=== PATIENT | female | born 1995 | race Hispanic/Latino ===

== ENCOUNTER 2019-04-21 11:18 | Inpatient (IN) | payer OTHER ==
[~2019-04-21] VITALS: Ht 152.4 cm; Wt 63.5 kg
[~2019-04-21 11:18] MED LIST: FERROUS SULFAT324 MG
[2019-04-21] MEDS ORDERED: ONDANSETRON HCL INJ 2MG/ML 2ML 2 MG/ML VIAL IV STA ×2 (11:22→12:47)
--- OUTSIDE RECORDS SUMMARY | 2019-04-21 11:22 | XMS REPORT ---
[facility] Address Unknown Phone Unavailable Care Team Providers Care Alarm Installer Name Role Phone Unavailable Unavailable Payers Payer Name Policy Type Policy Number Effective Date Expiration Date Problems This patient has no known problems. Allergies, Adverse Reactions, Alerts Allergy Name Allergy Type Status Severity Reaction(s) Onset Date Inactive Date Treating Clinician Comments No Known Allergies DA Active U 2019-02-15 00:00:00 No Known Allergies DA Active U 2019-02-14 00:00:00 Medications This patient has no known medications. Results Test Description Test Time Test Comments Text Results Atomic Results Result Comments CBC W/MANUAL DIFF 2019-02-18 07:00:00 WHITE BLOOD CELL (test code=WBC) 11.2 K/mm3 4.5-12.5 RED BLOOD CELL (test code=RBC) 3.52 mill/mm3 3.7-5.2 HEMOGLOBIN (test code=HGB) 11.9 gram/dL 11.5-15.5 HEMATOCRIT (test code=HCT) 35.1 % 36.0-46.0 MEAN CELL VOLUME (test code=MCV) 99.7 fL 80-98 MEAN CELL HGB (test code=MCH) 33.8 picogram 27.0-33.0 MEAN CELL HGB CONCETRATION (test code=MCHC) 33.9 gram/dL 33.0-36.0 RED CELL DISTRIBUTION WIDTH (test code=RDW) 12.0 % 11.6-16.2 RED CELL DISTRIBUTION WIDTH SD (test code=RDW-SD) 43.9 fL 37.0-51.0 PLATELET COUNT (test code=PLT) 284 K/mm3 150-450 MEAN PLATELET VOLUME (test code=MPV) 10.3 fL 6.7-11.0 IMMATURE GRANULOCYTE % (test code=IG%) 0.4 % 0.0-5.0 NUCLEATED RBC % (test code=NRBC%) 0.0 % 0-0 NEUTROPHIL # (test code=NT#) 5.42 K/mm3 1.8-7.7 IMMATURE GRANULOCYTE # (test code=IG#) 0.04 x10 3/uL 0-0.03 LYMPHOCYTE # (test code=LY#) 2.67 K/mm3 1.0-5.0 MONOCYTE # (test code=MO#) 0.68 K/mm3 0-0.8 EOSINOPHIL # (test code=EO#) 2.36 K/mm3 0.0-0.5 BASOPHIL # (test code=BA#) 0.06 K/mm3 0.0-0.2 NUCLEATED RBC # (test code=NRBC#) 0.00 K/mm3 0.0-0.1 MANUAL DIFF REQUIRED (test code=MDIFF) YES STAIN ACCEPTABILITY (test code=STN ACCEPTABLE) STAIN ACCEPTABLE TOTAL CELLS COUNTED (test code=TCC) 113 #CELLS SEGMENTED NEUTROPHILS (test code=SEG) 65.5 % 39-69 BAND NEUTROPHIL (test code=BAND) 0 % 0-10 LYMPHOCYTE (test code=LYMPH) 15.0 % 25-55 REACTIVE LYMPH (test code=RELYMPH) 0 % MONOCYTE (test code=MON) 0 % 0-10 EOSINOPHIL (test code=EOS) 19.5 % 0.0-5.0 BASOPHIL (test code=BASO) 0 % 0-1.0 METAMYELOCYTE (test code=META) 0 % 0-0 MYELOCYTE (test code=MYELO) 0 % 0.0-0.0 PROMYELOCYTE (test code=PROM) 0 % 0-0 MORPHOLOGY COMMENT (test code=MOC) NORMAL PLATELET ESTIMATE (test code=PLTEST) ADEQUATE PLATELET MORPHOLOGY (test code=PLTMORPH) NORMAL IMMATURE FORMS (test code=IMMAT) 0 % 0-0 BASIC METABOLIC [id number] 06:48:00* Test Item Value Reference Range Comments SODIUM (test code=NA) 144 mmol/L 136-145 POTASSIUM (test code=K) 4.3 mmol/L 3.5-5.1 CHLORIDE (test code=CL) 111.0 mmol/L 98-107 CARBON DIOXIDE (test code=CO2) 24.0 mmol/L 21-32 ANION GAP (test code=GAP) 13.3 10-20 GLUCOSE (test code=GLU) 95 mg/dL 74-106 BLOOD UREA NITROGEN (test code=BUN) 6 mg/dL 7-18 GLOMERULAR FILTRATION RATE (test code=GFR) > 60 mL/min >=60 Estimated GFR by using Modified MDRD formula.Chronic kidney disease is defined as either kidney damageor GFR <60 mL/min/1.73 m2 for >3 months. CREATININE (test code=CREAT) 0.60 mg/dL 0.55-1.02 Note change in reference range due to change in reagent. BUN/CREATININE RATIO (test code=BUN/CREA) 9.7 10-20 CALCIUM (test code=CA) 8.7 mg/dL 8.5-10.1 BASIC METABOLIC [id number] 06:42:00* Test Item Value Reference Range Comments SODIUM (test code=NA) 144 mmol/L 136-145 POTASSIUM (test code=K) 4.3 mmol/L 3.5-5.1 CHLORIDE (test code=CL) 111.0 mmol/L 98-107 CARBON DIOXIDE (test code=CO2) mmol/L 21-32 ANION GAP (test code=GAP) 10-20 GLUCOSE (test code=GLU) mg/dL 74-106 BLOOD UREA NITROGEN (test code=BUN) mg/dL 7-18 GLOMERULAR FILTRATION RATE (test code=GFR) mL/min >=60 CREATININE (test code=CREAT) mg/dL 0.55-1.02 BUN/CREATININE RATIO (test code=BUN/CREA) 10-20 CALCIUM (test code=CA) mg/dL 8.5-10.1 CBC W/MANUAL [id number] 06:35:00* Test Item Value Reference Range Comments WHITE BLOOD CELL (test code=WBC) 11.2 K/mm3 4.5-12.5 RED BLOOD CELL (test code=RBC) 3.52 mill/mm3 3.7-5.2 HEMOGLOBIN (test code=HGB) 11.9 gram/dL 11.5-15.5 HEMATOCRIT (test code=HCT) 35.1 % 36.0-46.0 MEAN CELL VOLUME (test code=MCV) 99.7 fL 80-98 MEAN CELL HGB (test code=MCH) 33.8 picogram 27.0-33.0 MEAN CELL HGB CONCETRATION (test code=MCHC) 33.9 gram/dL 33.0-36.0 RED CELL DISTRIBUTION WIDTH (test code=RDW) 12.0 % 11.6-16.2 RED CELL DISTRIBUTION WIDTH SD (test code=RDW-SD) 43.9 fL 37.0-51.0 PLATELET COUNT (test code=PLT) 284 K/mm3 150-450 MEAN PLATELET VOLUME (test code=MPV) 10.3 fL 6.7-11.0 IMMATURE GRANULOCYTE % (test code=IG%) 0.4 % 0.0-5.0 NUCLEATED RBC % (test code=NRBC%) 0.0 % 0-0 NEUTROPHIL # (test code=NT#) 5.42 K/mm3 1.8-7.7 IMMATURE GRANULOCYTE # (test code=IG#) 0.04 x10 3/uL 0-0.03 LYMPHOCYTE # (test code=LY#) 2.67 K/mm3 1.0-5.0 MONOCYTE # (test code=MO#) 0.68 K/mm3 0-0.8 EOSINOPHIL # (test code=EO#) 2.36 K/mm3 0.0-0.5 BASOPHIL # (test code=BA#) 0.06 K/mm3 0.0-0.2 NUCLEATED RBC # (test code=NRBC#) 0.00 K/mm3 0.0-0.1 MANUAL DIFF REQUIRED (test code=MDIFF) YES STAIN ACCEPTABILITY (test code=STN ACCEPTABLE) TOTAL CELLS COUNTED (test code=TCC) #CELLS SEGMENTED NEUTROPHILS (test code=SEG) % 39-69 LYMPHOCYTE (test code=LYMPH) % 25-55 MONOCYTE (test code=MON) % 0-10 EOSINOPHIL (test code=EOS) % 0.0-5.0 CABOT RINGS (test code=CAB) MORPHOLOGY COMMENT (test code=MOC) PLATELET ESTIMATE (test code=PLTEST) PLATELET MORPHOLOGY (test code=PLTMORPH) CBC W/MANUAL [id number] 06:35:00* Test Item Value Reference Range Comments WHITE BLOOD CELL (test code=WBC) 11.2 K/mm3 4.5-12.5 RED BLOOD CELL (test code=RBC) 3.52 mill/mm3 3.7-5.2 HEMOGLOBIN (test code=HGB) 11.9 gram/dL 11.5-15.5 HEMATOCRIT (test code=HCT) 35.1 % 36.0-46.0 MEAN CELL VOLUME (test code=MCV) 99.7 fL 80-98 MEAN CELL HGB (test code=MCH) 33.8 picogram 27.0-33.0 MEAN CELL HGB CONCETRATION (test code=MCHC) 33.9 gram/dL 33.0-36.0 RED CELL DISTRIBUTION WIDTH (test code=RDW) 12.0 % 11.6-16.2 RED CELL DISTRIBUTION WIDTH SD (test code=RDW-SD) 43.9 fL 37.0-51.0 PLATELET COUNT (test code=PLT) 284 K/mm3 150-450 MEAN PLATELET VOLUME (test code=MPV) 10.3 fL 6.7-11.0 IMMATURE GRANULOCYTE % (test code=IG%) 0.4 % 0.0-5.0 NUCLEATED RBC % (test code=NRBC%) 0.0 % 0-0 NEUTROPHIL # (test code=NT#) 5.42 K/mm3 1.8-7.7 IMMATURE GRANULOCYTE # (test code=IG#) 0.04 x10 3/uL 0-0.03 LYMPHOCYTE # (test code=LY#) 2.67 K/mm3 1.0-5.0 MONOCYTE # (test code=MO#) 0.68 K/mm3 0-0.8 EOSINOPHIL # (test code=EO#) 2.36 K/mm3 0.0-0.5 BASOPHIL # (test code=BA#) 0.06 K/mm3 0.0-0.2 NUCLEATED RBC # (test code=NRBC#) 0.00 K/mm3 0.0-0.1 MANUAL DIFF REQUIRED (test code=MDIFF) YES STAIN ACCEPTABILITY (test code=STN ACCEPTABLE) TOTAL CELLS COUNTED (test code=TCC) #CELLS SEGMENTED NEUTROPHILS (test code=SEG) % 39-69 LYMPHOCYTE (test code=LYMPH) % 25-55 MONOCYTE (test code=MON) % 0-10 EOSINOPHIL (test code=EOS) % 0.0-5.0 CABOT RINGS (test code=CAB) MORPHOLOGY COMMENT (test code=MOC) PLATELET ESTIMATE (test code=PLTEST) PLATELET MORPHOLOGY (test code=PLTMORPH) CBC W/MANUAL [id number] 06:35:00* Test Item Value Reference Range Comments WHITE BLOOD CELL (test code=WBC) 11.2 K/mm3 4.5-12.5 RED BLOOD CELL (test code=RBC) 3.52 mill/mm3 3.7-5.2 HEMOGLOBIN (test code=HGB) 11.9 gram/dL 11.5-15.5 HEMATOCRIT (test code=HCT) 35.1 % 36.0-46.0 MEAN CELL VOLUME (test code=MCV) 99.7 fL 80-98 MEAN CELL HGB (test code=MCH) 33.8 picogram 27.0-33.0 MEAN CELL HGB CONCETRATION (test code=MCHC) 33.9 gram/dL 33.0-36.0 RED CELL DISTRIBUTION WIDTH (test code=RDW) 12.0 % 11.6-16.2 RED CELL DISTRIBUTION WIDTH SD (test code=RDW-SD) 43.9 fL 37.0-51.0 PLATELET COUNT (test code=PLT) 284 K/mm3 150-450 MEAN PLATELET VOLUME (test code=MPV) 10.3 fL 6.7-11.0 IMMATURE GRANULOCYTE % (test code=IG%) 0.4 % 0.0-5.0 NUCLEATED RBC % (test code=NRBC%) 0.0 % 0-0 NEUTROPHIL # (test code=NT#) 5.42 K/mm3 1.8-7.7 IMMATURE GRANULOCYTE # (test code=IG#) 0.04 x10 3/uL 0-0.03 LYMPHOCYTE # (test code=LY#) 2.67 K/mm3 1.0-5.0 MONOCYTE # (test code=MO#) 0.68 K/mm3 0-0.8 EOSINOPHIL # (test code=EO#) 2.36 K/mm3 0.0-0.5 BASOPHIL # (test code=BA#) 0.06 K/mm3 0.0-0.2 NUCLEATED RBC # (test code=NRBC#) 0.00 K/mm3 0.0-0.1 MANUAL DIFF REQUIRED (test code=MDIFF) YES STAIN ACCEPTABILITY (test code=STN ACCEPTABLE) TOTAL CELLS COUNTED (test code=TCC) #CELLS SEGMENTED NEUTROPHILS (test code=SEG) % 39-69 LYMPHOCYTE (test code=LYMPH) % 25-55 MONOCYTE (test code=MON) % 0-10 EOSINOPHIL (test code=EOS) % 0.0-5.0 MORPHOLOGY COMMENT (test code=MOC) PLATELET ESTIMATE (test code=PLTEST) PLATELET MORPHOLOGY (test code=PLTMORPH) CBC W/MANUAL [id number] 06:35:00* Test Item Value Reference Range Comments WHITE BLOOD CELL (test code=WBC) 11.2 K/mm3 4.5-12.5 RED BLOOD CELL (test code=RBC) 3.52 mill/mm3 3.7-5.2 HEMOGLOBIN (test code=HGB) 11.9 gram/dL 11.5-15.5 HEMATOCRIT (test code=HCT) 35.1 % 36.0-46.0 MEAN CELL VOLUME (test code=MCV) 99.7 fL 80-98 MEAN CELL HGB (test code=MCH) 33.8 picogram 27.0-33.0 MEAN CELL HGB CONCETRATION (test code=MCHC) 33.9 gram/dL 33.0-36.0 RED CELL DISTRIBUTION WIDTH (test code=RDW) 12.0 % 11.6-16.2 RED CELL DISTRIBUTION WIDTH SD (test code=RDW-SD) 43.9 fL 37.0-51.0 PLATELET COUNT (test code=PLT) 284 K/mm3 150-450 MEAN PLATELET VOLUME (test code=MPV) 10.3 fL 6.7-11.0 IMMATURE GRANULOCYTE % (test code=IG%) 0.4 % 0.0-5.0 NUCLEATED RBC % (test code=NRBC%) 0.0 % 0-0 NEUTROPHIL # (test code=NT#) 5.42 K/mm3 1.8-7.7 IMMATURE GRANULOCYTE # (test code=IG#) 0.04 x10 3/uL 0-0.03 LYMPHOCYTE # (test code=LY#) 2.67 K/mm3 1.0-5.0 MONOCYTE # (test code=MO#) 0.68 K/mm3 0-0.8 EOSINOPHIL # (test code=EO#) 2.36 K/mm3 0.0-0.5 BASOPHIL # (test code=BA#) 0.06 K/mm3 0.0-0.2 NUCLEATED RBC # (test code=NRBC#) 0.00 K/mm3 0.0-0.1 MANUAL DIFF REQUIRED (test code=MDIFF) YES STAIN ACCEPTABILITY (test code=STN ACCEPTABLE) TOTAL CELLS COUNTED (test code=TCC) #CELLS SEGMENTED NEUTROPHILS (test code=SEG) % 39-69 LYMPHOCYTE (test code=LYMPH) % 25-55 MONOCYTE (test code=MON) % 0-10 MORPHOLOGY COMMENT (test code=MOC) PLATELET ESTIMATE (test code=PLTEST) PLATELET MORPHOLOGY (test code=PLTMORPH) CBC W/MANUAL [id number] 06:35:00* Test Item Value Reference Range Comments WHITE BLOOD CELL (test code=WBC) 11.2 K/mm3 4.5-12.5 RED BLOOD CELL (test code=RBC) 3.52 mill/mm3 3.7-5.2 HEMOGLOBIN (test code=HGB) 11.9 gram/dL 11.5-15.5 HEMATOCRIT (test code=HCT) 35.1 % 36.0-46.0 MEAN CELL VOLUME (test code=MCV) 99.7 fL 80-98 MEAN CELL HGB (test code=MCH) 33.8 picogram 27.0-33.0 MEAN CELL HGB CONCETRATION (test code=MCHC) 33.9 gram/dL 33.0-36.0 RED CELL DISTRIBUTION WIDTH (test code=RDW) 12.0 % 11.6-16.2 RED CELL DISTRIBUTION WIDTH SD (test code=RDW-SD) 43.9 fL 37.0-51.0 PLATELET COUNT (test code=PLT) 284 K/mm3 150-450 MEAN PLATELET VOLUME (test code=MPV) 10.3 fL 6.7-11.0 IMMATURE GRANULOCYTE % (test code=IG%) 0.4 % 0.0-5.0 NUCLEATED RBC % (test code=NRBC%) 0.0 % 0-0 NEUTROPHIL # (test code=NT#) 5.42 K/mm3 1.8-7.7 IMMATURE GRANULOCYTE # (test code=IG#) 0.04 x10 3/uL 0-0.03 LYMPHOCYTE # (test code=LY#) 2.67 K/mm3 1.0-5.0 MONOCYTE # (test code=MO#) 0.68 K/mm3 0-0.8 EOSINOPHIL # (test code=EO#) 2.36 K/mm3 0.0-0.5 BASOPHIL # (test code=BA#) 0.06 K/mm3 0.0-0.2 NUCLEATED RBC # (test code=NRBC#) 0.00 K/mm3 0.0-0.1 MANUAL DIFF REQUIRED (test code=MDIFF) YES STAIN ACCEPTABILITY (test code=STN ACCEPTABLE) TOTAL CELLS COUNTED (test code=TCC) #CELLS SEGMENTED NEUTROPHILS (test code=SEG) % 39-69 LYMPHOCYTE (test code=LYMPH) % 25-55 MONOCYTE (test code=MON) % 0-10 EOSINOPHIL (test code=EOS) % 0.0-5.0 CABOT RINGS (test code=CAB) MORPHOLOGY COMMENT (test code=MOC) PLATELET ESTIMATE (test code=PLTEST) PLATELET MORPHOLOGY (test code=PLTMORPH) CBC W/AUTO [id number] 06:16:00* Test Item Value Reference Range Comments WHITE BLOOD CELL (test code=WBC) K/mm3 4.5-12.5 RED BLOOD CELL (test code=RBC) mill/mm3 3.7-5.2 HEMOGLOBIN (test code=HGB) 11.9 gram/dL 11.5-15.5 HEMATOCRIT (test code=HCT) % 36.0-46.0 MEAN CELL VOLUME (test code=MCV) fL 80-98 MEAN CELL HGB (test code=MCH) picogram 27.0-33.0 MEAN CELL HGB CONCETRATION (test code=MCHC) gram/dL 33.0-36.0 RED CELL DISTRIBUTION WIDTH (test code=RDW) % 11.6-16.2 RED CELL DISTRIBUTION WIDTH SD (test code=RDW-SD) fL 37.0-51.0 PLATELET COUNT (test code=PLT) K/mm3 150-450 MEAN PLATELET VOLUME (test code=MPV) fL 6.7-11.0 NEUTROPHIL % (test code=NT%) % 39.0-69.0 IMMATURE GRANULOCYTE % (test code=IG%) % 0.0-5.0 LYMPHOCYTE % (test code=LY%) % 25.0-55.0 MONOCYTE % (test code=MO%) % 0.0-10.0 EOSINOPHIL % (test code=EO%) % 0.0-5.0 BASOPHIL % (test code=BA%) % 0.0-1.0 NEUTROPHIL # (test code=NT#) K/mm3 1.8-7.7 LYMPHOCYTE # (test code=LY#) K/mm3 1.0-5.0 MONOCYTE # (test code=MO#) K/mm3 0-0.8 EOSINOPHIL # (test code=EO#) K/mm3 0.0-0.5 BASOPHIL # (test code=BA#) K/mm3 0.0-0.2 CBC W/MANUAL [id number] 07:27:00* Test Item Value Reference Range Comments WHITE BLOOD CELL (test code=WBC) 12.9 K/mm3 4.5-12.5 RED BLOOD CELL (test code=RBC) 3.61 mill/mm3 3.7-5.2 HEMOGLOBIN (test code=HGB) 12.1 gram/dL 11.5-15.5 HEMATOCRIT (test code=HCT) 35.8 % 36.0-46.0 MEAN CELL VOLUME (test code=MCV) 99.2 fL 80-98 MEAN CELL HGB (test code=MCH) 33.5 picogram 27.0-33.0 MEAN CELL HGB CONCETRATION (test code=MCHC) 33.8 gram/dL 33.0-36.0 RED CELL DISTRIBUTION WIDTH (test code=RDW) 11.9 % 11.6-16.2 RED CELL DISTRIBUTION WIDTH SD (test code=RDW-SD) 43.2 fL 37.0-51.0 PLATELET COUNT (test code=PLT) 277 K/mm3 150-450 MEAN PLATELET VOLUME (test code=MPV) 10.3 fL 6.7-11.0 IMMATURE GRANULOCYTE % (test code=IG%) 0.5 % 0.0-5.0 NUCLEATED RBC % (test code=NRBC%) 0.0 % 0-0 NEUTROPHIL # (test code=NT#) 6.99 K/mm3 1.8-7.7 IMMATURE GRANULOCYTE # (test code=IG#) 0.07 x10 3/uL 0-0.03 LYMPHOCYTE # (test code=LY#) 2.77 K/mm3 1.0-5.0 MONOCYTE # (test code=MO#) 0.77 K/mm3 0-0.8 EOSINOPHIL # (test code=EO#) 2.21 K/mm3 0.0-0.5 BASOPHIL # (test code=BA#) 0.05 K/mm3 0.0-0.2 NUCLEATED RBC # (test code=NRBC#) 0.00 K/mm3 0.0-0.1 MANUAL DIFF REQUIRED (test code=MDIFF) YES STAIN ACCEPTABILITY (test code=STN ACCEPTABLE) STAIN ACCEPTABLE TOTAL CELLS COUNTED (test code=TCC) 114 #CELLS SEGMENTED NEUTROPHILS (test code=SEG) 65.8 % 39-69 BAND NEUTROPHIL (test code=BAND) 0 % 0-10 LYMPHOCYTE (test code=LYMPH) 20.2 % 25-55 REACTIVE LYMPH (test code=RELYMPH) 0 % MONOCYTE (test code=MON) 2.6 % 0-10 EOSINOPHIL (test code=EOS) 11.4 % 0.0-5.0 BASOPHIL (test code=BASO) 0 % 0-1.0 METAMYELOCYTE (test code=META) 0 % 0-0 MYELOCYTE (test code=MYELO) 0 % 0.0-0.0 PROMYELOCYTE (test code=PROM) 0 % 0-0 POLYCHROMASIA (test code=POLC) 1+ PLATELET ESTIMATE (test code=PLTEST) ADEQUATE PLATELET MORPHOLOGY (test code=PLTMORPH) NORMAL IMMATURE FORMS (test code=IMMAT) 0 % 0-0 BASIC METABOLIC [id number] 06:50:00* Test Item Value Reference Range Comments SODIUM (test code=NA) 141 mmol/L 136-145 POTASSIUM (test code=K) 4.5 mmol/L 3.5-5.1 CHLORIDE (test code=CL) 111.0 mmol/L 98-107 CARBON DIOXIDE (test code=CO2) 25.0 mmol/L 21-32 ANION GAP (test code=GAP) 9.5 10-20 GLUCOSE (test code=GLU) 73 mg/dL 74-106 BLOOD UREA NITROGEN (test code=BUN) 5 mg/dL 7-18 GLOMERULAR FILTRATION RATE (test code=GFR) > 60 mL/min >=60 Estimated GFR by using Modified MDRD formula.Chronic kidney disease is defined as either kidney damageor GFR <60 mL/min/1.73 m2 for >3 months. CREATININE (test code=CREAT) 0.60 mg/dL 0.55-1.02 Note change in reference range due to change in reagent. BUN/CREATININE RATIO (test code=BUN/CREA) 8.9 10-20 CALCIUM (test code=CA) 8.7 mg/dL 8.5-10.1 BASIC METABOLIC [id number] 06:45:00* Test Item Value Reference Range Comments SODIUM (test code=NA) 141 mmol/L 136-145 POTASSIUM (test code=K) 4.5 mmol/L 3.5-5.1 CHLORIDE (test code=CL) 111.0 mmol/L 98-107 CARBON DIOXIDE (test code=CO2) mmol/L 21-32 ANION GAP (test code=GAP) 10-20 GLUCOSE (test code=GLU) mg/dL 74-106 BLOOD UREA NITROGEN (test code=BUN) mg/dL 7-18 GLOMERULAR FILTRATION RATE (test code=GFR) mL/min >=60 CREATININE (test code=CREAT) mg/dL 0.55-1.02 BUN/CREATININE RATIO (test code=BUN/CREA) 10-20 CALCIUM (test code=CA) mg/dL 8.5-10.1 CBC W/MANUAL [id number] 06:41:00* Test Item Value Reference Range Comments WHITE BLOOD CELL (test code=WBC) 12.9 K/mm3 4.5-12.5 RED BLOOD CELL (test code=RBC) 3.61 mill/mm3 3.7-5.2 HEMOGLOBIN (test code=HGB) 12.1 gram/dL 11.5-15.5 HEMATOCRIT (test code=HCT) 35.8 % 36.0-46.0 MEAN CELL VOLUME (test code=MCV) 99.2 fL 80-98 MEAN CELL HGB (test code=MCH) 33.5 picogram 27.0-33.0 MEAN CELL HGB CONCETRATION (test code=MCHC) 33.8 gram/dL 33.0-36.0 RED CELL DISTRIBUTION WIDTH (test code=RDW) 11.9 % 11.6-16.2 RED CELL DISTRIBUTION WIDTH SD (test code=RDW-SD) 43.2 fL 37.0-51.0 PLATELET COUNT (test code=PLT) 277 K/mm3 150-450 MEAN PLATELET VOLUME (test code=MPV) 10.3 fL 6.7-11.0 IMMATURE GRANULOCYTE % (test code=IG%) 0.5 % 0.0-5.0 NUCLEATED RBC % (test code=NRBC%) 0.0 % 0-0 NEUTROPHIL # (test code=NT#) 6.99 K/mm3 1.8-7.7 IMMATURE GRANULOCYTE # (test code=IG#) 0.07 x10 3/uL 0-0.03 LYMPHOCYTE # (test code=LY#) 2.77 K/mm3 1.0-5.0 MONOCYTE # (test code=MO#) 0.77 K/mm3 0-0.8 EOSINOPHIL # (test code=EO#) 2.21 K/mm3 0.0-0.5 BASOPHIL # (test code=BA#) 0.05 K/mm3 0.0-0.2 NUCLEATED RBC # (test code=NRBC#) 0.00 K/mm3 0.0-0.1 MANUAL DIFF REQUIRED (test code=MDIFF) YES STAIN ACCEPTABILITY (test code=STN ACCEPTABLE) TOTAL CELLS COUNTED (test code=TCC) #CELLS SEGMENTED NEUTROPHILS (test code=SEG) % 39-69 LYMPHOCYTE (test code=LYMPH) % 25-55 MONOCYTE (test code=MON) % 0-10 EOSINOPHIL (test code=EOS) % 0.0-5.0 CABOT RINGS (test code=CAB) MORPHOLOGY COMMENT (test code=MOC) PLATELET ESTIMATE (test code=PLTEST) PLATELET MORPHOLOGY (test code=PLTMORPH) CBC W/MANUAL [id number] 06:41:00* Test Item Value Reference Range Comments WHITE BLOOD CELL (test code=WBC) 12.9 K/mm3 4.5-12.5 RED BLOOD CELL (test code=RBC) 3.61 mill/mm3 3.7-5.2 HEMOGLOBIN (test code=HGB) 12.1 gram/dL 11.5-15.5 HEMATOCRIT (test code=HCT) 35.8 % 36.0-46.0 MEAN CELL VOLUME (test code=MCV) 99.2 fL 80-98 MEAN CELL HGB (test code=MCH) 33.5 picogram 27.0-33.0 MEAN CELL HGB CONCETRATION (test code=MCHC) 33.8 gram/dL 33.0-36.0 RED CELL DISTRIBUTION WIDTH (test code=RDW) 11.9 % 11.6-16.2 RED CELL DISTRIBUTION WIDTH SD (test code=RDW-SD) 43.2 fL 37.0-51.0 PLATELET COUNT (test code=PLT) 277 K/mm3 150-450 MEAN PLATELET VOLUME (test code=MPV) 10.3 fL 6.7-11.0 IMMATURE GRANULOCYTE % (test code=IG%) 0.5 % 0.0-5.0 NUCLEATED RBC % (test code=NRBC%) 0.0 % 0-0 NEUTROPHIL # (test code=NT#) 6.99 K/mm3 1.8-7.7 IMMATURE GRANULOCYTE # (test code=IG#) 0.07 x10 3/uL 0-0.03 LYMPHOCYTE # (test code=LY#) 2.77 K/mm3 1.0-5.0 MONOCYTE # (test code=MO#) 0.77 K/mm3 0-0.8 EOSINOPHIL # (test code=EO#) 2.21 K/mm3 0.0-0.5 BASOPHIL # (test code=BA#) 0.05 K/mm3 0.0-0.2 NUCLEATED RBC # (test code=NRBC#) 0.00 K/mm3 0.0-0.1 MANUAL DIFF REQUIRED (test code=MDIFF) YES STAIN ACCEPTABILITY (test code=STN ACCEPTABLE) TOTAL CELLS COUNTED (test code=TCC) #CELLS SEGMENTED NEUTROPHILS (test code=SEG) % 39-69 LYMPHOCYTE (test code=LYMPH) % 25-55 MONOCYTE (test code=MON) % 0-10 EOSINOPHIL (test code=EOS) % 0.0-5.0 CABOT RINGS (test code=CAB) MORPHOLOGY COMMENT (test code=MOC) PLATELET ESTIMATE (test code=PLTEST) PLATELET MORPHOLOGY (test code=PLTMORPH) CBC W/MANUAL [id number] 06:41:00* Test Item Value Reference Range Comments WHITE BLOOD CELL (test code=WBC) 12.9 K/mm3 4.5-12.5 RED BLOOD CELL (test code=RBC) 3.61 mill/mm3 3.7-5.2 HEMOGLOBIN (test code=HGB) 12.1 gram/dL 11.5-15.5 HEMATOCRIT (test code=HCT) 35.8 % 36.0-46.0 MEAN CELL VOLUME (test code=MCV) 99.2 fL 80-98 MEAN CELL HGB (test code=MCH) 33.5 picogram 27.0-33.0 MEAN CELL HGB CONCETRATION (test code=MCHC) 33.8 gram/dL 33.0-36.0 RED CELL DISTRIBUTION WIDTH (test code=RDW) 11.9 % 11.6-16.2 RED CELL DISTRIBUTION WIDTH SD (test code=RDW-SD) 43.2 fL 37.0-51.0 PLATELET COUNT (test code=PLT) 277 K/mm3 150-450 MEAN PLATELET VOLUME (test code=MPV) 10.3 fL 6.7-11.0 IMMATURE GRANULOCYTE % (test code=IG%) 0.5 % 0.0-5.0 NUCLEATED RBC % (test code=NRBC%) 0.0 % 0-0 NEUTROPHIL # (test code=NT#) 6.99 K/mm3 1.8-7.7 IMMATURE GRANULOCYTE # (test code=IG#) 0.07 x10 3/uL 0-0.03 LYMPHOCYTE # (test code=LY#) 2.77 K/mm3 1.0-5.0 MONOCYTE # (test code=MO#) 0.77 K/mm3 0-0.8 EOSINOPHIL # (test code=EO#) 2.21 K/mm3 0.0-0.5 BASOPHIL # (test code=BA#) 0.05 K/mm3 0.0-0.2 NUCLEATED RBC # (test code=NRBC#) 0.00 K/mm3 0.0-0.1 MANUAL DIFF REQUIRED (test code=MDIFF) YES STAIN ACCEPTABILITY (test code=STN ACCEPTABLE) TOTAL CELLS COUNTED (test code=TCC) #CELLS SEGMENTED NEUTROPHILS (test code=SEG) % 39-69 LYMPHOCYTE (test code=LYMPH) % 25-55 MONOCYTE (test code=MON) % 0-10 EOSINOPHIL (test code=EOS) % 0.0-5.0 MORPHOLOGY COMMENT (test code=MOC) PLATELET ESTIMATE (test code=PLTEST) PLATELET MORPHOLOGY (test code=PLTMORPH) CBC W/MANUAL [id number] 06:41:00* Test Item Value Reference Range Comments WHITE BLOOD CELL (test code=WBC) 12.9 K/mm3 4.5-12.5 RED BLOOD CELL (test code=RBC) 3.61 mill/mm3 3.7-5.2 HEMOGLOBIN (test code=HGB) 12.1 gram/dL 11.5-15.5 HEMATOCRIT (test code=HCT) 35.8 % 36.0-46.0 MEAN CELL VOLUME (test code=MCV) 99.2 fL 80-98 MEAN CELL HGB (test code=MCH) 33.5 picogram 27.0-33.0 MEAN CELL HGB CONCETRATION (test code=MCHC) 33.8 gram/dL 33.0-36.0 RED CELL DISTRIBUTION WIDTH (test code=RDW) 11.9 % 11.6-16.2 RED CELL DISTRIBUTION WIDTH SD (test code=RDW-SD) 43.2 fL 37.0-51.0 PLATELET COUNT (test code=PLT) 277 K/mm3 150-450 MEAN PLATELET VOLUME (test code=MPV) 10.3 fL 6.7-11.0 IMMATURE GRANULOCYTE % (test code=IG%) 0.5 % 0.0-5.0 NUCLEATED RBC % (test code=NRBC%) 0.0 % 0-0 NEUTROPHIL # (test code=NT#) 6.99 K/mm3 1.8-7.7 IMMATURE GRANULOCYTE # (test code=IG#) 0.07 x10 3/uL 0-0.03 LYMPHOCYTE # (test code=LY#) 2.77 K/mm3 1.0-5.0 MONOCYTE # (test code=MO#) 0.77 K/mm3 0-0.8 EOSINOPHIL # (test code=EO#) 2.21 K/mm3 0.0-0.5 BASOPHIL # (test code=BA#) 0.05 K/mm3 0.0-0.2 NUCLEATED RBC # (test code=NRBC#) 0.00 K/mm3 0.0-0.1 MANUAL DIFF REQUIRED (test code=MDIFF) YES STAIN ACCEPTABILITY (test code=STN ACCEPTABLE) TOTAL CELLS COUNTED (test code=TCC) #CELLS SEGMENTED NEUTROPHILS (test code=SEG) % 39-69 LYMPHOCYTE (test code=LYMPH) % 25-55 MONOCYTE (test code=MON) % 0-10 MORPHOLOGY COMMENT (test code=MOC) PLATELET ESTIMATE (test code=PLTEST) PLATELET MORPHOLOGY (test code=PLTMORPH) CBC W/MANUAL [id number] 06:41:00* Test Item Value Reference Range Comments WHITE BLOOD CELL (test code=WBC) 12.9 K/mm3 4.5-12.5 RED BLOOD CELL (test code=RBC) 3.61 mill/mm3 3.7-5.2 HEMOGLOBIN (test code=HGB) 12.1 gram/dL 11.5-15.5 HEMATOCRIT (test code=HCT) 35.8 % 36.0-46.0 MEAN CELL VOLUME (test code=MCV) 99.2 fL 80-98 MEAN CELL HGB (test code=MCH) 33.5 picogram 27.0-33.0 MEAN CELL HGB CONCETRATION (test code=MCHC) 33.8 gram/dL 33.0-36.0 RED CELL DISTRIBUTION WIDTH (test code=RDW) 11.9 % 11.6-16.2 RED CELL DISTRIBUTION WIDTH SD (test code=RDW-SD) 43.2 fL 37.0-51.0 PLATELET COUNT (test code=PLT) 277 K/mm3 150-450 MEAN PLATELET VOLUME (test code=MPV) 10.3 fL 6.7-11.0 IMMATURE GRANULOCYTE % (test code=IG%) 0.5 % 0.0-5.0 NUCLEATED RBC % (test code=NRBC%) 0.0 % 0-0 NEUTROPHIL # (test code=NT#) 6.99 K/mm3 1.8-7.7 IMMATURE GRANULOCYTE # (test code=IG#) 0.07 x10 3/uL 0-0.03 LYMPHOCYTE # (test code=LY#) 2.77 K/mm3 1.0-5.0 MONOCYTE # (test code=MO#) 0.77 K/mm3 0-0.8 EOSINOPHIL # (test code=EO#) 2.21 K/mm3 0.0-0.5 BASOPHIL # (test code=BA#) 0.05 K/mm3 0.0-0.2 NUCLEATED RBC # (test code=NRBC#) 0.00 K/mm3 0.0-0.1 MANUAL DIFF REQUIRED (test code=MDIFF) YES STAIN ACCEPTABILITY (test code=STN ACCEPTABLE) TOTAL CELLS COUNTED (test code=TCC) #CELLS SEGMENTED NEUTROPHILS (test code=SEG) % 39-69 LYMPHOCYTE (test code=LYMPH) % 25-55 MONOCYTE (test code=MON) % 0-10 EOSINOPHIL (test code=EOS) % 0.0-5.0 CABOT RINGS (test code=CAB) MORPHOLOGY COMMENT (test code=MOC) PLATELET ESTIMATE (test code=PLTEST) PLATELET MORPHOLOGY (test code=PLTMORPH) CBC W/AUTO [id number] 06:40:00* Test Item Value Reference Range Comments WHITE BLOOD CELL (test code=WBC) K/mm3 4.5-12.5 RED BLOOD CELL (test code=RBC) mill/mm3 3.7-5.2 HEMOGLOBIN (test code=HGB) 12.1 gram/dL 11.5-15.5 HEMATOCRIT (test code=HCT) % 36.0-46.0 MEAN CELL VOLUME (test code=MCV) fL 80-98 MEAN CELL HGB (test code=MCH) picogram 27.0-33.0 MEAN CELL HGB CONCETRATION (test code=MCHC) gram/dL 33.0-36.0 RED CELL DISTRIBUTION WIDTH (test code=RDW) % 11.6-16.2 RED CELL DISTRIBUTION WIDTH SD (test code=RDW-SD) fL 37.0-51.0 PLATELET COUNT (test code=PLT) K/mm3 150-450 MEAN PLATELET VOLUME (test code=MPV) fL 6.7-11.0 NEUTROPHIL % (test code=NT%) % 39.0-69.0 IMMATURE GRANULOCYTE % (test code=IG%) % 0.0-5.0 LYMPHOCYTE % (test code=LY%) % 25.0-55.0 MONOCYTE % (test code=MO%) % 0.0-10.0 EOSINOPHIL % (test code=EO%) % 0.0-5.0 BASOPHIL % (test code=BA%) % 0.0-1.0 NEUTROPHIL # (test code=NT#) K/mm3 1.8-7.7 LYMPHOCYTE # (test code=LY#) K/mm3 1.0-5.0 MONOCYTE # (test code=MO#) K/mm3 0-0.8 EOSINOPHIL # (test code=EO#) K/mm3 0.0-0.5 BASOPHIL # (test code=BA#) K/mm3 0.0-0.2 LIPID PROFILE (CORONARY RISK)2019-02-16 13:52:00* Test Item Value Reference Range Comments TRIGLYCERIDES (test code=TRIG) 91 mg/dL 20-150 CHOLESTEROL (test code=CHOL) 155 mg/dL 0-200 CHOLESTEROL/HDL RATIO (test code=CHOLHDL) 2.0 RATIO 0-4.9 RISK ASSOCIATED WITH CHOL/HDL RATIOS: Risk Male Female1/2 AVERAGE 3.43 3.27AVERAGE 4.97 4.442X AVERAGE 9.55 7.053X AVERAGE 23.39 11.04 REFERENCE VALUE IS RELATED TO RISK LEVELS ASRECOMMENDED BY THE [facility]. HEART, LUNG, AND BLOOD INST. HDL CHOLESTEROL (test code=HDL) 63 mg/dL 40-60 LIPOPROTEIN LDL (test code=LDL) 87 mg/dL 100-129 Reference Interval: mg/dL mmol/L Optimal <100 <2.6Near/above optimal 100-129 2.6- 3.3Borderline High 130-159 3.4-4.1High 160-189 4.1-4.9Very High >=190 >=4.9=========This LDL result is a direct measurement.========= [id number] 13:40:00* Test Item Value Reference Range Comments ALCOHOL (test code=ALC) < 3 mg/dL 0.0-3.0 INTERPRETIVE DATA NOTE: POSITIVE SCREENING RESULTS SHOULD BE CONSIDERED PRESUMPTIVE.WHEN COLLECTED FOR MEDICAL PURPOSES ONLY. SPECIMEN WILL NOTBE COLLECTED BY CHAIN OF CUSTODY.IF A CONFIRMATION OF POSITIVE RESULTS IS DESIRED, ACONFIRMATION TEST MUST BE REQUESTED BY THE PHYSICIAN AT ANADDITIONAL CHARGE TO THE PATIENT. SPECIMEN COMMENTS: use blood in labDRUGS OF ABUSE SCREEN [id number] 08:31:00* Test Item Value Reference Range Comments UA PH DIPSTICK (test code=KINGA) 6.0 5.0-8.0 URN COCAINE (test code=COCAURN) NEGATIVE <300 ng/mL URN CANNABINOIDS (test code=CANNABURN) NEGATIVE <50 ng/mL URN AMPHETAMINE (test code=AMPHETURN) NEGATIVE <1000 ng/mL URN BARBITURATE (test code=BARBITURN) NEGATIVE <200 ng/mL URN BENZODIAZEPINE (test code=BENZOURN) NEGATIVE <200 ng/mL URN OPIATES (test code=OPIATURN) POSITIVE <300 ng/mL This test provides only a preliminary test result. A morespecific alternate chemical method must be used in order toobtain a confirmed analytical result. Gas chromatography/mass spectrometry (GC/MS) is thepreferred confirmatory method. Other chemical confirmationmethods are available. Clinical consideration and professional judgment should be applied to any drug of abusetest result, particularly when preliminary positive resultsare used.Unconfirmed screening results must not be used fornon-medical purposes (e.g., employment testing, legaltesting). URN PHENCYCLIDINE (PCP) (test code=PHENCURN) NEGATIVE <25 ng/mL URN METHADONE (test code=METHAURN) NEGATIVE <300 ng/mL DRUGS OF ABUSE SCREEN [id number] 08:21:00* Test Item Value Reference Range Comments UA PH DIPSTICK (test code=KINGA) 5.0-8.0 URN COCAINE (test code=COCAURN) NEGATIVE <300 ng/mL URN CANNABINOIDS (test code=CANNABURN) NEGATIVE <50 ng/mL URN AMPHETAMINE (test code=AMPHETURN) NEGATIVE <1000 ng/mL URN BARBITURATE (test code=BARBITURN) NEGATIVE <200 ng/mL URN BENZODIAZEPINE (test code=BENZOURN) NEGATIVE <200 ng/mL URN OPIATES (test code=OPIATURN) POSITIVE <300 ng/mL This test provides only a preliminary test result. A morespecific alternate chemical method must be used in order toobtain a confirmed analytical result. Gas chromatography/mass spectrometry (GC/MS) is thepreferred confirmatory method. Other chemical confirmationmethods are available. Clinical consideration and professional judgment should be applied to any drug of abusetest result, particularly when preliminary positive resultsare used.Unconfirmed screening results must not be used fornon-medical purposes (e.g., employment testing, legaltesting). URN PHENCYCLIDINE (PCP) (test code=PHENCURN) NEGATIVE <25 ng/mL URN METHADONE (test code=METHAURN) NEGATIVE <300 ng/mL DRUGS OF ABUSE SCREEN [id number] 07:59:00* Test Item Value Reference Range Comments UA PH DIPSTICK (test code=KINGA) 5.0-8.0 URN COCAINE (test code=COCAURN) NEGATIVE <300 ng/mL URN CANNABINOIDS (test code=CANNABURN) NEGATIVE <50 ng/mL URN AMPHETAMINE (test code=AMPHETURN) NEGATIVE <1000 ng/mL URN BARBITURATE (test code=BARBITURN) NEGATIVE <200 ng/mL URN BENZODIAZEPINE (test code=BENZOURN) NEGATIVE <200 ng/mL URN OPIATES (test code=OPIATURN) <300 ng/mL URN PHENCYCLIDINE (PCP) (test code=PHENCURN) NEGATIVE <25 ng/mL URN METHADONE (test code=METHAURN) NEGATIVE <300 ng/mL CBC W/AUTO [id number] 07:11:00* Test Item Value Reference Range Comments WHITE BLOOD CELL (test code=WBC) 16.0 K/mm3 4.5-12.5 RED BLOOD CELL (test code=RBC) 3.64 mill/mm3 3.7-5.2 HEMOGLOBIN (test code=HGB) 12.1 gram/dL 11.5-15.5 RESULT VERIFIED BY REPEAT ANALYSIS HEMATOCRIT (test code=HCT) 36.4 % 36.0-46.0 MEAN CELL VOLUME (test code=MCV) 100.0 fL 80-98 MEAN CELL HGB (test code=MCH) 33.2 picogram 27.0-33.0 MEAN CELL HGB CONCETRATION (test code=MCHC) 33.2 gram/dL 33.0-36.0 RED CELL DISTRIBUTION WIDTH (test code=RDW) 12.0 % 11.6-16.2 RED CELL DISTRIBUTION WIDTH SD (test code=RDW-SD) 44.4 fL 37.0-51.0 PLATELET COUNT (test code=PLT) 276 K/mm3 150-450 RESULT VERIFIED BY REPEAT ANALYSIS MEAN PLATELET VOLUME (test code=MPV) 10.2 fL 6.7-11.0 NEUTROPHIL % (test code=NT%) 69.2 % 39.0-69.0 IMMATURE GRANULOCYTE % (test code=IG%) 0.6 % 0.0-5.0 LYMPHOCYTE % (test code=LY%) 13.4 % 25.0-55.0 MONOCYTE % (test code=MO%) 5.2 % 0.0-10.0 EOSINOPHIL % (test code=EO%) 11.4 % 0.0-5.0 BASOPHIL % (test code=BA%) 0.2 % 0.0-1.0 NUCLEATED RBC % (test code=NRBC%) 0.0 % 0-0 NEUTROPHIL # (test code=NT#) 11.08 K/mm3 1.8-7.7 IMMATURE GRANULOCYTE # (test code=IG#) 0.09 x10 3/uL 0-0.03 LYMPHOCYTE # (test code=LY#) 2.14 K/mm3 1.0-5.0 MONOCYTE # (test code=MO#) 0.84 K/mm3 0-0.8 EOSINOPHIL # (test code=EO#) 1.83 K/mm3 0.0-0.5 BASOPHIL # (test code=BA#) 0.04 K/mm3 0.0-0.2 NUCLEATED RBC # (test code=NRBC#) 0.00 K/mm3 0.0-0.1 MANUAL DIFF REQUIRED (test code=MDIFF) NO [id number] 07:08:00* Test Item Value Reference Range Comments LIPASE (test code=LIP) 2852 U/L 73.0-393.0 PROTHROMBIN [id number] 07:04:00* Test Item Value Reference Range Comments PROTHROMBIN TIME PATIENT (test code=PTP) 11.0 seconds 9.0-14.0 INTERNATIONAL NORMAL RATIO (test code=INR) 0.9 0.8-1.2 The therapeutic range for oral anticoagulant therapy formost indications is an international normalized ratio (INR)of between 2.0 and 3.0. The recommended therapeutic INRrange for various clinical situations is listed below: Clinical Situation INR range Pulmonary e mbolism treatment (2.0-3.0)Venous thrombosis treatmentVenous thrombosis prophylaxis (high risk surgery)Prevention of systemic embolism from: Acute myocardial infarction Valvular heart disease Atrial fibrillation Mechanical prosthetic heart valves (2.5-3.5) IS PATIENT ON ANTICOAGULANTS? [id number] 07:01:00* Test Item Value Reference Range Comments GLYCOSYLATED HEMOGLOBIN (HA1C) (test code=GLYHGB) 4.8 % HbA1 4.8-6.0 ESTIMATED AVERAGE GLUCOSE (test code=EAG) 91 MG/DL COMPREHENSIVE METABOLIC [id number] 07:00:00* Test Item Value Reference Range Comments SODIUM (test code=NA) 140 mmol/L 136-145 POTASSIUM (test code=K) 3.9 mmol/L 3.5-5.1 CHLORIDE (test code=CL) 107.0 mmol/L 98-107 CARBON DIOXIDE (test code=CO2) 26.0 mmol/L 21-32 ANION GAP (test code=GAP) 10.9 10-20 GLUCOSE (test code=GLU) 95 mg/dL 74-106 BLOOD UREA NITROGEN (test code=BUN) 10 mg/dL 7-18 GLOMERULAR FILTRATION RATE (test code=GFR) > 60 mL/min >=60 Estimated GFR by using Modified MDRD formula.Chronic kidney disease is defined as either kidney damageor GFR <60 mL/min/1.73 m2 for >3 months. CREATININE (test code=CREAT) 0.80 mg/dL 0.55-1.02 Note change in reference range due to change in reagent. BUN/CREATININE RATIO (test code=BUN/CREA) 12.5 10-20 TOTAL PROTEIN (test code=PROT) 7.1 gram/dL 6.4-8.2 ALBUMIN (test code=ALB) 3.5 g/dL 3.4-5.0 GLOBULIN (test code=GLOB) 3.6 gram/dL 2.7-4.2 ALBUMIN/GLOBULIN RATIO (test code=A/G) 1.0 0.75-1.50 CALCIUM (test code=CA) 8.9 mg/dL 8.5-10.1 BILIRUBIN TOTAL (test code=BILT) 0.50 mg/dL 0.0-1.0 SGOT/AST (test code=AST) 13 IUnit/L 15-37 SGPT/ALT (test code=ALT) 18 IUnit/L 12-78 ALKALINE PHOSPHATASE TOTAL (test code=ALKP) 78 IUnit/L 45-117 Note change in reference range due to change in reagent. Are CHOL,TRIG & HDL ordered? [id number] 07:00:00* Test Item Value Reference Range Comments TRIGLYCERIDES (test code=TRIG) 105 mg/dL 20-150 Are CHOL,TRIG & HDL ordered? [id number] 07:00:00* Test Item Value Reference Range Comments LIPASE (test code=LIP) 6149 U/L 73.0-393.0 Are CHOL,TRIG & HDL ordered? [id number] 07:00:00* Test Item Value Reference Range Comments MAGNESIUM (test code=MAG) 2.0 mg/dL 1.8-2.4 Are CHOL,TRIG & HDL ordered? NOTHYROID STIMULATING [id number] 07:00:00* Test Item Value Reference Range Comments THYROID STIMULATING HORMONE (test code=TSH) 1.650 uIU/mL 0.36-3.74 TSH REFERENCE RANGES: EUTHYROID: 0.35 - 4.3 mIU/mL HYPO : > 5.5 mIU/mL HYPER : < 0.35 mIU/mL Are CHOL,TRIG & HDL ordered? NOCBC W/AUTO [id number] 06:48:00* Test Item Value Reference Range Comments WHITE BLOOD CELL (test code=WBC) 17.5 K/mm3 4.5-12.5 RED BLOOD CELL (test code=RBC) 4.40 mill/mm3 3.7-5.2 HEMOGLOBIN (test code=HGB) 14.4 gram/dL 11.5-15.5 HEMATOCRIT (test code=HCT) 42.8 % 36.0-46.0 MEAN CELL VOLUME (test code=MCV) 97.3 fL 80-98 MEAN CELL HGB (test code=MCH) 32.7 picogram 27.0-33.0 MEAN CELL HGB CONCETRATION (test code=MCHC) 33.6 gram/dL 33.0-36.0 RED CELL DISTRIBUTION WIDTH (test code=RDW) 12.0 % 11.6-16.2 RED CELL DISTRIBUTION WIDTH SD (test code=RDW-SD) 43.6 fL 37.0-51.0 PLATELET COUNT (test code=PLT) 330 K/mm3 150-450 MEAN PLATELET VOLUME (test code=MPV) 10.4 fL 6.7-11.0 NEUTROPHIL % (test code=NT%) 69.9 % 39.0-69.0 IMMATURE GRANULOCYTE % (test code=IG%) 0.5 % 0.0-5.0 LYMPHOCYTE % (test code=LY%) 15.3 % 25.0-55.0 MONOCYTE % (test code=MO%) 5.6 % 0.0-10.0 EOSINOPHIL % (test code=EO%) 8.4 % 0.0-5.0 BASOPHIL % (test code=BA%) 0.3 % 0.0-1.0 NUCLEATED RBC % (test code=NRBC%) 0.0 % 0-0 NEUTROPHIL # (test code=NT#) 12.20 K/mm3 1.8-7.7 IMMATURE GRANULOCYTE # (test code=IG#) 0.08 x10 3/uL 0-0.03 LYMPHOCYTE # (test code=LY#) 2.68 K/mm3 1.0-5.0 MONOCYTE # (test code=MO#) 0.98 K/mm3 0-0.8 EOSINOPHIL # (test code=EO#) 1.47 K/mm3 0.0-0.5 BASOPHIL # (test code=BA#) 0.05 K/mm3 0.0-0.2 NUCLEATED RBC # (test code=NRBC#) 0.00 K/mm3 0.0-0.1 COMPREHENSIVE METABOLIC [id number] 06:42:00* Test Item Value Reference Range Comments SODIUM (test code=NA) 140 mmol/L 136-145 POTASSIUM (test code=K) 3.9 mmol/L 3.5-5.1 CHLORIDE (test code=CL) 107.0 mmol/L 98-107 CARBON DIOXIDE (test code=CO2) mmol/L 21-32 ANION GAP (test code=GAP) 10-20 GLUCOSE (test code=GLU) mg/dL 74-106 BLOOD UREA NITROGEN (test code=BUN) mg/dL 7-18 GLOMERULAR FILTRATION RATE (test code=GFR) mL/min >=60 CREATININE (test code=CREAT) mg/dL 0.55-1.02 BUN/CREATININE RATIO (test code=BUN/CREA) 10-20 TOTAL PROTEIN (test code=PROT) gram/dL 6.4-8.2 ALBUMIN (test code=ALB) g/dL 3.4-5.0 GLOBULIN (test code=GLOB) gram/dL 2.7-4.2 ALBUMIN/GLOBULIN RATIO (test code=A/G) 0.75-1.50 CALCIUM (test code=CA) mg/dL 8.5-10.1 BILIRUBIN TOTAL (test code=BILT) mg/dL 0.0-1.0 SGOT/AST (test code=AST) IUnit/L 15-37 SGPT/ALT (test code=ALT) IUnit/L 12-78 ALKALINE PHOSPHATASE TOTAL (test code=ALKP) IUnit/L 45-117 Are CHOL,TRIG & HDL ordered? [id number] 06:42:00* Test Item Value Reference Range Comments TRIGLYCERIDES (test code=TRIG) mg/dL 20-150 Are CHOL,TRIG & HDL ordered? [id number] 06:42:00* Test Item Value Reference Range Comments LIPASE (test code=LIP) U/L 73.0-393.0 Are CHOL,TRIG & HDL ordered? [id number] 06:42:00* Test Item Value Reference Range Comments MAGNESIUM (test code=MAG) mg/dL 1.8-2.4 Are CHOL,TRIG & HDL ordered? NOTHYROID STIMULATING [id number] 06:42:00* Test Item Value Reference Range Comments THYROID STIMULATING HORMONE (test code=TSH) uIU/mL 0.36-3.74 Are CHOL,TRIG & HDL ordered? NO- CT ABD PELVIS [id number] 23:12:00 Name: RADHA HAMLIN [facility] : 1995 Age/S: 23 / F [address] [facility] Unit #: [id number] Loc: [place] [address] Phys: Tohrnton MD Acct: [id number] Di s Date: Status: REG ER PHONE #: Exam Date: 02/14/20192303 FAX #: Reason: Abdominal pain EXAMS: CPT CODE: [id number] CT ABD PELVIS W/CONT 45594 EXAM: - CT ABD PELVIS W/ CONT HISTORY: Abdominal pain. TECHNIQUE: Axial tomog jeffrey through the abdomen and pelvis were obtained after intravenous contra st. Coronal and sagittal reformatted images are provided. This exa m was performed according to our departmental dose-optimization program, w hich includes automated exposure control, adjustment of the mA and/or kV a ccording to patient size and/or use of iterative reconstruction technique. COMPARISON: None available time of interpretation. FINDINGS: The visualized lung bases are clear. No pleural effusion . There is acute inflammation and fluid around the head portion of the pancreas. No necrotic or cystic changes are noted in the pancreas. The gallbladder is normally distended. The liver, spleen, adre nal glands and kidneys demonstrate no significant abnormalities. The appendix has a normal appearance. The bowel is unremarkable. There is no adenopathy or free fluid. There is no acute osseous abnormality. IMPRESSION: Acute panc reatitis. a t 2312 Reported and signed by: Rafal Gerard MD PAGE 1 Signed Report (CONTINUED) Name: RADHA HAMLIN [facility] : 1995 Age/S: 23 / F [address] [facility] Unit #: [id number] Loc: [place] [address] Phys: Massimo Ram MD Acct: [id number] Dis Date: Status: REG ER PHONE #: Exam Date: 02/14/2019 230 FAX #: Reason: Abdominal pain EXAMS: CPT CODE: [id number] CT ABD PELVIS W /CONT [id number] <Continued> CC: Andi Ram MD; Benjamin Saenz MD Technologist:LIZABETH CARRILLO RT(R),CT CTDI: DLP: Trnscb Date/Time: 02/14/2019 (2312) [id number] Orig Print D/T: S: 02/14/2019 (9777) PAGE 2 Signed Report - XR ABDOMEN [id number] 22:15:00 Name: RADHA HAMLIN [facility] : 1995 Age/S:23 /F [address] [facility] Unit#:[id number] Loc: [place] [address] Phys: Andi Ram MD Dis Date: PHONE #: [phone] Status: REG ER FAX #: [phone] Exam Date: 02/14/2019 Reason: Abdominal pain EXAMS: CPT CODE: [id number] XR ABDOMEN 2V 74311 EXAM: Abdomen, 3 views including upright study; INFORMATION: Abdominal pain; IMPRESSION: 1. Unremarkable bowel gas pattern; no evidence of obstruction; no evidence of pneumoperitoneum or other acute abnormalities. 2. No abnormal calcifications. at 2215 Reported and signed by: Ari Walsh M.D. CC: Andi Ram MD; Benjamin Saenz MD Technologist: LIZABETH CARRILLO RT(R),CT Trnscrpt Data: 02/14/2019 (2215) KeeGRW Orig Print D/T: S: 02/14/2019 (0581) PAGE 1 Signed Report BASIC METABOLIC [id number] 21:10:00* Test Item Value Reference Range Comments SODIUM (test code=NA) 139 mmol/L 136-145 POTASSIUM (test code=K) 3.6 mmol/L 3.5-5.1 CHLORIDE (test code=CL) 103 mmol/L 101-109 CARBON DIOXIDE (test code=CO2) 24.7 mmol/L 21-32 ANION GAP (test code=GAP) 15 mmol/L 10-20 GLUCOSE (test code=GLU) 117 mg/dL 74-106 BLOOD UREA NITROGEN (test code=BUN) 12 mg/dL 3-21 GLOMERULAR FILTRATION RATE (test code=GFR) > 60 mL/min >=60 Estimated GFR by using Modified MDRD formula.Chronic kidney disease is defined as either kidney damageor GFR <60 mL/min/1.73 m2 for >3 months. CREATININE (test code=CREAT) 0.88 mg/dL 0.55-1.3 BUN/CREATININE RATIO (test code=BUN/CREA) 13.6 10-20 CALCIUM (test code=CA) 8.7 mg/dL 8.4-10.2 HEPATIC FUNCTION [id number] 21:10:00* Test Item Value Reference Range Comments TOTAL PROTEIN (test code=PROT) 7.6 g/dL 6.5-8.4 ALBUMIN (test code=ALB) 3.9 g/dL 3.4-4.8 GLOBULIN (test code=GLOB) 3.7 G/DL 1-10 ALBUMIN/GLOBULIN RATIO (test code=A/G) 1.05 RATIO 0.75-1.50 BILIRUBIN TOTAL (test code=BILT) 0.70 mg/dL 0.0-1.0 BILIRUBIN DIRECT (test code=BILD) 0.20 mg/dL 0.0-0.30 SGOT/AST (test code=AST) 17 U/L 6-32 SGPT/ALT (test code=ALT) 21 U/L 12-78 Note: Change in REFERENCE RANGE due to new reagent method. ALKALINE PHOSPHATASE TOTAL (test code=ALKP) 83 U/L 38-126 [id number] 21:10:00* Test Item Value Reference Range Comments LIPASE (test code=LIP) 6276 U/L 128-270 HCG SERUM [id number] 21:10:00* Test Item Value Reference Range Comments HCG SERUM QUAL (test code=HCGQL) NEGATIVE NEGATIVE This HCGQL test is NOT applicable for MALE patients.Check with nurse about probable order error.If Tumor Marker Test needed, nurse should order test "HCGTU"(Test #550.59467) BASIC METABOLIC [id number] 21:05:00* Test Item Value Reference Range Comments SODIUM (test code=NA) 139 mmol/L 136-145 POTASSIUM (test code=K) 3.6 mmol/L 3.5-5.1 CHLORIDE (test code=CL) 103 mmol/L 101-109 CARBON DIOXIDE (test code=CO2) 24.7 mmol/L 21-32 ANION GAP (test code=GAP) 15 mmol/L 10-20 GLUCOSE (test code=GLU) 117 mg/dL 74-106 BLOOD UREA NITROGEN (test code=BUN) 12 mg/dL 3-21 GLOMERULAR FILTRATION RATE (test code=GFR) > 60 mL/min >=60 Estimated GFR by using Modified MDRD formula.Chronic kidney disease is defined as either kidney damageor GFR <60 mL/min/1.73 m2 for >3 months. CREATININE (test code=CREAT) 0.88 mg/dL 0.55-1.3 BUN/CREATININE RATIO (test code=BUN/CREA) 13.6 10-20 CALCIUM (test code=CA) 8.7 mg/dL 8.4-10.2 HEPATIC FUNCTION [id number] 21:05:00* Test Item Value Reference Range Comments TOTAL PROTEIN (test code=PROT) gram/dL 6.4-8.2 ALBUMIN (test code=ALB) g/dL 3.4-5.0 GLOBULIN (test code=GLOB) g/dL 2.7-4.2 ALBUMIN/GLOBULIN RATIO (test code=A/G) 0.75-1.50 BILIRUBIN TOTAL (test code=BILT) mg/dL 0.2-1.2 BILIRUBIN DIRECT (test code=BILD) mg/dL 0.0-0.20 SGOT/AST (test code=AST) IUnit/L 15-37 SGPT/ALT (test code=ALT) U/L 10-69 ALKALINE PHOSPHATASE TOTAL (test code=ALKP) IUnit/L 45-117 [id number] 21:05:00* Test Item Value Reference Range Comments LIPASE (test code=LIP) Unit/L 144-286 HCG SERUM [id number] 21:05:00* Test Item Value Reference Range Comments HCG SERUM QUAL (test code=HCGQL) NEGATIVE NEGATIVE This HCGQL test is NOT applicable for MALE patients.Check with nurse about probable order error.If Tumor Marker Test needed, nurse should order test "HCGTU"(Test #550.82026) BASIC METABOLIC [id number] 21:03:00* Test Item Value Reference Range Comments SODIUM (test code=NA) mmol/L 135-148 POTASSIUM (test code=K) mmol/L 3.5-5.1 CHLORIDE (test code=CL) mmol/L 101-109 CARBON DIOXIDE (test code=CO2) mmol/L 21-32 ANION GAP (test code=GAP) mmol/L 10-20 GLUCOSE (test code=GLU) mg/dL 74-106 BLOOD UREA NITROGEN (test code=BUN) mg/dL 3-21 GLOMERULAR FILTRATION RATE (test code=GFR) mL/min >=60 CREATININE (test code=CREAT) mg/dL 0.55-1.3 BUN/CREATININE RATIO (test code=BUN/CREA) 10-20 CALCIUM (test code=CA) mg/dL 8.4-10.2 HEPATIC FUNCTION [id number] 21:03:00* Test Item Value Reference Range Comments TOTAL PROTEIN (test code=PROT) gram/dL 6.4-8.2 ALBUMIN (test code=ALB) g/dL 3.4-5.0 GLOBULIN (test code=GLOB) g/dL 2.7-4.2 ALBUMIN/GLOBULIN RATIO (test code=A/G) 0.75-1.50 BILIRUBIN TOTAL (test code=BILT) mg/dL 0.2-1.2 BILIRUBIN DIRECT (test code=BILD) mg/dL 0.0-0.20 SGOT/AST (test code=AST) IUnit/L 15-37 SGPT/ALT (test code=ALT) U/L 10-69 ALKALINE PHOSPHATASE TOTAL (test code=ALKP) IUnit/L 45-117 [id number] 21:03:00* Test Item Value Reference Range Comments LIPASE (test code=LIP) Unit/L 144-286 HCG SERUM [id number] 21:03:00* Test Item Value Reference Range Comments HCG SERUM QUAL (test code=HCGQL) NEGATIVE NEGATIVE This HCGQL test is NOT applicable for MALE patients.Check with nurse about probable order error.If Tumor Marker Test needed, nurse should order test "HCGTU"(Test #550.82410) CBC W/O [id number] 20:54:00* Test Item Value Reference Range Comments WHITE BLOOD CELL (test code=WBC) 17.9 K/mm3 4.5-12.5 RED BLOOD CELL (test code=RBC) 4.52 mill/mm3 3.7-5.2 HEMOGLOBIN (test code=HGB) 15.0 gram/dL 11.5-15.5 HEMATOCRIT (test code=HCT) 44.2 % 36.0-46.0 MEAN CELL VOLUME (test code=MCV) 97.8 fL 80-98 MEAN CELL HGB (test code=MCH) 33.2 picogram 27.0-33.0 MEAN CELL HGB CONCETRATION (test code=MCHC) 33.9 gram/dL 33.0-36.0 RED CELL DISTRIBUTION WIDTH (test code=RDW) 11.7 % 11.6-16.2 RED CELL DISTRIBUTION WIDTH SD (test code=RDW-SD) 43.1 fL 37.0-51.0 PLATELET COUNT (test code=PLT) 368 K/mm3 150-450 MEAN PLATELET VOLUME (test code=MPV) 9.7 fL 6.7-11.0 URINALYSIS [id number] 20:37:00* Test Item Value Reference Range Comments UA COLOR (test code=COLU) DARK YELLOW YELLOW UA APPEARANCE (test code=APPU) HAZY CLEAR UA GLUCOSE DIPSTICK (test code=DGLUU) norm mg/dL NEGATIVE UA BILIRUBIN DIPSTICK (test code=BILU) NEGATIVE mg/dL NEGATIVE UA KETONE DIPSTICK (test code=KETU) neg mg/dL NEGATIVE UA SPECIFIC GRAVITY (test code=SGU) 1.025 1.001-1.035 UA BLOOD DIPSTICK (test code=JAMILA) neg Carlos/uL NEGATIVE UA PH DIPSTICK (test code=KINGA) 5.0 5.0-8.0 UA PROTEIN DIPSTICK (test code=PROU) 15 (TRACE) mg/dL Neg-15 UA UROBILINIOGEN DIPSTICK (test code=URO) norm mg/dL 0.0-0.2 UA NITRITE DIPSTICK (test code=DAVIN) NEGATIVE NEGATIVE UA LEUKOCYTE ESTERASE DIPSTICK (test code=LEUU) neg uL NEGATIVE UA WBC (test code=WBCU) 0-5 per HPF 0-5 UA RBC (test code=RBCU) NONE SEEN per HPF 0-5 UA EPITHELIAL CELLS (test code=EPIU) Moderate (5-10/hpf) per HPF Few UA BACTERIA (test code=BACU) MODERATE per HPF NONE UA MUCUS (test code=MUCU) FEW per LPF NONE-FEW Urine Source? Clean CatchURINALYSIS [id number] 20:29:00* Test Item Value Reference Range Comments UA COLOR (test code=COLU) DARK YELLOW YELLOW UA APPEARANCE (test code=APPU) HAZY CLEAR UA GLUCOSE DIPSTICK (test code=DGLUU) norm mg/dL NEGATIVE UA BILIRUBIN DIPSTICK (test code=BILU) NEGATIVE mg/dL NEGATIVE UA KETONE DIPSTICK (test code=KETU) neg mg/dL NEGATIVE UA SPECIFIC GRAVITY (test code=SGU) 1.025 1.001-1.035 UA BLOOD DIPSTICK (test code=JAMILA) neg Carlos/uL NEGATIVE UA PH DIPSTICK (test code=KINGA) 5.0 5.0-8.0 UA PROTEIN DIPSTICK (test code=PROU) 15 (TRACE) mg/dL Neg-15 UA UROBILINIOGEN DIPSTICK (test code=URO) norm mg/dL 0.0-0.2 UA NITRITE DIPSTICK (test code=DAVIN) NEGATIVE NEGATIVE UA LEUKOCYTE ESTERASE DIPSTICK (test code=LEUU) neg uL NEGATIVE UA WBC (test code=WBCU) per HPF 0-5 UA RBC (test code=RBCU) per HPF 0-5 UA EPITHELIAL CELLS (test code=EPIU) per HPF Few UA BACTERIA (test code=BACU) per HPF NONE Urine Source? Clean Catch
[2019-04-21] MEDS ORDERED: MORPHINE SULFATE 5 MG/ML VIAL IV ONE (11:30)
[2019-04-21] MEDS ORDERED: MORPHINE SULFATE 2 MG/ML SYR 1ML IV ONE (11:45)
[2019-04-21 12:27] LABS: BASOPHILS # (AUTO) 0.1 (0.0-0.1); BASOPHILS % 0.3 % (0.0-1.0); EOSINOPHILS # (AUTO) 1.6 (0.0-0.4); EOSINOPHILS % 8.7 % (0.0-6.0); HEMATOCRIT 42.6 % (34.2-44.1); HEMOGLOBIN 14.7 g/dL (12.0-16.0); LYMPHOCYTES # (AUTO) 2.2 (1.0-3.2); LYMPHOCYTES % 11.8 % (18.0-39.1); MEAN CORPUSCULAR HEMOGLOBIN 33.8 pg (28-32); MEAN CORPUSCULAR HGB CONC 34.5 g/dL (31-35); MEAN CORPUSCULAR VOLUME 97.9 fL (81-99); MONOCYTES # (AUTO) 0.8 (0.2-0.8); MONOCYTES % 4.3 % (4.4-11.3); NEUTROPHILS # (AUTO) 13.6 (2.1-6.9); NEUTROPHILS % 74.4 % (38.7-80.0); PLATELET COUNT 302 x10e3/uL (140-360); RED BLOOD COUNT 4.35 x10e6/uL (3.6-5.1); RED CELL DISTRIBUTION WIDTH 12.6 % (11.7-14.4)
[2019-04-21 12:32] LABS: PREGNANCY TEST, URINE NEGATIVE (NEGATIVE)
[2019-04-21 12:33] LABS: BILIRUBIN,URINE NEGATIVE (NEGATIVE); CLARITY,URINE SL CLOUDY (CLEAR); COLOR,URINE YELLOW (YELLOW); KETONES,URINE NEGATIVE (NEGATIVE); LEUKOCYTE ESTERASE ,URINE NEGATIVE (NEGATIVE); NITRITE,URINE NEGATIVE (NEGATIVE); PROTEIN,URINE DIPSTICK NEGATIVE (NEGATIVE); URINE UROBILINOGEN 0.2 mg/dL (0.2 - 1)
[2019-04-21 12:47] LABS: ALANINE AMINOTRANSFERASE 17 IU/L (0-55); ALBUMIN 3.6 g/dL (3.5-5.0); ALBUMIN/GLOBULIN RATIO 1.3 (0.8-2.0); ALKALINE PHOSPHATASE 64 IU/L (40-150); ANION GAP 10.6 mmol/L (8-16); BLOOD UREA NITROGEN 12 mg/dL (7-26); BUN/CREATININE RATIO 16 (6-25); CALCIUM 9.1 mg/dL (8.4-10.2); CARBON DIOXIDE 26 mmol/L (22-29); CHLORIDE 103 mmol/L (98-107); CREATININE, SERUM 0.74 mg/dL (0.57-1.11); EST GLOMERULAR FILTRATION RATE > 60 ML/MIN (60-); GLUCOSE 126 mg/dL (74-118); POTASSIUM 3.6 mmol/L (3.5-5.1); RBC,URINE 0-5 /HPF (0-5); SODIUM 136 mmol/L (136-145)
[2019-04-21 12:48] LABS: AMORPHOUS SEDIMENT,URINE RARE (FEW); BACTERIA,URINE MODERATE /HPF; EPITHELIAL CELLS,URINE FEW /LPF; MUCUS,URINE FEW (RARE)
[2019-04-21] MEDS ORDERED: MORPHINE SULFATE INJ 4 MG/ML INJ 1ML IV PRN (13:00)
[2019-04-21 13:21] LABS: LIPASE 2214 U/L (8-78)
[2019-04-21] MEDS ORDERED: MULTIVITAMINS- 12 INJECTION 10 ML, FOLIC ACID MDV 5 MG, THIAMINE HCL INJ 100 MG in SODI... IV ONE ×2 (13:45→17:30)
[2019-04-21] MEDS ORDERED: PIPER-TAZ 3.375 GM 50 ML IV ONE (13:45)
[2019-04-21] MEDS ORDERED: MORPHINE SULFATE 2 MG/ML SYR 1ML IV PRN (13:45)
[2019-04-21] MEDS: HYDROMORPHONE 1MG/1ML INJ IV PRN ×3 (14:31→22:02)
[2019-04-21] MEDS: SODIUM CHLORIDE 0.9% 1000ML 1,000 ML IV SCH ×2 (14:31→16:05)
[2019-04-21] MEDS ORDERED: SODIUM CHLORIDE 0.9% 50ML 50 ML ONE (15:09)
[2019-04-21] MEDS ORDERED: IOPAMIDOL 370 MG/ML 200 ML INFUS..BTL INJ ONE (15:09)
[2019-04-21 15:24] LABS: EOSINOPHILS % (MANUAL) 8 % (0-7); LYMPHOCYTES % (MANUAL) 6 % (19-48); NEUTROPHILS % (MANUAL) 78 % (40-74); PLATELET ESTIMATE ADEQUATE; PLATELET MORPHOLOGY COMMENT NORMAL; RBC MORPHOLOGY COMMENT NORMAL
--- NOTE | 2019-04-21 15:50 | NUR ---
RCD PT FROM ER BY BED PT IS ALERT AND ORIENTED VITALS CHECKED PT RESTING ON BED ADMISSION ASSESSMENT DONE SHE STARTED ABDOMINAL PAIN ON TODAY AT 11 AM PAIN LOCATED IN THE MIDDLE OF ABDOMEN MOVING TO BACK , NO C/O NAUSEA AND NO VOMITING IV PATENT BY SALINE FLUSH FAMILY AT BED SIDE INSTRUCTED PT AND FAMILY REGARDING HOSPITAL POLICY AND ROUTINE BED LOW AND LOCKED CALL LIGHT IN REACH
[2019-04-21 16:00] VITALS: BP 130/80
--- NOTE | 2019-04-21 16:37 | Diagnostic Imaging Report ---
TECHNIQUE: CT of the abdomen and pelvis WITHOUT intravenous contrast and WITHOUT oral contrast. Dose modulation, iterative reconstruction, and/or weight-based adjustment of the mA/kV was utilized to reduce the radiation dose to as low as reasonably achievable. INDICATION: 23-year-old woman with abdominal pain and history of pancreatitis. COMPARISON: None. FINDINGS: ABSENCE OF INTRAVENOUS CONTRAST DECREASES SENSITIVITY FOR DETECTION OF FOCAL LESIONS AND VASCULAR PATHOLOGY. LOWER THORAX: Unremarkable. HEPATOBILIARY: No focal hepatic lesions. Gallbladder is unremarkable. No biliary ductal dilatation. SPLEEN: No splenomegaly. PANCREAS: Edematous pancreas with peripancreatic edema and nonencapsulated fluid which extends into the left upper quadrant and along the left anterior renal fascia. No definite focal masses or ductal dilatation. ADRENALS: No adrenal nodules. KIDNEYS/URETERS: No hydronephrosis. Questionable nonobstructive 0.3 cm calculus in the left upper pole. PELVIC ORGANS/BLADDER: Unremarkable. PERITONEUM/RETROPERITONEUM: Trace ascites in the abdomen and pelvis. No free air. LYMPH NODES: No lymphadenopathy. VESSELS: Unremarkable. GI TRACT: No distention or wall thickening. Normal appendix. BONES AND SOFT TISSUES: Unremarkable. IMPRESSION: Acute pancreatitis. No encapsulated acute peripancreatic fluid collection. Questionable nonobstructive left renal calculus. Signed by: Megan Betancourt MD on 04/21/2019 4:34 PM
[2019-04-21] MEDS: MORPHINE SULFATE INJ 4 MG/ML INJ 1ML IV PRN (17:04)
[2019-04-21 17:35] VITALS: BP 130/80
[2019-04-21 17:55] VITALS: BP 130/80
[2019-04-21] MEDS ORDERED: SODIUM CHLORIDE 0.9% 1000ML 1,000 ML IV ONE (18:00)
--- NOTE | 2019-04-21 19:00 | NUR ---
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 PT DENIED FURTHER NEEDS.
[2019-04-21 19:29] VITALS: BP 111/69
[2019-04-21 21:00] VITALS: BP 111/69
[2019-04-22] VITALS (7 sets, daily range): BP systolic 108–129; BP diastolic 54–97
[2019-04-22] MEDS: ONDANSETRON HCL INJ 2MG/ML 2ML 2 MG/ML VIAL IV PRN (00:15)
[2019-04-22] MEDS: MORPHINE SULFATE INJ 4 MG/ML INJ 1ML IV PRN ×2 (00:15→07:14)
[2019-04-22] MEDS: SODIUM CHLORIDE 0.9% 1000ML 1,000 ML IV SCH ×4 (03:04→21:15)
[2019-04-22] MEDS: HYDROMORPHONE 1MG/1ML INJ IV PRN ×4 (03:08→21:15)
[2019-04-22 05:37] LABS: BASOPHILS % 0.2 % (0.0-1.0); EOSINOPHILS # (AUTO) 0.7 (0.0-0.4); EOSINOPHILS % 4.7 % (0.0-6.0); HEMATOCRIT 38.9 % (34.2-44.1); HEMOGLOBIN 13.4 g/dL (12.0-16.0); LYMPHOCYTES # (AUTO) 1.2 (1.0-3.2); LYMPHOCYTES % 7.6 % (18.0-39.1); MEAN CORPUSCULAR HGB CONC 34.4 g/dL (31-35); MEAN CORPUSCULAR VOLUME 98.7 fL (81-99); MONOCYTES # (AUTO) 0.9 (0.2-0.8); NEUTROPHILS # (AUTO) 12.4 (2.1-6.9); PLATELET COUNT 270 x10e3/uL (140-360); RED BLOOD COUNT 3.94 x10e6/uL (3.6-5.1); RED CELL DISTRIBUTION WIDTH 12.7 % (11.7-14.4)
[2019-04-22 05:57] LABS: AMYLASE 762 U/L (25-125); ANION GAP 9.2 mmol/L (8-16); BLOOD UREA NITROGEN 8 mg/dL (7-26); BUN/CREATININE RATIO 12 (6-25); CALCIUM 8.6 mg/dL (8.4-10.2); CARBON DIOXIDE 25 mmol/L (22-29); CHLORIDE 104 mmol/L (98-107); CREATININE, SERUM 0.68 mg/dL (0.57-1.11); EST GLOMERULAR FILTRATION RATE > 60 ML/MIN (60-); GLUCOSE 103 mg/dL (74-118); POTASSIUM 4.2 mmol/L (3.5-5.1); SODIUM 134 mmol/L (136-145)
[2019-04-22 06:20] LABS: LIPASE 2071 U/L (8-78)
--- NOTE | 2019-04-22 07:03 | NUR ---
H&P cc: abdominal pain HPI: 23yoF, PCP , developed abdominal pain and N/V. Pt admits to having 3 glasses of wine last week. PMH: iron-deficiency anemia, acute pancreatitis, alcohol use PSHx: finger; consils ALlergies; see emr Fh/SH; single; no cigs; quit EtoH in Jan 2019, now intermittent etoh use Meds; see MAR ROS: no f/c/s/OJEDA/vision changes/cp/sob/skin rash/back pain/dizziness v/s; revd PE tired appearing anicteric ns1s2 mod bs soft nd; TENDER EPIGASTRIUM/MID ABDOMEN no e/t skin dry n. affect labs/meds; revd A/P: 23yoF Acute pancreatitis UTI Overweight BMI 27.3 PLAN IVF; RUQ U/S; Lipid panel IV Pepcid; scd Senthil Delgado MD PhD
[2019-04-22 07:49] LABS: CHOL/HDL RATIO 2.5 (3.0-3.6)
[2019-04-22] MEDS: FAMOTIDINE 20 MG/2 ML VIAL IV SCH ×2 (09:35→16:03)
[2019-04-22] MEDS: CEFTRIAXONE SOD 1 GM/NS 50 ML 50 ML IV SCH (09:35)
[2019-04-22] MEDS: ACETAMINOPHEN 1000 MG/100 ML IV PRN ×2 (16:03→23:29)
[2019-04-23] VITALS (8 sets, daily range): BP systolic 113–137; BP diastolic 57–78
[2019-04-23] MEDS: SODIUM CHLORIDE 0.9% 1000ML 1,000 ML IV SCH ×4 (02:21→17:44)
[2019-04-23] MEDS: HYDROMORPHONE 1MG/1ML INJ IV PRN ×2 (02:22→10:44)
[2019-04-23] MEDS: ACETAMINOPHEN 1000 MG/100 ML IV PRN ×2 (06:52→17:44)
[2019-04-23] MEDS: FAMOTIDINE 20 MG/2 ML VIAL IV SCH ×2 (08:46→17:44)
[2019-04-23] MEDS: CEFTRIAXONE SOD 1 GM/NS 50 ML 50 ML IV SCH (08:46)
--- NOTE | 2019-04-23 09:14 | NUR ---
IM- progress Note O/N no events ROS: no f/c/s/OJEDA/vision changes/cp/sob/skin rash/back pain/dizziness v/s; revd PE tired appearing anicteric ns1s2 mod bs soft nd; TENDER EPIGASTRIUM/MID ABDOMEN no e/t skin dry n. affect labs/meds; revd A/P: 23yoF Acute pancreatitis UTI Overweight BMI 27.3 PLAN IVF; RUQ U/S; Lipid panel IV Pepcid; scd 11-3 Sepsis- POA; cont abx; cont IVF; improving; check CBC Senthil Delgado MD PhD
[2019-04-23 09:45] LABS: BASOPHILS # (AUTO) 0.1 (0.0-0.1); BASOPHILS % 0.3 % (0.0-1.0); EOSINOPHILS # (AUTO) 0.2 (0.0-0.4); EOSINOPHILS % 0.9 % (0.0-6.0); HEMATOCRIT 36.6 % (34.2-44.1); HEMOGLOBIN 12.2 g/dL (12.0-16.0); LYMPHOCYTES # (AUTO) 1.7 (1.0-3.2); LYMPHOCYTES % 8.8 % (18.0-39.1); MEAN CORPUSCULAR HGB CONC 33.3 g/dL (31-35); MEAN CORPUSCULAR VOLUME 101.9 fL (81-99); MONOCYTES # (AUTO) 1.3 (0.2-0.8); MONOCYTES % 6.9 % (4.4-11.3); NEUTROPHILS # (AUTO) 16.1 (2.1-6.9); NEUTROPHILS % 82.6 % (38.7-80.0); PLATELET COUNT 230 x10e3/uL (140-360); RED BLOOD COUNT 3.59 x10e6/uL (3.6-5.1); RED CELL DISTRIBUTION WIDTH 12.9 % (11.7-14.4)
--- NOTE | 2019-04-23 16:14 | NUR ---
INFORMED DR GUPTA THAT PATIENT WITH ELEVATED TEMPERATURE 0F 103.7 HR 112, ORDERS RECEIVED FOR 1L NS BOLUS AND VANCOMYCIN 1G IV STAT, CLARIFIED U/S ORDER BUT STATES THAT U/S IS OK TO KEEP U/S SCHEDULED FOR AM, WILL CONTINUE TO MONITOR
[2019-04-23] MEDS ORDERED: SODIUM CHLORIDE 0.9% 1000ML 1,000 ML IV ONE (16:15)
[2019-04-23] MEDS ORDERED: VANCOMYCIN 1GM/NS 250 ML 250 ML IV ONE (16:15)
--- NOTE | 2019-04-23 17:30 | NUR ---
INFORMED DR GUPTA PATIENTS TEMP 103.7, TYLENOL 1G IVP GIVEN AND ORDERS RECEIVED FOR STAT CT ABD/PELVIS AND COOLING BLANKET, WILL CONTINUE TO MONITOR
[2019-04-23 20:00] LABS: ALANINE AMINOTRANSFERASE 19 IU/L (0-55); ALBUMIN 2.8 g/dL (3.5-5.0); ALBUMIN/GLOBULIN RATIO 0.8 (0.8-2.0); ALKALINE PHOSPHATASE 69 IU/L (40-150); ANION GAP 12.5 mmol/L (8-16); BLOOD UREA NITROGEN < 5 mg/dL (7-26); CALCIUM 8.7 mg/dL (8.4-10.2); CARBON DIOXIDE 20 mmol/L (22-29); CHLORIDE 104 mmol/L (98-107); CREATININE, SERUM 0.65 mg/dL (0.57-1.11); EST GLOMERULAR FILTRATION RATE > 60 ML/MIN (60-); GLUCOSE 97 mg/dL (74-118); POTASSIUM 3.5 mmol/L (3.5-5.1); SODIUM 133 mmol/L (136-145)
[2019-04-23 20:01] LABS: BUN/CREATININE RATIO 8 (6-25)
--- NOTE | 2019-04-23 20:27 | Diagnostic Imaging Report ---
EXAM: CT Abdomen and Pelvis WITH contrast INDICATION: Abdominal pain, fever COMPARISON: abdominal CT 04/21/2019 TECHNIQUE: Abdomen and pelvis were scanned utilizing a multidetector helical scanner from the lung base to the pubic symphysis after administration of IV contrast. Coronal and sagittal reformations were obtained. Routine protocol was performed. Scan was performed when during portal venous phase. IV CONTRAST: 100 mL of Isovue 370 ORAL CONTRAST: None COMPLICATIONS: None RADIATION DOSE: Total DLP: 614 mGy*cm Estimated effective dose: (DLP x 0.015 x size factor) mSv CTDIvol has been reviewed. It is below the limits set by the Radiation Protocol Committee (RPC). Dose modulation, iterative reconstruction, and/or weight based adjustment of the mA/kV was utilized to reduce the radiation dose to as low as reasonably achievable. FINDINGS: LINES and TUBES: None. LOWER THORAX: New small bilateral pleural effusions. HEPATOBILIARY: No focal hepatic lesions. No biliary ductal dilation. GALLBLADDER: No radio-opaque stones or sludge. No wall thickening. SPLEEN: No splenomegaly. PANCREAS: Moderate amount of peripancreatic edema with focal hypoenhancement of the pancreatic tail (series 301 image 53). The pancreatic duct is not dilated. Focal 2.2 cm anterior contour bulging at the pancreatic tail (series 2 image 24), similar compared to abdominal CT of 04/21/2019. ADRENALS: No adrenal nodules KIDNEYS/URETERS: Kidneys enhance symmetrically. No hydronephrosis. Tiny hypodensity in the left renal inferior pole is too small to characterize, likely benign. No stones. GI TRACT: No abnormal distention, wall thickening, or evidence of bowel obstruction. Appendix is normal. PELVIC ORGANS/BLADDER: Unremarkable. LYMPH NODES: No lymphadenopathy. VESSELS: Unremarkable. PERITONEUM / RETROPERITONEUM: Increased small volume ascites, with ascites and edema tracking along the paracolic gutters and around the spleen and stomach. No free air. BONES: Unremarkable. SOFT TISSUES: Unremarkable. 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 Compared to 04/21/2019, increased moderate peripancreatic edema without loculated collection at this time, and increased small volume ascites, with new small bilateral pleural effusions. A 2.2 cm anterior pancreatic tail contour protrusion is likely focus of pancreatic edema and necrosis, although an underlying mass is possible. Recommend contrast-enhanced pancreatic MRI/MRCP for further evaluation. Signed by: Pancho Hays DO on 04/23/2019 8:24 PM
[2019-04-23 20:43] LABS: BILIRUBIN,URINE NEGATIVE (NEGATIVE); CLARITY,URINE CLEAR (CLEAR); COLOR,URINE YELLOW (YELLOW); KETONES,URINE NEGATIVE (NEGATIVE); LEUKOCYTE ESTERASE ,URINE NEGATIVE (NEGATIVE); NITRITE,URINE NEGATIVE (NEGATIVE); PROTEIN,URINE DIPSTICK NEGATIVE (NEGATIVE); URINE UROBILINOGEN 0.2 mg/dL (0.2 - 1)
--- NOTE | 2019-04-23 21:00 | NUR ---
Dr. Delgado aware of positive Sepsis screen. 1 L bolus given, labs drawn, New IV antibiotics started, Urine sent, CT ABD ordered, GI consult. Orders to repeat labs in AM. Cooling blanket in place. Current rectal temp 100.3.
[2019-04-23 21:21] LABS: BACTERIA,URINE FEW /HPF; EPITHELIAL CELLS,URINE FEW /LPF; RBC,URINE 0-5 /HPF (0-5); WBC,URINE (MAN) 0-5 /HPF (0-5)
[2019-04-23] MEDS ORDERED: PIPER-TAZ 3.375 GM 50 ML IV SCH (22:00)
[2019-04-23] MEDS ORDERED: IOPAMIDOL 370 MG/ML 200 ML INFUS..BTL INJ ONE (23:07)
[2019-04-23] MEDS ORDERED: SODIUM CHLORIDE 0.9% 50ML 50 ML ONE (23:07)
[2019-04-23] MEDS ORDERED: MEROPENEM 500MG 500 MG in SODIUM CHLORIDE 0.9% 50ML 50 ML IV STA (23:33)
[2019-04-24] MEDS: LACTATED RINGER'S 1,000 ML IV SCH ×5 (00:14→19:42)
[2019-04-24 00:15] VITALS: BP 102/56
[2019-04-24] MEDS ORDERED: LACTATED RINGER'S 1,000 ML IV ONE (00:45)
--- NOTE | 2019-04-24 00:52 | NUR ---
Rc'd new orders from Dr. Candis Orozco regarding patients continuing elevated temp, antibiotics changed, Lactated Ringers added, another 1 L bolus given.
[2019-04-24] MEDS: ACETAMINOPHEN 1000 MG/100 ML IV PRN ×3 (02:19→16:07)
[2019-04-24 05:21] LABS: BASOPHILS % 0.2 % (0.0-1.0); EOSINOPHILS # (AUTO) 0.2 (0.0-0.4); EOSINOPHILS % 1.2 % (0.0-6.0); HEMATOCRIT 31.1 % (34.2-44.1); HEMOGLOBIN 10.6 g/dL (12.0-16.0); LYMPHOCYTES # (AUTO) 1.5 (1.0-3.2); LYMPHOCYTES % 8.1 % (18.0-39.1); MEAN CORPUSCULAR HEMOGLOBIN 33.2 pg (28-32); MEAN CORPUSCULAR HGB CONC 34.1 g/dL (31-35); MEAN CORPUSCULAR VOLUME 97.5 fL (81-99); MONOCYTES # (AUTO) 1.4 (0.2-0.8); MONOCYTES % 7.6 % (4.4-11.3); NEUTROPHILS # (AUTO) 15.1 (2.1-6.9); NEUTROPHILS % 81.4 % (38.7-80.0); PLATELET COUNT 214 x10e3/uL (140-360); RED BLOOD COUNT 3.19 x10e6/uL (3.6-5.1); RED CELL DISTRIBUTION WIDTH 12.3 % (11.7-14.4)
[2019-04-24 05:55] LABS: AMYLASE 125 U/L (25-125); ANION GAP 12.3 mmol/L (8-16); BLOOD UREA NITROGEN < 5 mg/dL (7-26); CALCIUM 8.5 mg/dL (8.4-10.2); CARBON DIOXIDE 21 mmol/L (22-29); CHLORIDE 108 mmol/L (98-107); CREATININE, SERUM 0.56 mg/dL (0.57-1.11); EST GLOMERULAR FILTRATION RATE > 60 ML/MIN (60-); GLUCOSE 78 mg/dL (74-118); LIPASE 254 U/L (8-78); POTASSIUM 3.3 mmol/L (3.5-5.1); SODIUM 138 mmol/L (136-145)
[2019-04-24 05:56] LABS: BUN/CREATININE RATIO 9 (6-25)
[2019-04-24 06:00] VITALS: BP 117/68
[2019-04-24] MEDS: MEROPENEM 500MG/ NS 50ML 500 MG in MEROPENEM 500MG/ NS 50ML 50 ML IV SCH ×3 (06:11→22:00)
--- NOTE | 2019-04-24 07:15 | NUR ---
IM- progress Note O/N no events ROS: no f/c/s/OJEDA/vision changes/cp/sob/skin rash/back pain/dizziness v/s; revd PE tired appearing anicteric ns1s2 mod bs soft nd; TENDER EPIGASTRIUM/MID ABDOMEN no e/t skin dry n. affect labs/meds; revd A/P: 23yoF Acute pancreatitis UTI Overweight BMI 27.3 PLAN IVF; RUQ U/S; Lipid panel IV Pepcid; scd 11-3 Sepsis- POA; cont abx; cont IVF; improving; check CBC 11-4 CT repeat shows Necrotizing Pancreatitis at tail Merrem started; fevers resolving; appreciate GI recs. Senthil Delgado MD PhD
[2019-04-24 07:35] VITALS: BP 126/74
[2019-04-24] MEDS ORDERED: POTASSIUM CHLORIDE 20MEQ/100ML 100 ML IV ONE (07:45)
[2019-04-24] MEDS: FAMOTIDINE 20 MG/2 ML VIAL IV SCH ×2 (09:29→17:08)
[2019-04-24] MEDS: HYDROMORPHONE 1MG/1ML INJ IV PRN ×3 (10:30→19:42)
[2019-04-24 12:00] VITALS: BP 131/85
--- NOTE | 2019-04-24 12:47 | Diagnostic Imaging Report ---
EXAM: Right upper quadrant abdominal ultrasound INDICATION: Right upper quadrant pain COMPARISON: CT abdomen and pelvis of 04/23/2019 TECHNIQUE: Transverse and longitudinal images of the right upper quadrant abdomen were obtained FINDINGS: Liver: Size: 15.0 cm in the right midclavicular line, normal Appearance: Normal echogenicity, smooth contour Mass: No focal masses Gallbladder: Small amount of sludge in the gallbladder. No gallbladder distension, pericholecystic fluid, wall thickening, stone, or reported sonographic Castañeda's sign. Gallbladder wall measures 3 mm . Bile Ducts: Intrahepatic Ducts: No dilatation Extrahepatic Ducts: Common bile duct measures 3 mm, no dilatation Pancreas: Visualized portions of the pancreatic head, neck and proximal body are normal. Kidney: The right kidney measures 10.1 cm without evidence of hydronephrosis or stone. Vessels: Aorta: Visualized portions are normal Inferior Vena Cava: Visualized portions are normal Main Portal Vein: 1.1 cm, normal size with hepatopetal flow. Free Fluid: Trace right pleural effusion. IMPRESSION: Small amount of sludge in the gallbladder. No sonographic evidence of cholecystitis. Trace right pleural effusion. Signed by: Ti Chavez MD on 04/24/2019 12:44 PM
--- NOTE | 2019-04-24 14:31 | NUR ---
Nutrition Intervention Note RD Recommendation(s) for Physician: - When feasible, ADAT to goal of GI Soft, low fat, low cholesterol - If unable to advance diet soon, consider PN and consult Nutrition for recommendations Plan of Care: RD following, monitoring for tolerance and adequacy Nutrition reason for involvement: Nutrition Risk Trigger- pancreatitis, newly confirmed as necrotizing RD Assessment 04/24: 23 YOF admitted for pancreatitis, seen today per new dx of necrotizing pancreatitis. Pt discussed in am rounds, RN reports necrotizing per CT scan. 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 Pt remains NPO and denies any N/V/D, reports ongoing abdominal pain. Pt with no questions or concerns at time of visit. Noted lipase trending down from 2214 on admit. Will continue to monitor. Principal Problems/Diagnoses: pancreatitis PMH: anemia, acute pancreatitis, ETOH use GI: LBM 04/24, + abdominal pain Skin: intact Labs: 04/24: Na 138, K 3.3, BUN<5, Cr 0.56, gluc 78, Lipase 254 04/22: TG 95 Meds: abx, dilaudid, pepcid, zofran Ht: 60 in Wt: 140 lb BMI: 27.3 IBW: 100 lb Malnutrition Evaluation (04/24/19) The patient does not meet criteria for a specified degree of malnutrition at this time. Will re-evaluate at follow-up as appropriate. Energy intake: acute- <50% intake for 3 days 07/23 NPO Weight loss: Pt denies wt loss, report UBW of 170lb last week. Questionable admit wt Fat loss: none Muscle loss: none Supporting Evidence: Fluid accumulation: none Functional Status: no changes Nutrition Prescription (Diet Order): NPO Estimated Nutritional Needs: 0405-6090 calories/day (22-25 kcal/kg IBW) 68-114 g protein/day (1.5-2.5 g pro/kg IBW) Diet Adequacy: Not meeting calorie needs, Not meeting protein needs Diet Tolerance: N/A Diet Education Needs Assessment: Diet education not indicated, patient on temporary/transition diet. Nutrition Care Level: mod Nutrition Diagnosis: Inadequate energy and protein intake related to pancreatitis as evidenced by pt remains NPO with elevated lipase and abdominal pain. Goal: Patient will meet 75-100% of estimated needs by follow up Progress: N/A Interventions: -fiber, fat modified diet, Collaboration with other providers Monitoring/Evaluation: -Total energy intake, Total protein intake, Modified diet Signed: Nereyda Herrera RD, LD, [facility]
[2019-04-24 16:00] VITALS: BP 139/89
--- NOTE | 2019-04-24 19:17 | NUR ---
RECEIVED PT IN BED AOX3 .RESPIRATIONS ARE EVEN AND UNLABORED .SKIN WARM AND DRY TO TOUCH .PT C/O PAIN .CALL LIGHT WITH IN REACH ,CONTINUE TO MONITOR
[2019-04-24] MEDS: ONDANSETRON HCL INJ 2MG/ML 2ML 2 MG/ML VIAL IV PRN (19:42)
[2019-04-24 20:00] VITALS: BP 129/77
[2019-04-24] MEDS ORDERED: ACETAMINOPHEN 1000 MG/100 ML IV PRN (20:15)
[2019-04-25] VITALS (8 sets, daily range): BP systolic 108–144; BP diastolic 55–89
[2019-04-25] MEDS: LACTATED RINGER'S 1,000 ML IV SCH ×5 (01:00→18:44)
[2019-04-25 05:02] LABS: BASOPHILS # (AUTO) 0.1 (0.0-0.1); BASOPHILS % 0.3 % (0.0-1.0); EOSINOPHILS # (AUTO) 0.3 (0.0-0.4); EOSINOPHILS % 1.6 % (0.0-6.0); HEMATOCRIT 30.5 % (34.2-44.1); HEMOGLOBIN 10.4 g/dL (12.0-16.0); LYMPHOCYTES % 11.1 % (18.0-39.1); MEAN CORPUSCULAR HEMOGLOBIN 33.2 pg (28-32); MEAN CORPUSCULAR HGB CONC 34.1 g/dL (31-35); MEAN CORPUSCULAR VOLUME 97.4 fL (81-99); MONOCYTES # (AUTO) 1.9 (0.2-0.8); MONOCYTES % 10.5 % (4.4-11.3); NEUTROPHILS # (AUTO) 13.3 (2.1-6.9); NEUTROPHILS % 74.9 % (38.7-80.0); PLATELET COUNT 245 x10e3/uL (140-360); RED BLOOD COUNT 3.13 x10e6/uL (3.6-5.1); RED CELL DISTRIBUTION WIDTH 12.5 % (11.7-14.4)
[2019-04-25 05:24] LABS: ALANINE AMINOTRANSFERASE 14 IU/L (0-55); ALBUMIN 2.5 g/dL (3.5-5.0); ALBUMIN/GLOBULIN RATIO 0.7 (0.8-2.0); ALKALINE PHOSPHATASE 65 IU/L (40-150); BLOOD UREA NITROGEN 5 mg/dL (7-26); BUN/CREATININE RATIO 8 (6-25); CALCIUM 8.8 mg/dL (8.4-10.2); CARBON DIOXIDE 20 mmol/L (22-29); CHLORIDE 105 mmol/L (98-107); CREATININE, SERUM 0.61 mg/dL (0.57-1.11); EST GLOMERULAR FILTRATION RATE > 60 ML/MIN (60-); GLUCOSE 71 mg/dL (74-118); SODIUM 135 mmol/L (136-145)
--- NOTE | 2019-04-25 05:42 | Diagnostic Imaging Report ---
EXAMINATION: CHEST 2 VIEWS INDICATION: Fever. COMPARISON: CT Abdomen/Pelvis 04/23/2019. FINDINGS: TUBES and LINES: None. LUNGS: Lungs are moderately inflated. There is increasing moderate left pleural effusion. There is patchy opacity at the left lung base. No evidence of pulmonary edema. PLEURA: No pleural effusion or pneumothorax. HEART AND MEDIASTINUM: The cardiomediastinal silhouette is unremarkable. BONES AND SOFT TISSUES: No acute osseous abnormality. UPPER ABDOMEN: No free air under the diaphragm. IMPRESSION: Increasing moderate left pleural effusion with patchy left basilar opacity, likely atelectasis. Early pneumonia is possible in the appropriate clinical setting. Signed by: Dr. Giovani Doshi MD on 04/25/2019 5:38 AM
[2019-04-25 05:43] LABS: AMYLASE 75 U/L (25-125); LIPASE 176 U/L (8-78)
--- NOTE | 2019-04-25 05:50 | NUR ---
PT RESTED DURING THE NIGHT .C/O PAIN AND GIVEN ORDERED PAIN MEDICATION .PT HAD TEM 100.3 AND GIVEN TYLENOL IV AND TEM REDUCED TO 99.PT HAD KUB DONE THIS AM .CALL LIGHT WITH IN REACH .CONTINUE TO MONITOR
--- NOTE | 2019-04-25 06:30 | NUR ---
IM- progress Note O/N no events ROS: no f/c/s/OJEDA/vision changes/cp/sob/skin rash/back pain/dizziness v/s; revd PE tired appearing anicteric ns1s2 mod bs soft nd; TENDER EPIGASTRIUM/MID ABDOMEN no e/t skin dry n. affect labs/meds; revd A/P: 23yoF Acute pancreatitis UTI Overweight BMI 27.3 PLAN IVF; RUQ U/S; Lipid panel IV Pepcid; scd 11-3 Sepsis- POA; cont abx; cont IVF; improving; check CBC - CT repeat shows Necrotizing Pancreatitis at tail Merrem started; fevers resolving; appreciate GI recs. 04-25 continue current care. Possible early HAP. GB Sludge only; remains NPO- defer to GI. ID evaluation; Senthil Delgado MD PhD
[2019-04-25] MEDS: HYDROMORPHONE 1MG/1ML INJ IV PRN ×4 (06:31→22:05)
[2019-04-25] MEDS: MEROPENEM 500MG/ NS 50ML 500 MG in MEROPENEM 500MG/ NS 50ML 50 ML IV SCH ×3 (06:31→23:28)
--- NOTE | 2019-04-25 07:03 | NUR ---
BEDSIDE REPORT GIVEN TO THE ON COMING NURSE
[2019-04-25] MEDS: FAMOTIDINE 20 MG/2 ML VIAL IV SCH ×2 (09:00→16:51)
[2019-04-25] MEDS: ACETAMINOPHEN 1000 MG/100 ML 100 ML IV PRN ×3 (12:09→20:30)
--- NOTE | 2019-04-25 19:20 | NUR ---
patient received. Patient is AAOx3, resting in bed. resp even and unlabored. no acute distress noted at this time. family at bed side. call light within reach. bed low/locked. continue to monitor closely
--- NOTE | 2019-04-25 19:26 | NUR ---
RECEIVED PT IN BED AOX3 .DENIES PAIN .FAMILY AT THE BEDSIDE TEMPERATURE REDUCED .CALL LIGHT WITH IN REACH .CONTINUE TO MONITOR
--- NOTE | 2019-04-25 19:44 | Consultation ---
DATE OF CONSULTATION: ID Consult Thank you, Dr. Delgado, for asking me to see this patient. HISTORY OF PRESENT ILLNESS: The patient is a 23-year-old woman, referred for sepsis. She was admitted through the emergency department with acute pancreatitis. She presented to the emergency department with upper abdominal pain after drinking 5 glasses a wine. The patient has had nausea and vomiting. She did not have cough or shortness of breath at home, but it was painful to take deep breath. The patient used to drink alcohol excessively, but she quit several months ago after suffering acute pancreatitis. Unfortunately, she relapsed on the day of arrival. The patient is still spiking fever intermittently and did note mild cough. She denies shortness of breath, dysuria, and diarrhea. PAST MEDICAL HISTORY: Alcohol-induced acute pancreatitis. PAST SURGICAL HISTORY: Tonsillectomy and adenoidectomy, and open reduction and internal fixation of right index finger fracture. ALLERGIES: NO KNOWN DRUG ALLERGIES. MEDICATIONS: The current antibiotic is meropenem 500 mg IV piggyback q.8 hours. She had received ceftriaxone, Zosyn, and vancomycin earlier. FAMILY HISTORY: The father has diabetes mellitus type 2. SOCIAL HISTORY: The patient relapsed with alcohol consumption recently. She denies tobacco and recreational drug use. REVIEW OF SYSTEMS: As per history of present illness. PHYSICAL EXAMINATION: GENERAL: No acute distress. VITAL SIGNS: T-max 103.3, pulse rate 116, respiratory rate 20, blood pressure 144/84, and weight 140 pounds. HEENT: Normocephalic. There is no icterus or injection of conjunctivae. There is no ear or nasal discharge. Moist oral mucosa. No pharyngeal erythema or exudate. NECK: Supple. No meningismus. LUNGS: Decreased breath sounds in the left base. HEART: With normal S1 and S2. Tachycardic. ABDOMEN: Soft with mild epigastric and left upper quadrant tenderness. No rebound tenderness. EXTREMITIES: Without edema, clubbing, or cyanosis. SKIN: Without acute erythema. 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 Nonfocal. LABORATORY AND DIAGNOSTICS: WBC 17,700, hemoglobin 10.4, platelet 245,000, neutrophils 74.9, lymphocytes 11.1, monocytes 10.5, eosinophils 1.6, and basophils 0.3. BUN 5 and creatinine 0.61. AST 14, ALT 14, alkaline phosphatase 65, and total bilirubin 0.6. Lipase 176, down from [address] scan of the abdomen showed acute pancreatitis with focal pancreatic tail necrotizing pancreatitis and increased moderate peripancreatic edema without loculated collection at this time. IMPRESSION: Necrotizing pancreatitis, alcohol abuse, left pleural effusion, and left atelectasis. PLAN: 1. Avoid cooling blanket. 2. Check influenza antigen test. 3. Change meropenem to 500 mg IV piggyback q.6 hours. Administer influenza vaccine prior to discharge. 4. I have advised the patient to quit drinking alcohol. MD SHERWIN Vyas/MODL /[id number]
[2019-04-26] VITALS (8 sets, daily range): BP systolic 117–157; BP diastolic 63–93
[2019-04-26] MEDS: LACTATED RINGER'S 1,000 ML IV SCH ×5 (01:30→19:55)
[2019-04-26] MEDS ORDERED: ACETAMINOPHEN 1000 MG/100 ML IV PRN (04:45)
[2019-04-26] MEDS: MEROPENEM 500MG/ NS 50ML 500 MG in MEROPENEM 500MG/ NS 50ML 50 ML IV SCH ×4 (05:12→23:22)
[2019-04-26 05:14] LABS: BASOPHILS % 0.3 % (0.0-1.0); EOSINOPHILS # (AUTO) 0.4 (0.0-0.4); EOSINOPHILS % 2.3 % (0.0-6.0); HEMATOCRIT 28.8 % (34.2-44.1); HEMOGLOBIN 9.9 g/dL (12.0-16.0); LYMPHOCYTES # (AUTO) 1.5 (1.0-3.2); LYMPHOCYTES % 9.9 % (18.0-39.1); MEAN CORPUSCULAR HGB CONC 34.4 g/dL (31-35); MONOCYTES # (AUTO) 1.9 (0.2-0.8); MONOCYTES % 11.9 % (4.4-11.3); NEUTROPHILS # (AUTO) 11.7 (2.1-6.9); NEUTROPHILS % 74.8 % (38.7-80.0); PLATELET COUNT 271 x10e3/uL (140-360); RED CELL DISTRIBUTION WIDTH 12.3 % (11.7-14.4)
[2019-04-26 05:41] LABS: ALANINE AMINOTRANSFERASE 12 IU/L (0-55); ALBUMIN 2.4 g/dL (3.5-5.0); ALBUMIN/GLOBULIN RATIO 0.6 (0.8-2.0); ALKALINE PHOSPHATASE 89 IU/L (40-150); AMYLASE 82 U/L (25-125); ANION GAP 16.5 mmol/L (8-16); BLOOD UREA NITROGEN 6 mg/dL (7-26); BUN/CREATININE RATIO 10 (6-25); CALCIUM 8.6 mg/dL (8.4-10.2); CARBON DIOXIDE 19 mmol/L (22-29); CHLORIDE 103 mmol/L (98-107); CREATININE, SERUM 0.58 mg/dL (0.57-1.11); EST GLOMERULAR FILTRATION RATE > 60 ML/MIN (60-); GLUCOSE 78 mg/dL (74-118); LIPASE 172 U/L (8-78); POTASSIUM 3.5 mmol/L (3.5-5.1); SODIUM 135 mmol/L (136-145)
[2019-04-26] MEDS: HYDROMORPHONE 1MG/1ML INJ IV PRN ×3 (06:14→17:56)
--- NOTE | 2019-04-26 07:00 | NUR ---
RECEIVED PATIENT ASLEEP IN BED, NO SIGNS OF DISTRESS. BED LOW, WHEELS LOCKED, SIDE RAILS X2. CALL LIGHT IN REACH WILL CONTINUE TO MONITOR PATIENT.
[2019-04-26 07:05] LABS: BAND NEUTROPHILS % (MANUAL) 1 %; LYMPHOCYTES % (MANUAL) 12 % (19-48); MONOCYTES % (MANUAL) 8 % (3.4-9.0); NEUTROPHILS % (MANUAL) 78 % (40-74)
[2019-04-26 07:09] LABS: PLATELET ESTIMATE ADEQUATE
[2019-04-26 07:10] LABS: PLATELET MORPHOLOGY COMMENT NORMAL; RBC MORPHOLOGY COMMENT NORMAL
[2019-04-26] MEDS: FAMOTIDINE 20 MG/2 ML VIAL IV SCH ×2 (08:15→17:24)
--- NOTE | 2019-04-26 08:54 | NUR ---
SPOKE TO DR. Taryn GREY NEW ORDER FOR CLEAR LIQUID DIET. NEW ORDERS IMPLEMENTED
--- NOTE | 2019-04-26 09:18 | NUR ---
SPOKE TO DR. GUPTA REGARDING PATIENT WANTING MUSCLE RELAXER. NEW ORDER FOR FLEXERIL 5 MG PO Q8 HRS PRN.
[2019-04-26] MEDS ORDERED: CYCLOBENZAPRINE HCL 10 MG TAB PO PRN (09:30)
--- NOTE | 2019-04-26 09:40 | NUR ---
IM- progress Note O/N no events ROS: no f/c/s/OJEDA/vision changes/cp/sob/skin rash/back pain/dizziness v/s; revd PE tired appearing anicteric ns1s2 mod bs soft nd; TENDER EPIGASTRIUM/MID ABDOMEN no e/t skin dry n. affect labs/meds; revd A/P: 23yoF Acute pancreatitis UTI Overweight BMI 27.3 PLAN IVF; RUQ U/S; Lipid panel IV Pepcid; scd 11- Sepsis- POA; cont abx; cont IVF; improving; check CBC - CT repeat shows Necrotizing Pancreatitis at tail Merrem started; fevers resolving; appreciate GI recs. -5 continue current care. Possible early HAP. GB Sludge only; remains NPO- defer to GI. ID evaluation; 04-26 CLD today per GI; fevers and leukocytosis resolving; Advised EtOh cessation on admission and thereafter; improving; cont care; d/w mother at bedside; Senthil Delgado MD PhD
--- NOTE | 2019-04-26 11:05 | NUR ---
PATIENT A/O X3, EVEN RESPIRATIONS ON RA. LUNG SOUNDS CLEAR TO AUSCULTATION. BOWEL SOUNDS PRESENT. RIGHT AC 18 GAUGE IV WITH LR @ 200 CC/HR. NO PAIN AT THIS TIME. PATIENT TOLERATING CLEAR LIQUID DIET. CALL LIGHT IN REACH WILL CONTINUE TO MONITOR PATIENT.
[2019-04-26] MEDS: ACETAMINOPHEN 325 MG TAB PO PRN ×2 (12:48→19:55)
--- NOTE | 2019-04-26 14:40 | Diagnostic Imaging Report ---
Bilateral chest ultrasound History: Pleural effusion Technique/findings: Limited bilateral chest ultrasound was performed to evaluate for pleural effusion. This demonstrated a small left pleural effusion. IMPRESSION: Small left pleural effusion, insufficient to safely perform thoracentesis. Signed by: Ti Chavez MD on 04/26/2019 2:36 PM
--- NOTE | 2019-04-26 19:06 | NUR ---
PT IS RESTING IN THE RECLINER WITH FAMILY AT BEDSIDE. RESPIRATION IS EVEN AND UNLABORED, NO DISTRESS NOTED. BED IN THE LOWEST POSITION, LOCKED, AND CALL LIGHT WITHIN REACH. WILL CONTINUE TO MONITOR.
[2019-04-27] VITALS (8 sets, daily range): BP systolic 107–138; BP diastolic 57–80
--- NOTE | 2019-04-27 00:37 | NUR ---
PER DR GREY CHANGE PT DIET TO FULL LIQUID. WILL CONTINUE TO MONITOR.
[2019-04-27] MEDS: LACTATED RINGER'S 1,000 ML IV SCH ×4 (03:42→18:00)
[2019-04-27] MEDS: ACETAMINOPHEN 325 MG TAB PO PRN ×2 (03:42→08:25)
[2019-04-27 05:18] LABS: BASOPHILS # (AUTO) 0.1 (0.0-0.1); BASOPHILS % 0.4 % (0.0-1.0); EOSINOPHILS # (AUTO) 0.3 (0.0-0.4); EOSINOPHILS % 2.1 % (0.0-6.0); HEMATOCRIT 29.6 % (34.2-44.1); HEMOGLOBIN 10.3 g/dL (12.0-16.0); LYMPHOCYTES # (AUTO) 1.7 (1.0-3.2); LYMPHOCYTES % 10.4 % (18.0-39.1); MEAN CORPUSCULAR HGB CONC 34.8 g/dL (31-35); MEAN CORPUSCULAR VOLUME 94.9 fL (81-99); MONOCYTES # (AUTO) 1.9 (0.2-0.8); MONOCYTES % 11.7 % (4.4-11.3); NEUTROPHILS # (AUTO) 12.1 (2.1-6.9); NEUTROPHILS % 73.7 % (38.7-80.0); PLATELET COUNT 322 x10e3/uL (140-360); RED BLOOD COUNT 3.12 x10e6/uL (3.6-5.1); RED CELL DISTRIBUTION WIDTH 12.3 % (11.7-14.4)
[2019-04-27 05:40] LABS: ALANINE AMINOTRANSFERASE 37 IU/L (0-55); ALBUMIN 2.4 g/dL (3.5-5.0); ALBUMIN/GLOBULIN RATIO 0.6 (0.8-2.0); ALKALINE PHOSPHATASE 230 IU/L (40-150); AMYLASE 99 U/L (25-125); ANION GAP 14.4 mmol/L (8-16); BLOOD UREA NITROGEN 5 mg/dL (7-26); BUN/CREATININE RATIO 8 (6-25); CALCIUM 8.8 mg/dL (8.4-10.2); CARBON DIOXIDE 23 mmol/L (22-29); CHLORIDE 103 mmol/L (98-107); CREATININE, SERUM 0.62 mg/dL (0.57-1.11); EST GLOMERULAR FILTRATION RATE > 60 ML/MIN (60-); GLUCOSE 89 mg/dL (74-118); LIPASE 220 U/L (8-78); POTASSIUM 3.4 mmol/L (3.5-5.1); SODIUM 137 mmol/L (136-145)
[2019-04-27] MEDS: MEROPENEM 500MG/ NS 50ML 500 MG in MEROPENEM 500MG/ NS 50ML 50 ML IV SCH ×3 (05:42→18:00)
--- NOTE | 2019-04-27 07:07 | NUR ---
pt alert resp even and unlabored at this time no distress noted at this time, pt able to make needs known, call light in reach.
--- NOTE | 2019-04-27 07:14 | NUR ---
IM- progress Note O/N no events ROS: no f/c/s/OJEDA/vision changes/cp/sob/skin rash/back pain/dizziness. v/s; revd PE tired appearing anicteric ns1s2 mod bs soft nd; TENDER EPIGASTRIUM/MID ABDOMEN no e/t skin dry n. affect labs/meds; revd A/P: 23yoF Acute pancreatitis UTI Overweight BMI 27.3 PLAN IVF; RUQ U/S; Lipid panel IV Pepcid; scd 04-23 Sepsis- POA; cont abx; cont IVF; improving; check CBC 04-24 CT repeat shows Necrotizing Pancreatitis at tail Merrem started; fevers resolving; appreciate GI recs. 04-25 continue current care. Possible early HAP. GB Sludge only; remains NPO- defer to GI. ID evaluation; 04-26 CLD today per GI; fevers and leukocytosis resolving; Advised EtOh cessation on admission and thereafter; improving; cont care; d/w mother at bedside; 04/27 cont care. Senthil Delgado MD PhD
[2019-04-27] MEDS: FAMOTIDINE 20 MG/2 ML VIAL IV SCH ×2 (08:21→17:00)
--- NOTE | 2019-04-27 19:18 | NUR ---
PT IS RESTING IN BED WITH FAMILY AT BEDSIDE. RESPIRATION IS EVEN AND UNLABORED, NO DISTRESS NOTED. BED IN THE LOWEST POSITION, LOCKED, AND CALL LIGHT WITHIN REACH. WILL CONTINUE TO MONITOR.
--- NOTE | 2019-04-27 19:28 | NUR ---
report given to oncoming nurse, pt stable.
[2019-04-28] VITALS (7 sets, daily range): BP systolic 102–135; BP diastolic 53–87
[2019-04-28] MEDS: MEROPENEM 500MG/ NS 50ML 500 MG in MEROPENEM 500MG/ NS 50ML 50 ML IV SCH ×4 (00:03→18:03)
[2019-04-28] MEDS: ACETAMINOPHEN 325 MG TAB PO PRN ×3 (00:03→18:03)
[2019-04-28] MEDS ORDERED: POTASSIUM CHLORIDE 20 MEQ TAB CR PO STA (01:10)
[2019-04-28 05:02] LABS: BASOPHILS # (AUTO) 0.1 (0.0-0.1); BASOPHILS % 0.4 % (0.0-1.0); EOSINOPHILS # (AUTO) 0.9 (0.0-0.4); EOSINOPHILS % 4.3 % (0.0-6.0); HEMATOCRIT 33.4 % (34.2-44.1); HEMOGLOBIN 11.2 g/dL (12.0-16.0); LYMPHOCYTES # (AUTO) 2.6 (1.0-3.2); LYMPHOCYTES % 12.3 % (18.0-39.1); MEAN CORPUSCULAR HEMOGLOBIN 32.9 pg (28-32); MEAN CORPUSCULAR HGB CONC 33.5 g/dL (31-35); MONOCYTES % 9.3 % (4.4-11.3); NEUTROPHILS # (AUTO) 15.2 (2.1-6.9); NEUTROPHILS % 71.5 % (38.7-80.0); PLATELET COUNT 386 x10e3/uL (140-360); RED CELL DISTRIBUTION WIDTH 12.8 % (11.7-14.4)
[2019-04-28 05:06] LABS: MEAN CORPUSCULAR VOLUME 98.2 fL (81-99)
[2019-04-28 05:24] LABS: ALANINE AMINOTRANSFERASE 62 IU/L (0-55); ALBUMIN 2.7 g/dL (3.5-5.0); ALBUMIN/GLOBULIN RATIO 0.6 (0.8-2.0); ALKALINE PHOSPHATASE 268 IU/L (40-150); AMYLASE 96 U/L (25-125); BLOOD UREA NITROGEN 5 mg/dL (7-26); BUN/CREATININE RATIO 7 (6-25); CALCIUM 9.5 mg/dL (8.4-10.2); CARBON DIOXIDE 26 mmol/L (22-29); CHLORIDE 102 mmol/L (98-107); CREATININE, SERUM 0.67 mg/dL (0.57-1.11); EST GLOMERULAR FILTRATION RATE > 60 ML/MIN (60-); GLUCOSE 84 mg/dL (74-118); LIPASE 222 U/L (8-78); SODIUM 139 mmol/L (136-145)
[2019-04-28 07:36] LABS: BAND NEUTROPHILS % (MANUAL) 2 %; EOSINOPHILS % (MANUAL) 5 % (0-7); LYMPHOCYTES % (MANUAL) 15 % (19-48); MONOCYTES % (MANUAL) 10 % (3.4-9.0); NEUTROPHILS % (MANUAL) 68 % (40-74)
[2019-04-28] MEDS: FAMOTIDINE 20 MG/2 ML VIAL IV SCH ×2 (07:38→18:03)
[2019-04-28] MEDS: LACTATED RINGER'S 1,000 ML IV SCH ×5 (07:38→21:50)
[2019-04-28 07:39] LABS: HYPOCHROMASIA SLIGHT; PLATELET ESTIMATE SLIGHTLY INCREASED; RBC MORPHOLOGY COMMENT ABNORMAL
[2019-04-28 07:41] LABS: PLATELET MORPHOLOGY COMMENT FEW LARGE
--- NOTE | 2019-04-28 07:41 | NUR ---
T103.4 . PRN tylenol given. Paged to notify of labs and of patient's status.
--- NOTE | 2019-04-28 07:45 | NUR ---
aware of fever. Per "continue with LR 200 cc/hr"
--- NOTE | 2019-04-28 09:30 | NUR ---
aware of T103.4 and of loose stools
--- NOTE | 2019-04-28 10:39 | NUR ---
IM- progress Note O/N no events ROS: no f/c/s/OJEDA/vision changes/cp/sob/skin rash/back pain/dizziness. v/s; revd PE tired appearing anicteric ns1s2 mod bs soft nd; TENDER EPIGASTRIUM/MID ABDOMEN no e/t skin dry n. affect labs/meds; revd A/P: 23yoF Acute pancreatitis UTI Overweight BMI 27.3 PLAN IVF; RUQ U/S; Lipid panel IV Pepcid; scd 11- Sepsis- POA; cont abx; cont IVF; improving; check CBC 04-24 CT repeat shows Necrotizing Pancreatitis at tail Merrem started; fevers resolving; appreciate GI recs. -5 continue current care. Possible early HAP. GB Sludge only; remains NPO- defer to GI. ID evaluation; -6 CLD today per GI; fevers and leukocytosis resolving; Advised EtOh cessation on admission and thereafter; improving; cont care; d/w mother at bedside; 04/27 cont care. -8 worsened WBC and fever; NPO for HIDA to reassess GB function; Must be done today; d/w nursing; Senthil Delgado MD PhD
[2019-04-28] MEDS: METRONIDAZOLE 500MG/NS 100ML 100 ML IV SCH ×2 (14:36→21:50)
--- NOTE | 2019-04-28 16:11 | NUR ---
Follow up note RD Recommendation(s) for Physician: - When medically appropriate, advance to low fat, GI soft diet - If unable to advance diet soon, consider PN and consult Nutrition for recommendations Plan of Care: RD following, monitoring for tolerance and adequacy Nutrition reason for involvement: follow up RD Assessment 04/28: Pt was previously on a full liquid diet but was NPO at time of visit. Per MD note, pt is going to have a HIDA scan to reassess gallbladder function. Pt reported she was tolerating liquids. Pt reported she was consuming 25 to 50% of her liquids. However, per documentation in chart, pt was consuming 50-100% of liquids since 04/23. No N/V, but pt reports diarrhea. Will continue to monitor. 04/24: 23 YOF admitted for pancreatitis, seen today per new dx of necrotizing pancreatitis. Pt discussed in am rounds, RN reports necrotizing per CT scan. 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 Pt remains NPO and denies any N/V/D, reports ongoing abdominal pain. Pt with no questions or concerns at time of visit. Noted lipase trending down from 2214 on admit. Will continue to monitor. Principal Problems/Diagnoses: pancreatitis PMH: anemia, acute pancreatitis, ETOH use GI: LBM 04/27 Skin: intact Labs: 04/28: Lipase 222 04/24: Na 138, K 3.3, BUN<5, Cr 0.56, gluc 78, Lipase 254 04/22: TG 95 Meds: meropenem, lactate ringers, pepcid, dilaudid, zofran Ht: 60 in Wt: 140 lb (A new wt has not been taken since last assessment) BMI: 27.3 IBW: 100 lb Malnutrition Evaluation (04/24/19) The patient does not meet criteria for a specified degree of malnutrition at this time. Will re-evaluate at follow-up as appropriate. Energy intake: <50% of estimated energy requirements for >5 days due to NPO/liquid diet status Weight loss: Pt denies wt loss, report UBW of 170lb last week. Questionable admit wt Fat loss: none Muscle loss: none Supporting Evidence: Fluid accumulation: none Functional Status: no changes Nutrition Prescription (Diet Order): NPO (pt was previously on a full liquid diet) Estimated Nutritional Needs: 4901-6500 calories/day (22-25 kcal/kg IBW) 68-114 g protein/day (1.5-2.5 g pro/kg IBW) Diet Adequacy: Not meeting calorie needs, Not meeting protein needs Diet Tolerance: N/A Diet Education Needs Assessment: Diet education not indicated, patient on temporary/transition diet. Nutrition Care Level: moderate Nutrition Diagnosis: Inadequate energy and protein intake related to pancreatitis as evidenced by pt remains NPO with elevated lipase. Goal: Patient will meet 75-100% of estimated needs by follow up Progress: not progressing Interventions: -fiber, fat modified diet, Collaboration with other providers Monitoring/Evaluation: -Total energy intake, Total protein intake, Modified diet Signed: Dacia Newman RD, LD
--- NOTE | 2019-04-28 17:56 | Diagnostic Imaging Report ---
Hepatobiliary Scan with Gallbladder Ejection Fraction Clinical information: 23 F with worsening pancreatitis Technique: Following intravenous administration of 6.5 millicuries of Tc-99m mebrofenin, dynamic images of the abdomen in the anterior projection were obtained through 33 minutes. Sincalide (CCK analog) 1.3 micrograms was administered intravenously over 30 minutes with additional imaging for determination of gallbladder ejection fraction. Discussion: Perfusion of the liver is normal. Extraction of tracer by the liver parenchyma is normal. Tracer appears promptly within the biliary tract. The gallbladder begins to fill at 12 minutes post injection of tracer. The volume of the gallbladder is very small and dose not increase during the subsequent 20 minutes. Tracer is seen in the small bowel by 16 minutes. There is no contractile response by the gallbladder to the pharmacologic dose of sincalide. No emptying of the gallbladder occurs during the 30 minute infusion. Impression: 1. Filling of the gallbladder excludes acute cystic duct obstruction/acute cholecystitis. 2. The gallbladder ejection fraction is undefined as there is no emptying of the gallbladder during the infusion of sincalide. This absence of a contractile response to sincalide supports the clinical diagnosis of chronic cholecystitis/gallbladder dyskinesia. Signed by: Dr. Theresa Langford M.D. on 04/28/2019 5:53 PM
--- NOTE | 2019-04-28 18:22 | NUR ---
aware of HIDA scan results. States " I will see the patient tomorrow"
--- NOTE | 2019-04-28 19:20 | NUR ---
Report given to oncoming nurse of patient's status. Resting in bed. No s/s of acute distress noted. Family at bedside. Side rails upx2, call light within reach.
--- NOTE | 2019-04-28 19:27 | NUR ---
Received change of shift report from AM nurse. Walking rounds completed.
[2019-04-29] VITALS (7 sets, daily range): BP systolic 97–130; BP diastolic 51–78
--- NOTE | 2019-04-29 01:00 | NUR ---
Dr Orozco on the floor to see patient. Will f/up with now orders.
--- NOTE | 2019-04-29 01:05 | Consultation ---
DATE OF CONSULTATION: 04/28/2019 HISTORY OF PRESENT ILLNESS: The patient is a 23-year-old female admitted to the hospital with complaints of epigastric left upper quadrant abdominal pain. She had a previous pancreatitis a few months ago, which required hospitalization for 5 days. Evaluation during this admission also revealed changes on the CT scan suggestive of pancreatitis with possible necrosis of the pancreatic tail. The patient now complains of pain in left upper quadrant. She denies any epigastric pain. She denies any right upper quadrant pain. She does have some back pain. Ultrasound revealed a tiny amount of sludge in the gallbladder. HIDA scan showed visualization of the gallbladder, but no emptying. The patient is on a liquid diet now and she does not have any nausea or vomiting, only feels bloated. She is having diarrhea. PAST MEDICAL HISTORY: Significant for excessive alcohol use as she drinks at least 4 days a week. She has also had fever during this hospitalization on a regular basis with temperature up to 103.4 yesterday and fever almost every day since she has been admitted. The patient has not had a previous abdominal surgery. HOME MEDICATIONS: The only home medication she takes is iron. ALLERGIES: SHE HAS NO KNOWN ALLERGIES. FAMILY HISTORY: Noncontributory. SOCIAL HISTORY: The patient drinks alcohol excessively. Does not smoke cigarettes. REVIEW OF SYSTEMS: As stated above. She has been having fever up to 102 or 103 every day since admission. PHYSICAL EXAMINATION: GENERAL: The patient is awake and alert. VITAL SIGNS: At this time reveal a heart rate of 114, temperature is 101.6, blood pressure is normal. HEENT: There was no scleral icterus. NECK: No masses. LUNGS: Equal breath sounds are clear bilaterally. CARDIAC: Regular rate and rhythm with no murmur. ABDOMEN: Soft. There is mild distention. There is mild left upper quadrant tenderness. There is no midepigastric or right upper quadrant tenderness. There is no mass. EXTREMITIES: Have no edema. Pulses are palpable. NEUROLOGIC: Intact. LABORATORY TEST: White blood cell count 21.3, hemoglobin 11, hematocrit 33. Chemistries revealed elevated lipase to 22. Liver function test, elevated alkaline phosphatase, ALT, AST, and bilirubin are normal. IMAGING STUDIES: Revealed changes consistent with pancreatitis seen on CT scan and possible necrosis of the pancreatic tail. HIDA scan did not visualize the gallbladder. Ultrasound revealed only a small amount of sludge with no gallstones. ASSESSMENT: A 23-year-old female with pancreatitis likely secondary to alcohol use. She does have abnormal gallbladder on imaging, but symptoms do not seem to be referable to the gallbladder. At this point, I recommend continued therapy for pancreatitis as is being done. If she keeps having persistent fevers, it is possible this could be due to the necrosis of the tail of the pancreas, but at this point I would just recommend continuing the patient on antibiotics as have been ordered. There is no sign of acute surgical abdomen. No findings that would warrant immediate surgical intervention. Thank you for asking me to see Ms. Ching. MD MARIO Taylor/EMA /[id number]
[2019-04-29] MEDS: ACETAMINOPHEN 325 MG TAB PO PRN (04:03)
[2019-04-29] MEDS: LACTATED RINGER'S 1,000 ML IV SCH ×5 (05:00→20:00)
[2019-04-29 06:00] LABS: BASOPHILS # (AUTO) 0.1 (0.0-0.1); BASOPHILS % 0.4 % (0.0-1.0); EOSINOPHILS # (AUTO) 0.8 (0.0-0.4); EOSINOPHILS % 3.5 % (0.0-6.0); HEMATOCRIT 32.1 % (34.2-44.1); HEMOGLOBIN 10.8 g/dL (12.0-16.0); LYMPHOCYTES # (AUTO) 2.3 (1.0-3.2); LYMPHOCYTES % 9.5 % (18.0-39.1); MEAN CORPUSCULAR HEMOGLOBIN 32.9 pg (28-32); MEAN CORPUSCULAR HGB CONC 33.6 g/dL (31-35); MEAN CORPUSCULAR VOLUME 97.9 fL (81-99); MONOCYTES # (AUTO) 2.2 (0.2-0.8); MONOCYTES % 9.2 % (4.4-11.3); NEUTROPHILS # (AUTO) 18.3 (2.1-6.9); PLATELET COUNT 440 x10e3/uL (140-360); RED BLOOD COUNT 3.28 x10e6/uL (3.6-5.1); RED CELL DISTRIBUTION WIDTH 12.8 % (11.7-14.4)
[2019-04-29] MEDS: METRONIDAZOLE 500MG/NS 100ML 100 ML IV SCH ×3 (06:00→21:13)
--- NOTE | 2019-04-29 06:00 | NUR ---
Patient resting quitly at this time.
[2019-04-29 06:11] LABS: ALANINE AMINOTRANSFERASE 42 IU/L (0-55); ALBUMIN 2.6 g/dL (3.5-5.0); ALBUMIN/GLOBULIN RATIO 0.6 (0.8-2.0); ALKALINE PHOSPHATASE 230 IU/L (40-150); AMYLASE 114 U/L (25-125); ANION GAP 17.1 mmol/L (8-16); BLOOD UREA NITROGEN 5 mg/dL (7-26); BUN/CREATININE RATIO 8 (6-25); CALCIUM 9.2 mg/dL (8.4-10.2); CARBON DIOXIDE 24 mmol/L (22-29); CHLORIDE 102 mmol/L (98-107); CREATININE, SERUM 0.65 mg/dL (0.57-1.11); EST GLOMERULAR FILTRATION RATE > 60 ML/MIN (60-); GLUCOSE 87 mg/dL (74-118); LIPASE 292 U/L (8-78); POTASSIUM 4.1 mmol/L (3.5-5.1); SODIUM 139 mmol/L (136-145)
[2019-04-29] MEDS: MEROPENEM 500MG/ NS 50ML 500 MG in MEROPENEM 500MG/ NS 50ML 50 ML IV SCH ×2 (07:00)
[2019-04-29 07:39] LABS: PLATELET MORPHOLOGY COMMENT FEW LARGE; RBC MORPHOLOGY COMMENT NORMAL
[2019-04-29] MEDS: FAMOTIDINE 20 MG/2 ML VIAL IV SCH ×2 (09:35→16:48)
[2019-04-29] MEDS: ACETAMINOPHEN 1000 MG/100 ML IV PRN (11:58)
--- NOTE | 2019-04-29 19:26 | NUR ---
Received change of shift report from AM nurse. Walking rounds completed.
[2019-04-30] VITALS (7 sets, daily range): BP systolic 101–125; BP diastolic 56–85
--- NOTE | 2019-04-30 | NUR ---
Patient AAO x3. Patient has temp over 100 degrees. Given tylenol.
--- NOTE | 2019-04-30 00:20 | NUR ---
Patient resting quitly at this tiime.
[2019-04-30] MEDS: LACTATED RINGER'S 1,000 ML IV SCH ×5 (01:00→22:50)
[2019-04-30 05:25] LABS: BASOPHILS # (AUTO) 0.1 (0.0-0.1); BASOPHILS % 0.4 % (0.0-1.0); EOSINOPHILS % 6.5 % (0.0-6.0); HEMATOCRIT 32.9 % (34.2-44.1); HEMOGLOBIN 10.9 g/dL (12.0-16.0); LYMPHOCYTES # (AUTO) 2.9 (1.0-3.2); LYMPHOCYTES % 9.8 % (18.0-39.1); MEAN CORPUSCULAR HEMOGLOBIN 32.8 pg (28-32); MEAN CORPUSCULAR HGB CONC 33.1 g/dL (31-35); MEAN CORPUSCULAR VOLUME 99.1 fL (81-99); MONOCYTES # (AUTO) 2.3 (0.2-0.8); MONOCYTES % 7.7 % (4.4-11.3); NEUTROPHILS # (AUTO) 21.9 (2.1-6.9); NEUTROPHILS % 73.1 % (38.7-80.0); PLATELET COUNT 465 x10e3/uL (140-360); RED BLOOD COUNT 3.32 x10e6/uL (3.6-5.1)
[2019-04-30] MEDS: METRONIDAZOLE 500MG/NS 100ML 100 ML IV SCH ×3 (05:33→21:08)
[2019-04-30 05:56] LABS: ALANINE AMINOTRANSFERASE 27 IU/L (0-55); ALBUMIN 2.7 g/dL (3.5-5.0); ALBUMIN/GLOBULIN RATIO 0.6 (0.8-2.0); ALKALINE PHOSPHATASE 204 IU/L (40-150); ANION GAP 17.4 mmol/L (8-16); BLOOD UREA NITROGEN 7 mg/dL (7-26); BUN/CREATININE RATIO 10 (6-25); CALCIUM 9.4 mg/dL (8.4-10.2); CARBON DIOXIDE 24 mmol/L (22-29); CHLORIDE 101 mmol/L (98-107); CREATININE, SERUM 0.71 mg/dL (0.57-1.11); EST GLOMERULAR FILTRATION RATE > 60 ML/MIN (60-); GLUCOSE 78 mg/dL (74-118); POTASSIUM 4.4 mmol/L (3.5-5.1); SODIUM 138 mmol/L (136-145)
[2019-04-30 06:15] LABS: LIPASE 192 U/L (8-78)
--- NOTE | 2019-04-30 08:02 | NUR ---
IM- progress Note O/N no events ROS: no f/c/s/OJEDA/vision changes/cp/sob/skin rash/back pain/dizziness. v/s; revd PE tired appearing anicteric ns1s2 mod bs soft nd; TENDER EPIGASTRIUM/MID ABDOMEN no e/t skin dry n. affect labs/meds; revd A/P: 23yoF Acute pancreatitis UTI Overweight BMI 27.3 PLAN IVF; RUQ U/S; Lipid panel IV Pepcid; scd 04-23 Sepsis- POA; cont abx; cont IVF; improving; check CBC 04-24 CT repeat shows Necrotizing Pancreatitis at tail Merrem started; fevers resolving; appreciate GI recs. 04-25 continue current care. Possible early HAP. GB Sludge only; remains NPO- defer to GI. ID evaluation; 04-26 CLD today per GI; fevers and leukocytosis resolving; Advised EtOh cessation on admission and thereafter; improving; cont care; d/w mother at bedside; 04/27 cont care. 04-28 worsened WBC and fever; NPO for HIDA to reassess GB function; Must be done today; d/w nursing; 04/29 HIDA- gallblader Dyskinesia; continue supportive care; 04/30 supportive care; Senthil Delgado MD PhD
[2019-04-30 08:05] LABS: PLATELET MORPHOLOGY COMMENT MODERATE LARGE
[2019-04-30] MEDS: FAMOTIDINE 20 MG/2 ML VIAL IV SCH ×2 (08:55→17:04)
[2019-04-30] MEDS: ACETAMINOPHEN 1000 MG/100 ML IV PRN ×3 (10:19→21:08)
--- NOTE | 2019-04-30 10:27 | Diagnostic Imaging Report ---
CT chest, abdomen and pelvis with intravenous contrast Indication: Pancreatitis, leukocytosis Technique: Thin collimation axial images obtained from the thoracic inlet to the level of the pubic symphysis following the uneventful administration of 100 cc of low osmolar, nonionic intravenous contrast. RADIATION DOSE: Total DLP: 810.84 mGy*cm Estimated effective dose: (DLP x 0.015 x size factor) mSv CTDIvol has been reviewed. It is below the limits set by the Radiation Protocol Committee (RPC). Dose reduction techniques used: Automated exposure control, adjustment of the mAs and/or kVp according to patient size, standardized low-dose protocol, and/or iterative reconstruction technique. Comparison: Right upper quadrant ultrasound 04/24/2019, CT abdomen/pelvis 04/23/2019. CHEST FINDINGS: Lymph nodes: No enlarged axillary, supra clavicular, mediastinal, or hilar lymph nodes. Thyroid: Visualized portions are normal. Mediastinum: No pericardial effusion. Heart and great vessels enhance normally without filling defects. The esophagus is normal. Lungs: Right Lung: No mass or infiltrate. Left Lung: Minimal atelectasis of the posterior costophrenic angle. Pleura:Trace left pleural effusion. No enhancement of the visceral or parietal pleura ABDOMEN FINDINGS: Liver: Normal attenuation. No evidence for mass. Gallbladder: Present and appears normal. No biliary ductal dilatation. Pancreas: Mildly heterogeneous enhancement of the pancreas tail is similar. Remainder of the pancreas parenchyma enhances normally. Peripancreatic inflammation is redemonstrated and is similar. There is no loculated fluid collection. No pancreas mass or ductal dilatation. Spleen: Uniform enhancement. Small amount of perisplenic fluid. Adrenal Glands: No evidence for mass. Kidneys: Right: Normal enhancement. No cortical mass. No hydronephrosis. Left: Normal enhancement. Lower pole cyst is stable. No hydronephrosis. Lymph Nodes: No lymphadenopathy. Aorta: Normal in diameter. Celiac artery: Patent and normal in morphology. SMA: Patent. Portal vein: Patent. Splenic vein: Patent PELVIS FINDINGS: Bowel: Stomach: Mildly thickened at the fundus with associated left upper quadrant inflammation. Small Bowel: Normal in caliber with normal wall thickness. Large Bowel: Normal in caliber. There is inflammation adjacent to descending colon but the colon appears otherwise normal. Appendix: Normal appendix. Bladder: Underdistended but otherwise normal. Uterus: Present and normal in morphology. No adnexal mass. Peritoneum/retroperitoneum: Inflammation and fluid in the left upper quadrant, anterior left perirenal space and left lateral paracolic gutter is redemonstrated and more nodular in appearance. There is new nodular inflammation in the lateral and posterior left retroperitoneum at the level of L4. Fluid in the lesser sac is diminishing. There is a trace amount of pelvic ascites. No free air. No loculated fluid collection. Soft tissues: Unremarkable. Bones: Unremarkable for age. IMPRESSION: 1. Necrotizing pancreatitis of the pancreas tail is similar in extent. No loculated fluid collections or vascular complications have developed. 2. Left retroperitoneal ascites/inflammation is resolving with new nodular foci of inflammation in the affected areas. Free flowing ascites is significantly smaller. 3. Mild gastric wall thickening in the left upper quadrant secondary to ascites. Signed by: Dr. Chetan Laurent MD on 04/30/2019 10:24 AM
[2019-04-30] MEDS ORDERED: CEFTRIAXONE SOD 1 GM/NS 50 ML 50 ML IV SCH (14:45)
[2019-04-30] MEDS ORDERED: CEFTRIAXONE SOD 1 GM/NS 50 ML 50 ML IV ONE (14:45)
--- NOTE | 2019-04-30 15:30 | NUR ---
Visit made by the Spiritual Care Department Pastoral Visitor, Thomas Verduzco. PV provided pastoral presence, hospitality, and supportive listening. Pastoral Visitor informed pt/family of the scope of License Clerk Services and availability. CHAI ROWELL Ladle Mechanic Spiritual Care Department O: [phone] Pager: [phone] ([phone] number calling from)
--- NOTE | 2019-04-30 19:14 | NUR ---
Received change of shift report from AM nurse. Walking rounds completed.
[2019-04-30] MEDS ORDERED: IOPAMIDOL 370 MG/ML 200 ML INFUS..BTL INJ ONE (20:30)
[2019-04-30] MEDS ORDERED: SODIUM CHLORIDE 0.9% 50ML 50 ML ONE (20:30)
--- NOTE | 2019-04-30 21:29 | NUR ---
Patient with temp 102.2 tylenol given as ordered by .
[2019-05-01] VITALS (7 sets, daily range): BP systolic 98–133; BP diastolic 53–77
--- NOTE | 2019-05-01 02:03 | NUR ---
Patient temp has increase given tylenol as given by . Will f/u for resi
[2019-05-01] MEDS: LACTATED RINGER'S 1,000 ML IV SCH ×4 (05:00→22:00)
[2019-05-01 05:25] LABS: BASOPHILS # (AUTO) 0.1 (0.0-0.1); BASOPHILS % 0.4 % (0.0-1.0); EOSINOPHILS % 7.1 % (0.0-6.0); HEMATOCRIT 31.3 % (34.2-44.1); HEMOGLOBIN 10.5 g/dL (12.0-16.0); LYMPHOCYTES # (AUTO) 2.3 (1.0-3.2); LYMPHOCYTES % 8.2 % (18.0-39.1); MEAN CORPUSCULAR HEMOGLOBIN 33.5 pg (28-32); MEAN CORPUSCULAR HGB CONC 33.5 g/dL (31-35); MONOCYTES % 7.1 % (4.4-11.3); NEUTROPHILS # (AUTO) 20.9 (2.1-6.9); NEUTROPHILS % 74.7 % (38.7-80.0); PLATELET COUNT 491 x10e3/uL (140-360); RED BLOOD COUNT 3.13 x10e6/uL (3.6-5.1)
[2019-05-01 05:49] LABS: ALANINE AMINOTRANSFERASE 20 IU/L (0-55); ALBUMIN 2.6 g/dL (3.5-5.0); ALBUMIN/GLOBULIN RATIO 0.7 (0.8-2.0); ALKALINE PHOSPHATASE 179 IU/L (40-150); ANION GAP 15.2 mmol/L (8-16); BLOOD UREA NITROGEN 9 mg/dL (7-26); BUN/CREATININE RATIO 14 (6-25); CALCIUM 9.1 mg/dL (8.4-10.2); CARBON DIOXIDE 25 mmol/L (22-29); CHLORIDE 100 mmol/L (98-107); CREATININE, SERUM 0.66 mg/dL (0.57-1.11); EST GLOMERULAR FILTRATION RATE > 60 ML/MIN (60-); GLUCOSE 74 mg/dL (74-118); LIPASE 161 U/L (8-78); POTASSIUM 4.2 mmol/L (3.5-5.1); SODIUM 136 mmol/L (136-145)
[2019-05-01] MEDS: METRONIDAZOLE 500MG/NS 100ML 100 ML IV SCH ×2 (06:00→13:29)
[2019-05-01 06:39] LABS: PLATELET MORPHOLOGY COMMENT MODERATE LARGE
[2019-05-01 06:40] LABS: RBC MORPHOLOGY COMMENT NORMAL
[2019-05-01] MEDS: ACETAMINOPHEN 1000 MG/100 ML IV PRN (08:00)
[2019-05-01] MEDS: FAMOTIDINE 20 MG/2 ML VIAL IV SCH ×2 (08:00→16:31)
--- NOTE | 2019-05-01 13:20 | NUR ---
IM- progress Note O/N no events ROS: no f/c/s/OJEDA/vision changes/cp/sob/skin rash/back pain/dizziness. v/s; revd PE tired appearing anicteric ns1s2 mod bs soft nd; TENDER EPIGASTRIUM/MID ABDOMEN no e/t skin dry n. affect labs/meds; revd A/P: 23yoF Acute pancreatitis UTI Overweight BMI 27.3 PLAN IVF; RUQ U/S; Lipid panel IV Pepcid; scd 04-23 Sepsis- POA; cont abx; cont IVF; improving; check CBC 04-24 CT repeat shows Necrotizing Pancreatitis at tail Merrem started; fevers resolving; appreciate GI recs. 04-25 continue current care. Possible early HAP. GB Sludge only; remains NPO- defer to GI. ID evaluation; 04-26 CLD today per GI; fevers and leukocytosis resolving; Advised EtOh cessation on admission and thereafter; improving; cont care; d/w mother at bedside; 04/27 cont care. 04-28 worsened WBC and fever; NPO for HIDA to reassess GB function; Must be done today; d/w nursing; 04/29 HIDA- gallblader Dyskinesia; continue supportive care; 04/30 supportive care; 05-01 fever/leukocytosis persist; Left retroperitoneum nodular finding- d/w ; unclear; We will further discuss with ID and radiology. Senthil Delgado MD PhD
[2019-05-01] MEDS ORDERED: ONDANSETRON HCL 4 MG ORAL DISINTEGRATING TAB PO PRN (13:45)
--- NOTE | 2019-05-01 13:45 | NUR ---
Spoke with Dr. Delgado regarding plan of care. States pt may need LTAC. CM informed him we will check to see if she has LTAC benefits. HELENE spoke with pt and her dad at bedside and with pt's mother on phone. Discussed short term acute care vs LTAC and services provided at LTAC facility. They verbalized understanding. Pt's dad stated that if pt was to transfer anywhere, they would want to transfer to a hospital in the [facility]. HELENE informed him that hospitals in the [facility] are also short term acute care facilities and typically we transfer if pt is requiring a service that is unable to be completed here. He verbalized understanding. He states that if pt was to transfer to LTAC they would prefer to go somewhere close to this area and preferably to a facility that the MDs here go. Pt signed choice letter for [facility]. Signed copy placed in chart. Copy to pt. Informed pt that we will check to see if she has LTAC benefits and will start referral if benefits available. Janet with [facility] was notified and will let CM know if pt has benefits.
[2019-05-01] MEDS ORDERED: CEFTRIAXONE SOD 1 GM/NS 50 ML 50 ML IV SCH (14:45)
--- NOTE | 2019-05-01 19:25 | NUR ---
Patient received lying in bed. AAO x 4. Family at bedside. Patient had no complaints of pain. Respirations even and non-labored. Fall precautions implemented. Patient instructed to call for assistance when needed. Call light within reach.
[2019-05-02] VITALS (9 sets, daily range): BP systolic 102–122; BP diastolic 60–82
[2019-05-02] MEDS: LACTATED RINGER'S 1,000 ML IV SCH ×5 (04:00→20:39)
--- NOTE | 2019-05-02 04:10 | NUR ---
Patient complained of nausea and vomiting. Zofran 4 mg PO administered per eMAR. Will continue to monitor.
[2019-05-02 07:18] LABS: BASOPHILS # (AUTO) 0.1 (0.0-0.1); BASOPHILS % 0.3 % (0.0-1.0); EOSINOPHILS # (AUTO) 2.4 (0.0-0.4); EOSINOPHILS % 11.2 % (0.0-6.0); HEMATOCRIT 29.9 % (34.2-44.1); LYMPHOCYTES # (AUTO) 2.4 (1.0-3.2); LYMPHOCYTES % 11.3 % (18.0-39.1); MEAN CORPUSCULAR HEMOGLOBIN 33.1 pg (28-32); MEAN CORPUSCULAR HGB CONC 33.4 g/dL (31-35); MONOCYTES # (AUTO) 1.4 (0.2-0.8); MONOCYTES % 6.6 % (4.4-11.3); NEUTROPHILS # (AUTO) 14.5 (2.1-6.9); PLATELET COUNT 494 x10e3/uL (140-360); RED BLOOD COUNT 3.02 x10e6/uL (3.6-5.1); RED CELL DISTRIBUTION WIDTH 12.8 % (11.7-14.4)
[2019-05-02 07:32] LABS: ANION GAP 13.1 mmol/L (8-16); BLOOD UREA NITROGEN 9 mg/dL (7-26); BUN/CREATININE RATIO 14 (6-25); CALCIUM 8.6 mg/dL (8.4-10.2); CARBON DIOXIDE 25 mmol/L (22-29); CHLORIDE 99 mmol/L (98-107); CREATININE, SERUM 0.64 mg/dL (0.57-1.11); EST GLOMERULAR FILTRATION RATE > 60 ML/MIN (60-); GLUCOSE 76 mg/dL (74-118); POTASSIUM 4.1 mmol/L (3.5-5.1); SODIUM 133 mmol/L (136-145)
[2019-05-02] MEDS: FAMOTIDINE 20 MG/2 ML VIAL IV SCH ×2 (08:05→16:50)
[2019-05-02 09:16] LABS: PLATELET MORPHOLOGY COMMENT FEW LARGE; RBC MORPHOLOGY COMMENT NORMAL
--- NOTE | 2019-05-02 15:08 | NUR ---
Follow up note RD Recommendation(s) for Physician: - If cleared by GI, initiate CL diet and advance to low fat, GI soft diet. - If unable to advance diet consider PPN of 1800 ml TV at 75 ml/hr, standard formula (D10W 500 ml/L and AA 8.5% 500 ml/L), standard lytes, add thiamine and folic acid. To provide 612 kcal and 77 gm protein. - Recommend discontinuing or decreasing IVF with initiation of TPN. - Monitor BMP with Mg and Phos daily, check TG weekly. Plan of Care: RD following, monitoring for tolerance and adequacy Nutrition reason for involvement: follow up RD Assessment 05/02: Follow up. Pt now NPO x day 3. Pt reports tolerating diet prior to NPO on 04/29, denies any GI distress or abdominal pain. Pt discussed during am rounds, need for diet advancement and/or nutrition support discussed. Possible PN initiation today, pt with peripheral access only. PPN rec's discussed with RN, TPN order sheet with rec's placed in chart. Will continue to monitor. 04/28: Pt was previously on a full liquid diet but was NPO at time of visit. Per MD note, pt is going to have a HIDA scan to reassess gallbladder function. Pt reported she was tolerating liquids. Pt reported she was consuming 25 to 50% of her liquids. However, per documentation in chart, pt was consuming 50-100% of liquids since 04/23. No N/V, but pt reports diarrhea. Will continue to monitor. 04/24: 23 YOF admitted for pancreatitis, seen today per new dx of necrotizing pancreatitis. Pt discussed in am rounds, RN reports necrotizing per CT scan. 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 Pt remains NPO and denies any N/V/D, reports ongoing abdominal pain. Pt with no questions or concerns at time of visit. Noted lipase trending down from 2214 on admit. Will continue to monitor. Principal Problems/Diagnoses: pancreatitis PMH: anemia, acute pancreatitis, ETOH use GI: LBM 05/02 Skin: intact Labs: 05/02: Na 133, K 4.1, BUN 9, Cr 0.64, Gluc 76, Ca 8.6, Lipase 158 04/28: Lipase 222 04/24: Na 138, K 3.3, BUN<5, Cr 0.56, gluc 78, Lipase 254 04/22: TG 95 Meds: pepcid, zofran IVF: LR at 200 ml/hr Ht: 60 in Wt: 140 lb (A new wt has not been taken since last assessment) BMI: 27.3 IBW: 100 lb Malnutrition Evaluation (04/24/19) The patient does not meet criteria for a specified degree of malnutrition at this time. Will re-evaluate at follow-up as appropriate. Energy intake: <50% of estimated energy requirements for >5 days due to NPO/liquid diet status Weight loss: Pt denies wt loss, report UBW of 170lb last week. Questionable admit wt Fat loss: none Muscle loss: none Supporting Evidence: Fluid accumulation: none Functional Status: no changes Nutrition Prescription (Diet Order): NPO (pt was previously on a full liquid diet) Estimated Nutritional Needs: 3671-2031 calories/day (22-25 kcal/kg IBW) 68-114 g protein/day (1.5-2.5 g pro/kg IBW) Diet Adequacy: Not meeting calorie needs, Not meeting protein needs Diet Tolerance: previously tolerating prior to NPO Diet Education Needs Assessment: Diet education not indicated, patient on temporary/transition diet. Nutrition Care Level: high- NPO x day 3, possible PPN initiation Nutrition Diagnosis: Inadequate energy and protein intake related to pancreatitis as evidenced by pt remains NPO with elevated lipase. Goal: Patient will meet 75-100% of estimated needs by follow up Progress: not progressing Interventions: -fiber, fat modified diet, Collaboration with other providers, PN- composition, rate Monitoring/Evaluation: -Total energy intake, Total protein intake, Modified diet, PN Signed: Nereyda Herrera RD, LD, [facility]
--- NOTE | 2019-05-02 23:23 | Progress Note ---
DATE: SUBJECTIVE: Ms. Ching doing well very well today. She is sitting comfortable in bed. No nausea. No vomiting. No pain. No fever. She had a bowel movement earlier. She is still n.p.o. OBJECTIVE: Abdomen soft, nontender. No acute signs. ALLERGIES: SHE IS ALLERGIC TO NOTHING. CURRENT MEDICATION: Pepcid, Zofran. Her CT scan on April 30 show peripancreatic inflammation. No loculated fluid. Normal gallbladder. Her lab test hemoglobin 10, hematocrit 30, white cell count 21, normal neutrophils. Sodium 133, potassium 4, BUN 9, creatinine 0.64, alkaline phosphatase 179. Liver function normal. Lipase 158. Temperature 98, blood pressure 112/70. We will continue current care. We will start tonight on clear liquid diet and advance it to soft diet. Shelly Collazo MD RD/MODL /[id number]
--- NOTE | 2019-05-02 23:32 | NUR ---
IM- progress Note O/N no events ROS: no f/c/s/OJEDA/vision changes/cp/sob/skin rash/back pain/dizziness. v/s; revd PE tired appearing anicteric ns1s2 mod bs soft nd; TENDER EPIGASTRIUM/MID ABDOMEN no e/t skin dry n. affect labs/meds; revd A/P: 23yoF Acute pancreatitis UTI Overweight BMI 27.3 PLAN IVF; RUQ U/S; Lipid panel IV Pepcid; scd - Sepsis- POA; cont abx; cont IVF; improving; check CBC 04-24 CT repeat shows Necrotizing Pancreatitis at tail Merrem started; fevers resolving; appreciate GI recs. 04-25 continue current care. Possible early HAP. GB Sludge only; remains NPO- defer to GI. ID evaluation; 04-26 CLD today per GI; fevers and leukocytosis resolving; Advised EtOh cessation on admission and thereafter; improving; cont care; d/w mother at bedside; 04/27 cont care. 04-28 worsened WBC and fever; NPO for HIDA to reassess GB function; Must be done today; d/w nursing; 04/29 HIDA- gallblader Dyskinesia; continue supportive care; 04/30 supportive care; 05-01 fever/leukocytosis persist; Left retroperitoneum nodular finding- d/w ; unclear; We will further discuss with ID and radiology. - wbc improving; cont supportive care.[id number] Senthil Delgado MD PhD
[2019-05-03] VITALS (8 sets, daily range): BP systolic 95–114; BP diastolic 55–68
[2019-05-03 05:39] LABS: BASOPHILS # (AUTO) 0.1 (0.0-0.1); BASOPHILS % 0.6 % (0.0-1.0); EOSINOPHILS # (AUTO) 2.3 (0.0-0.4); EOSINOPHILS % 15.6 % (0.0-6.0); HEMATOCRIT 32.7 % (34.2-44.1); HEMOGLOBIN 10.8 g/dL (12.0-16.0); LYMPHOCYTES # (AUTO) 2.4 (1.0-3.2); MEAN CORPUSCULAR HEMOGLOBIN 32.6 pg (28-32); MEAN CORPUSCULAR VOLUME 98.8 fL (81-99); MONOCYTES # (AUTO) 1.1 (0.2-0.8); MONOCYTES % 7.1 % (4.4-11.3); NEUTROPHILS # (AUTO) 8.5 (2.1-6.9); NEUTROPHILS % 57.5 % (38.7-80.0); PLATELET COUNT 608 x10e3/uL (140-360); RED BLOOD COUNT 3.31 x10e6/uL (3.6-5.1); RED CELL DISTRIBUTION WIDTH 12.8 % (11.7-14.4)
[2019-05-03 07:17] LABS: BAND NEUTROPHILS % (MANUAL) 1 %; EOSINOPHILS % (MANUAL) 18 % (0-7); LYMPHOCYTES % (MANUAL) 17 % (19-48); MONOCYTES % (MANUAL) 4 % (3.4-9.0); NEUTROPHILS % (MANUAL) 60 % (40-74)
[2019-05-03 07:21] LABS: ANISOCYTOSIS SLIGHT; HELMET CELLS RARE; MICROCYTOSIS SLIGHT; OVALOCYTES FEW; PLATELET ESTIMATE MODERATELY INCREASED; POIKILOCYTOSIS SLIGHT; RBC MORPHOLOGY COMMENT ABNORMAL
[2019-05-03 07:22] LABS: PLATELET MORPHOLOGY COMMENT NORMAL
[2019-05-03] MEDS: FAMOTIDINE 20 MG/2 ML VIAL IV SCH (09:23)
--- NOTE | 2019-05-03 10:45 | NUR ---
CM updated Jante with [facility] regarding pt's status. Pt's abx were dc'd and started on gi soft diet today. WBC trending down. No criteria for LTAC at this time.
[2019-05-03] MEDS: FAMOTIDINE 20 MG TAB PO SCH (12:45)
--- NOTE | 2019-05-03 19:12 | Progress Note ---
DATE: 05/03/2019 SUBJECTIVE: She is doing great. She is awake, alert, oriented, asymptomatic, tolerated her diet well. No nausea, no vomiting, no abdominal pain. She had a bowel movement today. On exam, her abdomen is soft, not distended, not tender. Her lab test; her white cell count dropped to 14,000 from 21,000, hemoglobin 10, hematocrit 32, platelets 600. BUN, creatinine, sodium, potassium are normal. Her lipase has dropped to 141. Nothing to add from GI standpoint. We will continue her current care. Also to mention that her temperature is 96.6 with normal blood pressure. Shelly Collazo MD RD/MODL /[id number]
--- NOTE | 2019-05-03 19:35 | NUR ---
RECEIVED PT IN BED AOX3 ..NO ACUTE DISTRESS NOTED .DENIES PAIN .CALL LIGHT WITH IN REACH .CONTINUE TO MONITOR
[2019-05-04] MEDS: FAMOTIDINE 20 MG TAB PO SCH ×2 (00:45→12:04)
[2019-05-04 05:28] VITALS: BP 95/51
--- NOTE | 2019-05-04 06:34 | NUR ---
PT RESTED DURING THE NIGHT .DENIES PAIN .CALL LIGHT WITH IN REACH .CONTINUE TO MONITOR
--- NOTE | 2019-05-04 06:58 | NUR ---
BEDSIDE REPORT GIVEN TO THE ONCOMING NURSE
[2019-05-04 07:45] LABS: BASOPHILS # (AUTO) 0.1 (0.0-0.1); BASOPHILS % 0.8 % (0.0-1.0); EOSINOPHILS # (AUTO) 1.4 (0.0-0.4); EOSINOPHILS % 12.5 % (0.0-6.0); HEMATOCRIT 37.4 % (34.2-44.1); HEMOGLOBIN 12.4 g/dL (12.0-16.0); LYMPHOCYTES # (AUTO) 2.4 (1.0-3.2); LYMPHOCYTES % 21.9 % (18.0-39.1); MEAN CORPUSCULAR HGB CONC 33.2 g/dL (31-35); MEAN CORPUSCULAR VOLUME 99.5 fL (81-99); MONOCYTES # (AUTO) 0.8 (0.2-0.8); MONOCYTES % 7.2 % (4.4-11.3); NEUTROPHILS # (AUTO) 5.9 (2.1-6.9); NEUTROPHILS % 53.3 % (38.7-80.0); PLATELET COUNT 712 x10e3/uL (140-360); RED BLOOD COUNT 3.76 x10e6/uL (3.6-5.1); RED CELL DISTRIBUTION WIDTH 12.8 % (11.7-14.4)
[2019-05-04 08:10] VITALS: BP 99/55
[2019-05-04 08:46] VITALS: BP 99/55
[2019-05-04 11:43] VITALS: BP 101/60
[2019-05-04] MEDS ORDERED: FAMOTIDINE20 MG PO (12:25)
--- NOTE | 2019-05-04 12:30 | NUR ---
Called Dr. Danny Ndiaye, to clarify Pepcid, 20 mg PO time and frequency, received orders to instruct patient to buy Pepcid OTC and take every 12 hours, and to follow up with GI in 1-2 weeks.
== END 2019-05-04 12:35 | disposition home or self-care (01) | DRG 871 ==
LOC: ER 11:18 → ERHOLD 13:34 → MED/SURG2 15:19
PROVIDERS: ADMIT Internal Medicine; ATTEND Internal Medicine
DX: A41.9 Sepsis, unspecified organism (principal); K85.21 Alcohol induced acute pancreatitis with uninfected necrosis; N39.0 Urinary tract infection, site not specified; J98.11 Atelectasis; J90 Pleural effusion, not elsewhere classified; K82.8 Other specified diseases of gallbladder; R50.2 Drug induced fever; L27.0 Generalized skin eruption due to drugs and medicaments taken internally; E66.3 Overweight; Z68.27 Body mass index [BMI] 27.0-27.9, adult; Y90.0 Blood alcohol level of less than 20 mg/100 ml; F10.10 Alcohol abuse, uncomplicated
CPT/HCPCS: 36415; 71046; 71260; 74176; 74177; 76604; 76705; 78227; 80048; 80053; 80061; 80320; 81001; 81025; 82150; 82948; 83605; 83690; 84145; 85025; 87040; 87086; 87400; 87493; 96361; 99284; A9537; J0696; J1170; J2185; J2270; J2405; J2543; J3370; J3411; J3480; J7030; J7121; Q0162; Q9967

== ENCOUNTER 2019-11-24 10:27 | Inpatient (IN) | payer OTHER ==
[~2019-11-24] VITALS: Ht 157.5 cm; Wt 69.9 kg
[~2019-11-24 10:27] MED LIST changes: +FAMOTIDINE20 MG PO
--- OUTSIDE RECORDS SUMMARY | 2019-11-24 10:31 | XMS REPORT | Continuity of Care Document ---
Author Author [facility] t Organization [facility] Address [address] [place] [place] [address] Phone Unavailable Care Team Providers Care Kettleman Name Role Phone BENJAMIN SAENZ MD PCP DEONTE GUPTA Attphysona Unavailable DEONTE GUPTA Admjensen Unavailable Payers Payer Name Policy Type Policy Number Effective Date Expiration Date [facility] [id number] 2016 00:0 0:00 [facility] Problems This patient has no known problems. Allergies, Adverse Reactions, Alerts Allergy Name Allergy Type Status Severity Reaction(s) Onset Date Inacti ve Date Treating Clinician Comments Source No Known Allergies DA Active U 2019-02-15 00:00:00 [facility] No Known Allergies DA Active U 2019-02-14 00:00:00 [facility] Medications Ordered Medication Name Filled Medication Name Start Date Stop Da te Current Medication? Ordering Clinician Indication Dosage Frequency Signature (SIG) Comments Components Source Famotidine 20 Mg Tab Famotidine 20 Mg Tab Yes 20 Every 12 Hours [facility] Ferrous Sulfate 324 Mg Tablet. Ferrous Sulfate 324 Mg Tablet.dr Clark [facility] Procedures Procedure Date / Time Performed Performing Clinician Sour e Computed tomography of abdomen and pelvis with contrast 2018 00:00:00 DEONTE GUPTA [facility] Computed tomography of chest with contrast 2019-04-30 00:00:00 DEONTE MORRISON [facility] Ultrasound of chest including mediastinum 2019-04-26 00:00:00 OMAR LEONARDO [facility] X-ray of chest, two views 2019-04-25 00:00:00 OMAR GREY [facility] US Gallbladder 2019-04-24 00:00:[address] [facility] Computed tomography of abdomen and pelvis with contrast 2018 00:00:00 DEONTE GUPTA [facility] CT of abdomen and pelvis without contrast 2019-04-21 00:00:00 ROBERTO KING [facility] Encounters Start Date/Time End Date/Time Encounter Type [facility] ID Source 2019-04-21 13:34:00 2019-05-04 12:35:00 Discharged Inpatient 1 ALONSO DEONTE [facility] [id number] [facility] Results Test Description Test Time Test Comments Results Result Comments Source Lipase 2019-05-04 08:29:00 Test Item Lipase (test code = 3040-3) 224 8-78 [facility] Cmrru5547-66-52 08:28:00* Test Item Value Reference Range Interpretation Comments White Blood Count (test code = 6690-2) 11.01 4.8-10.8 [facility] Blood Svxlb9335-06-15 08:28:00* Test Item Value Reference Range Interpretation Comments Red Blood Count (test code = 789-8) 3.76 3.6-5.1 [facility]Hemoglobin2019-11-14 08:28:00* Test Item Value Reference Range Interpretation Comments Hemoglobin (test code = 41914-3) 12.4 12.0-16.0 [facility] HospitalHematocrit2019-11-14 08:28:00* Test Item Value Reference Range Interpretation Comments Hematocrit (test code = 4544-3) 37.4 34.2-44.1 [facility]Mean Corpuscular Bvhjtp2581-08-09 08:28:00* Test Item Value Reference Range Interpretation Comments Mean Corpuscular Volume (test code = 787-2) 99.5 81-99 [facility]Mean Corpuscular Athyyxtcxu0281-36-12 08:28:00* Test Item Value Reference Range Interpretation Comments Mean Corpuscular Hemoglobin (test code = 785-6) 33.0 28-32 H [facility] HospitalMean Corpuscular Hemoglobin Concent 2019-05-04 08:28:00* Test Item Value Reference Range Interpretation Comments Mean Corpuscular Hemoglobin Concent (test code = 786-4) 33.2 31-35 [facility]Red Cell Distribution Ocamz4939-59-85 08:28:00* Test Item Value Reference Range Interpretation Comments Red Cell Distribution Width (test code = 56955-9) 12.8 11.7 -14.4 [facility] HospitalPlatelet Ykuuk6454-53-92 08:28:00* Test Item Value Reference Range Interpretation Comments Platelet Count (test code = 777-3) 712 140-360 H [facility] HospitalNeutrophils (%) (Auto)2019-05-04 08:28:00 * Test Item Value Reference Range Interpretation Comments Neutrophils (%) (Auto) (test code = 35179-4) 53.3 38.7-80.0 [facility] HospitalLymphocytes (%) (Auto)2019-05-04 08:28:00 * Test Item Value Reference Range Interpretation Comments Lymphocytes (%) (Auto) (test code = 736-9) 21.9 18.0-39.1 [facility] HospitalMonocytes (%) (Auto)2019-05-04 08:28:00* Test Item Value Reference Range Interpretation Comments Monocytes (%) (Auto) (test code = 5905-5) 7.2 4.4-11.3 [facility] HospitalEosinophils (%) (Auto)2019-05-04 08:28:00 * Test Item Value Reference Range Interpretation Comments Eosinophils (%) (Auto) (test code = 713-8) 12.5 0.0-6.0 H [facility] HospitalBasophils (%) (Auto)2019-05-04 08:28:00* Test Item Value Reference Range Interpretation Comments Basophils (%) (Auto) (test code = 706-2) 0.8 0.0-1.0 [facility] HospitalIM GRANULOCYTES %2019-05-04 08:28:00* Test Item Value Reference Range Interpretation Comments IM GRANULOCYTES % (test code = IM GRANULOCYTES %) 4.3 0.0- 1.0 H [facility] HospitalNeutrophils # (Auto)2019-05-04 08:28:00* Test Item Value Reference Range Interpretation Comments Neutrophils # (Auto) (test code = 751-8) 5.9 2.1-6.9 [facility] HospitalLymphocytes # (Auto)2019-05-04 08:28:00* Test Item Value Reference Range Interpretation Comments Lymphocytes # (Auto) (test code = 21375-6) 2.4 1.0-3.2 [facility] HospitalMonocytes # (Auto)2019-05-04 08:28:00* Test Item Value Reference Range Interpretation Comments Monocytes # (Auto) (test code = 742-7) 0.8 0.2-0.8 [facility] HospitalEosinophils # (Auto)2019-05-04 08:28:00* Test Item Value Reference Range Interpretation Comments Eosinophils # (Auto) (test code = 711-2) 1.4 0.0-0.4 H [facility] HospitalBasophils # (Auto)2019-05-04 08:28:00* Test Item Value Reference Range Interpretation Comments Basophils # (Auto) (test code = 704-7) 0.1 0.0-0.1 [facility] HospitalAbsolute Immature Granulocyte (auto 2019-05-04 08:28:00* Test Item Value Reference Range Interpretation Comments Absolute Immature Granulocyte (auto (kemi t code = Absolute Immature Granulocyte (auto) 0.47 0-0.1 H [facility] HospitalBlood Sbyxjxd8354-12-39 20:31:00* Test Item Value Reference Range Interpretation Comments Blood Culture (test code = 35161182) NO GROWTH AFTER 48 HOURS [facility] HospitalProcalcitonin2019-11-13 19:32:00* Test Item Value Reference Range Interpretation Comments Procalcitonin (test code = 510784023) 0.16 0.00-0.08 H A procalcitonin (PCT) level above 2.0 ng/mL on the firstday of ICU admission is associated with a high risk forprogression to severe sepsis and/or septic shock. A PCT level below 0.5 ng/mL on the first day of ICUadmission is associated with a low risk for progressionto severe sepsis and/or septic shock.Note: Concentrati ons <0.5 ng/mL do not exclude aninfection, on account of localized infections (withoutsystemic signs) which can be associated with such lowconcentrations, or a systemic infection in its initialstages (<6 hours).Furthermore, increased procalcitonin can occur withoutinfection. PCT concentrations between 0.5 and 2.0 ng/mLshould be interpreted taking into account the patient'shistory. It is recommended to retest PCT within 6-24 hoursif any concentrations <2 ng/mL are obtained.Performed at: [facility] [id number] Director: Eleno Hanks MD, Phone: [phone] McKinney HospitalDifferential Total Cells Tqczlax6222-08-85 07:24:00* Test Item Value Reference Range Interpretation Comments Differential Total Cells Counted (test code = Differmelissa tial Total Cells Counted) 100 [facility] HospitalNeutrophils % (Manual)2019-05-03 07:24:00 * Test Item Value Reference Range Interpretation Comments Neutrophils % (Manual) (test code = 69154-9) 60 40-74 [facility] HospitalBand Neutrophils %2019-05-03 07:24:00* Test Item Value Reference Range Interpretation Comments Band Neutrophils % (test code = 764-1) 1 [facility] HospitalLymphocytes % (Manual)2019-05-03 07:24:00 * Test Item Value Reference Range Interpretation Comments Lymphocytes % (Manual) (test code = 737-7) 17 19-48 L [facility] HospitalMonocytes % (Manual)2019-05-03 07:24:00* Test Item Value Reference Range Interpretation Comments Monocytes % (Manual) (test code = 744-3) 4 3.4-9.0 [facility] HospitalEosinophils % (Manual)2019-05-03 07:24:00 * Test Item Value Reference Range Interpretation Comments Eosinophils % (Manual) (test code = 714-6) 18 0-7 H [facility] HospitalPlatelet Pcyouqdc2220-63-63 07:24:00* Test Item Value Reference Range Interpretation Comments Platelet Estimate (test code = 48309-7) MODERATELY INCREASED [facility] HospitalPlatelet Morphology Cgyepkb1205-25-42 07:24:00* Test Item Value Reference Range Interpretation Comments Platelet Morphology Comment (test code = 82717-0) NORMAL No EDTA clumping seen.[facility] HospitalPoikilocytosis 2019-05-03 07:24:00* Test Item Value Reference Range Interpretation Comments Poikilocytosis (test code = 779-9) SLIGHT [facility] HospitalAnisocytosis2019-11-13 07:24:00* Test Item Value Reference Range Interpretation Comments Anisocytosis (test code = 702-1) SLIGHT [facility] HospitalMicrocytosis2019-11-13 07:24:00* Test Item Value Reference Range Interpretation Comments Microcytosis (test code = 741-9) SLIGHT [facility] HospitalMacrocytosis2019-11-13 07:24:00* Test Item Value Reference Range Interpretation Comments Macrocytosis (test code = 738-5) SLIGHT [facility] HospitalOvalocytes2019-11-13 07:24:00* Test Item Value Reference Range Interpretation Comments Ovalocytes (test code = 774-0) FEW [facility] HospitalHelmet Weiac4369-66-76 07:24:00* Test Item Value Reference Range Interpretation Comments Helmet Cells (test code = 58355-6) RARE [facility] HospitalRed Cell Morphology Xtkhtub7591-88-05 07:24:00* Test Item Value Reference Range Interpretation Comments Red Cell Morphology Comment (test code = 6742-1) ABNORMAL [facility] Bwklb0707-97-98 07:35:00* Test Item Value Reference Range Interpretation Comments Sodium Level (test code = 2951-2) 133 136-145 L [facility] HospitalPotassium Zeqxw4862-15-72 07:35:00* Test Item Value Reference Range Interpretation Comments Potassium Level (test code = 2823-3) 4.1 3.5-5.1 [facility] HospitalChloride Czyrr5923-71-30 07:35:00* Test Item Value Reference Range Interpretation Comments Chloride Level (test code = 2075-0) 99 98-107 [facility] HospitalCarbon Dioxide Bljwj2010-82-29 07:35:00* Test Item Value Reference Range Interpretation Comments Carbon Dioxide Level (test code = 2028-9) 25 22-29 [facility] HospitalAnion Jmq5971-84-11 07:35:00* Test Item Value Reference Range Interpretation Comments Anion Gap (test code = 71506-9) 13.1 8-16 [facility] HospitalBlood Urea Ypaxdckg7064-70-72 07:35:00* Test Item Value Reference Range Interpretation Comments Blood Urea Nitrogen (test code = 3094-0) 9 7-26 [facility] HospitalCreatinine2019-11-12 07:35:00* Test Item Value Reference Range Interpretation Comments Creatinine (test code = 2160-0) 0.64 0.57-1.11 [facility] HospitalBUN/Creatinine Gvjkq7175-16-93 07:35:00* Test Item Value Reference Range Interpretation Comments BUN/Creatinine Ratio (test code = 3097-3) 14 6-25 [facility] HospitalEstimat Glomerular Filtration Rate 2019-05-02 07:35:00* Test Item Value Reference Range Interpretation Comments Estimat Glomerular Filtration Rate (test code = 255304984) > 60 >60 Ranges were taken from the National Kidney Disease Education Program and the [facility] literature.Reference ranges:60 or greater: Rljsme52-84 ( for 3 consecutive months): Chronic kidney disease 15 or less: Kidney failureMethodist McKinney HospitalGlucose Rarvc7249-93-61 07:35:00* Test Item Value Reference Range Interpretation Comments Glucose Level (test code = VLF7300) 76 74-118 [facility] HospitalCalcium Xuvrv4954-20-76 07:35:00* Test Item Value Reference Range Interpretation Comments Calcium Level (test code = 36351-4) 8.6 8.4-10.2 [facility] HospitalClostridium Difficile Toxin A & B 2019-05-01 08:25:00* Test Item Value Reference Range Interpretation Comments Clostridium Difficile Toxin A & B (test code = 839243514) NEGATIVE NEGATIVE Testing on stool aspirate specimens is outside machine feeder raw stock claims since specime n type not validated on this assay.[facility] HospitalTotal Lriwmkqqq9227-94-12 05:51:00* Test Item Value Reference Range Interpretation Comments Total Bilirubin (test code = 1975-2) 0.5 0.2-1.2 [facility] HospitalAspartate Amino Transf (AST/SGOT) 2019-05-01 05:51:00* Test Item Value Reference Range Interpretation Comments Aspartate Amino Transf (AST/SGOT) (test code = Aspartate Amino Transf (AST/SGOT)) 19 5-34 [facility] HospitalAlanine Aminotransferase (ALT/SGPT) 2019-05-01 05:51:00* Test Item Value Reference Range Interpretation Comments Alanine Aminotransferase (ALT/SGPT) (test code = 1742-6) 20 0-55 [facility] HospitalTotal Wmicjjy7048-21-35 05:51:00* Test Item Value Reference Range Interpretation Comments Total Protein (test code = 2885-2) 6.6 6.5-8.1 [facility] HospitalAlbumin2019-11-11 05:51:00* Test Item Value Reference Range Interpretation Comments Albumin (test code = 1751-7) 2.6 3.5-5.0 L [facility] HospitalGlobulin2019-11-11 05:51:00* Test Item Value Reference Range Interpretation Comments Globulin (test code = 24501-3) 4.0 2.3-3.5 H [facility] HospitalAlbumin/Globulin Nfsxq8736-83-54 05:51:00 * Test Item Value Reference Range Interpretation Comments Albumin/Globulin Ratio (test code = 1759-0) 0.7 0.8-2.0 L [facility] HospitalAlkaline Toqkycjcdrq0508-54-75 05:51:00* Test Item Value Reference Range Interpretation Comments Alkaline Phosphatase (test code = 6768-6) 179 40-150 H [facility] HospitalCT ABDOMEN/PELVIS E3779-81-61 10:13:00 [facility] [address] [address] Patient Name: RADHA HAMLIN MR #: [id number] : 1995 Age/Sex: 23/F Req #: [id number] Adm Physician: DEONTE GUPTA MD Ordered by: DEONTE GUPTA MD Report #: [id number] Location: [facility]SURG Room/Bed: [facility] Procedure: [id number] CT/ CT ABDOMEN/PELVIS W Exam Date: 04/30/19 Exam Time: 0 950 REPORT STATUS: Signed CT ch est, abdomen and pelvis with intravenous contrast Indication: Pancreatitis, leukocytosis Technique: Thin collimation axial images obtained from the th oracic inlet to the level of the pubic symphysis following the uneventful admi nistration of 100 cc of low osmolar, nonionic intravenous contrast. RAD IATION DOSE: Total DLP: 810.84 mGy*cm Estimated effective dos e: (DLP x 0.015 x size factor) mSv CTDIvol has been reviewed. It is below the limits set by the Radiation Protocol Committee (RPC). Dose reduction techniques used: Automated exposure control, adjustment of the mAs and/or kVp according to patient size, standardized low-dose protocol, and/or iterative r econstruction technique. Comparison: Right upper quadrant ultrasound , CT abdomen/pelvis 04/23/2019. CHEST FINDINGS: Lymph nodes: No en larged axillary, supra clavicular, mediastinal, or hilar lymph nodes. Thy roid: Visualized portions are normal. Mediastinum: No pericardial effusion. Heart and great vessels enhance normally without filling defects. The esoph lauren is normal. Lungs: Right Lung: No mass or infiltrate. Left L crystal: Minimal atelectasis of the posterior costophrenic angle. Pleura:Trace left pleural effusion. No enhancement of the visceral or parietal pleura ABDOMEN FINDINGS: Liver: Normal attenuation. No evidence for mass. Ga llbladder: Present and appears normal. No biliary ductal dilatation. Pancre as: Mildly heterogeneous enhancement of the pancreas tail is similar. Remainde r of the pancreas parenchyma enhances normally. Peripancreatic inflammation is redemonstrated and is similar. There is no loculated fluid collection. No carpio creas mass or ductal dilatation. Spleen: Uniform enhancement. Small amount of perisplenic fluid. Adrenal Glands: No evidence for mass. Kidneys: Right: Normal enhancement. No cortical mass. No hydronephrosis. Left: Normal enhancement. Lower pole cyst is stable. No hydronephrosis. Lymph Nodes: No lymphadenopathy. Aorta: Normal in diameter. Celiac artery: Pat ent and normal in morphology. SMA: Patent. Portal vein: Patent. Splenic ve in: Patent PELVIS FINDINGS: Bowel: Stomach: Mildly thickened at th e fundus with associated left upper quadrant inflammation. Small Bowel: No rmal in caliber with normal wall thickness. Large Bowel: Normal in caliber. There is inflammation adjacent to descending colon but the colon appears other flores normal. Appendix: Normal appendix. Bladder: Underdistended but otherwi se normal. Uterus: Present and normal in morphology. No adnexal mass. Per itoneum/retroperitoneum: Inflammation and fluid in the left upper quadrant, an terior left perirenal space and left lateral paracolic gutter is redemonstrate d and more nodular in appearance. There is new nodular inflammation in the lat eral and posterior left retroperitoneum at the level of L4. Fluid in the lesse r sac is diminishing. There is a trace amount of pelvic ascites. No free air. No loculated fluid collection. Soft tissues: Unremarkable. Bones: Unre markable for age. IMPRESSION: 1. Necrotizing pancreatitis of the panc reas tail is similar in extent. No loculated fluid collections or vascular com plications have developed. 2. Left retroperitoneal ascites/inflammation is resolving with new nodular foci of inflammation in the affected areas. Free fl owing ascites is significantly smaller. 3. Mild gastric wall thickening i n the left upper quadrant secondary to ascites. Signed by: Dr. Demetra Welch MD on 04/30/2019 10:24 AM Dictated By: DEMETRA WELCH MD María ctronically Signed By: DEMETRA WELCH MD on 04/30/19 1024 Transcribed By: SULEMA AYALA on 04/30/19 1024 COPY TO: DEONTE GUPTA MD CT CHEST W 2019-04-30 10:13:[address] [place] [address] Patient Name: RADHA HAMLIN MR #: [id number] : 1995 Age/Sex: 23/F Req #: [id number] Adm Physician: DEONTE GUPTA MD Ordered by: DEONTE GUPTA MD Report #: [id number] Location: MED/SURG2 Room/Bed: [facility] Procedure: [id number] CT/ CT CHEST W Exam Date: 04/30/19 Exam Time: 0950 REPORT STATUS: Signed CT chest, abdo men and pelvis with intravenous contrast Indication: Pancreatitis, leukocyt osis Technique: Thin collimation axial images obtained from the thoracic in let to the level of the pubic symphysis following the uneventful administratio n of 100 cc of low osmolar, nonionic intravenous contrast. RADIATION DO SE: Total DLP: 810.84 mGy*cm Estimated effective dose: (DLP x 0.015 x size factor) mSv CTDIvol has been reviewed. It is below the limi ts set by the Radiation Protocol Committee (RPC). Dose reduction techniqu es used: Automated exposure control, adjustment of the mAs and/or kVp accordin g to patient size, standardized low-dose protocol, and/or iterative reconstruc tion technique. Comparison: Right upper quadrant ultrasound 04/24/2019, CT a bdomen/pelvis 04/23/2019. CHEST FINDINGS: Lymph nodes: No enlarged ax illary, supra clavicular, mediastinal, or hilar lymph nodes. Thyroid: Vis ualized portions are normal. Mediastinum: No pericardial effusion. Heart a nd great vessels enhance normally without filling defects. The esophagus is n ormal. Lungs: Right Lung: No mass or infiltrate. Left Lung: Mini mal atelectasis of the posterior costophrenic angle. Pleura:Trace left pleu ral effusion. No enhancement of the visceral or parietal pleura ABDOMEN F INDINGS: Liver: Normal attenuation. No evidence for mass. Gallbladder : Present and appears normal. No biliary ductal dilatation. Pancreas: Mildl y heterogeneous enhancement of the pancreas tail is similar. Remainder of the pancreas parenchyma enhances normally. Peripancreatic inflammation is redemons trated and is similar. There is no loculated fluid collection. No pancreas mas s or ductal dilatation. Spleen: Uniform enhancement. Small amount of perisp lenic fluid. Adrenal Glands: No evidence for mass. Kidneys: Righ t: Normal enhancement. No cortical mass. No hydronephrosis. Left: Normal enhancement. Lower pole cyst is stable. No hydronephrosis. Lymph Nodes: N o lymphadenopathy. Aorta: Normal in diameter. Celiac artery: Patent and n ormal in morphology. SMA: Patent. Portal vein: Patent. Splenic vein: Paten t PELVIS FINDINGS: Bowel: Stomach: Mildly thickened at the fundus with associated left upper quadrant inflammation. Small Bowel: Normal in c aliber with normal wall thickness. Large Bowel: Normal in caliber. There is inflammation adjacent to descending colon but the colon appears otherwise norm al. Appendix: Normal appendix. Bladder: Underdistended but otherwise normal . Uterus: Present and normal in morphology. No adnexal mass. Peritoneum/r etroperitoneum: Inflammation and fluid in the left upper quadrant, anterior le ft perirenal space and left lateral paracolic gutter is redemonstrated and mor e nodular in appearance. There is new nodular inflammation in the lateral and posterior left retroperitoneum at the level of L4. Fluid in the lesser sac is diminishing. There is a trace amount of pelvic ascites. No free air. No locula teofilo fluid collection. Soft tissues: Unremarkable. Bones: Unremarkable for age. IMPRESSION: 1. Necrotizing pancreatitis of the pancreas tail is similar in extent. No loculated fluid collections or vascular complications have developed. 2. Left retroperitoneal ascites/inflammation is resolving with new nodular foci of inflammation in the affected areas. Free flowing asc ites is significantly smaller. 3. Mild gastric wall thickening in the lef t upper quadrant secondary to ascites. Signed by: Dr. Demetra Welch MD on 04/30/2019 10:24 AM Dictated By: DEMETRA WELCH MD Electronical ly Signed By: DEMETRA WELCH MD on 04/30/19 1024 Transcribed By: DAYANARA on 04/30/19 1024 COPY TO: DEONTE GUPTA MD Bedside Noeyrob5729-15-74 23:55:00* Test Item Value Reference Range Interpretation Comments Bedside Glucose (test code = 09135-5) 132 70-120 H Meter ID: [id number] [facility] DistrictAm[facility] Level 2019-04-29 06:13:00* Test Item Value Reference Range Interpretation Comments Amylase Level (test code = 1798-8) 114 25-125 [facility] DistrictHEPT[facility]ILIARY W KKQRO4331-11-44 17:48:00 [facility] [address] [place] [address] Patient Name: RADHA HAMLIN MR #: [id number] : 1995 Age/Sex: 23/F Req #: [id number] Adm Physician: DEONTE GUPTA MD Ordered by: DEONTE GUPTA MD Report #: [id number] Location: MED/SURG2 Room/Bed: [facility] Procedure: [id number] NM/ HEPTOBILIARY W PHARM Exam Date: 04/28/19 Exam Time: 1625 REPORT STATUS: Signed Hepat obiliary Scan with Gallbladder Ejection Fraction Clinical information: 23 F with worsening pancreatitis Technique: Following intravenous administrati on of 6.5 millicuries of Tc-99m mebrofenin, dynamic images of the abdomen in t he anterior projection were obtained through 33 minutes. Sincalide (CCK analo g) 1.3 micrograms was administered intravenously over 30 minutes with addition al imaging for determination of gallbladder ejection fraction. Discussion : Perfusion of the liver is normal. Extraction of tracer by the liver parench yma is normal. Tracer appears promptly within the biliary tract. The gallbla dder begins to fill at 12 minutes post injection of tracer. The volume of th e gallbladder is very small and dose not increase during the subsequent 20 min utes. Tracer is seen in the small bowel by 16 minutes. There is no contracti le response by the gallbladder to the pharmacologic dose of sincalide. No emp tying of the gallbladder occurs during the 30 minute infusion. Impressi on: 1. Filling of the gallbladder excludes acute cystic duct obstruction/ acute cholecystitis. 2. The gallbladder ejection fraction is undefined as t here is no emptying of the gallbladder during the infusion of sincalide. This absence of a contractile response to sincalide supports the clinical diagnosis of chronic cholecystitis/gallbladder dyskinesia. Signed by: Dr. Nelson ann M.D. on 04/28/2019 5:53 PM Dictated By: NELSON QUIJANO MD Electronical ly Signed By: NELSON QUIJANO MD on 04/28/191752 Transcribed By: DAYANARA on 1752 COPY TO: DEONTE GUPTA MD Urine [id number] 12:57:00* Test Item Value Reference Range Interpretation Comments Urine Test (test code = 2106-3) NEGATIVE [facility]GATIVE [facility] 07:42:00* Test Item Value Reference Range Interpretation Comments Hypochromasia (test code = 728-6) SLIGHT [facility] Virus Types A,B Antigen 2019-04-26 15:27:00* Test Item Value Reference Range Interpretation Comments Influenza Virus Types A,B Antigen (test code = 27875-7) NEGATIVE [facility]GATIVE [facility] (INCL MEDIASTINUM)2019-04-26 14:35:00 [facility] [address] [address] Patient Name: RADHA HAMLIN MR #: [id number] : 1995 Age/Sex: 23/F Req #: [id number] Adm Physician: DEONTE GUPTA MD Ordered by: OMAR POWERS MD Report #: [id number] Location: MED/SURG2 Room/Bed: [facility] Procedure: [id number] US/US CHEST (INCL MEDIASTINUM) Exam Date: Exam Rikki e: REPORT STATUS: Signed Bilate ral chest ultrasound History: Pleural effusion Technique/findings: Limited bilateral chest ultrasound was performed to evaluate for pleural effus ion. This demonstrated a small left pleural effusion. IMPRESSION: Small l eft pleural effusion, insufficient to safely perform thoracentesis. Signed by: Paige Bishop MD on 04/26/2019 2:36 PM Dictated By: PAIGE BISHOP MD Elect ronically Signed By: PAIGE BISHOP MD on 04/26/19 1436 Transcribed By: DAYANARA on 04/26/19 1436 COPY TO: OMAR POWERS MD Basophils % (Manual) 2019-04-26 07:12:00* Test Item Value Reference Range Interpretation Comments Basophils % (Manual) (test code = 62933-4) 1 0-1.5 [facility] [id number] 05:36:00 [facility] [address] [address] Patient Name: RADHA HAMLIN MR #: [id number] : 1995 Age/Sex: 23/F Req #: [id number] Adm Physician: DEONTE GUPTA MD Ordered by: OMAR GREY MD Report #: [id number] Location: MED/SURG2 Room/Bed: [facility] Procedure: [id number] DX/CHEST 2 VIEWS Exam Date: 04/25/19 Exam Time: 0510 REPORT STATUS: Signed EXAMINATI ON: CHEST 2 VIEWS INDICATION: Fever. COMPARISON: CT Abdomen/Pelv is 04/23/2019. FINDINGS: TUBES and LINES: None. LUNGS: Lungs are moderately inflated. There is increasing moderate left pleural effusion. T here is patchy opacity at the left lung base. No evidence of pulmonary edema. PLEURA: No pleural effusion or pneumothorax. HEART AND MEDIASTINUM: The cardiomediastinal silhouette is unremarkable. BONES AND SOFT TISSU ES: No acute osseous abnormality. UPPER ABDOMEN: No free air under the jeremi phragm. IMPRESSION: Increasing moderate left pleural effusion with p atchy left basilar opacity, likely atelectasis. Early pneumonia is possible in the appropriate clinical setting. Signed by: Dr. Veronica Hernandez MD on 2018 5:38 AM Dictated By: VERONICA HERNANDEZ MD 7 Transcribed By: DAYANARA on 04/25/19537 COPY TO: OMAR GREY MD [id number] 12:42:[address] [address] Patient Name: RADHA HAMLIN MR #: [id number] : 1995 Age/Sex: 23/F Req #: [id number] Adm Physician: DEONTE GUPTA MD Ordered by: DEONTE GUPTA MD Report #: [id number] Location: MED/SURG2 Room/Bed: [facility] Procedure: [id number] US/ US GALLBLADDER Exam Date: 04/24/19 Exam Time: 1030 REPORT STATUS: Signed EXAM: Right upper quadrant abdominal ultrasound INDICATION: Right upper quadrant pain COMPARISON: CT abdomen and pelvis of 04/23/2019 TECHNIQUE: Transverse and longitudinal images of the right upper quadrant abdomen were obtained FI NDINGS: Liver: Size: 15.0 cm in the right midclavicular line, normal Appearance: Normal echogenicity, smooth contour Mass: No focal masses Gal lbladder: Small amount of sludge in the gallbladder. No gallbladder distension , pericholecystic fluid, wall thickening, stone, or reported sonographic Sarah y's sign. Gallbladder wall measures 3 mm . Bile Ducts: Intrahepatic Duct s: No dilatation Extrahepatic Ducts: Common bile duct measures 3 mm, no dilata tion Pancreas: Visualized portions of the pancreatic head, neck and proxi mal body are normal. Kidney: The right kidney measures 10.1 cm without evid ence of hydronephrosis or stone. Vessels: Aorta: Visualized portions a re normal Inferior Vena Cava: Visualized portions are normal Main Portal Vei n: 1.1 cm, normal size with hepatopetal flow. Free Fluid: Trace right ple ural effusion. IMPRESSION: Small amount of sludge in the gallbladder. No sonographic evidence of cholecystitis. Trace right pleural effusion. Signed by: Paige Bishop MD on 04/24/2019 12:44 PM Dictated By: PAIGE BISHOP MD 1244 Transcribed By: SULEMA AYALA on 04/24/19 1244 COPY TO: DEONTE GUPTA MD Lactic Acid Level 2019-04-24 05:47:00* Test Item Value Reference Range Interpretation Comments Lactic Acid Level (test code = Lactic Acid Level) 0.7 0.5- 2.0 [facility] [id number] 21:21:00* Test Item Value Reference Range Interpretation Comments Urine WBC (test code = 5821-4) 0-5 0-5 [facility] [id number] 21:21:00* Test Item Value Reference Range Interpretation Comments Urine RBC (test code = 17419-0) 0-5 0-5 [facility] Vvlrrklo7875-89-68 21:21:00* Test Item Value Reference Range Interpretation Comments Urine Bacteria (test code = 42998-6) FEW NONE [facility] Epithelial Gpqrc5620-15-22 21:21:00 * Test Item Value Reference Range Interpretation Comments Urine Epithelial Cells (test code = 53835-9) FEW NONE [facility] Rcfev0781-71-49 20:57:00* Test Item Value Reference Range Interpretation Comments Urine Color (test code = 5778-6) YELLOW YELLOW [facility] Wubljyo7950-71-74 20:57:00* Test Item Value Reference Range Interpretation Comments Urine Clarity (test code = 60592-8) CLEAR CLEAR [facility] Specific Fmhajhg3507-47-19 20:57:00 * Test Item Value Reference Range Interpretation Comments Urine Specific [place] (test code = 5811-5) <=1.005 1.010-1.02 5 [facility] [id number] 20:57:00* Test Item Value Reference Range Interpretation Comments Urine pH (test code = 07309-0) 6.5 5-7 [facility] Leukocyte Obnrggdl5600-13-13 20:57:00* Test Item Value Reference Range Interpretation Comments Urine Leukocyte Esterase (test code = 69080-4) NEGATIVE NEGATIV E [facility] Llyozvd1610-60-29 20:57:00* Test Item Value Reference Range Interpretation Comments Urine Nitrite (test code = 57428-0) NEGATIVE NEGATIVE [facility] [id number] 20:57:00* Test Item Value Reference Range Interpretation Comments Urine Protein (test code = 15751-8) NEGATIVE NEGATIVE [facility] Glucose (UA)2019-04-23 20:57:00* Test Item Value Reference Range Interpretation Comments Urine Glucose (UA) (test code = 15263-2) NEGATIVE NEGATIVE [facility] Gmxzelf9208-37-45 20:57:00* Test Item Value Reference Range Interpretation Comments Urine Ketones (test code = 90285-1) NEGATIVE NEGATIVE [facility] Oycuaaektqpw7314-12-04 20:57:00* Test Item Value Reference Range Interpretation Comments Urine Urobilinogen (test code = 77728-5) 0.2 0.2-1 [facility] Dgbnfpccp7959-93-15 20:57:00* Test Item Value Reference Range Interpretation Comments Urine Bilirubin (test code = 1977-8) NEGATIVE NEGATIVE [facility] Chevi7475-57-69 20:57:00* Test Item Value Reference Range Interpretation Comments Urine Blood (test code = 81879-4) NEGATIVE NEGATIVE [facility]/PELVIS [id number] 20:00:00 [address] [address] Patient Name: RADHA HAMLIN MR #: [id number] : 1995 Age/Sex: 23/F Req #: [id number] Adm Physician: DEONTE GUPTA MD Ordered by: DEONTE GUPTA MD Report #: [id number] Location: MED/SURG2 Room/Bed: 204 Procedure: [id number] CT/ CT ABDOMEN/PELVIS W Exam Date: 04/23/19 Exam Time: 1 925 REPORT STATUS: Signed EXAM: CT Abdomen and Pelvis WITH contrast INDICATION: Abdominal pain, fever CO MPARISON: abdominal CT 04/21/2019 TECHNIQUE: Abdomen and pelvis were scanned u tilizing a multidetector helical scanner from the lung base to the pubic symph ysis after administration of IV contrast. Coronal and sagittal reformations we re obtained. Routine protocol was performed. Scan was performed when during po rtal venous phase. IV CONTRAST: 100 mL of Isovue 370 ORAL CONT RAST: None COMPLICATIONS: None RADIATION DOSE: Tota l DLP: 614 mGy*cm Estimated effective dose: (DLP x 0.015 x size factor) m Sv CTDIvol has been reviewed. It is below the limits set by the Radiation Protocol Committee (RPC). Dose modulation, iterative reconstruction, a nd/or weight based adjustment of the mA/kV was utilized to reduce the radiatio n dose to as low as reasonably achievable. FINDINGS: LINES and TUBE S: None. LOWER THORAX: New small bilateral pleural effusions. HEPATOB ILIARY: No focal hepatic lesions. No biliary ductal dilation. GALLBLA DDER: No radio-opaque stones or sludge. No wall thickening. SPLEEN: No spl enomegaly. PANCREAS: Moderate amount of peripancreatic edema with focal hy poenhancement of the pancreatic tail (series 301 image 53). The pancreatic deon t is not dilated. Focal 2.2 cm anterior contour bulging at the pancreatic tail (series 2 image 24), similar compared to abdominal CT of 04/21/2019. ADRE NALS: No adrenal nodules KIDNEYS/URETERS: Kidneys enhance symmetrically . No hydronephrosis. Tiny hypodensity in the left renal inferior pole is too small to characterize, likely benign. No stones. GI TRACT: No abnorm al distention, wall thickening, or evidence of bowel obstruction. Append ix is normal. PELVIC ORGANS/BLADDER: Unremarkable. LYMPH NODES: No lym phadenopathy. VESSELS: Unremarkable. PERITONEUM / RETROPERITONEUM: Inc reased small volume ascites, with ascites and edema tracking along the paracol ic gutters and around the spleen and stomach. No free air. BONES: Unremar kable. SOFT TISSUES: Unremarkable. 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 Compared to 04/21/2019, increased moderate peripancreatic edema without loculated collecti on at this time, and increased small volume ascites, with new small bilateral pleural effusions. A 2.2 cm anterior pancreatic tail contour protrusion is lik adrian focus of pancreatic edema and necrosis, although an underlying mass is pos sible. Recommend contrast-enhanced pancreatic MRI/MRCP for further evaluation. Signed by: Pancho Fountain DO on 04/23/2019 8:24 PM Dictated By: EUGENE FOUNTAIN DO Transcribed By: DAYANARA on 04/23/192023 COPY TO: DEONTE GUPTA MD Triglycerides [id number] 07:50:00* Test Item Value Reference Range Interpretation Comments Triglycerides Level (test code = 2571-8) 95 0-149 [facility] [id number] 07:50:00* Test Item Value Reference Range Interpretation Comments Cholesterol Level (test code = 2093-3) 173 0-199 Less than 200 mg/dL Low Ykbx406 - 239 mg/dL Borderline Qppb656 m g/dl and greater High Risk [facility] HospitalLDL Iyocjiywont9319-17-78 07:50:00* Test Item Value Reference Range Interpretation Comments LDL Cholesterol (test code = 2089-1) 85 60-130 [facility]HDL Ecbnjhevkep9226-62-10 07:50:00* Test Item Value Reference Range Interpretation Comments HDL Cholesterol (test code = 2085-9) 69 40-60 H [facility]Cholesterol/HDL Fnemp7950-87-26 07:50:00 * Test Item Value Reference Range Interpretation Comments Cholesterol/HDL Ratio (test code = 9830-1) 2.5 3.0-3.6 L [facility]PELVIS [id number] 16:27:00 [facility] [address] [address] Patient Name: RADHA HAMLIN MR #: [id number] : 1995 Age/Sex: 23/F Req #: [id number] Adm Physician: DEONTE GUPTA MD Ordered by: ROBERTO MONTGOMERY DO Report #: [id number] Location: MED/SURG2 Room/Bed: 204 Procedure: [id number] CT /CT ABDOMEN/PELVIS WO Exam Date: 04/21/19 Exam Time: 1440 REPORT STATUS: Signed TECH NIQUE: CT of the abdomen and pelvis WITHOUT intravenous contrast and WITHOUT o ral contrast. Dose modulation, iterative reconstruction, and/or weight-based a djustment of the mA/kV was utilized to reduce the radiation dose to as low as reasonably achievable. INDICATION: 23-year-old woman with abdominal pain an d history of pancreatitis. COMPARISON: None. FINDINGS: ABSENCE OF INTRAVENOUS CONTRAST DECREASES SENSITIVITY FOR DETECTION OF FOCAL LESIONS AND VASCULAR PATHOLOGY. LOWER THORAX: Unremarkable. HEPATOBILIARY: No focal hepatic lesions. Gallbladder is unremarkable. No biliary ductal dilatati on. SPLEEN: No splenomegaly. PANCREAS: Edematous pancreas with peripancreati c edema and nonencapsulated fluid which extends into the left upper quadrant a nd along the left anterior renal fascia. No definite focal masses or ductal di latation. ADRENALS: No adrenal nodules. KIDNEYS/URETERS: No hydronephrosi s. Questionable nonobstructive 0.3 cm calculus in the left upper pole. PELVI C ORGANS/BLADDER: Unremarkable. PERITONEUM/RETROPERITONEUM: Trace ascites i n the abdomen and pelvis. No free air. LYMPH NODES: No lymphadenopathy. VE SSELS: Unremarkable. GI TRACT: No distention or wall thickening. Normal naomy endix. BONES AND SOFT TISSUES: Unremarkable. IMPRESSION: Acute pa ncreatitis. No encapsulated acute peripancreatic fluid collection. Question able nonobstructive left renal calculus. Signed by: Dimitri Betancourt MD on 06/21/2018 4:34 PM Dictated By: DIMITRI BETANCOURT MD 1634 Transcribed By: DAYANARA on 04/21/19 1634 COPY TO: ROBERTO MONTGOMERY DO Reactive Efivrolnvyk0416-81-61 15:24:00* Test Item Value Reference Range Interpretation Comments Reactive Lymphocytes (test code = 08661-3) 8 [facility] Amorphous Zfdzrpna0832-27-25 12:56:00* Test Item Value Reference Range Interpretation Comments Urine Amorphous Sediment (test code = 8246-1) RARE FEW [facility] Gjtgs7789-65-26 12:56:00* Test Item Value Reference Range Interpretation Comments Urine Mucus (test code = 8247-9) FEW RARE H [facility] HospitalEthyl Alcohol Lbdol8011-49-18 12:52:00* Test Item Value Reference Range Interpretation Comments Ethyl Alcohol Level (test code = 5643-2) < 10.0 0.0-10.0 [facility] HospitalCBC W/MANUAL [id number] 07:00:00* Test Item Value Reference Range Interpretation Comments WHITE BLOOD CELL (test code = WBC) 11.2 K/mm3 4.5-12.5 N RED BLOOD CELL (test code = RBC) 3.52 mill/mm3 3.7-5.2 L HEMOGLOBIN (test code = HGB) 11.9 gram/dL 11.5-15.5 N HEMATOCRIT (test code = HCT) 35.1 % 36.0-46.0 L MEAN CELL VOLUME (test code = MCV) 99.7 fL 80-98 H MEAN CELL HGB (test code = MCH) 33.8 picogram 27.0-33.0 H MEAN CELL HGB CONCETRATION (test code = MCHC) 33.9 gram/dL 33.0-36. 0 N RED CELL DISTRIBUTION WIDTH (test code = RDW) 12.0 % 11.6-16. 2 N RED CELL DISTRIBUTION WIDTH SD (test code = RDW-SD) 43.9 fL 37 .0-51.0 N PLATELET COUNT (test code = PLT) 284 K/mm3 150-450 N MEAN PLATELET VOLUME (test code = MPV) 10.3 fL 6.7-11.0 N IMMATURE GRANULOCYTE % (test code = IG%) 0.4 % 0.0-5.0 N NUCLEATED RBC % (test code = NRBC%) 0.0 % 0-0 N NEUTROPHIL # (test code = NT#) 5.42 K/mm3 1.8-7.7 N IMMATURE GRANULOCYTE # (test code = IG#) 0.04 x10 3/uL 0-0.03 H LYMPHOCYTE # (test code = LY#) 2.67 K/mm3 1.0-5.0 N MONOCYTE # (test code = MO#) 0.68 K/mm3 0-0.8 N EOSINOPHIL # (test code = EO#) 2.36 K/mm3 0.0-0.5 H BASOPHIL # (test code = BA#) 0.06 K/mm3 0.0-0.2 N NUCLEATED RBC # (test code = NRBC#) 0.00 K/mm3 0.0-0.1 N MANUAL DIFF REQUIRED (test code = MDIFF) YES STAIN ACCEPTABILITY (test code = STN ACCEPTABLE) STAIN ACCEPTABLE TOTAL CELLS COUNTED (test code = TCC) 113 #CELLS SEGMENTED NEUTROPHILS (test code = SEG) 65.5 % 39-69 N BAND NEUTROPHIL (test code = BAND) 0 % 0-10 N LYMPHOCYTE (test code = LYMPH) 15.0 % 25-55 L REACTIVE LYMPH (test code = RELYMPH) 0 % MONOCYTE (test code = MON) 0 % 0-10 N EOSINOPHIL (test code = EOS) 19.5 % 0.0-5.0 H BASOPHIL (test code = BASO) 0 % 0-1.0 N METAMYELOCYTE (test code = META) 0 % 0-0 N MYELOCYTE (test code = MYELO) 0 % 0.0-0.0 N PROMYELOCYTE (test code = PROM) 0 % 0-0 N MORPHOLOGY COMMENT (test code = MOC) NORMAL PLATELET ESTIMATE (test code = PLTEST) ADEQUATE PLATELET MORPHOLOGY (test code = PLTMORPH) NORMAL IMMATURE FORMS (test code = IMMAT) 0 % 0-0 N BASIC METABOLIC [id number] 06:48:00* Test Item Value Reference Range Interpretation Comments SODIUM (test code = NA) 144 mmol/L 136-145 N POTASSIUM (test code = K) 4.3 mmol/L 3.5-5.1 N CHLORIDE (test code = CL) 111.0 mmol/L 98-107 H CARBON DIOXIDE (test code = CO2) 24.0 mmol/L 21-32 N ANION GAP (test code = GAP) 13.3 10-20 N GLUCOSE (test code = GLU) 95 mg/dL 74-106 N BLOOD UREA NITROGEN (test code = BUN) 6 mg/dL 7-18 L GLOMERULAR FILTRATION RATE (test code = GFR) > 60 mL/min >=60 Estimated GFR by using Modified MDRD formula.Chronic kidney disease is defined as either kidney damageor GFR <60 mL/min/1.73 m2 for >3 months. CREATININE (test code = CREAT) 0.60 mg/dL 0.55-1.02 N Note change in reference range due to change in reagent. BUN/CREATININE RATIO (test code = BUN/CREA) 9.7 10-20 L CALCIUM (test code = CA) 8.7 mg/dL 8.5-10.1 N BASIC METABOLIC [id number] 06:42:00* Test Item Value Reference Range Interpretation Comments SODIUM (test code = NA) 144 mmol/L 136-145 N POTASSIUM (test code = K) 4.3 mmol/L 3.5-5.1 N CHLORIDE (test code = CL) 111.0 mmol/L 98-107 H CARBON DIOXIDE (test code = CO2) mmol/L 21-32 ANION GAP (test code = GAP) 10-20 GLUCOSE (test code = GLU) mg/dL 74-106 BLOOD UREA NITROGEN (test code = BUN) mg/dL 7-18 GLOMERULAR FILTRATION RATE (test code = GFR) mL/min >=60 CREATININE (test code = CREAT) mg/dL 0.55-1.02 BUN/CREATININE RATIO (test code = BUN/CREA) 10-20 CALCIUM (test code = CA) mg/dL 8.5-10.1 CBC W/MANUAL [id number] 06:35:00* Test Item Value Reference Range Interpretation Comments WHITE BLOOD CELL (test code = WBC) 11.2 K/mm3 4.5-12.5 N RED BLOOD CELL (test code = RBC) 3.52 mill/mm3 3.7-5.2 L HEMOGLOBIN (test code = HGB) 11.9 gram/dL 11.5-15.5 N HEMATOCRIT (test code = HCT) 35.1 % 36.0-46.0 L MEAN CELL VOLUME (test code = MCV) 99.7 fL 80-98 H MEAN CELL HGB (test code = MCH) 33.8 picogram 27.0-33.0 H MEAN CELL HGB CONCETRATION (test code = MCHC) 33.9 gram/dL 33.0-36. 0 N RED CELL DISTRIBUTION WIDTH (test code = RDW) 12.0 % 11.6-16. 2 N RED CELL DISTRIBUTION WIDTH SD (test code = RDW-SD) 43.9 fL 37 .0-51.0 N PLATELET COUNT (test code = PLT) 284 K/mm3 150-450 N MEAN PLATELET VOLUME (test code = MPV) 10.3 fL 6.7-11.0 N IMMATURE GRANULOCYTE % (test code = IG%) 0.4 % 0.0-5.0 N NUCLEATED RBC % (test code = NRBC%) 0.0 % 0-0 N NEUTROPHIL # (test code = NT#) 5.42 K/mm3 1.8-7.7 N IMMATURE GRANULOCYTE # (test code = IG#) 0.04 x10 3/uL 0-0.03 H LYMPHOCYTE # (test code = LY#) 2.67 K/mm3 1.0-5.0 N MONOCYTE # (test code = MO#) 0.68 K/mm3 0-0.8 N EOSINOPHIL # (test code = EO#) 2.36 K/mm3 0.0-0.5 H BASOPHIL # (test code = BA#) 0.06 K/mm3 0.0-0.2 N NUCLEATED RBC # (test code = NRBC#) 0.00 K/mm3 0.0-0.1 N MANUAL DIFF REQUIRED (test code = MDIFF) YES STAIN ACCEPTABILITY (test code = STN ACCEPTABLE) TOTAL CELLS COUNTED (test code = TCC) #CELLS SEGMENTED NEUTROPHILS (test code = SEG) % 39-69 LYMPHOCYTE (test code = LYMPH) % 25-55 MONOCYTE (test code = MON) % 0-10 EOSINOPHIL (test code = EOS) % 0.0-5.0 CABOT RINGS (test code = CAB) MORPHOLOGY COMMENT (test code = MOC) PLATELET ESTIMATE (test code = PLTEST) PLATELET MORPHOLOGY (test code = PLTMORPH) CBC W/MANUAL [id number] 06:35:00* Test Item Value Reference Range Interpretation Comments WHITE BLOOD CELL (test code = WBC) 11.2 K/mm3 4.5-12.5 N RED BLOOD CELL (test code = RBC) 3.52 mill/mm3 3.7-5.2 L HEMOGLOBIN (test code = HGB) 11.9 gram/dL 11.5-15.5 N HEMATOCRIT (test code = HCT) 35.1 % 36.0-46.0 L MEAN CELL VOLUME (test code = MCV) 99.7 fL 80-98 H MEAN CELL HGB (test code = MCH) 33.8 picogram 27.0-33.0 H MEAN CELL HGB CONCETRATION (test code = MCHC) 33.9 gram/dL 33.0-36. 0 N RED CELL DISTRIBUTION WIDTH (test code = RDW) 12.0 % 11.6-16. 2 N RED CELL DISTRIBUTION WIDTH SD (test code = RDW-SD) 43.9 fL 37 .0-51.0 N PLATELET COUNT (test code = PLT) 284 K/mm3 150-450 N MEAN PLATELET VOLUME (test code = MPV) 10.3 fL 6.7-11.0 N IMMATURE GRANULOCYTE % (test code = IG%) 0.4 % 0.0-5.0 N NUCLEATED RBC % (test code = NRBC%) 0.0 % 0-0 N NEUTROPHIL # (test code = NT#) 5.42 K/mm3 1.8-7.7 N IMMATURE GRANULOCYTE # (test code = IG#) 0.04 x10 3/uL 0-0.03 H LYMPHOCYTE # (test code = LY#) 2.67 K/mm3 1.0-5.0 N MONOCYTE # (test code = MO#) 0.68 K/mm3 0-0.8 N EOSINOPHIL # (test code = EO#) 2.36 K/mm3 0.0-0.5 H BASOPHIL # (test code = BA#) 0.06 K/mm3 0.0-0.2 N NUCLEATED RBC # (test code = NRBC#) 0.00 K/mm3 0.0-0.1 N MANUAL DIFF REQUIRED (test code = MDIFF) YES STAIN ACCEPTABILITY (test code = STN ACCEPTABLE) TOTAL CELLS COUNTED (test code = TCC) #CELLS SEGMENTED NEUTROPHILS (test code = SEG) % 39-69 LYMPHOCYTE (test code = LYMPH) % 25-55 MONOCYTE (test code = MON) % 0-10 EOSINOPHIL (test code = EOS) % 0.0-5.0 CABOT RINGS (test code = CAB) MORPHOLOGY COMMENT (test code = MOC) PLATELET ESTIMATE (test code = PLTEST) PLATELET MORPHOLOGY (test code = PLTMORPH) CBC W/MANUAL [id number] 06:35:00* Test Item Value Reference Range Interpretation Comments WHITE BLOOD CELL (test code = WBC) 11.2 K/mm3 4.5-12.5 N RED BLOOD CELL (test code = RBC) 3.52 mill/mm3 3.7-5.2 L HEMOGLOBIN (test code = HGB) 11.9 gram/dL 11.5-15.5 N HEMATOCRIT (test code = HCT) 35.1 % 36.0-46.0 L MEAN CELL VOLUME (test code = MCV) 99.7 fL 80-98 H MEAN CELL HGB (test code = MCH) 33.8 picogram 27.0-33.0 H MEAN CELL HGB CONCETRATION (test code = MCHC) 33.9 gram/dL 33.0-36. 0 N RED CELL DISTRIBUTION WIDTH (test code = RDW) 12.0 % 11.6-16. 2 N RED CELL DISTRIBUTION WIDTH SD (test code = RDW-SD) 43.9 fL 37 .0-51.0 N PLATELET COUNT (test code = PLT) 284 K/mm3 150-450 N MEAN PLATELET VOLUME (test code = MPV) 10.3 fL 6.7-11.0 N IMMATURE GRANULOCYTE % (test code = IG%) 0.4 % 0.0-5.0 N NUCLEATED RBC % (test code = NRBC%) 0.0 % 0-0 N NEUTROPHIL # (test code = NT#) 5.42 K/mm3 1.8-7.7 N IMMATURE GRANULOCYTE # (test code = IG#) 0.04 x10 3/uL 0-0.03 H LYMPHOCYTE # (test code = LY#) 2.67 K/mm3 1.0-5.0 N MONOCYTE # (test code = MO#) 0.68 K/mm3 0-0.8 N EOSINOPHIL # (test code = EO#) 2.36 K/mm3 0.0-0.5 H BASOPHIL # (test code = BA#) 0.06 K/mm3 0.0-0.2 N NUCLEATED RBC # (test code = NRBC#) 0.00 K/mm3 0.0-0.1 N MANUAL DIFF REQUIRED (test code = MDIFF) YES STAIN ACCEPTABILITY (test code = STN ACCEPTABLE) TOTAL CELLS COUNTED (test code = TCC) #CELLS SEGMENTED NEUTROPHILS (test code = SEG) % 39-69 LYMPHOCYTE (test code = LYMPH) % 25-55 MONOCYTE (test code = MON) % 0-10 EOSINOPHIL (test code = EOS) % 0.0-5.0 MORPHOLOGY COMMENT (test code = MOC) PLATELET ESTIMATE (test code = PLTEST) PLATELET MORPHOLOGY (test code = PLTMORPH) CBC W/MANUAL [id number] 06:35:00* Test Item Value Reference Range Interpretation Comments WHITE BLOOD CELL (test code = WBC) 11.2 K/mm3 4.5-12.5 N RED BLOOD CELL (test code = RBC) 3.52 mill/mm3 3.7-5.2 L HEMOGLOBIN (test code = HGB) 11.9 gram/dL 11.5-15.5 N HEMATOCRIT (test code = HCT) 35.1 % 36.0-46.0 L MEAN CELL VOLUME (test code = MCV) 99.7 fL 80-98 H MEAN CELL HGB (test code = MCH) 33.8 picogram 27.0-33.0 H MEAN CELL HGB CONCETRATION (test code = MCHC) 33.9 gram/dL 33.0-36. 0 N RED CELL DISTRIBUTION WIDTH (test code = RDW) 12.0 % 11.6-16. 2 N RED CELL DISTRIBUTION WIDTH SD (test code = RDW-SD) 43.9 fL 37 .0-51.0 N PLATELET COUNT (test code = PLT) 284 K/mm3 150-450 N MEAN PLATELET VOLUME (test code = MPV) 10.3 fL 6.7-11.0 N IMMATURE GRANULOCYTE % (test code = IG%) 0.4 % 0.0-5.0 N NUCLEATED RBC % (test code = NRBC%) 0.0 % 0-0 N NEUTROPHIL # (test code = NT#) 5.42 K/mm3 1.8-7.7 N IMMATURE GRANULOCYTE # (test code = IG#) 0.04 x10 3/uL 0-0.03 H LYMPHOCYTE # (test code = LY#) 2.67 K/mm3 1.0-5.0 N MONOCYTE # (test code = MO#) 0.68 K/mm3 0-0.8 N EOSINOPHIL # (test code = EO#) 2.36 K/mm3 0.0-0.5 H BASOPHIL # (test code = BA#) 0.06 K/mm3 0.0-0.2 N NUCLEATED RBC # (test code = NRBC#) 0.00 K/mm3 0.0-0.1 N MANUAL DIFF REQUIRED (test code = MDIFF) YES STAIN ACCEPTABILITY (test code = STN ACCEPTABLE) TOTAL CELLS COUNTED (test code = TCC) #CELLS SEGMENTED NEUTROPHILS (test code = SEG) % 39-69 LYMPHOCYTE (test code = LYMPH) % 25-55 MONOCYTE (test code = MON) % 0-10 MORPHOLOGY COMMENT (test code = MOC) PLATELET ESTIMATE (test code = PLTEST) PLATELET MORPHOLOGY (test code = PLTMORPH) CBC W/MANUAL [id number] 06:35:00* Test Item Value Reference Range Interpretation Comments WHITE BLOOD CELL (test code = WBC) 11.2 K/mm3 4.5-12.5 N RED BLOOD CELL (test code = RBC) 3.52 mill/mm3 3.7-5.2 L HEMOGLOBIN (test code = HGB) 11.9 gram/dL 11.5-15.5 N HEMATOCRIT (test code = HCT) 35.1 % 36.0-46.0 L MEAN CELL VOLUME (test code = MCV) 99.7 fL 80-98 H MEAN CELL HGB (test code = MCH) 33.8 picogram 27.0-33.0 H MEAN CELL HGB CONCETRATION (test code = MCHC) 33.9 gram/dL 33.0-36. 0 N RED CELL DISTRIBUTION WIDTH (test code = RDW) 12.0 % 11.6-16. 2 N RED CELL DISTRIBUTION WIDTH SD (test code = RDW-SD) 43.9 fL 37 .0-51.0 N PLATELET COUNT (test code = PLT) 284 K/mm3 150-450 N MEAN PLATELET VOLUME (test code = MPV) 10.3 fL 6.7-11.0 N IMMATURE GRANULOCYTE % (test code = IG%) 0.4 % 0.0-5.0 N NUCLEATED RBC % (test code = NRBC%) 0.0 % 0-0 N NEUTROPHIL # (test code = NT#) 5.42 K/mm3 1.8-7.7 N IMMATURE GRANULOCYTE # (test code = IG#) 0.04 x10 3/uL 0-0.03 H LYMPHOCYTE # (test code = LY#) 2.67 K/mm3 1.0-5.0 N MONOCYTE # (test code = MO#) 0.68 K/mm3 0-0.8 N EOSINOPHIL # (test code = EO#) 2.36 K/mm3 0.0-0.5 H BASOPHIL # (test code = BA#) 0.06 K/mm3 0.0-0.2 N NUCLEATED RBC # (test code = NRBC#) 0.00 K/mm3 0.0-0.1 N MANUAL DIFF REQUIRED (test code = MDIFF) YES STAIN ACCEPTABILITY (test code = STN ACCEPTABLE) TOTAL CELLS COUNTED (test code = TCC) #CELLS SEGMENTED NEUTROPHILS (test code = SEG) % 39-69 LYMPHOCYTE (test code = LYMPH) % 25-55 MONOCYTE (test code = MON) % 0-10 EOSINOPHIL (test code = EOS) % 0.0-5.0 CABOT RINGS (test code = CAB) MORPHOLOGY COMMENT (test code = MOC) PLATELET ESTIMATE (test code = PLTEST) PLATELET MORPHOLOGY (test code = PLTMORPH) CBC W/AUTO [id number] 06:16:00* Test Item Value Reference Range Interpretation Comments WHITE BLOOD CELL (test code = WBC) K/mm3 4.5-12.5 RED BLOOD CELL (test code = RBC) mill/mm3 3.7-5.2 HEMOGLOBIN (test code = HGB) 11.9 gram/dL 11.5-15.5 N HEMATOCRIT (test code = HCT) % 36.0-46.0 MEAN CELL VOLUME (test code = MCV) fL 80-98 MEAN CELL HGB (test code = MCH) picogram 27.0-33.0 MEAN CELL HGB CONCETRATION (test code = MCHC) gram/dL 33.0-36. 0 RED CELL DISTRIBUTION WIDTH (test code = RDW) % 11.6-16. 2 RED CELL DISTRIBUTION WIDTH SD (test code = RDW-SD) fL 37 .0-51.0 PLATELET COUNT (test code = PLT) K/mm3 150-450 MEAN PLATELET VOLUME (test code = MPV) fL 6.7-11.0 NEUTROPHIL % (test code = NT%) % 39.0-69.0 IMMATURE GRANULOCYTE % (test code = IG%) % 0.0-5.0 LYMPHOCYTE % (test code = LY%) % 25.0-55.0 MONOCYTE % (test code = MO%) % 0.0-10.0 EOSINOPHIL % (test code = EO%) % 0.0-5.0 BASOPHIL % (test code = BA%) % 0.0-1.0 NEUTROPHIL # (test code = NT#) K/mm3 1.8-7.7 LYMPHOCYTE # (test code = LY#) K/mm3 1.0-5.0 MONOCYTE # (test code = MO#) K/mm3 0-0.8 EOSINOPHIL # (test code = EO#) K/mm3 0.0-0.5 BASOPHIL # (test code = BA#) K/mm3 0.0-0.2 CBC W/MANUAL [id number] 07:27:00* Test Item Value Reference Range Interpretation Comments WHITE BLOOD CELL (test code = WBC) 12.9 K/mm3 4.5-12.5 H RED BLOOD CELL (test code = RBC) 3.61 mill/mm3 3.7-5.2 L HEMOGLOBIN (test code = HGB) 12.1 gram/dL 11.5-15.5 N HEMATOCRIT (test code = HCT) 35.8 % 36.0-46.0 L MEAN CELL VOLUME (test code = MCV) 99.2 fL 80-98 H MEAN CELL HGB (test code = MCH) 33.5 picogram 27.0-33.0 H MEAN CELL HGB CONCETRATION (test code = MCHC) 33.8 gram/dL 33.0-36. 0 N RED CELL DISTRIBUTION WIDTH (test code = RDW) 11.9 % 11.6-16. 2 N RED CELL DISTRIBUTION WIDTH SD (test code = RDW-SD) 43.2 fL 37 .0-51.0 N PLATELET COUNT (test code = PLT) 277 K/mm3 150-450 N MEAN PLATELET VOLUME (test code = MPV) 10.3 fL 6.7-11.0 N IMMATURE GRANULOCYTE % (test code = IG%) 0.5 % 0.0-5.0 N NUCLEATED RBC % (test code = NRBC%) 0.0 % 0-0 N NEUTROPHIL # (test code = NT#) 6.99 K/mm3 1.8-7.7 N IMMATURE GRANULOCYTE # (test code = IG#) 0.07 x10 3/uL 0-0.03 H LYMPHOCYTE # (test code = LY#) 2.77 K/mm3 1.0-5.0 N MONOCYTE # (test code = MO#) 0.77 K/mm3 0-0.8 N EOSINOPHIL # (test code = EO#) 2.21 K/mm3 0.0-0.5 H BASOPHIL # (test code = BA#) 0.05 K/mm3 0.0-0.2 N NUCLEATED RBC # (test code = NRBC#) 0.00 K/mm3 0.0-0.1 N MANUAL DIFF REQUIRED (test code = MDIFF) YES STAIN ACCEPTABILITY (test code = STN ACCEPTABLE) STAIN ACCEPTABLE TOTAL CELLS COUNTED (test code = TCC) 114 #CELLS SEGMENTED NEUTROPHILS (test code = SEG) 65.8 % 39-69 N BAND NEUTROPHIL (test code = BAND) 0 % 0-10 N LYMPHOCYTE (test code = LYMPH) 20.2 % 25-55 L REACTIVE LYMPH (test code = RELYMPH) 0 % MONOCYTE (test code = MON) 2.6 % 0-10 N EOSINOPHIL (test code = EOS) 11.4 % 0.0-5.0 H BASOPHIL (test code = BASO) 0 % 0-1.0 N METAMYELOCYTE (test code = META) 0 % 0-0 N MYELOCYTE (test code = MYELO) 0 % 0.0-0.0 N PROMYELOCYTE (test code = PROM) 0 % 0-0 N POLYCHROMASIA (test code = POLC) 1+ PLATELET ESTIMATE (test code = PLTEST) ADEQUATE PLATELET MORPHOLOGY (test code = PLTMORPH) NORMAL IMMATURE FORMS (test code = IMMAT) 0 % 0-0 N BASIC METABOLIC [id number] 06:50:00* Test Item Value Reference Range Interpretation Comments SODIUM (test code = NA) 141 mmol/L 136-145 N POTASSIUM (test code = K) 4.5 mmol/L 3.5-5.1 N CHLORIDE (test code = CL) 111.0 mmol/L 98-107 H CARBON DIOXIDE (test code = CO2) 25.0 mmol/L 21-32 N ANION GAP (test code = GAP) 9.5 10-20 L GLUCOSE (test code = GLU) 73 mg/dL 74-106 L BLOOD UREA NITROGEN (test code = BUN) 5 mg/dL 7-18 L GLOMERULAR FILTRATION RATE (test code = GFR) > 60 mL/min >=60 Estimated GFR by using Modified MDRD formula.Chronic kidney disease is defined as either kidney damageor GFR <60 mL/min/1.73 m2 for >3 months. CREATININE (test code = CREAT) 0.60 mg/dL 0.55-1.02 N Note change in reference range due to change in reagent. BUN/CREATININE RATIO (test code = BUN/CREA) 8.9 10-20 L CALCIUM (test code = CA) 8.7 mg/dL 8.5-10.1 N BASIC METABOLIC [id number] 06:45:00* Test Item Value Reference Range Interpretation Comments SODIUM (test code = NA) 141 mmol/L 136-145 N POTASSIUM (test code = K) 4.5 mmol/L 3.5-5.1 N CHLORIDE (test code = CL) 111.0 mmol/L 98-107 H CARBON DIOXIDE (test code = CO2) mmol/L 21-32 ANION GAP (test code = GAP) 10-20 GLUCOSE (test code = GLU) mg/dL 74-106 BLOOD UREA NITROGEN (test code = BUN) mg/dL 7-18 GLOMERULAR FILTRATION RATE (test code = GFR) mL/min >=60 CREATININE (test code = CREAT) mg/dL 0.55-1.02 BUN/CREATININE RATIO (test code = BUN/CREA) 10-20 CALCIUM (test code = CA) mg/dL 8.5-10.1 CBC W/MANUAL [id number] 06:41:00* Test Item Value Reference Range Interpretation Comments WHITE BLOOD CELL (test code = WBC) 12.9 K/mm3 4.5-12.5 H RED BLOOD CELL (test code = RBC) 3.61 mill/mm3 3.7-5.2 L HEMOGLOBIN (test code = HGB) 12.1 gram/dL 11.5-15.5 N HEMATOCRIT (test code = HCT) 35.8 % 36.0-46.0 L MEAN CELL VOLUME (test code = MCV) 99.2 fL 80-98 H MEAN CELL HGB (test code = MCH) 33.5 picogram 27.0-33.0 H MEAN CELL HGB CONCETRATION (test code = MCHC) 33.8 gram/dL 33.0-36. 0 N RED CELL DISTRIBUTION WIDTH (test code = RDW) 11.9 % 11.6-16. 2 N RED CELL DISTRIBUTION WIDTH SD (test code = RDW-SD) 43.2 fL 37 .0-51.0 N PLATELET COUNT (test code = PLT) 277 K/mm3 150-450 N MEAN PLATELET VOLUME (test code = MPV) 10.3 fL 6.7-11.0 N IMMATURE GRANULOCYTE % (test code = IG%) 0.5 % 0.0-5.0 N NUCLEATED RBC % (test code = NRBC%) 0.0 % 0-0 N NEUTROPHIL # (test code = NT#) 6.99 K/mm3 1.8-7.7 N IMMATURE GRANULOCYTE # (test code = IG#) 0.07 x10 3/uL 0-0.03 H LYMPHOCYTE # (test code = LY#) 2.77 K/mm3 1.0-5.0 N MONOCYTE # (test code = MO#) 0.77 K/mm3 0-0.8 N EOSINOPHIL # (test code = EO#) 2.21 K/mm3 0.0-0.5 H BASOPHIL # (test code = BA#) 0.05 K/mm3 0.0-0.2 N NUCLEATED RBC # (test code = NRBC#) 0.00 K/mm3 0.0-0.1 N MANUAL DIFF REQUIRED (test code = MDIFF) YES STAIN ACCEPTABILITY (test code = STN ACCEPTABLE) TOTAL CELLS COUNTED (test code = TCC) #CELLS SEGMENTED NEUTROPHILS (test code = SEG) % 39-69 LYMPHOCYTE (test code = LYMPH) % 25-55 MONOCYTE (test code = MON) % 0-10 EOSINOPHIL (test code = EOS) % 0.0-5.0 CABOT RINGS (test code = CAB) MORPHOLOGY COMMENT (test code = MOC) PLATELET ESTIMATE (test code = PLTEST) PLATELET MORPHOLOGY (test code = PLTMORPH) CBC W/MANUAL [id number] 06:41:00* Test Item Value Reference Range Interpretation Comments WHITE BLOOD CELL (test code = WBC) 12.9 K/mm3 4.5-12.5 H RED BLOOD CELL (test code = RBC) 3.61 mill/mm3 3.7-5.2 L HEMOGLOBIN (test code = HGB) 12.1 gram/dL 11.5-15.5 N HEMATOCRIT (test code = HCT) 35.8 % 36.0-46.0 L MEAN CELL VOLUME (test code = MCV) 99.2 fL 80-98 H MEAN CELL HGB (test code = MCH) 33.5 picogram 27.0-33.0 H MEAN CELL HGB CONCETRATION (test code = MCHC) 33.8 gram/dL 33.0-36. 0 N RED CELL DISTRIBUTION WIDTH (test code = RDW) 11.9 % 11.6-16. 2 N RED CELL DISTRIBUTION WIDTH SD (test code = RDW-SD) 43.2 fL 37 .0-51.0 N PLATELET COUNT (test code = PLT) 277 K/mm3 150-450 N MEAN PLATELET VOLUME (test code = MPV) 10.3 fL 6.7-11.0 N IMMATURE GRANULOCYTE % (test code = IG%) 0.5 % 0.0-5.0 N NUCLEATED RBC % (test code = NRBC%) 0.0 % 0-0 N NEUTROPHIL # (test code = NT#) 6.99 K/mm3 1.8-7.7 N IMMATURE GRANULOCYTE # (test code = IG#) 0.07 x10 3/uL 0-0.03 H LYMPHOCYTE # (test code = LY#) 2.77 K/mm3 1.0-5.0 N MONOCYTE # (test code = MO#) 0.77 K/mm3 0-0.8 N EOSINOPHIL # (test code = EO#) 2.21 K/mm3 0.0-0.5 H BASOPHIL # (test code = BA#) 0.05 K/mm3 0.0-0.2 N NUCLEATED RBC # (test code = NRBC#) 0.00 K/mm3 0.0-0.1 N MANUAL DIFF REQUIRED (test code = MDIFF) YES STAIN ACCEPTABILITY (test code = STN ACCEPTABLE) TOTAL CELLS COUNTED (test code = TCC) #CELLS SEGMENTED NEUTROPHILS (test code = SEG) % 39-69 LYMPHOCYTE (test code = LYMPH) % 25-55 MONOCYTE (test code = MON) % 0-10 EOSINOPHIL (test code = EOS) % 0.0-5.0 CABOT RINGS (test code = CAB) MORPHOLOGY COMMENT (test code = MOC) PLATELET ESTIMATE (test code = PLTEST) PLATELET MORPHOLOGY (test code = PLTMORPH) CBC W/MANUAL [id number] 06:41:00* Test Item Value Reference Range Interpretation Comments WHITE BLOOD CELL (test code = WBC) 12.9 K/mm3 4.5-12.5 H RED BLOOD CELL (test code = RBC) 3.61 mill/mm3 3.7-5.2 L HEMOGLOBIN (test code = HGB) 12.1 gram/dL 11.5-15.5 N HEMATOCRIT (test code = HCT) 35.8 % 36.0-46.0 L MEAN CELL VOLUME (test code = MCV) 99.2 fL 80-98 H MEAN CELL HGB (test code = MCH) 33.5 picogram 27.0-33.0 H MEAN CELL HGB CONCETRATION (test code = MCHC) 33.8 gram/dL 33.0-36. 0 N RED CELL DISTRIBUTION WIDTH (test code = RDW) 11.9 % 11.6-16. 2 N RED CELL DISTRIBUTION WIDTH SD (test code = RDW-SD) 43.2 fL 37 .0-51.0 N PLATELET COUNT (test code = PLT) 277 K/mm3 150-450 N MEAN PLATELET VOLUME (test code = MPV) 10.3 fL 6.7-11.0 N IMMATURE GRANULOCYTE % (test code = IG%) 0.5 % 0.0-5.0 N NUCLEATED RBC % (test code = NRBC%) 0.0 % 0-0 N NEUTROPHIL # (test code = NT#) 6.99 K/mm3 1.8-7.7 N IMMATURE GRANULOCYTE # (test code = IG#) 0.07 x10 3/uL 0-0.03 H LYMPHOCYTE # (test code = LY#) 2.77 K/mm3 1.0-5.0 N MONOCYTE # (test code = MO#) 0.77 K/mm3 0-0.8 N EOSINOPHIL # (test code = EO#) 2.21 K/mm3 0.0-0.5 H BASOPHIL # (test code = BA#) 0.05 K/mm3 0.0-0.2 N NUCLEATED RBC # (test code = NRBC#) 0.00 K/mm3 0.0-0.1 N MANUAL DIFF REQUIRED (test code = MDIFF) YES STAIN ACCEPTABILITY (test code = STN ACCEPTABLE) TOTAL CELLS COUNTED (test code = TCC) #CELLS SEGMENTED NEUTROPHILS (test code = SEG) % 39-69 LYMPHOCYTE (test code = LYMPH) % 25-55 MONOCYTE (test code = MON) % 0-10 EOSINOPHIL (test code = EOS) % 0.0-5.0 MORPHOLOGY COMMENT (test code = MOC) PLATELET ESTIMATE (test code = PLTEST) PLATELET MORPHOLOGY (test code = PLTMORPH) CBC W/MANUAL [id number] 06:41:00* Test Item Value Reference Range Interpretation Comments WHITE BLOOD CELL (test code = WBC) 12.9 K/mm3 4.5-12.5 H RED BLOOD CELL (test code = RBC) 3.61 mill/mm3 3.7-5.2 L HEMOGLOBIN (test code = HGB) 12.1 gram/dL 11.5-15.5 N HEMATOCRIT (test code = HCT) 35.8 % 36.0-46.0 L MEAN CELL VOLUME (test code = MCV) 99.2 fL 80-98 H MEAN CELL HGB (test code = MCH) 33.5 picogram 27.0-33.0 H MEAN CELL HGB CONCETRATION (test code = MCHC) 33.8 gram/dL 33.0-36. 0 N RED CELL DISTRIBUTION WIDTH (test code = RDW) 11.9 % 11.6-16. 2 N RED CELL DISTRIBUTION WIDTH SD (test code = RDW-SD) 43.2 fL 37 .0-51.0 N PLATELET COUNT (test code = PLT) 277 K/mm3 150-450 N MEAN PLATELET VOLUME (test code = MPV) 10.3 fL 6.7-11.0 N IMMATURE GRANULOCYTE % (test code = IG%) 0.5 % 0.0-5.0 N NUCLEATED RBC % (test code = NRBC%) 0.0 % 0-0 N NEUTROPHIL # (test code = NT#) 6.99 K/mm3 1.8-7.7 N IMMATURE GRANULOCYTE # (test code = IG#) 0.07 x10 3/uL 0-0.03 H LYMPHOCYTE # (test code = LY#) 2.77 K/mm3 1.0-5.0 N MONOCYTE # (test code = MO#) 0.77 K/mm3 0-0.8 N EOSINOPHIL # (test code = EO#) 2.21 K/mm3 0.0-0.5 H BASOPHIL # (test code = BA#) 0.05 K/mm3 0.0-0.2 N NUCLEATED RBC # (test code = NRBC#) 0.00 K/mm3 0.0-0.1 N MANUAL DIFF REQUIRED (test code = MDIFF) YES STAIN ACCEPTABILITY (test code = STN ACCEPTABLE) TOTAL CELLS COUNTED (test code = TCC) #CELLS SEGMENTED NEUTROPHILS (test code = SEG) % 39-69 LYMPHOCYTE (test code = LYMPH) % 25-55 MONOCYTE (test code = MON) % 0-10 MORPHOLOGY COMMENT (test code = MOC) PLATELET ESTIMATE (test code = PLTEST) PLATELET MORPHOLOGY (test code = PLTMORPH) CBC W/MANUAL [id number] 06:41:00* Test Item Value Reference Range Interpretation Comments WHITE BLOOD CELL (test code = WBC) 12.9 K/mm3 4.5-12.5 H RED BLOOD CELL (test code = RBC) 3.61 mill/mm3 3.7-5.2 L HEMOGLOBIN (test code = HGB) 12.1 gram/dL 11.5-15.5 N HEMATOCRIT (test code = HCT) 35.8 % 36.0-46.0 L MEAN CELL VOLUME (test code = MCV) 99.2 fL 80-98 H MEAN CELL HGB (test code = MCH) 33.5 picogram 27.0-33.0 H MEAN CELL HGB CONCETRATION (test code = MCHC) 33.8 gram/dL 33.0-36. 0 N RED CELL DISTRIBUTION WIDTH (test code = RDW) 11.9 % 11.6-16. 2 N RED CELL DISTRIBUTION WIDTH SD (test code = RDW-SD) 43.2 fL 37 .0-51.0 N PLATELET COUNT (test code = PLT) 277 K/mm3 150-450 N MEAN PLATELET VOLUME (test code = MPV) 10.3 fL 6.7-11.0 N IMMATURE GRANULOCYTE % (test code = IG%) 0.5 % 0.0-5.0 N NUCLEATED RBC % (test code = NRBC%) 0.0 % 0-0 N NEUTROPHIL # (test code = NT#) 6.99 K/mm3 1.8-7.7 N IMMATURE GRANULOCYTE # (test code = IG#) 0.07 x10 3/uL 0-0.03 H LYMPHOCYTE # (test code = LY#) 2.77 K/mm3 1.0-5.0 N MONOCYTE # (test code = MO#) 0.77 K/mm3 0-0.8 N EOSINOPHIL # (test code = EO#) 2.21 K/mm3 0.0-0.5 H BASOPHIL # (test code = BA#) 0.05 K/mm3 0.0-0.2 N NUCLEATED RBC # (test code = NRBC#) 0.00 K/mm3 0.0-0.1 N MANUAL DIFF REQUIRED (test code = MDIFF) YES STAIN ACCEPTABILITY (test code = STN ACCEPTABLE) TOTAL CELLS COUNTED (test code = TCC) #CELLS SEGMENTED NEUTROPHILS (test code = SEG) % 39-69 LYMPHOCYTE (test code = LYMPH) % 25-55 MONOCYTE (test code = MON) % 0-10 EOSINOPHIL (test code = EOS) % 0.0-5.0 CABOT RINGS (test code = CAB) MORPHOLOGY COMMENT (test code = MOC) PLATELET ESTIMATE (test code = PLTEST) PLATELET MORPHOLOGY (test code = PLTMORPH) CBC W/AUTO [id number] 06:40:00* Test Item Value Reference Range Interpretation Comments WHITE BLOOD CELL (test code = WBC) K/mm3 4.5-12.5 RED BLOOD CELL (test code = RBC) mill/mm3 3.7-5.2 HEMOGLOBIN (test code = HGB) 12.1 gram/dL 11.5-15.5 N HEMATOCRIT (test code = HCT) % 36.0-46.0 MEAN CELL VOLUME (test code = MCV) fL 80-98 MEAN CELL HGB (test code = MCH) picogram 27.0-33.0 MEAN CELL HGB CONCETRATION (test code = MCHC) gram/dL 33.0-36. 0 RED CELL DISTRIBUTION WIDTH (test code = RDW) % 11.6-16. 2 RED CELL DISTRIBUTION WIDTH SD (test code = RDW-SD) fL 37 .0-51.0 PLATELET COUNT (test code = PLT) K/mm3 150-450 MEAN PLATELET VOLUME (test code = MPV) fL 6.7-11.0 NEUTROPHIL % (test code = NT%) % 39.0-69.0 IMMATURE GRANULOCYTE % (test code = IG%) % 0.0-5.0 LYMPHOCYTE % (test code = LY%) % 25.0-55.0 MONOCYTE % (test code = MO%) % 0.0-10.0 EOSINOPHIL % (test code = EO%) % 0.0-5.0 BASOPHIL % (test code = BA%) % 0.0-1.0 NEUTROPHIL # (test code = NT#) K/mm3 1.8-7.7 LYMPHOCYTE # (test code = LY#) K/mm3 1.0-5.0 MONOCYTE # (test code = MO#) K/mm3 0-0.8 EOSINOPHIL # (test code = EO#) K/mm3 0.0-0.5 BASOPHIL # (test code = BA#) K/mm3 0.0-0.2 LIPID PROFILE (CORONARY RISK)[id number] 13:52:00* Test Item Value Reference Range Interpretation Comments TRIGLYCERIDES (test code = TRIG) 91 mg/dL 20-150 N CHOLESTEROL (test code = CHOL) 155 mg/dL 0-200 N CHOLESTEROL/HDL RATIO (test code = CHOLHDL) 2.0 RATIO 0-4.9 N RISK ASSOCIATED WITH CHOL/HDL RATIOS: Risk Male Female1/2 AVERAGE 3.43 3.27AVERAGE 4.97 4.442X AVERAGE 9.55 7.053X AVERAGE 23.39 11.04 REFERENCE VALUE IS RELATED TO RISK LEVELS ASRECOMMENDED BY THE [facility]. HEART, LUNG, AND BLOOD INST. HDL CHOLESTEROL (test code = HDL) 63 mg/dL 40-60 H LIPOPROTEIN LDL (test code = LDL) 87 mg/dL 100-129 L Reference Interval: mg/dL mmol/L Optimal <100 <2.6Near/above optimal 100-129 2.6- 3.3Borderline High 130-159 3.4-4.1High 160-189 4.1-4.9Very High >=190 >=4.9========= This LDL result is a direct measurement.========= [id number] 13:40:00* Test Item Value Reference Range Interpretation Comments ALCOHOL (test code = ALC) < 3 mg/dL 0.0-3.0 N -- INTERPRETIVE DATA NOTE: POSITIVE SCREENING RESULTS SHOULD BE CONSIDERED PRESUMPTIVE.WHEN COLLECTED FOR MEDICAL PURPOSES ONLY. SPECIMEN WILL NOTBE COLLECTED BY CHAIN OF CUSTODY.IF A CONFIRMATION OF POSITIVE RESULTS IS DESIRED, ACONFIRMATION TEST MUST BE REQUESTED BY THE PHYSICIAN AT ANADDITIONAL CHARGE TO THE PATIENT. SPECIMEN COMMENTS: use blood in labDRUGS OF ABUSE SCREEN [id number] 08:31:00* Test Item Value Reference Range Interpretation Comments UA PH DIPSTICK (test code = KINGA) 6.0 5.0-8.0 URN COCAINE (test code = COCAURN) NEGATIVE <300 ng/mL URN CANNABINOIDS (test code = CANNABURN) NEGATIVE <50 ng/mL URN AMPHETAMINE (test code = AMPHETURN) NEGATIVE <1000 ng/mL URN BARBITURATE (test code = BARBITURN) NEGATIVE <200 ng/mL URN BENZODIAZEPINE (test code = BENZOURN) NEGATIVE <200 ng/mL URN OPIATES (test code = OPIATURN) POSITIVE <300 ng/mL A This test provides only a preliminary test [...] employment testing, legaltesting). URN PHENCYCLIDINE (PCP) (test code = PHENCURN) NEGATIVE <25 ng/ mL URN METHADONE (test code = METHAURN) NEGATIVE <300 ng/mL DRUGS OF ABUSE SCREEN [id number] 08:21:00* Test Item Value Reference Range Interpretation Comments UA PH DIPSTICK (test code = KINGA) 5.0-8.0 URN COCAINE (test code = COCAURN) NEGATIVE <300 ng/mL URN CANNABINOIDS (test code = CANNABURN) NEGATIVE <50 ng/mL URN AMPHETAMINE (test code = AMPHETURN) NEGATIVE <1000 ng/mL URN BARBITURATE (test code = BARBITURN) NEGATIVE <200 ng/mL URN BENZODIAZEPINE (test code = BENZOURN) NEGATIVE <200 ng/mL URN OPIATES (test code = OPIATURN) POSITIVE <300 ng/mL A This test provides only a preliminary test [...] employment testing, legaltesting). URN PHENCYCLIDINE (PCP) (test code = PHENCURN) NEGATIVE <25 ng/ mL URN METHADONE (test code = METHAURN) NEGATIVE <300 ng/mL DRUGS OF ABUSE SCREEN [id number] 07:59:00* Test Item Value Reference Range Interpretation Comments UA PH DIPSTICK (test code = KINGA) 5.0-8.0 URN COCAINE (test code = COCAURN) NEGATIVE <300 ng/mL URN CANNABINOIDS (test code = CANNABURN) NEGATIVE <50 ng/mL URN AMPHETAMINE (test code = AMPHETURN) NEGATIVE <1000 ng/mL URN BARBITURATE (test code = BARBITURN) NEGATIVE <200 ng/mL URN BENZODIAZEPINE (test code = BENZOURN) NEGATIVE <200 ng/mL URN OPIATES (test code = OPIATURN) <300 ng/mL URN PHENCYCLIDINE (PCP) (test code = PHENCURN) NEGATIVE <25 ng/ mL URN METHADONE (test code = METHAURN) NEGATIVE <300 ng/mL CBC W/AUTO [id number] 07:11:00* Test Item Value Reference Range Interpretation Comments WHITE BLOOD CELL (test code = WBC) 16.0 K/mm3 4.5-12.5 H RED BLOOD CELL (test code = RBC) 3.64 mill/mm3 3.7-5.2 L HEMOGLOBIN (test code = HGB) 12.1 gram/dL 11.5-15.5 RESULT VERIFIED BY REPEAT ANALYSIS HEMATOCRIT (test code = HCT) 36.4 % 36.0-46.0 N MEAN CELL VOLUME (test code = MCV) 100.0 fL 80-98 H MEAN CELL HGB (test code = MCH) 33.2 picogram 27.0-33.0 H MEAN CELL HGB CONCETRATION (test code = MCHC) 33.2 gram/dL 33.0-36. 0 N RED CELL DISTRIBUTION WIDTH (test code = RDW) 12.0 % 11.6-16. 2 N RED CELL DISTRIBUTION WIDTH SD (test code = RDW-SD) 44.4 fL 37 .0-51.0 N PLATELET COUNT (test code = PLT) 276 K/mm3 150-450 RESULT VERIFIED BY REPEAT ANALYSIS MEAN PLATELET VOLUME (test code = MPV) 10.2 fL 6.7-11.0 N NEUTROPHIL % (test code = NT%) 69.2 % 39.0-69.0 H IMMATURE GRANULOCYTE % (test code = IG%) 0.6 % 0.0-5.0 N LYMPHOCYTE % (test code = LY%) 13.4 % 25.0-55.0 L MONOCYTE % (test code = MO%) 5.2 % 0.0-10.0 N EOSINOPHIL % (test code = EO%) 11.4 % 0.0-5.0 H BASOPHIL % (test code = BA%) 0.2 % 0.0-1.0 N NUCLEATED RBC % (test code = NRBC%) 0.0 % 0-0 N NEUTROPHIL # (test code = NT#) 11.08 K/mm3 1.8-7.7 H IMMATURE GRANULOCYTE # (test code = IG#) 0.09 x10 3/uL 0-0.03 H LYMPHOCYTE # (test code = LY#) 2.14 K/mm3 1.0-5.0 N MONOCYTE # (test code = MO#) 0.84 K/mm3 0-0.8 H EOSINOPHIL # (test code = EO#) 1.83 K/mm3 0.0-0.5 H BASOPHIL # (test code = BA#) 0.04 K/mm3 0.0-0.2 N NUCLEATED RBC # (test code = NRBC#) 0.00 K/mm3 0.0-0.1 N MANUAL DIFF REQUIRED (test code = MDIFF) NO [id number] 07:08:00* Test Item Value Reference Range Interpretation Comments LIPASE (test code = LIP) 2852 U/L 73.0-393.0 H PROTHROMBIN [id number] 07:04:00* Test Item Value Reference Range Interpretation Comments PROTHROMBIN TIME PATIENT (test code = PTP) 11.0 seconds 9.0-14.0 N INTERNATIONAL NORMAL RATIO (test code = INR) 0.9 0.8-1.2 N The therapeutic range for oral anticoagulant therapy [...] heart valves (2.5-3.5) IS PATIENT ON ANTICOAGULANTS? [id number] 07:01:00* Test Item Value Reference Range Interpretation Comments GLYCOSYLATED HEMOGLOBIN (HA1C) (test code = GLYHGB) 4.8 % HbA1 4. 8-6.0 N ESTIMATED AVERAGE GLUCOSE (test code = EAG) 91 MG/DL COMPREHENSIVE METABOLIC [id number] 07:00:00* Test Item Value Reference Range Interpretation Comments SODIUM (test code = NA) 140 mmol/L 136-145 N POTASSIUM (test code = K) 3.9 mmol/L 3.5-5.1 N CHLORIDE (test code = CL) 107.0 mmol/L 98-107 N CARBON DIOXIDE (test code = CO2) 26.0 mmol/L 21-32 N ANION GAP (test code = GAP) 10.9 10-20 N GLUCOSE (test code = GLU) 95 mg/dL 74-106 N BLOOD UREA NITROGEN (test code = BUN) 10 mg/dL 7-18 N GLOMERULAR FILTRATION RATE (test code = GFR) > 60 mL/min >=60 Estimated GFR by using Modified MDRD formula.Chronic kidney disease is defined as either kidney damageor GFR <60 mL/min/1.73 m2 for >3 months. CREATININE (test code = CREAT) 0.80 mg/dL 0.55-1.02 N Note change in reference range due to change in reagent. BUN/CREATININE RATIO (test code = BUN/CREA) 12.5 10-20 N TOTAL PROTEIN (test code = PROT) 7.1 gram/dL 6.4-8.2 N ALBUMIN (test code = ALB) 3.5 g/dL 3.4-5.0 N GLOBULIN (test code = GLOB) 3.6 gram/dL 2.7-4.2 N ALBUMIN/GLOBULIN RATIO (test code = A/G) 1.0 0.75-1.50 N CALCIUM (test code = CA) 8.9 mg/dL 8.5-10.1 N BILIRUBIN TOTAL (test code = BILT) 0.50 mg/dL 0.0-1.0 N SGOT/AST (test code = AST) 13 IUnit/L 15-37 L SGPT/ALT (test code = ALT) 18 IUnit/L 12-78 N ALKALINE PHOSPHATASE TOTAL (test code = ALKP) 78 IUnit/L 45-117 N Note change in reference range due to change in reagent. Are CHOL,TRIG & HDL ordered? [id number] 07:00:00* Test Item Value Reference Range Interpretation Comments TRIGLYCERIDES (test code = TRIG) 105 mg/dL 20-150 N Are CHOL,TRIG & HDL ordered? [id number] 07:00:00* Test Item Value Reference Range Interpretation Comments LIPASE (test code = LIP) 6149 U/L 73.0-393.0 H Are CHOL,TRIG & HDL ordered? [id number] 07:00:00* Test Item Value Reference Range Interpretation Comments MAGNESIUM (test code = MAG) 2.0 mg/dL 1.8-2.4 N Are CHOL,TRIG & HDL ordered? NOTHYROID STIMULATING [id number] 07:00:00* Test Item Value Reference Range Interpretation Comments THYROID STIMULATING HORMONE (test code = TSH) 1.650 uIU/mL 0.36-3.7 4 N TSH REFERENCE RANGES: EUTHYROID: 0.35 - 4.3 mIU/mL HYPO : > 5.5 mIU/mL HYPER : < 0.35 mIU/mL Are CHOL,TRIG & HDL ordered? NOCBC W/AUTO [id number] 06:48:00* Test Item Value Reference Range Interpretation Comments WHITE BLOOD CELL (test code = WBC) 17.5 K/mm3 4.5-12.5 H RED BLOOD CELL (test code = RBC) 4.40 mill/mm3 3.7-5.2 N HEMOGLOBIN (test code = HGB) 14.4 gram/dL 11.5-15.5 N HEMATOCRIT (test code = HCT) 42.8 % 36.0-46.0 N MEAN CELL VOLUME (test code = MCV) 97.3 fL 80-98 N MEAN CELL HGB (test code = MCH) 32.7 picogram 27.0-33.0 N MEAN CELL HGB CONCETRATION (test code = MCHC) 33.6 gram/dL 33.0-36. 0 N RED CELL DISTRIBUTION WIDTH (test code = RDW) 12.0 % 11.6-16. 2 N RED CELL DISTRIBUTION WIDTH SD (test code = RDW-SD) 43.6 fL 37 .0-51.0 N PLATELET COUNT (test code = PLT) 330 K/mm3 150-450 N MEAN PLATELET VOLUME (test code = MPV) 10.4 fL 6.7-11.0 N NEUTROPHIL % (test code = NT%) 69.9 % 39.0-69.0 H IMMATURE GRANULOCYTE % (test code = IG%) 0.5 % 0.0-5.0 N LYMPHOCYTE % (test code = LY%) 15.3 % 25.0-55.0 L MONOCYTE % (test code = MO%) 5.6 % 0.0-10.0 N EOSINOPHIL % (test code = EO%) 8.4 % 0.0-5.0 H BASOPHIL % (test code = BA%) 0.3 % 0.0-1.0 N NUCLEATED RBC % (test code = NRBC%) 0.0 % 0-0 N NEUTROPHIL # (test code = NT#) 12.20 K/mm3 1.8-7.7 H IMMATURE GRANULOCYTE # (test code = IG#) 0.08 x10 3/uL 0-0.03 H LYMPHOCYTE # (test code = LY#) 2.68 K/mm3 1.0-5.0 N MONOCYTE # (test code = MO#) 0.98 K/mm3 0-0.8 H EOSINOPHIL # (test code = EO#) 1.47 K/mm3 0.0-0.5 H BASOPHIL # (test code = BA#) 0.05 K/mm3 0.0-0.2 N NUCLEATED RBC # (test code = NRBC#) 0.00 K/mm3 0.0-0.1 N COMPREHENSIVE METABOLIC [id number] 06:42:00* Test Item Value Reference Range Interpretation Comments SODIUM (test code = NA) 140 mmol/L 136-145 N POTASSIUM (test code = K) 3.9 mmol/L 3.5-5.1 N CHLORIDE (test code = CL) 107.0 mmol/L 98-107 N CARBON DIOXIDE (test code = CO2) mmol/L 21-32 ANION GAP (test code = GAP) 10-20 GLUCOSE (test code = GLU) mg/dL 74-106 BLOOD UREA NITROGEN (test code = BUN) mg/dL 7-18 GLOMERULAR FILTRATION RATE (test code = GFR) mL/min >=60 CREATININE (test code = CREAT) mg/dL 0.55-1.02 BUN/CREATININE RATIO (test code = BUN/CREA) 10-20 TOTAL PROTEIN (test code = PROT) gram/dL 6.4-8.2 ALBUMIN (test code = ALB) g/dL 3.4-5.0 GLOBULIN (test code = GLOB) gram/dL 2.7-4.2 ALBUMIN/GLOBULIN RATIO (test code = A/G) 0.75-1.50 CALCIUM (test code = CA) mg/dL 8.5-10.1 BILIRUBIN TOTAL (test code = BILT) mg/dL 0.0-1.0 SGOT/AST (test code = AST) IUnit/L 15-37 SGPT/ALT (test code = ALT) IUnit/L 12-78 ALKALINE PHOSPHATASE TOTAL (test code = ALKP) IUnit/L 45-117 Are CHOL,TRIG & HDL ordered? [id number] 06:42:00* Test Item Value Reference Range Interpretation Comments TRIGLYCERIDES (test code = TRIG) mg/dL 20-150 Are CHOL,TRIG & HDL ordered? [id number] 06:42:00* Test Item Value Reference Range Interpretation Comments LIPASE (test code = LIP) U/L 73.0-393.0 Are CHOL,TRIG & HDL ordered? [id number] 06:42:00* Test Item Value Reference Range Interpretation Comments MAGNESIUM (test code = MAG) mg/dL 1.8-2.4 Are CHOL,TRIG & HDL ordered? NOTHYROID STIMULATING [id number] 06:42:00* Test Item Value Reference Range Interpretation Comments THYROID STIMULATING HORMONE (test code = TSH) uIU/mL 0.36-3.7 4 Are CHOL,TRIG & HDL ordered? NO- CT ABD PELVIS [id number] 23:12:00 [facility] 1995 Age[facility] 23 / F [address] [facility] Unit #: [id number] Loc: [place] [address] Phys: Thornton MD Acct: [id number] Di s Date: Status: REG ER PHONE #: [phone] Exam Date: 02/14/2019 2304 FAX #: [phone] Reason: Abdominal pain EXAMS: CPT CODE: [id number] CT ABD PELVIS W/CONT 53407 EXAM: - CT ABD PELVIS W/ CONT [...] 1 Signed Report (CONTINUED) Name: RADHA HAMLIN [facility] : 1995 Age/S: 23 / F [address] [facility] Unit #: [id number] Loc: [place] [address] Phys: Massimo aRm MD Acct: [id number] Dis Date: Status: REG ER PHONE #: Exam Date: 02/14/2019 2304 FAX #: Reason: Abdominal pain EXAMS: CPT CODE: [id number] CT ABD PELVIS W /CONT 35098 <Continued> CC: Andi Ram MD; Benjamin Saenz MD Technologist:LIZABETH CARRILLO RT(R),CT CTDI: DLP: Trnscb Date/Time: 02/14/2019 (2312) [id number] Orig Print D/T: S: 02/14/2019 (0338) PAGE 2 Signed Report - XR ABDOMEN [id number] 22:15:00 Name: RADHA HAMLIN [facility] : 1995 Age/S:23 /F [address] [facility] Unit#:[id number] Loc: [place] [address] Phys: Andi Ram MD Dis Date: PHONE #: [phone] Status: REG ER FAX #: [phone] Exam Date: 02/14/2019 Reason: Abdominal pain EXAMS: CPT CODE: [id number] XR ABDOMEN 2V 83718 EXAM: Abdomen, 3 views including upright study; INFORMATION: Abdominal pain; IMPRESSION: 1. Unremarkable bowel gas pattern; no evidence of obstruction; no evidence of pneumoperitoneum or other acute abnormalities. 2. No abnormal calcifications. at 2215 Reported and signed by: Ari Walsh M.D. CC: Andi Ram MD; Benjamin Saenz MD Technologist: LIZABETH CARRILLO RT(R),CT [facility] [place] Data: 02/14/2019 (2215) KeeGRW Orig Print D/T: S: 02/14/2019 (3013) PAGE 1 Signed Report BASIC METABOLIC [id number] 21:10:00* Test Item Value Reference Range Interpretation Comments SODIUM (test code = NA) 139 mmol/L 136-145 N POTASSIUM (test code = K) 3.6 mmol/L 3.5-5.1 N CHLORIDE (test code = CL) 103 mmol/L 101-109 N CARBON DIOXIDE (test code = CO2) 24.7 mmol/L 21-32 N ANION GAP (test code = GAP) 15 mmol/L 10-20 N GLUCOSE (test code = GLU) 117 mg/dL 74-106 H BLOOD UREA NITROGEN (test code = BUN) 12 mg/dL 3-21 N GLOMERULAR FILTRATION RATE (test code = GFR) > 60 mL/min >=60 Estimated GFR by using Modified MDRD formula.Chronic kidney disease is defined as either kidney damageor GFR <60 mL/min/1.73 m2 for >3 months. CREATININE (test code = CREAT) 0.88 mg/dL 0.55-1.3 N BUN/CREATININE RATIO (test code = BUN/CREA) 13.6 10-20 N CALCIUM (test code = CA) 8.7 mg/dL 8.4-10.2 N HEPATIC FUNCTION [id number] 21:10:00* Test Item Value Reference Range Interpretation Comments TOTAL PROTEIN (test code = PROT) 7.6 g/dL 6.5-8.4 N ALBUMIN (test code = ALB) 3.9 g/dL 3.4-4.8 N GLOBULIN (test code = GLOB) 3.7 G/DL 1-10 N ALBUMIN/GLOBULIN RATIO (test code = A/G) 1.05 RATIO 0.75-1.50 N BILIRUBIN TOTAL (test code = BILT) 0.70 mg/dL 0.0-1.0 N BILIRUBIN DIRECT (test code = BILD) 0.20 mg/dL 0.0-0.30 N SGOT/AST (test code = AST) 17 U/L 6-32 N SGPT/ALT (test code = ALT) 21 U/L 12-78 N N ote: Change in REFERENCE RANGE due to new reagent method. ALKALINE PHOSPHATASE TOTAL (test code = ALKP) 83 U/L 38-126 N [id number] 21:10:00* Test Item Value Reference Range Interpretation Comments LIPASE (test code = LIP) 6276 U/L 128-270 H HCG SERUM [id number] 21:10:00* Test Item Value Reference Range Interpretation Comments HCG SERUM QUAL (test code = HCGQL) NEGATIVE NEGATIVE This HCGQL test is NOT applicable for MALE patients.Check with nurse about probable order error.If Tumor Marker Test needed, nurse should order test "HCGTU"(Test #550.48852) BASIC METABOLIC [id number] 21:05:00* Test Item Value Reference Range Interpretation Comments SODIUM (test code = NA) 139 mmol/L 136-145 N POTASSIUM (test code = K) 3.6 mmol/L 3.5-5.1 N CHLORIDE (test code = CL) 103 mmol/L 101-109 N CARBON DIOXIDE (test code = CO2) 24.7 mmol/L 21-32 N ANION GAP (test code = GAP) 15 mmol/L 10-20 N GLUCOSE (test code = GLU) 117 mg/dL 74-106 H BLOOD UREA NITROGEN (test code = BUN) 12 mg/dL 3-21 N GLOMERULAR FILTRATION RATE (test code = GFR) > 60 mL/min >=60 Estimated GFR by using Modified MDRD formula.Chronic kidney disease is defined as either kidney damageor GFR <60 mL/min/1.73 m2 for >3 months. CREATININE (test code = CREAT) 0.88 mg/dL 0.55-1.3 N BUN/CREATININE RATIO (test code = BUN/CREA) 13.6 10-20 N CALCIUM (test code = CA) 8.7 mg/dL 8.4-10.2 N HEPATIC FUNCTION [id number] 21:05:00* Test Item Value Reference Range Interpretation Comments TOTAL PROTEIN (test code = PROT) gram/dL 6.4-8.2 ALBUMIN (test code = ALB) g/dL 3.4-5.0 GLOBULIN (test code = GLOB) g/dL 2.7-4.2 ALBUMIN/GLOBULIN RATIO (test code = A/G) 0.75-1.50 BILIRUBIN TOTAL (test code = BILT) mg/dL 0.2-1.2 BILIRUBIN DIRECT (test code = BILD) mg/dL 0.0-0.20 SGOT/AST (test code = AST) IUnit/L 15-37 SGPT/ALT (test code = ALT) U/L 10-69 ALKALINE PHOSPHATASE TOTAL (test code = ALKP) IUnit/L 45-117 [id number] 21:05:00* Test Item Value Reference Range Interpretation Comments LIPASE (test code = LIP) Unit/L 144-286 HCG SERUM [id number] 21:05:00* Test Item Value Reference Range Interpretation Comments HCG SERUM QUAL (test code = HCGQL) NEGATIVE NEGATIVE This HCGQL test is NOT applicable for MALE patients.Check with nurse about probable order error.If Tumor Marker Test needed, nurse should order test "HCGTU"(Test #550.50422) BASIC METABOLIC [id number] 21:03:00* Test Item Value Reference Range Interpretation Comments SODIUM (test code = NA) mmol/L 135-148 POTASSIUM (test code = K) mmol/L 3.5-5.1 CHLORIDE (test code = CL) mmol/L 101-109 CARBON DIOXIDE (test code = CO2) mmol/L 21-32 ANION GAP (test code = GAP) mmol/L 10-20 GLUCOSE (test code = GLU) mg/dL 74-106 BLOOD UREA NITROGEN (test code = BUN) mg/dL 3-21 GLOMERULAR FILTRATION RATE (test code = GFR) mL/min >=60 CREATININE (test code = CREAT) mg/dL 0.55-1.3 BUN/CREATININE RATIO (test code = BUN/CREA) 10-20 CALCIUM (test code = CA) mg/dL 8.4-10.2 HEPATIC FUNCTION [id number] 21:03:00* Test Item Value Reference Range Interpretation Comments TOTAL PROTEIN (test code = PROT) gram/dL 6.4-8.2 ALBUMIN (test code = ALB) g/dL 3.4-5.0 GLOBULIN (test code = GLOB) g/dL 2.7-4.2 ALBUMIN/GLOBULIN RATIO (test code = A/G) 0.75-1.50 BILIRUBIN TOTAL (test code = BILT) mg/dL 0.2-1.2 BILIRUBIN DIRECT (test code = BILD) mg/dL 0.0-0.20 SGOT/AST (test code = AST) IUnit/L 15-37 SGPT/ALT (test code = ALT) U/L 10-69 ALKALINE PHOSPHATASE TOTAL (test code = ALKP) IUnit/L 45-117 [id number] 21:03:00* Test Item Value Reference Range Interpretation Comments LIPASE (test code = LIP) Unit/L 144-286 HCG SERUM [id number] 21:03:00* Test Item Value Reference Range Interpretation Comments HCG SERUM QUAL (test code = HCGQL) NEGATIVE NEGATIVE This HCGQL test is NOT applicable for MALE patients.Check with nurse about probable order error.If Tumor Marker Test needed, nurse should order test "HCGTU"(Test #550.90661) CBC W/O [id number] 20:54:00* Test Item Value Reference Range Interpretation Comments WHITE BLOOD CELL (test code = WBC) 17.9 K/mm3 4.5-12.5 H RED BLOOD CELL (test code = RBC) 4.52 mill/mm3 3.7-5.2 N HEMOGLOBIN (test code = HGB) 15.0 gram/dL 11.5-15.5 N HEMATOCRIT (test code = HCT) 44.2 % 36.0-46.0 N MEAN CELL VOLUME (test code = MCV) 97.8 fL 80-98 N MEAN CELL HGB (test code = MCH) 33.2 picogram 27.0-33.0 H MEAN CELL HGB CONCETRATION (test code = MCHC) 33.9 gram/dL 33.0-36. 0 N RED CELL DISTRIBUTION WIDTH (test code = RDW) 11.7 % 11.6-16. 2 N RED CELL DISTRIBUTION WIDTH SD (test code = RDW-SD) 43.1 fL 37 .0-51.0 N PLATELET COUNT (test code = PLT) 368 K/mm3 150-450 N MEAN PLATELET VOLUME (test code = MPV) 9.7 fL 6.7-11.0 N URINALYSIS [id number] 20:37:00* Test Item Value Reference Range Interpretation Comments UA COLOR (test code = COLU) DARK YELLOW YELLOW A UA APPEARANCE (test code = APPU) HAZY CLEAR A UA GLUCOSE DIPSTICK (test code = DGLUU) norm mg/dL NEGATIVE UA BILIRUBIN DIPSTICK (test code = BILU) NEGATIVE mg/dL NEGATIVE UA KETONE DIPSTICK (test code = KETU) neg mg/dL NEGATIVE UA SPECIFIC GRAVITY (test code = SGU) 1.025 1.001-1.035 UA BLOOD DIPSTICK (test code = JAMILA) neg Carlos/uL NEGATIVE UA PH DIPSTICK (test code = KINGA) 5.0 5.0-8.0 UA PROTEIN DIPSTICK (test code = PROU) 15 (TRACE) mg/dL Neg-15 A UA UROBILINIOGEN DIPSTICK (test code = URO) norm mg/dL 0.0-0.2 UA NITRITE DIPSTICK (test code = DAVIN) NEGATIVE NEGATIVE UA LEUKOCYTE ESTERASE DIPSTICK (test code = LEUU) neg uL NEGA TIVE UA WBC (test code = WBCU) 0-5 per HPF 0-5 UA RBC (test code = RBCU) NONE SEEN per HPF 0-5 UA EPITHELIAL CELLS (test code = EPIU) Moderate (5-10/hpf) per HPF Few UA BACTERIA (test code = BACU) MODERATE per HPF NONE A UA MUCUS (test code = MUCU) FEW per LPF NONE-FEW Urine Source? Clean CatchURINALYSIS [id number] 20:29:00* Test Item Value Reference Range Interpretation Comments UA COLOR (test code = COLU) DARK YELLOW YELLOW A UA APPEARANCE (test code = APPU) HAZY CLEAR A UA GLUCOSE DIPSTICK (test code = DGLUU) norm mg/dL NEGATIVE UA BILIRUBIN DIPSTICK (test code = BILU) NEGATIVE mg/dL NEGATIVE UA KETONE DIPSTICK (test code = KETU) neg mg/dL NEGATIVE UA SPECIFIC GRAVITY (test code = SGU) 1.025 1.001-1.035 UA BLOOD DIPSTICK (test code = JAMILA) neg Carlos/uL NEGATIVE UA PH DIPSTICK (test code = KINGA) 5.0 5.0-8.0 UA PROTEIN DIPSTICK (test code = PROU) 15 (TRACE) mg/dL Neg-15 A UA UROBILINIOGEN DIPSTICK (test code = URO) norm mg/dL 0.0-0.2 UA NITRITE DIPSTICK (test code = DAVIN) NEGATIVE NEGATIVE UA LEUKOCYTE ESTERASE DIPSTICK (test code = LEUU) neg uL NEGA TIVE UA WBC (test code = WBCU) per HPF 0-5 UA RBC (test code = RBCU) per HPF 0-5 UA EPITHELIAL CELLS (test code = EPIU) per HPF Few UA BACTERIA (test code = BACU) per HPF NONE Urine Source? Clean Catch
[2019-11-24] MEDS ORDERED: IBUPROFEN 400 MG TAB PO ONE (10:45)
--- NOTE | 2019-11-24 10:52 | Emergency Department Note ---
History of Present Illnes History of Present Illness Chief Complaint: Flu Like Symptoms. Started yesterday temperature 101.7 highest recorded History of Present Illness This is a 24 year old female . 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 Any updates have been documented here. Past Medical History Recent Fever: Yes Clinical Suspicion of Infectio: Yes New/Unexplained Change in Ment: No Past Medical History: None Other Medical History: ETOH ABUSE, hypertryglycedemia PANCREATITIS Other Surgery: tonsillectomy Social History Smoking Cessation: Never Smoker Alcohol Use: Occasional Any Illegal Drug Use: No TB Exposure/Symptoms: No Physically hurt or threatened: No Other Last Tetanus: <2yrs Any Pre-Existing Lines (PICC,: No Is patient up to date on immun: No Review of Systems Review of Systems Constitutional: no symptoms EENTM: no symptoms Cardiovascular: no symptoms Respiratory: no symptoms Gastrointestinal: as per HPI Genitourinary: no symptoms Musculoskeletal: no symptoms Neurological: no symptoms Psychological: no symptoms Endocrine: no symptoms Hematological/Lymphatic: no symptoms Review of other systems All other systems reviewed and negative. Physical Exam Related Data Allergies: Coded Allergies: No Known Allergies (Unverified , 11/26/16) Vital signs reviewed: Yes Physical Exam CONSTITUTIONAL Constitutional: well-developed HENT HENT: normocephalic, atraumatic, oropharynx clear/moist, oropharynx normal, nose normal HENT L/R: left TM normal, right TM normal, left canal normal, right canal normal, left ext ear normal, right ext ear normal EYES Eyes: PERRL, conjunctivae normal NECK Neck: ROM normal, supple PULMONARY Pulmonary: effort normal, breath sounds normal CARDIOVASCULAR Cardiovascular: regular rhythm, heart sounds normal, intact distal pulses, capillary refill normal, tachycardia GASTROINTESTINAL Abdominal: soft, nontender, bowel sounds normal GENITOURINARY Genitourinary: exam deferred SKIN Skin: warm, dry MUSCULOSKELETAL Musculoskeletal: ROM normal NEUROLOGICAL Neurological: alert, oriented x 3, DTRs normal PSYCHOLOGICAL Psychological: mood/affect normal, behavior normal, thought content normal, judgement normal Results Laboratory Laboratory Urinalysis is significant for moderate bilirubin and ketones 40 mg/dL small blood protein 100 mg/dL of urobilinogen greater than 8E units per deciliter also has small leukocytes test is negative. Flu and strep are both negative CBC is significant for a white count of 14.1 with 92% granulocytes MCV is 102.4 chemistries are significant for nail T of 78 and GGT of 366 which are both elevated nonfasting glucose is 138 Lab results reviewed: Yes Laboratory comments lactic acid 2.28 high Imaging Imaging results reviewed: Yes Impressions CT of the abdomen and pelvis is significant for a right perinephric stranding right kidney also the uvula is in the right middle contour and soft tissue densi ty in the region in the region of the pancreatic tablets consistent with old pancreatitis Critical Care Time Subsequent provider I assumed direction of critical care for this patient from another provider of my specialty. Assessment & Plan Reassessment Reassessment Case with discussed with Dr. Bailey will admit patient for IV antibiotics and fluid hydration Assessment & Plan Final Impression: (1) URINARY TRACT INFECTION, SITE NOT SPECIFIED Assessment & Plan admit for observation to Dr Bailey Case discussed in detail Depart Disposition: ADMITTED Home Meds Reported Medications Famotidine (FAMOTIDINE) 20 Mg Tab, 20 MG PO Q12H, #30 TAB 05/04/19 Ferrous Sulfate (FERROUS SULFATE) 324 Mg Tablet. 11/26/16 WYATT WOOD MD Nov 24, 2019 10:52
[2019-11-24] MEDS ORDERED: IBUPROFEN 200 MG TAB ONE (10:56)
--- NOTE | 2019-11-24 11:38 | Diagnostic Imaging Report ---
X-ray chest PA and lateral views Comparison: None History: Fever Findings: Central airways unremarkable. Heart size normal. Mediastinal silhouettes normal. No pleural effusion. No pneumothorax. No lung infiltrates or nodules. Visualized skeletal structures within normal limits. Upper abdomen unremarkable. Impression: No acute cardiopulmonary disease. There is no pneumonia. Signed by: Manolo Santana MD on 11/24/2019 11:34 AM
[2019-11-24] MEDS ORDERED: LEVOFLOXACIN 500MG/D5W 100ML 100 ML IV ONE ×2 (12:00→12:13)
[2019-11-24] MEDS ORDERED: SODIUM CHLORIDE 0.9% 1000ML 1,000 ML IV SCH (12:00)
[2019-11-24] MEDS ORDERED: METRONIDAZOLE 500MG/NS 100ML 100 ML IV ONE ×2 (12:13→12:45)
[2019-11-24] MEDS ORDERED: SODIUM CHLORIDE 0.9% 1000ML 1,000 ML ONE (12:14)
--- NOTE | 2019-11-24 12:14 | Diagnostic Imaging Report ---
CT of the abdomen and pelvis. Comparison: CT chest abdomen pelvis 04/30/2019 Clinical History: Nausea, vomiting, abdominal pain Technique: Helical CT scan of the abdomen and pelvis was performed. Intravenous contrast administration was not utilized. Oral contrast administration was not utilized. Coronal and sagittal reconstructions were generated from the raw data. Multiple images were submitted for interpretation. This exam was performed according to our departmental dose-optimization program which includes automated exposure control, adjustment of the mA and/or kV according to patient size Discussion: Inferior chest: Unremarkable. 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 Otherwise pancreas is unremarkable. Biliary tree and gallbladder: Unremarkable Adrenal glands: Unremarkable Kidneys and ureters: Perinephric stranding of the right kidney. Left kidney unremarkable. Ureters unremarkable. No calculi. Vasculature: Unremarkable Lymph nodes: No lymphadenopathy Bowel: Unremarkable Pelvis: Urinary bladder is unremarkable. No significant abnormality of the pelvic genitalia. Pelvic wall unremarkable. Peritoneum: Unremarkable Perineal compartments: unremarkable. Fluid: No free fluid Bones: Unremarkable Body wall: Unremarkable Impression: Likely is sequela of the previous neck are present pancreatitis of the pancreatic tail with irregular contour and soft tissue density in the region of the pancreatic tail. There is mild perinephric stranding of the right kidney. Clinical correlation for possible urinary infection such as pyelonephritis is requested. Signed by: Manolo Santana MD on 11/24/2019 12:10 PM
[2019-11-24] MEDS ORDERED: ONDANSETRON HCL INJ 2MG/ML 2ML 2 MG/ML VIAL IV PRN (12:45)
[2019-11-24] MEDS ORDERED: D5.45%NS/KCL 20MEQ 1,000 ML IV SCH (12:45)
[2019-11-24] MEDS ORDERED: LEVOFLOXACIN 500MG/D5W 100ML 100 ML IV SCH (12:45)
--- OUTSIDE RECORDS SUMMARY | 2019-11-24 12:57 | XMS REPORT | Continuity of Care Document ---
Author Author [facility] t Organization [facility] Address [address] [place] [place] [address] Phone Unavailable Care Team Providers Care Engineering Programmer Name Role Phone BENJAMIN SAENZ MD PCP WYATT WOOD Attphys Unavailable DEONTE GUPTA Attphys Unavailable DEONTE GUPTA Admjensen Unavailable Payers Payer Name Policy Type Policy Number Effective Date Expiration Date [facility] Excha [id number] 2016 00:0 0:00 [facility] Problems This patient has no known problems. Allergies, Adverse Reactions, Alerts Allergy Name Allergy Type Status Severity Reaction(s) Onset Date Inacti ve Date Treating Clinician Comments Source No Known Allergies DA Active U 2019-02-15 00:00:00 [facility] No Known Allergies DA Active U 2019-02-14 00:00:00 [facility] Medications Ordered Medication Name Filled Medication Name Start Date Stop Da te Current Medication? Ordering Clinician Indication Dosage Frequency Signature (SIG) Comments Components Source Famotidine 20 Mg Tab Famotidine 20 Mg Tab Yes 20 Every 12 Hours [facility] Ferrous Sulfate 324 Mg Tablet. Ferrous Sulfate 324 Mg Tablet.dr Clark [facility] Procedures Procedure Date / Time Performed Performing Clinician Sourc e Computed tomography of abdomen and pelvis with contrast 2018 00:00:00 ALONSO DEONTE [facility] Computed tomography of chest with contrast 2019-04-30 00:00:00 Aryan COURTNEY DEONTE [facility] Ultrasound of chest including mediastinum 2019-04-26 00:00:00 OMAR LEONARDO [facility] X-ray of chest, two views 2019-04-25 00:00:00 OMAR GREY CH I [facility] US Gallbladder 2019[facility]24 [facility] Computed tomography of abdomen and pelvis with contrast 2018 00:00:00 [facility] DEONTE [facility] CT of abdomen and pelvis without contrast 2019-04-21 00:00:00 ROBERTO KING [facility] Encounters Start Date/Time End Date/Time Encounter Type [facility] En[facility] ID Source 2019-04-21 13:34:00 2019-05-04 12:35:00 Discharged Inpatient 1 ALONSO DEONTE [facility] [id number] [facility] Results Test Description Test Time Test Comments Results Result Comments Source CT ABD/PEL WO CONTRAST-HOPD 2019-11-24 11:58:00 [facility] [address] [address] Patient Name: RADHA HAMLIN MR #: [id number] : 1995 Age/Sex: 24/F Req #: [id number] Adm Physician: Ordered by: WYATT WOOD MD Report #: [id number] [facility] Room/Bed: Procedure: [id number] HOPD/CT ABD/PEL WO CONTRAST-HOPD Exam Date: 11/24/19 Exam Time: 1137 REPORT STATUS: Signed CT of the abdomen and pelvis. Comparison: CT chest abdomen pelvis 04/30/2019 Clinical History: Nausea, vomiting, abdominal pain Technique: Helical CT scan of the abdomen and pelvis was performed. Intravenous contrast administration was not utilized. Oral contrast administration was not utilized. Coronal and sagittal reconstructions were generated from the raw data. Multiple images were submitted for interpretation. This exam was performed according to our departmental dose-optimization program which includes automated exposure control, adjustment of the mA and/or kV according to patient size Discussion: Inferior chest: Unremarkable. 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 Otherwise pancreas is unremarkable. Biliary tree and gallbladder: Unremarkable Adrenal glands: Unremarkable Kidneys and ureters: Perinephric stranding of the right kidney. Left kidney unremarkable. Ureters unremarkable. No calculi. Vasculature: Unremarkable Lymph nodes: No lymphadenopathy Bowel: Unremarkable Pelvis: Urinary bladder is unremarkable. No significant abnormality of the pelvic genitalia. Pelvic wall unremarkable. Peritoneum: Unremarkable Perineal compartments: unremarkable. Fluid: No free fluid Bones: Unremarkable Body wall: Unremarkable Impression: Likely is sequela of the previous neck are present pancreatitis of the pancreatic tail with irregular contour and soft tissue density in the region of the pancreatic tail. There is mild perinephric stranding of the right kidney. Clinical correlation for possible urinary infection such as pyelonephritis is requested. Signed by: Manolo Kelley MD on 11/24/2019 12:10 PM Dictated By: MANOLO KELLEY MD 1210 Transcribed By: DAYANARA on 11/24/19 1210 COPY TO: WYATT WOOD MD CXR 2 VIEW - HOPD 2019-11-24 11:33:00 [address] [address] Patient Name: RADHA HAMLIN MR #: [id number] : 1995 Age/Sex: 24/F Req #: [id number] Adm Physician: Ordered by: WYATT WOOD MD Report #: [id number] [facility] Room/Bed: Procedure: [id number] HOPD/CXR 2 VIEW - HOPD Exam Date: Exam Time: REPORT STATUS: Signed X-ray chest PA and lateral views Comparison: None History: Fever Findings: Central airways unremarkable. Heart size normal. Mediastinal silhouettes normal. No pleural effusion. No pneumothorax. No lung infiltrates or nodules. Visualized skeletal structures within normal limits. Upper abdomen unremarkable. Impression: No acute cardiopulmonary disease. There is no pneumonia. Signed by: Manolo Kelley MD on 11/24/2019 11:34 AM Dictated By: MANOLO KELLEY MD 1134 Transcribed By: DAYANARA on 11/24/19 1134 COPY TO: WYATT WOOD MD Lipase 2019-05-04 08:29:00 Test Item Lipase (test code = 3040-3) 224 8-78 H [facility] Blood Stvxq2930-87-63 08:28:00* Test Item Value Reference Range Interpretation Comments White Blood Count (test code = 6690-2) 11.01 4.8-10.8 H [facility]entonRed Blood Pyiae6912-64-24 08:28:00* Test Item Value Reference Range Interpretation Comments Red Blood Count (test code = 789-8) 3.76 3.6-5.1 [facility]Hemoglobin2019-11-14 08:28:00* Test Item Value Reference Range Interpretation Comments Hemoglobin (test code = 65531-3) 12.4 12.0-16.0 [facility]entonHematocrit2019-11-14 08:28:00* Test Item Value Reference Range Interpretation Comments Hematocrit (test code = 4544-3) 37.4 34.2-44.1 [facility]entonMean Corpuscular Jdhaos4150-31-91 08:28:00* Test Item Value Reference Range Interpretation Comments Mean Corpuscular Volume (test code = 787-2) 99.5 81-99 H [facility]entonMean Corpuscular Dipganujgl4225-19-83 08:28:00* Test Item Value Reference Range Interpretation Comments Mean Corpuscular Hemoglobin (test code = 785-6) 33.0 28-32 H [facility]entonMean Corpuscular Hemoglobin Concent 2019-05-04 08:28:00* Test Item Value Reference Range Interpretation Comments Mean Corpuscular Hemoglobin Concent (test code = 786-4) 33.2 31-35 [facility] DentonRed Cell Distribution Cvkqp7827-43-78 08:28:00* Test Item Value Reference Range Interpretation Comments Red Cell Distribution Width (test code = 30379-5) 12.8 11.7 -14.4 [facility] DentonPlatelet Txobo3174-08-04 08:28:00* Test Item Value Reference Range Interpretation Comments Platelet Count (test code = 777-3) 712 140-360 H [facility]entonNeutrophils (%) (Auto)2019-05-04 08:28:00 * Test Item Value Reference Range Interpretation Comments Neutrophils (%) (Auto) (test code = 85574-6) 53.3 38.7-80.0 [facility] DentonLymphocytes (%) (Auto)2019-05-04 08:28:00 * Test Item Value Reference Range Interpretation Comments Lymphocytes (%) (Auto) (test code = 736-9) 21.9 18.0-39.1 [facility]entonMonocytes (%) (Auto)2019-05-04 08:28:00* Test Item Value Reference Range Interpretation Comments Monocytes (%) (Auto) (test code = 5905-5) 7.2 4.4-11.3 [facility]entonEosinophils (%) (Auto)2019-05-04 08:28:00 * Test Item Value Reference Range Interpretation Comments Eosinophils (%) (Auto) (test code = 713-8) 12.5 0.0-6.0 H [facility]entonBasophils (%) (Auto)2019-05-04 08:28:00* Test Item Value Reference Range Interpretation Comments Basophils (%) (Auto) (test code = 706-2) 0.8 0.0-1.0 [facility] DentonIM GRANULOCYTES %2019-05-04 08:28:00* Test Item Value Reference Range Interpretation Comments IM GRANULOCYTES % (test code = IM GRANULOCYTES %) 4.3 0.0- 1.0 H [facility]entonNeutrophils # (Auto)2019-05-04 08:28:00* Test Item Value Reference Range Interpretation Comments Neutrophils # (Auto) (test code = 751-8) 5.9 2.1-6.9 [facility] DentonLymphocytes # (Auto)2019-05-04 08:28:00* Test Item Value Reference Range Interpretation Comments Lymphocytes # (Auto) (test code = 96422-6) 2.4 1.0-3.2 [facility]entonMonocytes # (Auto)2019-05-04 08:28:00* Test Item Value Reference Range Interpretation Comments Monocytes # (Auto) (test code = 742-7) 0.8 0.2-0.8 [facility]entonEosinophils # (Auto)2019-05-04 08:28:00* Test Item Value Reference Range Interpretation Comments Eosinophils # (Auto) (test code = 711-2) 1.4 0.0-0.4 H [facility]entonBasophils # (Auto)2019-05-04 08:28:00* Test Item Value Reference Range Interpretation Comments Basophils # (Auto) (test code = 704-7) 0.1 0.0-0.1 [facility] DentonAbsolute Immature Granulocyte (auto 2019-05-04 08:28:00* Test Item Value Reference Range Interpretation Comments Absolute Immature Granulocyte (auto (kemi t code = Absolute Immature Granulocyte (auto) 0.47 0-0.1 H [facility] DentonBlood Jvzrdyr8479-95-79 20:31:00* Test Item Value Reference Range Interpretation Comments Blood Culture (test code = 58294180) NO GROWTH AFTER 48 HOURS [facility] DentonProcalcitonin2019-11-13 19:32:00* Test Item Value Reference Range Interpretation Comments Procalcitonin (test code = 164387460) 0.16 0.00-0.08 H A procalcitonin (PCT) level [...] any concentrations <2 ng/mL are obtained.Performed at: [facility] Lab[address] [id number] Director: Eleno Hanks MD, Phone: [phone] Scott and White the [facility] Hospital – DentonDifferential Total Cells Lbidqnr8349-57-18 07:24:00* Test Item Value Reference Range Interpretation Comments Differential Total Cells Counted (test code = Differmelissa tial Total Cells Counted) 100 [facility] DentonNeutrophils % (Manual)2019-05-03 07:24:00 * Test Item Value Reference Range Interpretation Comments Neutrophils % (Manual) (test code = 05331-3) 60 40-74 [facility] DentonBand Neutrophils %2019-05-03 07:24:00* Test Item Value Reference Range Interpretation Comments Band Neutrophils % (test code = 764-1) 1 [facility] DentonLymphocytes % (Manual)2019-05-03 07:24:00 * Test Item Value Reference Range Interpretation Comments Lymphocytes % (Manual) (test code = 737-7) 17 19-48 L [facility] DentonMonocytes % (Manual)2019-05-03 07:24:00* Test Item Value Reference Range Interpretation Comments Monocytes % (Manual) (test code = 744-3) 4 3.4-9.0 [facility]entonEosinophils % (Manual)2019-05-03 07:24:00 * Test Item Value Reference Range Interpretation Comments Eosinophils % (Manual) (test code = 714-6) 18 0-7 H [facility] DentonPlatelet Agwwuwfn8184-59-73 07:24:00* Test Item Value Reference Range Interpretation Comments Platelet Estimate (test code = 76842-7) MODERATELY INCREASED [facility] DentonPlatelet Morphology Mitmlek1518-75-23 07:24:00* Test Item Value Reference Range Interpretation Comments Platelet Morphology Comment (test code = 20592-9) NORMAL No EDTA clumping seen.[facility] DentonPoikilocytosis 2019-05-03 07:24:00* Test Item Value Reference Range Interpretation Comments Poikilocytosis (test code = 779-9) SLIGHT [facility] DentonAnisocytosis2019-11-13 07:24:00* Test Item Value Reference Range Interpretation Comments Anisocytosis (test code = 702-1) SLIGHT [facility] DentonMicrocytosis2019-11-13 07:24:00* Test Item Value Reference Range Interpretation Comments Microcytosis (test code = 741-9) SLIGHT [facility] DentonMacrocytosis2019-11-13 07:24:00* Test Item Value Reference Range Interpretation Comments Macrocytosis (test code = 738-5) SLIGHT [facility] DentonOvalocytes2019-11-13 07:24:00* Test Item Value Reference Range Interpretation Comments Ovalocytes (test code = 774-0) FEW [facility] DentonHelmet Abqvd2077-59-15 07:24:00* Test Item Value Reference Range Interpretation Comments Helmet Cells (test code = 02903-8) RARE [facility] DentonRed Cell Morphology Oucjlwh1461-05-68 07:24:00* Test Item Value Reference Range Interpretation Comments Red Cell Morphology Comment (test code = 6742-1) ABNORMAL [facility]Allenodium Wzzha8697-04-52 07:35:00* Test Item Value Reference Range Interpretation Comments Sodium Level (test code = 2951-2) 133 136-145 L [facility] DentonPotassium Tpqzv3503-99-09 07:35:00* Test Item Value Reference Range Interpretation Comments Potassium Level (test code = 2823-3) 4.1 3.5-5.1 [facility] DentonChloride Ehohu9724-61-85 07:35:00* Test Item Value Reference Range Interpretation Comments Chloride Level (test code = 2075-0) 99 98-107 [facility] DentonCarbon Dioxide Aegij7091-67-20 07:35:00* Test Item Value Reference Range Interpretation Comments Carbon Dioxide Level (test code = 2028-9) 25 22-29 [facility] DentonAnion Tgx1729-19-16 07:35:00* Test Item Value Reference Range Interpretation Comments Anion Gap (test code = 08615-7) 13.1 8-16 [facility] DentonBlood Urea Itwzzqvv5659-11-68 07:35:00* Test Item Value Reference Range Interpretation Comments Blood Urea Nitrogen (test code = 3094-0) 9 7-26 [facility] DentonCreatinine2019-11-12 07:35:00* Test Item Value Reference Range Interpretation Comments Creatinine (test code = 2160-0) 0.64 0.57-1.11 [facility] DentonBUN/Creatinine Jlqoh1676-59-39 07:35:00* Test Item Value Reference Range Interpretation Comments BUN/Creatinine Ratio (test code = 3097-3) 14 6-25 [facility] DentonEstimat Glomerular Filtration Rate 2019-05-02 07:35:00* Test Item Value Reference Range Interpretation Comments Estimat Glomerular Filtration Rate (test code = 372166394) > 60 >60 Ranges were taken from the National Kidney Disease Education Program and the [facility] literature.Reference ranges:60 or greater: Zkmfxr31-26 ( for 3 consecutive months): Chronic kidney disease 15 or less: Kidney failureBaylor Scott and White the Heart Hospital – DentonGlucose Rbgba6067-63-56 07:35:00* Test Item Value Reference Range Interpretation Comments Glucose Level (test code = IKB9718) 76 74-118 [facility] DentonCalcium Mggog7111-47-23 07:35:00* Test Item Value Reference Range Interpretation Comments Calcium Level (test code = 76055-0) 8.6 8.4-10.2 [facility] DentonClostridium Difficile Toxin A & B 2019-05-01 08:25:00* Test Item Value Reference Range Interpretation Comments Clostridium Difficile Toxin A & B (test code = 540085703) NEGATIVE NEGATIVE Testing on stool aspirate specimens is outside manager hotel claims since specime n type not validated on this assay.[facility] DentonTotal Nnhxnpjrk4534-58-40 05:51:00* Test Item Value Reference Range Interpretation Comments Total Bilirubin (test code = 1975-2) 0.5 0.2-1.2 [facility] DentonAspartate Amino Transf (AST/SGOT) 2019-05-01 05:51:00* Test Item Value Reference Range Interpretation Comments Aspartate Amino Transf (AST/SGOT) (test code = Aspartate Amino Transf (AST/SGOT)) 19 5-34 [facility] DentonAlanine Aminotransferase (ALT/SGPT) 2019-05-01 05:51:00* Test Item Value Reference Range Interpretation Comments Alanine Aminotransferase (ALT/SGPT) (test code = 1742-6) 20 0-55 [facility] DentonTotal Qqrquar8725-58-25 05:51:00* Test Item Value Reference Range Interpretation Comments Total Protein (test code = 2885-2) 6.6 6.5-8.1 [facility] DentonAlbumin2019-11-11 05:51:00* Test Item Value Reference Range Interpretation Comments Albumin (test code = 1751-7) 2.6 3.5-5.0 L [facility] DentonGlobulin2019-11-11 05:51:00* Test Item Value Reference Range Interpretation Comments Globulin (test code = 94888-3) 4.0 2.3-3.5 H [facility] DentonAlbumin/Globulin Fetpz7917-43-69 05:51:00 * Test Item Value Reference Range Interpretation Comments Albumin/Globulin Ratio (test code = 1759-0) 0.7 0.8-2.0 L [facility] DentonAlkaline Epossmcqvzm5541-98-39 05:51:00* Test Item Value Reference Range Interpretation Comments Alkaline Phosphatase (test code = 6768-6) 179 40-150 H [facility] DentonCT ABDOMEN/PELVIS Y0219-28-11 10:13:00 [address] [place] [address] Patient Name: RADHA HAMLIN MR #: [id number] : 1995 Age/Sex: 23/F Req #: [id number] Adm Physician: DEONTE GUPTA MD Ordered by: DEONTE GUPTA MD Report #: [id number] Location: MED/SURG Room/Bed: [facility] Procedure: [id number] CT/ CT ABDOMEN/PELVIS W Exam Date: 04/30/19 [...] GUPTA MD CT CHEST W 2019-04-30 10:13:00 [address] [place] [address] Patient Name: RADHA HAMLIN MR #: [id number] : 1995 Age/Sex: 23/F Req #: [id number] Adm Physician: DEONTE GUPTA MD Ordered by: DEONTE GUPTA MD Report #: [id number] Location: MED/SURG2 Room/Bed: [facility] Procedure: [id number] CT/ CT CHEST W Exam Date: 04/30/19 [...] 1024 COPY TO: DEONTE GUPTA MD Bedside Fnhflqa9539-02-25 23:55:00* Test Item Value Reference Range Interpretation Comments Bedside Glucose (test code = 15445-4) 132 70-120 H Meter ID: [id number] [facility] TexasAmylase Level 2019-04-29 06:13:00* Test Item Value Reference Range Interpretation Comments Amylase Level (test code = 1798-8) 114 25-125 [facility] TexasHEPTOBILIARY W VKCQO8696-31-39 17:48:00 [address] [place] [address] Patient Name: RADHA HAMLIN MR #: [id number] : 1995 Age/Sex: 23/F Req #: [id number] Adm Physician: DEONTE GUPTA MD Ordered by: DEONTE GUPTA MD Report #: [id number] Location: MED/SURG2 Room/Bed: [facility] Procedure: [id number] NM/ HEPTOBILIARY W PHARM Exam Date: 04/28/19 [...] 1752 COPY TO: DEONTE GUPTA MD Urine Dhof3263-16-47 12:57:00* Test Item Value Reference Range Interpretation Comments Urine Test (test code = 2106-3) NEGATIVE NEGATIVE [facility] DentonHypochromasia2019-11-08 07:42:00* Test Item Value Reference Range Interpretation Comments Hypochromasia (test code = 728-6) SLIGHT [facility] DentonInfluenza Virus Types A,B Antigen 2019-04-26 15:27:00* Test Item Value Reference Range Interpretation Comments Influenza Virus Types A,B Antigen (test code = 75655-5) NEGATIVE NEGATIVE [facility] DentonUS CHEST (INCL MEDIASTINUM)2019-04-26 14:35:00 [address] [place] [address] Patient Name: RADHA HAMLNI MR #: [id number] : 1995 Age/Sex: 23/F Req #: [id number] Adm Physician: DEONTE GUPTA MD Ordered by: OMAR POWERS MD Report #: [id number] Location: MED/SURG2 Room/Bed: [facility] Procedure: [id number] US/US CHEST (INCL MEDIASTINUM) Exam Date: Exam [...] Comments Basophils % (Manual) (test code = 36704-9) 1 0-1.5 [facility] TexasCHES 2 XXWSH6948-65-96 05:36:00 [facility] [address] [place], [place] [address] Patient Name: RADHA HAMLIN MR #: [id number] : 1995 Age/Sex: 23/F Req #: [id number] Adm Physician: DEONTE GUPTA MD Ordered by: OMAR GREY MD Report #: [id number] Location: MED/SURG2 Room/Bed: [facility] Procedure: [id number] DX/CHEST 2 VIEWS Exam Date: 04/25/19 Exam [...] 5:38 AM Dictated By: VERONICA HERNANDEZ MD 0538 Transcribed By: DAYANARA on 04/25/19537 COPY TO: OMAR GREY MD MIXVFRUMSOK1513-98-38 12:42:00 [place] [address] Patient Name: RADHA HAMLIN MR #: [id number] : 1995 Age/Sex: 23/F Req #: [id number] Adm Physician: DEONTE GUPTA MD Ordered by: DEONTE GUPTA MD Report #: [id number] Location: MED/SURG2 Room/Bed: [facility] Procedure: [id number] US/ US GALLBLADDER Exam Date: 04/24/19 Exam [...] = Lactic Acid Level) 0.7 0.5- 2.0 [facility] DentonUrine SUH7657-54-58 21:21:00* Test Item Value Reference Range Interpretation Comments Urine WBC (test code = 5821-4) 0-5 0-5 [facility] DentonUrine HVA7560-65-26 21:21:00* Test Item Value Reference Range Interpretation Comments Urine RBC (test code = 29894-4) 0-5 0-5 [facility] DentonUrine Ggntegtt3943-50-24 21:21:00* Test Item Value Reference Range Interpretation Comments Urine Bacteria (test code = 25320-0) FEW NONE [facility] DentonUrine Epithelial Zbbun0542-98-65 21:21:00 * Test Item Value Reference Range Interpretation Comments Urine Epithelial Cells (test code = 05804-6) FEW NONE [facility] DentonUrine Travc6048-35-89 20:57:00* Test Item Value Reference Range Interpretation Comments Urine Color (test code = 5778-6) YELLOW YELLOW [facility] DentonUrine Tiwxjxe3802-08-72 20:57:00* Test Item Value Reference Range Interpretation Comments Urine Clarity (test code = 51910-1) CLEAR CLEAR [facility] DentonUrine Specific Bfvmqsb2458-44-80 20:57:00 * Test Item Value Reference Range Interpretation Comments Urine Specific [place] (test code = 5811-5) <=1.005 1.010-1.02 5 [facility] DentonUrine tF1281-31-42 20:57:00* Test Item Value Reference Range Interpretation Comments Urine pH (test code = 54976-0) 6.5 5-7 [facility] DentonUrine Leukocyte Lvpednbr6833-16-76 20:57:00* Test Item Value Reference Range Interpretation Comments Urine Leukocyte Esterase (test code = 16908-4) NEGATIVE NEGATIV E [facility] DentonUrine Cvcnsry5511-41-38 20:57:00* Test Item Value Reference Range Interpretation Comments Urine Nitrite (test code = 57544-6) NEGATIVE NEGATIVE [facility] DentonUrine Aajvifg2612-09-51 20:57:00* Test Item Value Reference Range Interpretation Comments Urine Protein (test code = 66296-0) NEGATIVE NEGATIVE [facility] DentonUrine Glucose (UA)2019-04-23 20:57:00* Test Item Value Reference Range Interpretation Comments Urine Glucose (UA) (test code = 82168-6) NEGATIVE NEGATIVE [facility] [id number] 20:57:00* Test Item Value Reference Range Interpretation Comments Urine Ketones (test code = 57917-5) NEGATIVE NEGATIVE [facility] [id number] 20:57:00* Test Item Value Reference Range Interpretation Comments Urine Urobilinogen (test code = 38967-3) 0.2 0.2-1 [facility] [id number] 20:57:00* Test Item Value Reference Range Interpretation Comments Urine Bilirubin (test code = 1977-8) NEGATIVE NEGATIVE [facility] [id number] 20:57:00* Test Item Value Reference Range Interpretation Comments Urine Blood (test code = 60360-1) NEGATIVE NEGATIVE [facility] ABDOMEN/PELVIS [id number] 20:00:00 [place] [address] Patient Name: RADHA HAMLIN MR #: [id number] : 1995 Age/Sex: 23/F Req #: [id number] Adm Physician: DEONTE GUPTA MD Ordered by: DEONTE GUPTA MD Report #: [id number] Location: MED/SURG2 Room/Bed: [facility] Procedure: [id number] CT/ CT ABDOMEN/PELVIS W Exam Date: 04/23/19 [...] 04/23/192023 COPY TO: DEONTE GUPTA MD Triglycerides [id number] 07:50:00* Test Item Value Reference Range Interpretation Comments Triglycerides Level (test code = 2571-8) 95 0-149 [facility] [id number] 07:50:00* Test Item Value Reference Range Interpretation Comments Cholesterol Level (test code = 2093-3) 173 0-199 Less than 200 mg/dL Low Jznx654 - 239 mg/dL Borderline Lyya424 m g/dl and greater High Risk [facility] Zgacybzejkw3472-64-10 07:50:00* Test Item Value Reference Range Interpretation Comments LDL Cholesterol (test code = 2089-1) 85 60-130 [facility] Mpajmmaywog1480-76-50 07:50:00* Test Item Value Reference Range Interpretation Comments HDL Cholesterol (test code = 2085-9) 69 40-60 H [facility]/HDL [id number] 07:50:00 * Test Item Value Reference Range Interpretation Comments Cholesterol/HDL Ratio (test code = 9830-1) 2.5 3.0-3.6 L [facility] [id number] 16:27:00 [facility] [address] [address] Patient Name: RADHA HAMLIN MR #: [id number] : 1995 Age/Sex: 23/F Req #: [id number] Adm Physician: DEONTE GUPTA MD Ordered by: ROBERTO MONTGOMERY DO Report #: [id number] Location: MED/SURG2 Room/Bed: [facility] Procedure: [id number] CT /CT ABDOMEN/PELVIS WO Exam Date: 04/21/19 [...] 1634 COPY TO: ROBERTO MONTGOMERY DO Reactive [id number] 15:24:00* Test Item Value Reference Range Interpretation Comments Reactive Lymphocytes (test code = 30548-3) 8 [facility] Amorphous Clsjmrrz1305-45-56 12:56:00* Test Item Value Reference Range Interpretation Comments Urine Amorphous Sediment (test code = 8246-1) RARE FEW [facility] [id number] 12:56:00* Test Item Value Reference Range Interpretation Comments Urine Mucus (test code = 8247-9) FEW RARE H [facility]entonEth[facility] Alcohol [id number] 12:52:00* Test Item Value Reference Range Interpretation Comments Ethyl Alcohol Level (test code = 5643-2) < 10.0 0.0-10.0 [facility]entonCBC W/MANUAL [id number] 07:00:00* Test Item Value Reference Range Interpretation [...] IMMAT) 0 % 0-0 N BASIC METABOLIC [id number] 06:48:00* Test Item Value Reference Range Interpretation [...] CA) 8.7 mg/dL 8.5-10.1 N BASIC METABOLIC [id number] 06:42:00* Test Item Value Reference Range Interpretation [...] code = CA) mg/dL 8.5-10.1 CBC W/MANUAL [id number] 06:35:00* Test Item Value Reference Range Interpretation [...] MORPHOLOGY (test code = PLTMORPH) CBC W/MANUAL [id number] 06:35:00* Test Item Value Reference Range Interpretation [...] MORPHOLOGY (test code = PLTMORPH) CBC W/MANUAL [id number] 06:35:00* Test Item Value Reference Range Interpretation [...] MORPHOLOGY (test code = PLTMORPH) CBC W/MANUAL [id number] 06:35:00* Test Item Value Reference Range Interpretation [...] MORPHOLOGY (test code = PLTMORPH) CBC W/MANUAL [id number] 06:35:00* Test Item Value Reference Range Interpretation [...] MORPHOLOGY (test code = PLTMORPH) CBC W/AUTO [id number] 06:16:00* Test Item Value Reference Range Interpretation [...] code = BA#) K/mm3 0.0-0.2 CBC W/MANUAL [id number] 07:27:00* Test Item Value Reference Range Interpretation [...] IMMAT) 0 % 0-0 N BASIC METABOLIC [id number] 06:50:00* Test Item Value Reference Range Interpretation [...] CA) 8.7 mg/dL 8.5-10.1 N BASIC METABOLIC [id number] 06:45:00* Test Item Value Reference Range Interpretation [...] code = CA) mg/dL 8.5-10.1 CBC W/MANUAL [id number] 06:41:00* Test Item Value Reference Range Interpretation [...] MORPHOLOGY (test code = PLTMORPH) CBC W/MANUAL [id number] 06:41:00* Test Item Value Reference Range Interpretation [...] MORPHOLOGY (test code = PLTMORPH) CBC W/MANUAL [id number] 06:41:00* Test Item Value Reference Range Interpretation [...] MORPHOLOGY (test code = PLTMORPH) CBC W/MANUAL [id number] 06:41:00* Test Item Value Reference Range Interpretation [...] MORPHOLOGY (test code = PLTMORPH) CBC W/MANUAL [id number] 06:41:00* Test Item Value Reference Range Interpretation [...] MORPHOLOGY (test code = PLTMORPH) CBC W/AUTO [id number] 06:40:00* Test Item Value Reference Range Interpretation [...] This LDL result is a direct measurement.========= [id number] 13:40:00* Test Item Value Reference Range Interpretation [...] use blood in labDRUGS OF ABUSE SCREEN [id number] 08:31:00* Test Item Value Reference Range Interpretation [...] NEGATIVE <300 ng/mL DRUGS OF ABUSE SCREEN [id number] 08:21:00* Test Item Value Reference Range Interpretation [...] NEGATIVE <300 ng/mL DRUGS OF ABUSE SCREEN [id number] 07:59:00* Test Item Value Reference Range Interpretation [...] = [place]) NEGATIVE <300 ng/mL CBC W/AUTO [id number] 07:11:00* Test Item Value Reference Range Interpretation [...] DIFF REQUIRED (test code = MDIFF) NO [id number] 07:08:00* Test Item Value Reference Range Interpretation Comments LIPASE (test code = LIP) 2852 U/L 73.0-393.0 H PROTHROMBIN [id number] 07:04:00* Test Item Value Reference Range Interpretation [...] heart valves (2.5-3.5) IS PATIENT ON ANTICOAGULANTS? [id number] 07:01:00* Test Item Value Reference Range Interpretation Comments GLYCOSYLATED HEMOGLOBIN (HA1C) (test code = GLYHGB) 4.8 % HbA1 4. 8-6.0 N ESTIMATED AVERAGE GLUCOSE (test code = EAG) 91 MG/DL COMPREHENSIVE METABOLIC [id number] 07:00:00* Test Item Value Reference Range Interpretation [...] in reagent. Are CHOL,TRIG & HDL ordered? [id number] 07:00:00* Test Item Value Reference Range Interpretation Comments TRIGLYCERIDES (test code = TRIG) 105 mg/dL 20-150 N Are CHOL,TRIG & HDL ordered? [id number] 07:00:00* Test Item Value Reference Range Interpretation Comments LIPASE (test code = LIP) 6149 U/L 73.0-393.0 H Are CHOL,TRIG & HDL ordered? [id number] 07:00:00* Test Item Value Reference Range Interpretation Comments MAGNESIUM (test code = MAG) 2.0 mg/dL 1.8-2.4 N Are CHOL,TRIG & HDL ordered? NOTHYROID STIMULATING [id number] 07:00:00* Test Item Value Reference Range Interpretation Comments THYROID STIMULATING HORMONE (test code = TSH) 1.650 uIU/mL 0.36-3.7 4 N TSH REFERENCE RANGES: EUTHYROID: 0.35 - 4.3 mIU/mL HYPO : > 5.5 mIU/mL HYPER : < 0.35 mIU/mL Are CHOL,TRIG & HDL ordered? NOCBC W/AUTO [id number] 06:48:00* Test Item Value Reference Range Interpretation [...] NRBC#) 0.00 K/mm3 0.0-0.1 N COMPREHENSIVE METABOLIC [id number] 06:42:00* Test Item Value Reference Range Interpretation [...] IUnit/L 45-117 Are CHOL,TRIG & HDL ordered? [id number] 06:42:00* Test Item Value Reference Range Interpretation Comments TRIGLYCERIDES (test code = TRIG) mg/dL 20-150 Are CHOL,TRIG & HDL ordered? [id number] 06:42:00* Test Item Value Reference Range Interpretation Comments LIPASE (test code = LIP) U/L 73.0-393.0 Are CHOL,TRIG & HDL ordered? [id number] 06:42:00* Test Item Value Reference Range Interpretation Comments MAGNESIUM (test code = MAG) mg/dL 1.8-2.4 Are CHOL,TRIG & HDL ordered? NOTHYROID STIMULATING [id number] 06:42:00* Test Item Value Reference Range Interpretation Comments THYROID STIMULATING HORMONE (test code = TSH) uIU/mL 0.36-3.7 4 Are CHOL,TRIG & HDL ordered? NO- CT ABD PELVIS W/[id number] 23:12:00 Name: HAMLIN,RADHA [facility] : 1995 Age/S: 23 / F [address] [facility] Unit #: [id number] Loc: [place] [address] Phys: Thornton MD Acct: [id number] Di s Date: Status: REG ER PHONE #: Exam Date: 02/14/20192303 FAX #: Reason: Abdominal pain EXAMS: CPT CODE: [id number] CT ABD PELVIS W/CONT 45659 EXAM: - CT ABD PELVIS W/ CONT [...] 1 Signed Report (CONTINUED) Name: RADHA HAMLIN [facility] : 1995 Age/S: 23 / F [address] [facility] Unit #: [id number] Loc: [place] [address] Phys: Massimo Ram MD Acct: [id number] Dis Date: Status: REG ER PHONE #: [phone] Exam Date: 02/14/20192303 FAX #: [phone] Reason: Abdominal pain EXAMS: CPT CODE: [id number] CT ABD PELVIS W /CONT 58383 <Continued> CC: Andi Ram MD; Benjamin Saenz MD Technologist:LIZABETH CARRILLO RT(R),CT CTDI: DLP: Trnscb Date/Time: 02/14/2019 (3332) [id number] Orig Print D/T: S: 02/14/2019 (0903) PAGE 2 Signed Report - XR ABDOMEN [id number] 22:15:00 Name: RADHA HAMLIN [facility] : 1995 Age/S:23 /F [address] [facility] Unit#:[id number] Loc: [place] [address] Phys: Andi Ram MD Dis Date: PHONE #: [phone] Status: REG ER FAX #: [phone] Exam Date: 02/14/2019 Reason: Abdominal pain EXAMS: CPT CODE: [id number] XR ABDOMEN 2V 58586 EXAM: Abdomen, 3 views including upright study; INFORMATION: Abdominal pain; IMPRESSION: 1. Unremarkable bowel gas pattern; no evidence of obstruction; no evidence of pneumoperitoneum or other acute abnormalities. 2. No abnormal calcifications. at 2215 Reported and signed by: Ari Walsh M.D. CC: Andi Ram MD; Benjamin Saenz MD Technologist: LIZABETH CARRILLO RT(R),CT Trnscrpt Data: 02/14/2019 (2215) KeeGRW Orig Print D/T: S: 02/14/2019 (7474) PAGE 1 Signed Report BASIC METABOLIC [id number] 21:10:00* Test Item Value Reference Range Interpretation [...] CA) 8.7 mg/dL 8.4-10.2 N HEPATIC FUNCTION [id number] 21:10:00* Test Item Value Reference Range Interpretation [...] code = ALKP) 83 U/L 38-126 N [id number] 21:10:00* Test Item Value Reference Range Interpretation Comments LIPASE (test code = LIP) 6276 U/L 128-270 H HCG SERUM [id number] 21:10:00* Test Item Value Reference Range Interpretation Comments HCG SERUM QUAL (test code = HCGQL) NEGATIVE NEGATIVE This HCGQL test is NOT applicable for MALE patients.Check with nurse about probable order error.If Tumor Marker Test needed, nurse should order test "HCGTU"(Test #550.91374) BASIC METABOLIC [id number] 21:05:00* Test Item Value Reference Range Interpretation [...] CA) 8.7 mg/dL 8.4-10.2 N HEPATIC FUNCTION [id number] 21:05:00* Test Item Value Reference Range Interpretation [...] TOTAL (test code = ALKP) IUnit/L 45-117 [id number] 21:05:00* Test Item Value Reference Range Interpretation Comments LIPASE (test code = LIP) Unit/L 144-286 HCG SERUM [id number] 21:05:00* Test Item Value Reference Range Interpretation Comments HCG SERUM QUAL (test code = HCGQL) NEGATIVE NEGATIVE This HCGQL test is NOT applicable for MALE patients.Check with nurse about probable order error.If Tumor Marker Test needed, nurse should order test "HCGTU"(Test #550.26753) BASIC METABOLIC [id number] 21:03:00* Test Item Value Reference Range Interpretation [...] code = CA) mg/dL 8.4-10.2 HEPATIC FUNCTION [id number] 21:03:00* Test Item Value Reference Range Interpretation [...] TOTAL (test code = ALKP) IUnit/L 45-117 [id number] 21:03:00* Test Item Value Reference Range Interpretation Comments LIPASE (test code = LIP) Unit/L 144-286 HCG SERUM [id number] 21:03:00* Test Item Value Reference Range Interpretation Comments HCG SERUM QUAL (test code = HCGQL) NEGATIVE NEGATIVE This HCGQL test is NOT applicable for MALE patients.Check with nurse about probable order error.If Tumor Marker Test needed, nurse should order test "HCGTU"(Test #550.91577) CBC W/O [id number] 20:54:00* Test Item Value Reference Range Interpretation [...] = MPV) 9.7 fL 6.7-11.0 N URINALYSIS [id number] 20:37:00* Test Item Value Reference Range Interpretation [...] per LPF NONE-FEW Urine Source? Clean CatchURINALYSIS [id number] 20:29:00* Test Item Value Reference Range Interpretation [...]
--- NOTE | 2019-11-24 13:01 | NUR ---
Isolation dc'd by Dr Christine
[2019-11-24 15:52] VITALS: BP 99/89
[2019-11-24] MEDS ORDERED: ATORVASTATIN CA20 MG PO (15:58)
[2019-11-24 16:04] VITALS: BP 99/59
[2019-11-24] MEDS ORDERED: WEEKLY-D1250 MCG PO (16:31)
[2019-11-24] MEDS: CEFTRIAXONE SOD 1 GM/NS 50 ML 50 ML IV SCH (18:33)
[2019-11-24] MEDS: SODIUM CHLORIDE 0.9% 1000ML 1,000 ML IV SCH (18:33)
--- NOTE | 2019-11-24 18:39 | NUR ---
Received patient from [facility]. Patient is AOx3, patient is assessed, skin intact, IV in the right AC. Patient able to reconcile meds with this telegraphic typewriter repairer. Patient was set up on IV fluids and a stat Rocephin new order. This telegraphic typewriter repairer contacted Dr. Bailey and got new orders. Followed through. Educated with procedures and plan. NO issues or complaints.
--- NOTE | 2019-11-24 19:26 | NUR ---
Patient has elevated temperature of 101.5. Called Dr. Bailey and received orders for Tylenol 1 g IV Q6H PRN fever and pain.
[2019-11-24 19:30] VITALS: BP 92/71
[2019-11-24] MEDS: ACETAMINOPHEN 1000 MG/100 ML IV PRN (20:05)
[2019-11-24 20:06] VITALS: BP 92/71
[2019-11-24] MEDS ORDERED: Vitamin D3 PO (20:16)
[2019-11-25] VITALS (7 sets, daily range): BP systolic 85–141; BP diastolic 51–90
[2019-11-25] MEDS: ACETAMINOPHEN 1000 MG/100 ML IV PRN ×3 (04:48→19:40)
[2019-11-25] MEDS: SODIUM CHLORIDE 0.9% 1000ML 1,000 ML IV SCH ×2 (04:48→16:51)
[2019-11-25] MEDS: CEFTRIAXONE SOD 1 GM/NS 50 ML 50 ML IV SCH ×2 (05:09→16:51)
[2019-11-25 06:44] LABS: BASOPHILS % 0.2 % (0.0-1.0); EOSINOPHILS % 0.1 % (0.0-6.0); HEMATOCRIT 33.5 % (34.2-44.1); HEMOGLOBIN 11.2 g/dL (12.0-16.0); LYMPHOCYTES # (AUTO) 1.5 (1.0-3.2); LYMPHOCYTES % 12.6 % (18.0-39.1); MEAN CORPUSCULAR HEMOGLOBIN 33.4 pg (28-32); MEAN CORPUSCULAR HGB CONC 33.4 g/dL (31-35); MONOCYTES # (AUTO) 1.3 (0.2-0.8); MONOCYTES % 10.3 % (4.4-11.3); NEUTROPHILS # (AUTO) 9.3 (2.1-6.9); NEUTROPHILS % 76.2 % (38.7-80.0); PLATELET COUNT 189 x10e3/uL (140-360); RED BLOOD COUNT 3.35 x10e6/uL (3.6-5.1); RED CELL DISTRIBUTION WIDTH 12.7 % (11.7-14.4)
[2019-11-25 07:07] LABS: ANION GAP 13.4 mmol/L (8-16); BLOOD UREA NITROGEN 8 mg/dL (7-26); BUN/CREATININE RATIO 10 (6-25); CALCIUM 9.2 mg/dL (8.4-10.2); CARBON DIOXIDE 18 mmol/L (22-29); CHLORIDE 108 mmol/L (98-107); CREATININE, SERUM 0.82 mg/dL (0.57-1.11); EST GLOMERULAR FILTRATION RATE > 60 ML/MIN (60-); GLUCOSE 83 mg/dL (74-118); POTASSIUM 4.4 mmol/L (3.5-5.1); SODIUM 135 mmol/L (136-145)
--- NOTE | 2019-11-25 15:14 | History and Physical ---
PRIMARY CARE PHYSICIAN: Dr. Benjamin Saenz MD. MECHANICAL ASSEMBLY TECHNICIAN: Dr. Nuria Mcgill. CHIEF COMPLAINT: Increased urinary frequency, flank pain, and fever. HISTORY OF PRESENT ILLNESS: The patient is a 24-year-old female complained of increase in urinary frequency, but also flank pain. The patient came to the emergency room for evaluation. The patient is stating that her temperature was 101 and 102 at home. In the emergency room, it was documented 101 and 102. She was hypotensive. The patient did receive sepsis protocol. IV fluid boluses. She is doing much better. The patient is still having fever at 101.5. The patient is receiving Rocephin 1 g q.12. She has blood culture grew gram-negative bacilli. These sensitivities still pending. CT scan of abdomen and pelvis showed that she has right pyelonephritis. The patient is otherwise stable however. She is asymptomatic with respect to low blood pressure. PAST MEDICAL HISTORY: Chronic pancreatitis. PAST SURGICAL HISTORY: Noncontributory. SOCIAL HISTORY: The patient does not smoke or use alcohol. No recreational drug use. ALLERGIES: NO KNOWN ALLERGIES. HOME MEDICATION: Lipitor for dyslipidemia. REVIEW OF SYSTEMS: Generalized weakness. Fever. Pelvic right flank pain, improving. PHYSICAL EXAMINATION: VITAL SIGNS: Temperature is 98, blood pressure 85/51, pulse rate is 80, respirations 18. GENERAL: The patient is stable. She is not in distress. HEENT: Normocephalic and atraumatic. Anicteric. NECK: Supple grossly. PULMONARY: Diminished breath sounds without any wheezing or rales. CARDIOVASCULAR: S1, S2. Regular rate and rhythm. ABDOMEN: Soft. Left CVA tenderness without any guarding or rebound, tenderness. EXTREMITIES: No gross cyanosis or edema. NEUROLOGIC: No gross focal deficit. LABORATORY DATA: Sodium 135, potassium 4.4, chloride 108, bicarb 18, BUN is 8, creatinine 0.8, and glucose is 83. WBC was 12, hemoglobin 11.3, hematocrit 33.5, and platelets is 189. CT scan of the abdomen and pelvis showed possible right pyelonephritis. IMPRESSION: 1. Sepsis. Lactic acid level was done as outpatient ER clinic. 2. Right pyelonephritis with urinary tract infection. 3. Baseline chronic pancreatitis. 4. Persistent fever secondary to gram-negative bacilli infection, sensitivities pending. PLAN: Continue with IV antibiotic, Rocephin 1 g q.12 hours. Check the sensitivity of the bacteria. Consultation with Dr. Mcgill. IV fluid rehydration. Monitor the blood pressure. The patient is asymptomatic with respect to low blood pressure. We will monitor the patient closely and continue with antibiotic treatment. MD ALBERTO Peralta/EMA /[id number]
--- NOTE | 2019-11-25 19:27 | NUR ---
Resumed care of patient. Patient awake and resting in bed, no s/s of distress at this time. Bed locked and in low position, side rails up x3, call light placed within reach. Patient instructed to call for assistance if needed, verbalized understanding. All safety measures in place. Will continue to monitor.
--- NOTE | 2019-11-25 19:44 | NUR ---
Spoke to Dr. Bailey regarding patient's elevated temperature and received orders to keep patient on IV Tylenol as previously ordered.
[2019-11-25] MEDS ORDERED: ACETAMINOPHEN 1000 MG/100 ML IV PRN (19:45)
--- NOTE | 2019-11-25 22:16 | Consultation ---
DATE OF CONSULTATION: HISTORY OF PRESENT ILLNESS: Ms. Ching is a 24-year-old female, denies any past medical history, comes in with 4-days of fever, chills, pain on the right side. She was hypotensive when she came to emergency room. She was given fluids and is on antibiotic. Blood cultures showing gram-negative bacilli. The patient is currently on Rocephin 1 g q.12. PAST MEDICAL HISTORY: She denies. PAST SURGICAL HISTORY: She denies. ALLERGIES: NKA. SOCIAL HISTORY: There is no smoking, drug abuse, or alcohol abuse. FAMILY HISTORY: Otherwise unremarkable. PHYSICAL EXAMINATION: GENERAL: She is currently alert, oriented, does not seem in acute distress. VITAL SIGNS: Stable. Currently afebrile. HEENT: She is not icteric. NECK: Supple. CHEST: Clear. HEART: S1, S2. No S3, S4, or murmurs. ABDOMEN: Soft. Bowel sounds present. No tenderness. EXTREMITIES: No edema. SKIN: No rash. IMPRESSION: 1. Sepsis, present on admission. 2. Urinary tract infection. 3. Pyelonephritis. PLAN: I was told she is bacteremic, but here I see urine showing gram-negative rods. Continue with Rocephin as ordered, IV fluids. CBC and supportive care. We will modify after the availability of the culture and sensitivity. Further recommendations depending on clinical course. MD GEOVANY Rodrigues/EMA /[id number]
[2019-11-26] VITALS (8 sets, daily range): BP systolic 94–125; BP diastolic 65–82
[2019-11-26] MEDS: SODIUM CHLORIDE 0.9% 1000ML 1,000 ML IV SCH ×3 (01:35→21:42)
[2019-11-26] MEDS: CEFTRIAXONE SOD 1 GM/NS 50 ML 50 ML IV SCH (04:28)
[2019-11-26 06:40] LABS: BASOPHILS % 0.3 % (0.0-1.0); EOSINOPHILS % 0.4 % (0.0-6.0); HEMATOCRIT 32.2 % (34.2-44.1); HEMOGLOBIN 11.1 g/dL (12.0-16.0); LYMPHOCYTES # (AUTO) 2.3 (1.0-3.2); LYMPHOCYTES % 23.3 % (18.0-39.1); MEAN CORPUSCULAR HEMOGLOBIN 33.5 pg (28-32); MEAN CORPUSCULAR HGB CONC 34.5 g/dL (31-35); MEAN CORPUSCULAR VOLUME 97.3 fL (81-99); MONOCYTES # (AUTO) 1.1 (0.2-0.8); MONOCYTES % 10.8 % (4.4-11.3); NEUTROPHILS # (AUTO) 6.3 (2.1-6.9); NEUTROPHILS % 64.7 % (38.7-80.0); PLATELET COUNT 215 x10e3/uL (140-360); RED BLOOD COUNT 3.31 x10e6/uL (3.6-5.1); RED CELL DISTRIBUTION WIDTH 12.6 % (11.7-14.4)
--- NOTE | 2019-11-26 06:53 | NUR ---
Bedside report given to day nurse. Patient awake and resting in bed, no s/s of distress at this time. All safety measures in place.
[2019-11-26 07:19] LABS: BLOOD UREA NITROGEN 7 mg/dL (7-26); BUN/CREATININE RATIO 9 (6-25); CALCIUM 8.6 mg/dL (8.4-10.2); CARBON DIOXIDE 18 mmol/L (22-29); CHLORIDE 108 mmol/L (98-107); CREATININE, SERUM 0.77 mg/dL (0.57-1.11); EST GLOMERULAR FILTRATION RATE > 60 ML/MIN (60-); GLUCOSE 88 mg/dL (74-118); SODIUM 136 mmol/L (136-145)
[2019-11-26] MEDS: AZTREONAM 1 GM/NS 50 ML 50 ML IV SCH ×2 (10:35→17:20)
--- NOTE | 2019-11-26 15:17 | NUR ---
INFECTIOUS DISEASE PROGRESS NOTE DR. CASAREZ SUBJECTIVE: Reports she "feels better" 14 point ROS neg unless otherwise documented PHYSICAL EXAMINATION: GENERAL: She is currently alert, oriented, does not seem in acute distress. VITAL SIGNS: Stable. Currently afebrile. HEENT: She is not icteric. NECK: Supple. CHEST: Clear. HEART: S1, S2. No S3, S4, or murmurs. ABDOMEN: Soft. Bowel sounds present. No tenderness. EXTREMITIES: No edema. SKIN: No rash. IMPRESSION: 1. Sepsis, present on admission. 2. Urinary tract infection. 3. Pyelonephritis. 4. Leukocytosis resolved this AM 5. chronic pancreatitis PLAN: can discharge with oral keflex when okay with others blood cultures are negative.
--- NOTE | 2019-11-26 18:45 | NUR ---
patient up in recliner, denies any pain, no distress noted.
--- NOTE | 2019-11-26 19:25 | NUR ---
Patient received lying in bed. AAO x 3. Patient had no complaints of pain. Respirations even and non-labored. IVF infusing at 125 cc/hr. Safety measures in place. Patient instructed to call for assistance when needed. Call light within reach.
[2019-11-27] VITALS (9 sets, daily range): BP systolic 106–124; BP diastolic 66–94
[2019-11-27] MEDS: AZTREONAM 1 GM/NS 50 ML 50 ML IV SCH ×3 (02:00→18:00)
[2019-11-27] MEDS: SODIUM CHLORIDE 0.9% 1000ML 1,000 ML IV SCH (05:35)
--- NOTE | 2019-11-27 07:00 | NUR ---
Walking rounds done. Patient resting comfortably. Shift report given to oncoming nurse regarding patient status.
--- NOTE | 2019-11-27 07:05 | NUR ---
RCD PT AT BED PT IS ALERT AND ORIENTED PT RESTING ON BED IV PATENT BY SALINE FLUSH BED LOW AND LOCKED CALL LIGHT IN REACH
--- NOTE | 2019-11-27 11:43 | Progress Note ---
DATE: SUBJECTIVE: The patient is seen and evaluated. Available labs and notes reviewed. Discussed with Dr. Mcgill. Discussed with the patient's family member in the room. Questions answered. REVIEW OF SYSTEMS: Feels better. Fever is gone almost. No nausea, vomiting, fever, chills, chest pain, shortness of breath, headache, rash, or dysuria. No diarrhea. No cough. Body ache and fever have improved. MEDICATIONS: Medication list is reviewed. From Infectious Disease point of view, the patient is on Azactam. LABORATORY STUDIES: Coronavirus PCR 11/24/2019, not detected. Labs 11/26/2019, white count 9.71, hemoglobin 11.1, and platelet 215. Sodium 136, potassium 4, and creatinine 0.77. MICROBIOLOGY: Blood culture negative for 48 hours. Urine culture showed E coli, not ESBL and it is pansensitive. RADIOLOGY STUDIES: No new radiology studies available. PHYSICAL EXAMINATION: VITAL SIGNS: Temperature 98.9 with a max of 99.7, pulse is 90, respirations 16, and blood pressure 117/75. GENERAL: Alert and oriented, no acute distress. CV: S1-S2. CHEST: Equal expansion. Clear to auscultation. ABDOMEN: Soft, nontender. No distention. HEENT: Moist. No pallor. No JVD. EXTREMITIES: No edema. Moves all. ASSESSMENT AND PLAN: 1. Fever, resolved. 2. Sepsis on admission, resolved. 3. Urinary tract infection. 4. Pyelonephritis. 5. Leukocytosis, resolved. 6. Chronic pancreatitis. Remains on Azactam, okay to discharge with Keflex from ID point of view. I spoke with the attending. The patient is most likely to be discharged tomorrow and hold discharge today because of the low-grade temperature of 99.7. I discussed with Dr. Mcgill. Please refer to chart for more information. MD GEOVANY Rodrigues/EMA /[id number]
--- NOTE | 2019-11-27 18:56 | NUR ---
PT RESTING ON BED BED SIDE REPORT GIVEN TO ONCOMING NURSE
--- NOTE | 2019-11-27 19:25 | NUR ---
Patient received sitting up in bed. AAO x 4. No acute distress noted. Fall precautions in implemented. Call light within reach.
[2019-11-28] MEDS: AZTREONAM 1 GM/NS 50 ML 50 ML IV SCH ×2 (01:21→09:07)
[2019-11-28 04:54] VITALS: BP 113/69
--- NOTE | 2019-11-28 06:48 | NUR ---
RECEIVED BEDSIDE SHIFT REPORT FROM OFF GOING NURSE. PATIENT IS RESTING IN BED. NO ACUTE DISTRESS NOTED AT THIS TIME. CALL LIGHT WITHIN REACH. BED IN THE LOWEST POSITION.
--- NOTE | 2019-11-28 07:00 | NUR ---
Shift report given to oncoming nurse.
[2019-11-28 07:55] VITALS: BP 112/82
[2019-11-28 07:59] VITALS: BP 112/82
--- NOTE | 2019-11-28 10:00 | NUR ---
Received discharge order from Dr. Bailey, patient is in stable condition. IV line to right antecubital discontinued with tip intact, pressure applied to site, no bleeding noted. Discharge teaching provided to patient and mother, they both verbalized understanding. Discharge folder with paperwork and prescriptions on hand. Patient refused wheelchair, accompanied to private auto by staff.
--- NOTE | 2019-11-28 11:53 | Progress Note ---
DATE: SUBJECTIVE: The patient is seen and evaluated. No acute distress. REVIEW OF SYSTEMS: No nausea, vomiting, fever, chills, chest pain, shortness of breath, headache, rash, or dysuria. MEDICATION: The patient is on Azactam. LABORATORY STUDIES: White count improved to 9.71 from 12.8, with a creatinine level of 0.77. Serology: Coronavirus PCR not detected on 11/24/2019. MICROBIOLOGY: Blood culture negative. Urine culture, E coli, which is pansensitive. PHYSICAL EXAMINATION: VITAL SIGNS: Temperature is 98, pulse 72, respirations 16, and blood pressure 112/82. GENERAL: Alert and oriented, no acute distress. CV: S1-S2. CHEST: Equal expansion. Clear to auscultation. No acute distress. ABDOMEN: Soft. Nontender. No distention. HEENT: Moist. No pallor. No JVD. EXTREMITIES: Moves all. No acute distress. No edema. ASSESSMENT AND PLAN: 1. Fever, resolved urinary tract infection. 2. Sepsis on admission, resolved. 3. Pyelonephritis. 4. Leukocytosis, resolved. 5. Chronic pancreatitis. The patient is currently on Azactam, discussed with attending, okay to discharge with Keflex p.o., fever resolved, discussed with Dr. Mcgill in details. Please refer to chart for more information. Dictated by Mike Myles PA-C (Al) Nuria Mcgill MD /MODL /[id number]
== END 2019-11-28 10:00 | disposition home or self-care (01) | DRG 872 ==
LOC: FSED 10:27 → ERHOLD 12:46 → MED/SURG3 14:48 → OBSVTOIN 11-25 10:56
PROVIDERS: ADMIT Internal Medicine; ATTEND Internal Medicine
DX: A41.9 Sepsis, unspecified organism (principal); N39.0 Urinary tract infection, site not specified; N10 Acute pyelonephritis; K86.1 Other chronic pancreatitis; R50.9 Fever, unspecified; Z11.59 Encounter for screening for other viral diseases; B96.20 Unspecified Escherichia coli [E. coli] as the cause of diseases classified elsewhere
CPT/HCPCS: 36415; 71046; 74176; 80048; 80076; 81003; 81025; 83518; 83605; 85025; 87040; 87086; 87186; 87400; 87635; 99284; G0378; J0696; J1956; J7030

== ENCOUNTER 2020-03-15 16:04 | Inpatient (IN) | payer OTHER ==
[~2020-03-15] VITALS: Ht 157.5 cm; Wt 71.2 kg
[~2020-03-15 16:04] MED LIST changes: +ATORVASTATIN CA20 MG PO; +Vitamin D3 PO; +WEEKLY-D1250 MCG PO
[2020-03-15] MEDS ORDERED: SODIUM CHLORIDE 0.9% 1000ML 1,000 ML IV STA (16:46)
[2020-03-15] MEDS ORDERED: PROMETHAZINE 25MG/ NS 50ML (IV) IV ONE (17:00)
[2020-03-15] MEDS ORDERED: FAMOTIDINE 20 MG/2 ML VIAL IV ONE ×2 (17:00→17:18)
[2020-03-15] MEDS ORDERED: IOPAMIDOL 370 MG/ML 200 ML INFUS..BTL INJ ONE (17:00)
[2020-03-15] MEDS ORDERED: KETOROLAC TROMETHAMINE 30 MG/ML VIAL IV ONE (17:00)
[2020-03-15] MEDS ORDERED: SODIUM CHLORIDE 0.9% 50ML 50 ML ONE (17:00)
--- NOTE | 2020-03-15 17:10 | Emergency Department Note ---
History of Present Illnes History of Present Illness Chief Complaint: Abdominal Complaints History of Present Illness This is a 24 year old female c/o mid abd pain c/w her pancreatitis since this am. She had two drink yesterday. HX of high cholesterol Historian: Patient Arrival Mode: Car Past Medical/Family History Physician Review I have reviewed the patient's past medical and family history. Any updates have been documented here. Past Medical History Recent Fever: No Clinical Suspicion of Infectio: No New/Unexplained Change in Ment: No Past Medical History: Anemia Other Medical History: Pancreatisis PVCs Past Surgical History: T&A Other Surgery: Tonsils and Adnooids removed. Broken finger Social History Smoking Cessation: Never Smoker Alcohol Use: Social Any Illegal Drug Use: No TB Exposure/Symptoms: No Physically hurt or threatened: No Family History Family history of heart diseas: No Other Last Tetanus: unk Review of Systems Review of Systems Constitutional: Reports no symptoms EENTM: Reports no symptoms Cardiovascular: Reports no symptoms Respiratory: Reports no symptoms Gastrointestinal: Reports abdominal pain, Reports diarrhea, Reports nausea Genitourinary: Reports no symptoms Musculoskeletal: Reports no symptoms Integumentary: Reports no symptoms Neurological: Reports no symptoms Psychological: Reports no symptoms Endocrine: Reports no symptoms Hematological/Lymphatic: Reports no symptoms Physical Exam Related Data Allergies: Coded Allergies: No Known Allergies (Unverified , 11/26/16) Triage Vital Signs Vital Signs Date Time Temp Pulse Resp B/P (MAP) Pulse Ox O2 Delivery O2 Flow Rate FiO2 03/15/20 16:08 98.1 80 16 126/94 100 Room Air Physical Exam CONSTITUTIONAL Constitutional: Present well-developed, Present well-nourished HENT HENT: Present normocephalic, Present atraumatic, Present oropharynx clear/moist, Present nose normal HENT L/R: Present left ext ear normal, Present right ext ear normal EYES Eyes: Reports PERRL, Reports conjunctivae normal NECK Neck: Present ROM normal PULMONARY Pulmonary: Present effort normal, Present breath sounds normal CARDIOVASCULAR Cardiovascular: Present regular rhythm, Present heart sounds normal, Present capillary refill normal, Present normal rate GASTROINTESTINAL Abdominal: Present soft, Present nontender, Present bowel sounds normal GENITOURINARY Genitourinary: Present exam deferred SKIN Skin: Present warm, Present dry MUSCULOSKELETAL Musculoskeletal: Present ROM normal NEUROLOGICAL Neurological: Present alert, Present oriented x 3, Present no gross motor or sensory deficits PSYCHOLOGICAL Psychological: Present mood/affect normal, Present judgement normal Results Laboratory Lab results reviewed: Yes Imaging Imaging results reviewed: Yes Impressions amylase lipase high, Assessment & Plan Medical Decision Making MDM gastritis, vs pancreatitis Assessment & Plan Final Impression: (1) Pancreatitis, acute Depart Disposition: ADMITTED Last Vital Signs Date Time Temp Pulse Resp B/P (MAP) Pulse Ox O2 Delivery O2 Flow Rate FiO2 03/15/20 16:08 98.1 80 16 126/94 100 Room Air Home Meds Reported Medications Levocetirizine Dihydrochloride (LEVOCETIRIZINE DIHYDROCHLORIDE) 5 Mg Tablet 03/15/20 [Vitamin] No Conflict Check 03/15/20 Atorvastatin Calcium (ATORVASTATIN CALCIUM) 10 Mg Tablet 03/15/20 [Vitamin D3] No Conflict Check, 47552 UNITS PO ONCE A WEEK 11/24/19 Atorvastatin Calcium (ATORVASTATIN CALCIUM) 20 Mg Tablet, 20 MG PO HS, #30 TAB 11/24/19 Medications in the ED Ketorolac Tromethamine 30 mg ONCE ONCE IV ; Start 03/15/20 at 17:00; Stop 03/15/20 at 17:01 Famotidine 20 mg ONCE ONCE IV ; Start 03/15/20 at 17:00; Stop 03/15/20 at 17:01 Sodium Chloride 1,000 ml @ 0 mls/hr Q0M STAT IV ; Start 03/15/20 at 16:46; Stop 03/15/20 at 16:48; Status DC Physician Attestation Provider Attestation discussed with KEREN Bower MD Mar 15, 2020 17:09
[2020-03-15] MEDS ORDERED: KETOROLAC TROMETHAMINE 30 MG/ML VIAL ONE (17:17)
[2020-03-15] MEDS ORDERED: PROMETHAZINE HCL (IM) 25 MG/ML VIAL IM ONE (17:18)
[2020-03-15] MEDS ORDERED: SODIUM CHLORIDE 0.9% 1000ML 1,000 ML ONE (17:18)
--- NOTE | 2020-03-15 18:09 | Diagnostic Imaging Report ---
EXAM: CT Abdomen and Pelvis WITH contrast INDICATION: mid abd pain, hx pancreatitis COMPARISON: Multiple CTs of the abdomen/pelvis including most recent on 11/24/2019 TECHNIQUE: Abdomen and pelvis were scanned utilizing a multidetector helical scanner from the lung base to the pubic symphysis after administration of IV contrast. Coronal and sagittal reformations were obtained. Routine protocol was performed. Scan was performed when during portal venous phase. IV CONTRAST: 100 mL of Isovue 370 ORAL CONTRAST: None COMPLICATIONS: None RADIATION DOSE: Total DLP: 708.22 mGy*cm Estimated effective dose: (DLP x 0.015 x size factor) mSv CTDIvol has been reviewed. It is below the limits set by the Radiation Protocol Committee (RPC). Dose modulation, iterative reconstruction, and/or weight based adjustment of the mA/kV was utilized to reduce the radiation dose to as low as reasonably achievable. FINDINGS: LINES and TUBES: None. LOWER THORAX: Unremarkable HEPATOBILIARY: No focal hepatic lesions. No biliary ductal dilation. GALLBLADDER: No radio-opaque stones or sludge. No wall thickening. SPLEEN: No splenomegaly. PANCREAS: There is edema of the pancreatic head with peripheral stranding of the mesenteric fat and small amount of free fluid that tracks along the right paracolic gutter. No free air or drainable fluid collection. ADRENALS: No adrenal nodules KIDNEYS/URETERS: Kidneys enhance symmetrically. No hydronephrosis. Left renal cyst is unchanged. No stones. GI TRACT: There is mucosal wall thickening and hyperenhancement of the third portion of the duodenum adjacent to the inflamed pancreatic head. No abnormal distention or evidence of bowel obstruction. Appendix is normal. PELVIC ORGANS/BLADDER: Unremarkable. LYMPH NODES: No lymphadenopathy. VESSELS: Unremarkable. PERITONEUM / RETROPERITONEUM: No free air or fluid. BONES: Unremarkable. SOFT TISSUES: Unremarkable. IMPRESSION: Acute uncomplicated pancreatitis primarily involving the pancreatic head and reactive duodenitis. Signed by: Krupa Negrete MD on 03/15/2020 6:06 PM
[2020-03-15] MEDS ORDERED: DIPHENHYDRAMINE HCL INJ 50 MG/ML VIAL IV PRN (18:45)
[2020-03-15] MEDS ORDERED: ATORVASTATIN CA10 MG (18:57)
[2020-03-15] MEDS ORDERED: LEVOCETIRIZINE D5 MG (18:57)
[2020-03-15] MEDS ORDERED: VITAMIN (18:57)
--- NOTE | 2020-03-15 19:00 | NUR ---
called [facility] for transport
[2020-03-15 20:00] VITALS: BP 110/74
[2020-03-15 20:10] VITALS: BP 110/74
[2020-03-15 21:39] VITALS: BP 110/74
[2020-03-15] MEDS: HYDROMORPHONE 1MG/1ML INJ IV PRN (21:59)
[2020-03-15] MEDS: D5.45%NS/KCL 20MEQ 1,000 ML IV SCH (22:20)
[2020-03-16] VITALS (8 sets, daily range): BP systolic 100–120; BP diastolic 62–87
[2020-03-16] MEDS: HYDROMORPHONE 2MG/ML 2 MG/ML ML IV PRN ×4 (02:05→19:58)
[2020-03-16] MEDS: D5.45%NS/KCL 20MEQ 1,000 ML IV SCH (05:21)
[2020-03-16 06:20] LABS: ALANINE AMINOTRANSFERASE 16 IU/L (0-55); ALBUMIN/GLOBULIN RATIO 1.8 (0.8-2.0); ALKALINE PHOSPHATASE 65 IU/L (40-150); AMYLASE 219 U/L (25-125); ANION GAP 10.4 mmol/L (8-16); BLOOD UREA NITROGEN 11 mg/dL (7-26); BUN/CREATININE RATIO 15 (6-25); CALCIUM 8.4 mg/dL (8.4-10.2); CARBON DIOXIDE 26 mmol/L (22-29); CHLORIDE 106 mmol/L (98-107); CREATININE, SERUM 0.74 mg/dL (0.57-1.11); EST GLOMERULAR FILTRATION RATE > 60 ML/MIN (60-); GLUCOSE 93 mg/dL (74-118); LIPASE 502 U/L (8-78); POTASSIUM 4.4 mmol/L (3.5-5.1); SODIUM 138 mmol/L (136-145)
--- NOTE | 2020-03-16 06:34 | NUR ---
H&P cc: abdominal pain HPI: 24yoF, PCP , with hx chronic alcoholic pancreatitis, admits to 2 glasses wine on Wednesday, now with abodminal pain, imaging shows recurrent pancreatitis. PMH: iron-deficiency anemia, alcohol use, Alcoholic pancreatitis, Chronic pancreatitis, UTI, HAP, Gallbladder dyskinesia, pyelonephritis PSHx: finger; consils ALlergies; see emr Fh/SH; single; no cigs; quit EtoH in Jan 2019, now intermittent etoh use Meds; see MAR ROS: no f/c/s/OJEDA/vision changes/cp/sob/skin rash/back pain/dizziness v/s; revd PE tired appearing anicteric ns1s2 mod bs soft nd; TENDER MID ABDOMEN no e/t skin dry n. affect labs/meds; revd A/P: 23yoF Recurrent Alcoholic pancreatitis- IVF; NPO; etoh cessation Reactive duodenitis- NPO; IVF; Alcoholism- residential counselor on cessation Overweight BMI 28.7- check hab1c/lipids Prop: scd; pepcid dispo: f/u labs; strict NPO. IVF Senthil Delgado MD PhD
[2020-03-16 07:09] LABS: CHOL/HDL RATIO 2.5 (3.0-3.6)
[2020-03-16] MEDS ORDERED: FAMOTIDINE 20 MG/2 ML VIAL IV SCH (09:00)
[2020-03-16] MEDS: FAMOTIDINE 20 MG/2 ML VIAL IV SCH ×2 (10:00→16:55)
[2020-03-16] MEDS: SODIUM CHLORIDE 0.9% 1000ML 1,000 ML IV SCH ×3 (10:00→22:28)
[2020-03-16] MEDS: ONDANSETRON HCL INJ 2MG/ML 2ML 2 MG/ML VIAL IV PRN ×3 (10:10→19:58)
[2020-03-17] VITALS (8 sets, daily range): BP systolic 106–162; BP diastolic 63–80
[2020-03-17] MEDS: HYDROMORPHONE 2MG/ML 2 MG/ML ML IV PRN ×6 (00:35→22:15)
[2020-03-17] MEDS: ONDANSETRON HCL INJ 2MG/ML 2ML 2 MG/ML VIAL IV PRN ×2 (00:36→05:38)
[2020-03-17 05:54] LABS: BASOPHILS % 0.2 % (0.0-1.0); EOSINOPHILS # (AUTO) 0.5 (0.0-0.4); EOSINOPHILS % 3.1 % (0.0-6.0); HEMATOCRIT 41.5 % (34.2-44.1); HEMOGLOBIN 13.8 g/dL (12.0-16.0); LYMPHOCYTES # (AUTO) 1.8 (1.0-3.2); MEAN CORPUSCULAR HEMOGLOBIN 32.2 pg (28-32); MEAN CORPUSCULAR HGB CONC 33.3 g/dL (31-35); MONOCYTES # (AUTO) 0.9 (0.2-0.8); MONOCYTES % 6.1 % (4.4-11.3); NEUTROPHILS # (AUTO) 11.5 (2.1-6.9); NEUTROPHILS % 78.1 % (38.7-80.0); PLATELET COUNT 235 x10e3/uL (140-360); RED BLOOD COUNT 4.28 x10e6/uL (3.6-5.1); RED CELL DISTRIBUTION WIDTH 12.4 % (11.7-14.4)
[2020-03-17 06:28] LABS: ANION GAP 13.3 mmol/L (8-16); BLOOD UREA NITROGEN 6 mg/dL (7-26); BUN/CREATININE RATIO 9 (6-25); CALCIUM 9.1 mg/dL (8.4-10.2); CARBON DIOXIDE 26 mmol/L (22-29); CHLORIDE 103 mmol/L (98-107); CREATININE, SERUM 0.68 mg/dL (0.57-1.11); EST GLOMERULAR FILTRATION RATE > 60 ML/MIN (60-); GLUCOSE 85 mg/dL (74-118); POTASSIUM 4.3 mmol/L (3.5-5.1); SODIUM 138 mmol/L (136-145)
[2020-03-17 06:47] LABS: LIPASE 3180 U/L (8-78)
--- NOTE | 2020-03-17 07:01 | NUR ---
IM- progress note O/N see below ROS: no f/c/s/OJEDA/vision changes/cp/sob/skin rash/back pain/dizziness v/s; revd PE tired appearing anicteric ns1s2 mod bs soft nd; TENDER MID ABDOMEN no e/t skin dry n. affect labs/meds; revd A/P: 23yoF Recurrent Alcoholic pancreatitis- IVF; NPO; etoh cessation Reactive duodenitis- NPO; IVF; Alcoholism- pet counselor on cessation Overweight BMI 28.7- check hab1c/lipids Prop: scd; pepcid dispo: f/u labs; strict NPO. IVF 9-27 pancreatitis worse; give more fluids; keep NPO; check lipase at 4pm Senthil Delgado MD PhD
[2020-03-17] MEDS: FAMOTIDINE 20 MG/2 ML VIAL IV SCH ×2 (08:08→16:26)
[2020-03-17] MEDS: SODIUM CHLORIDE 0.9% 1000ML 1,000 ML IV SCH ×5 (08:08→21:19)
--- OUTSIDE RECORDS SUMMARY | 2020-03-17 16:22 | XMS REPORT | Continuity of Care Document ---
Author Author [facility] t Organization [facility] Address [address] 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 [place] [place] Cdc Review Covid19 [id number] [facility] Problems This patient has no known problems. Allergies, Adverse Reactions, Alerts Allergy Name Allergy Type Status Severity Reaction(s) Onset Date Inacti ve Date Treating Clinician Comments Source No Known Allergies DA Active U 2019-02-15 00:00:00 [facility] No Known Allergies DA Active U 2019-02-14 00:00:00 [facility] Social History Social Habit Start Date Stop Date Quantity Comments Source Sex Assigned At 1995 00:00:00 1995 00:00:[address] [facility] [place] [place] Medications Ordered Medication Name Filled Medication Name Start Date Stop Da te Current Medication? Ordering Clinician Indication Dosage Frequency Signature (SIG) Comments Components Source Atorvastatin Calcium Atorvastatin Calcium Yes [address] [facility] [place] [place] Vitamin D3 Vitamin D3 Yes [address] Once A Week [facility] [place] [place] Cholecalciferol (Vitamin D3) (Weekly-D) 1,250 Mcg CAPS ULE Cholecalciferol (Vitamin D3) (Weekly-D) 1,250 Mcg CAPSULE 2019-11-24 00:00:00 No 87242 Use As Directed [facility] Famotidine Famotidine 2019-11-24 00:00:00 No 20 Charleen ry [address] [facility] [place] [place] Ferrous Sulfate Ferrous Sulfate 2019-11-24 00:00:[address] [facility] [place] [place] Vital Signs Vital Name Observation Time Observation Value Comments Source Body Temperature 2019-11-28 07:59:00 98.0 [degF] [facility] [place] [place] BMI (Body Mass Index) 2019-11-24 15:52:00 28.2 kg/m2 [facility] [place] [place] Weight 2019-11-24 10:27:00 154 [lb_av] [facility] [place] [place] Procedures Procedure Date / Time Performed Performing Clinician Sour e Computed tomography of abdomen and pelvis with contrast 2018 00:00:00 [facility] DEONTE [facility] [place] [place] Computed tomography of chest with contrast 2019-04-30 00:00:00 Aryan COURTNEY DEONTE [facility] [place] [place] Ultrasound of chest including mediastinum 2019-04-26 00:00:[address] [facility] [place] [place] X-ray of chest, two views 2019-04-25 00:00:00 OMAR GREY [facility] US Gallbladder 2019-04-24 00:00:00 ALONSO DEONTE [facility] Computed tomography of abdomen and pelvis with contrast 2018 00:00:00 [facility] DEONTE [facility] [place] [place] CT of abdomen and pelvis without contrast 2019-04-21 00:00:[address] [facility] [place] [place] Plan of Care Planned Activity Planned Date Details Comments Source Instructions Urinary Tract Infection - Women [facility] [place] [place] Encounters Start Date/Time End Date/Time Encounter Type Admission Type Attendi [facility] Care Department Encounter ID Source 2019-11-25 10:56:00 2019-11-28 10:00:00 Discharged Inpatient 1 WYATT WOOD [facility] [id number] [facility] 2019-04-21 13:34:00 2019-05-04 11:35:00 Discharged Inpatient 1 DEONTE GUPTA [facility] [id number] [facility] Results Test Description Test Time Test Comments Results Result Comments Source CT ABD/PEL WITH CONTRAST-HOPD 2020-03-15 17:50:00 [facility] [address] [place] [address] Patient Name: RADHA HAMLIN MR #: [id number] : 1995 Age/Sex: 24/F Req #: [id number] Adm Physician: Ordered by: KEREN CAMPOS MD Report #: [id number] Location: [facility] Room/Bed: Procedure: [id number] HOPD/CT ABD/PEL WITH CONTRAST-HOPD Exam Date: 03/15/20 Exam Time: 1741 REPORT STATUS: Signed EXAM: CT Abdomen and Pelvis WITH contrast INDICATION: mid abd pain, hx pancreatitis COMPARISON: Multiple CTs of the abdomen/pelvis including most recent on 11/24/2019 TECHNIQUE: Abdomen and pelvis were scanned utilizing a multidetector helical s canner from the lung base to the pubic symphysis after administration of IV contrast. Coronal and sagittal reformations were obtained. Routine protocol was performed. Scan was performed when during portal venous phase. IV CONTRAST: 100 mL of Isovue 370 ORAL CONTRAST: None COMPLICATIONS: None RADIATION DOSE: Total DLP: 708.22 mGy*cm Estimated effective dose: (DLP x 0.015 x size factor) mSv CTDIvol has been reviewed. It is below the limits set by the Radiation Protocol Committee (RPC). Dose modulation, iterative reconstruction, and/or weight based adjustment of the mA/kV was utilized to reduce the radiation dose to as low as reasonably achievable. FINDINGS: LINES and TUBES: None. LOWER THORAX: Unremarkable HEPATOBILIARY: No focal hepatic lesions. No biliary ductal dilation. GALLBLADDER: No radio-opaque stones or sludge. No wall thickening. SPLEEN: No splenomegaly. PANCREAS: There is edema of the pancreatic head with peripheral stranding of the mesenteric fat and small amount of free fluid that tracks along the right paracolic gutter. No free air or drainable fluid collection. ADRENALS: No adrenal nodules KIDNEYS/URETERS: Kidneys enhance symmetrically. No hydronephrosis. Left renal cyst is unchanged. No stones. GI TRACT: There is mucosal wall thic kening and hyperenhancement of the third portion of the duodenum adjacent to the inflamed pancreatic head. No abnormal distention or evidence of bowel obstruction. Appendix is normal. PELVIC ORGANS/BLADDER: Unremarkable. LYMPH NODES: No lymphadenopathy. VESSELS: Unremarkable. PERITONEUM / RETROPERITONEUM: No free air or fluid. BONES: Unremarkable. SOFT TISSUES: Unremarkable. IMPRESSION: Acute uncomplicated pancreatitis primarily involving the pancreatic head and reactive duodenitis. Signed by: Debi Hicks MD on 03/15/2020 6:06 PM Dictated By: DEBI HICKS MD 05 Transcribed By: DAYANARA on 03/15/201805 COPY TO: KEREN CAMPOS MD Fluoroscopic procedure less than one hour duration 8 05:28:00 Test Item Lactic Acid Level (test code = Lactic Acid Level) 0.7 0.5- 2.[address] [facility] [place] leukocytes automated count (number/volume)2019-11-26 05:30:00* Test Item Value Reference Range Interpretation Comments White Blood Count (test code = 6690-2) 9.71 4.8-10.[address] [facility] [place] erythrocytes automated count (number/volume)2019-11-26 05:30:00* Test Item Value Reference Range Interpretation Comments Red Blood Count (test code = 789-8) 3.31 3.6-5.1 [facility] hemoglobin measurement (moles/volume)2019-11-26 05:30:00* Test Item Value Reference Range Interpretation Comments Hemoglobin (test code = 82607-0) 11.1 12.0-16.[address] [facility] [place] TXAutomated blood hematocrit (volume fraction)2019-11-26 05:30:00* Test Item Value Reference Range Interpretation Comments Hematocrit (test code = 4544-3) 32.2 34.2-44.[address] [facility] [place] TXAutomated erythrocyte mean corpuscular hshxxy8735-73-56 05:30:00* Test Item Value Reference Range Interpretation Comments Mean Corpuscular Volume (test code = 787-2) 97.3 81-[address] [facility] [place] TXAutomated erythrocyte mean corpuscular hemoglobin (mass per erythrocyte)2019-11-26 05:30:00* Test Item Value Reference Range Interpretation Comments Mean Corpuscular Hemoglobin (test code = 785-6) 33.5 28-[address] [facility] [place]Aut[facility] erythrocyte mean corpuscular hemoglobin concentration measurement (mass/volume)2019-11-26 05:30:00* Test Item Value Reference Range Interpretation Comments Mean Corpuscular Hemoglobin Concent (test code = 786-4) 34.5 31-[address] [facility] [place], TXRDW DpyGq-Ivn5086-83-07 05:30:00* Test Item Value Reference Range Interpretation Comments Red Cell Distribution Width (test code = 17429-2) 12.6 11.7 -14.[address] [facility] [place], TXAutomated blood platelet count (count/volume)2019-11-26 05:30:00* Test Item Value Reference Range Interpretation Comments Platelet Count (test code = 777-3) 215 140-360 [facility] segmented neutrophil count as percentage of total jjcxsrzvrd4804-12-12 05:30:00* Test Item Value Reference Range Interpretation Comments Neutrophils (%) (Auto) (test code = 97504-4) 64.7 38.7-80.[address] [facility] [place], TXAutomated blood lymphocyte count as percentage ot total ryodzvwoqc1872-57-22 05:30:00* Test Item Value Reference Range Interpretation Comments Lymphocytes (%) (Auto) (test code = 736-9) 23.3 18.0-39.[address] [facility] [place], TXAutomated blood monocyte count as percentage of total bfzorhblqs1851-37-25 05:30:00* Test Item Value Reference Range Interpretation Comments Monocytes (%) (Auto) (test code = 5905-5) 10.8 4.4-11.[address] [facility] [place] TXAutomated blood eosinophil count as percentage of total hnuyheuomg3834-55-48 05:30:00* Test Item Value Reference Range Interpretation Comments Eosinophils (%) (Auto) (test code = 713-8) 0.4 0.0-6.[address] [facility] [place], TXAutalleghany healthed blood basophil count as percentage of total btestdnkrn2247-82-57 05:30:00* Test Item Value Reference Range Interpretation Comments Basophils (%) (Auto) (test code = 706-2) 0.3 0.0-1.[address] [facility] [place], TXFluoroscopic procedure less than one hour xnzuglfl8107-92-53 05:30:00* Test Item Value Reference Range Interpretation Comments IM GRANULOCYTES % (test code = IM GRANULOCYTES %) 0.5 0.0- 1.[address] [facility] [place], TXAutomated blood neutrophil count 2019-11-26 05:30:00* Test Item Value Reference Range Interpretation Comments Neutrophils # (Auto) (test code = 751-8) 6.3 2.1-6.[address] [facility] [place], TXBlood lymphocytes count (number/volume) 2019-11-26 05:30:00* Test Item Value Reference Range Interpretation Comments Lymphocytes # (Auto) (test code = 42045-4) 2.3 1.0-3.[address] [facility] [place] monocytes automated count (number/volume)2019-11-26 05:30:00* Test Item Value Reference Range Interpretation Comments Monocytes # (Auto) (test code = 742-7) 1.1 0.2-0.[address] [facility] [place], TXAutomated blood eosinophil count 2019-11-26 05:30:00* Test Item Value Reference Range Interpretation Comments Eosinophils # (Auto) (test code = 711-2) 0.0 0.0-0.[address] [facility] [place], TXAutomated blood basophil count (count/volume)2019-11-26 05:30:00* Test Item Value Reference Range Interpretation Comments Basophils # (Auto) (test code = 704-7) 0.0 0.0-0.[address] [facility] [place], TXFluoroscopic procedure less than one hour ujztrifm9340-20-93 05:30:00* Test Item Value Reference Range Interpretation Comments Absolute Immature Granulocyte (auto (kemi t code = Absolute Immature Granulocyte (auto) 0.05 0-0.1 [facility] sodium measurement (moles/volume)2019-11-26 05:30:00* Test Item Value Reference Range Interpretation Comments Sodium Level (test code = 2951-2) 136 136-145 [facility] potassium measurement (moles/volume)2019-11-26 05:30:00* Test Item Value Reference Range Interpretation Comments Potassium Level (test code = 2823-3) 4.0 3.5-5.1 [facility] chloride measurement (moles/volume)2019-11-26 05:30:00* Test Item Value Reference Range Interpretation Comments Chloride Level (test code = 2075-0) 108 98-107 [facility] or plasma carbon dioxide, total measurement (moles/volume)2019-11-26 05:30:00* Test Item Value Reference Range Interpretation Comments Carbon Dioxide Level (test code = 2028-9) 18 22-29 [facility] or plasma anion oun1432-36-45 05:30:00* Test Item Value Reference Range Interpretation Comments Anion Gap (test code = 70582-1) 14.0 8-16 [facility] plasma urea nitrogen measurement (mass/volume)2019-11-26 05:30:00* Test Item Value Reference Range Interpretation Comments Blood Urea Nitrogen (test code = 3094-0) 7 - [facility] creatinine measurement (mass/volume)2019-11-26 05:30:00* Test Item Value Reference Range Interpretation Comments Creatinine (test code = 2160-0) 0.77 0.57-1.11 [facility] plasma urea nitrogen/creatinine mass anqqe9381-98-56 05:30:00* Test Item Value Reference Range Interpretation Comments BUN/Creatinine Ratio (test code = 3097-3) 9 - [facility] [place], TXEstimated glomerular filtration rate (GFR) bapxekdwzmaaq4090-75-80 05:30:00* Test Item Value Reference Range Interpretation Comments Estimat Glomerular Filtration Rate (test code = 472435497) > 60 >60 Ranges were taken from the National Kidney Disease Education Program and the [facility] [employer] literature.Reference ranges:60 or greater: Jzzbml96-27 ( for 3 consecutive months): Chronic kidney disease 15 or less: Kidney failure[facility] [place], TXGlucose yswlfrmetqu2574-97-94 05:30:00* Test Item Value Reference Range Interpretation Comments Glucose Level (test code = WDZ6447) 88 74-118 [facility] calcium measurement (mass/volume)2019-11-26 05:30:00* Test Item Value Reference Range Interpretation Comments Calcium Level (test code = 63812-6) 8.6 8.4-10.[address] [facility] [place], TXBlood ktctyov5449-70-87 12:20:00* Test Item Value Reference Range Interpretation Comments Blood Culture (test code = 93053966) NO GROWTH AFTER [address] [facility] [place], TXBacterial urine czuerct6955-35-48 12:15:00* Test Item Value Reference Range Interpretation Comments Urine Culture (test code = 630-4) ESCHERICHIA COLI [facility] [place], TXCT ABD/PEL WO [id number]-[id number] 11:58:00 [facility] [address] [place] [address] Patient Name: RADHA HAMLIN #: [id number] : 1995 Age/Sex: 24/F Req #: [id number] [facility] Physician: Ordered by: WYATT WOOD MD Report #: [id number] Location: [facility] Room/Bed: Procedure: HOPD/CT AB D/PEL WO CONTRAST-HOPD Exam Date: 11/24/19 Exam Time : 1137 REPORT STATUS: Signed CT of the abdomen and pelvis. Comparison: CT chest abdomen pelvis 04/30/2019 Clinical History: Nausea, vomiting, abdominal pain Technique: Helical CT scan of the abdomen and pelvis was performed. Intravenous contrast adminis tration was not utilized. Oral contrast administration was not utilized. Georgi nal and sagittal reconstructions were generated from the raw data. Multiple i mages were submitted for interpretation. This exam was performed accordin g to our departmental dose-optimization program which includes automated expos ure control, adjustment of the mA and/or kV according to patient size Di scussion: Inferior chest: Unremarkable. Liver: Unremarkable Spleen: Unremarkable Pancreas: Soft tissue nodularity in the region of the pancreatic tail likely from the previous necrotizing pancreatitis of the pancreatic tail . Otherwise pancreas is unremarkable. Biliary tree and gallbladder: Unremar kable Adrenal glands: Unremarkable Kidneys and ureters: Perinephric strand ing of the right kidney. Left kidney unremarkable. Ureters unremarkable. No ca lculi. Vasculature: Unremarkable Lymph nodes: No lymphadenopathy Bowel: Unremarkable Pelvis: Urinary bladder is unremarkable. No significant abnormal ity of the pelvic genitalia. Pelvic wall unremarkable. Peritoneum: Unremarka ble Perineal compartments: unremarkable. Fluid: No free fluid Bones: Unr emarkable Body wall: Unremarkable Impression: Likely is sequela of the previous neck are present pancreatitis of the pancreatic tail with irregular c ontour and soft tissue density in the region of the pancreatic tail. Ther e is mild perinephric stranding of the right kidney. Clinical correlation for possible urinary infection such as pyelonephritis is requested. Signed by: Manolo Kelley MD on 11/24/2019 12:10 PM Dictated By: MANOLO KELLEY MD E lectronically Signed By: MANOLO KELLEY MD on 11/24/190 Transcribed By: SULEMA AYALA on 11/24/190 COPY TO: WYATT WOOD MD CXR 2 VIEW - [id number] 11:33:00 [place] [address] Patient Name: RADHA HAMLIN MR #: [id number] : 1995 Age/Sex: 24/F Req #: [id number] Adm Physician: Ordered by: WYATT WOOD MD Report #: [id number] Location: [facility] Room/Bed: Procedure: HOPD/CXR 2 VIEW - HOPD Exam Date: Exam Time: REPORT STATUS: Signed X-ray chest PA and latera l views Comparison: None History: Fever Findings: Central airways unremarkable. Heart size normal. Mediastinal silhouettes normal. No pleural e ffusion. No pneumothorax. No lung infiltrates or nodules. Visualized skeletal structures within normal limits. Upper abdomen unremarkable. Impression: No acute cardiopulmonary disease. There is no pneumonia. Signed by: Manolo guzman MD on 11/24/2019 11:34 AM Dictated By: MANOLO KELLEY MD Electron ically Signed By: MANOLO KELLEY MD on 11/24/19 1134 Transcribed By: DAYANARA nichole 11/24/19 1134 COPY TO: WYATT WOOD MD Fluoroscopic procedure less than one hour [id number] 11:22:00* Test Item Value Reference Range Interpretation Comments Coronavirus (PCR) (test code = Coronavirus (PCR)) NOT DETECTED NOTD ETECTED SARS-COV-2 (COVID19), HIGHRISK, RT-PCRNegative results do not preclude SARS-CoV- 2 infection and should not be used as the sole basis for patient management deci sions. Negative results must be combined with clinical observations, patient his tory, and epidemiological information. Optimum specimen types and timing for pea k viral levels during infections caused by SARS-CoV-2 have not been determined. Collection of multiple specimens ot types of specimens may be necessary to detec t virus. Improper specimen collection and handling, sequence variability under p rimers/probes, or organism present below the limit of detection may lead to fals e negative results. Positive and negative predictive values of testing are highl y dependent on prevalance. False negative test results are more likely when prev alence is high.The expected result is negative (not detected).The SARS-CoV-2 kemi t is intended for the qualitative detection of nucleic acid from SARS-CoV-2 in n asopharyngeal and oropharyngeal swab samples from patients who meet COVID-19 cli nical and or epidemiological criteria. For lower respiratory tract specimens, th e assay is submitted for authoriztion by FDA under an Emergency Use Authorizatio n (EUA). Testing methodology is real time RT-PCR. If received as separate collec tion devices, nasopharygeal and oropharyngeal specimens are combined for analysi s. Additional specimens may be split to a separate accession for analysi and rep orting as this test includes a single unit of service.Test results must be corre lated with clinical presentation and evaluated in the context of other laborator y and epidemiologic data. Test performance can be affected because the epidemiol ogy and clinical spectrum of infection caused by SARS-CoV-2 is not fully known. For example, the optimum types of specimens to collect and when during the cours e of infection these specimens are most likely to contain detectable viral RNA m ay not be known.This test has not been Food and Drug Administration (FDA) cleare d or approved and has been authorized by FDA under an Emergency Use Authorizatio n (EUA). The test is only authorized for the duration of the declaration that ci rcumstances exist justifying the authorization of emergency use of in vitro diag nostic tests for detection and/or diagnosis of SARS-CoV-2 under section 564(b) o f the Act, 21 U.S.C. section 360bbb-3(b)(1), unless the authorization is termina teofilo or revoked sooner. [facility] are certified under the C linical Laboratory Improvement Amendments of 1988 (CLIA), 42 U.S.C. section 263a , to perform high complexity tests.Testing performed by [facility] [id number] [place], [place] [phone] Director: Werner Olvera M.D.CLIA # [id number] [place] TXLipase 2019-05-04 08:29:00* Test Item Value Reference Range Interpretation Comments Lipase (test code = 3040-3) 224 8-[address] [facility] [place], TXWhite Blood [id number] 08:28:00* Test Item Value Reference Range Interpretation Comments White Blood Count (test code = 6690-2) 11.01 4.8-10.[address] [facility] [place], TXRed Blood Jrmmz7110-82-32 08:28:00* Test Item Value Reference Range Interpretation Comments Red Blood Count (test code = 789-8) 3.76 3.6-5.[address] [facility] [place], TXHemoglobin2019-11-14 08:28:00* Test Item Value Reference Range Interpretation Comments Hemoglobin (test code = 44604-3) 12.4 12.0-16.[address] [facility] [place], TXHematocrit2019-11-14 08:28:00* Test Item Value Reference Range Interpretation Comments Hematocrit (test code = 4544-3) 37.4 34.2-44.[address] [facility] [place], TXMean Corpuscular Ldhxxd9080-02-71 08:28:00* Test Item Value Reference Range Interpretation Comments Mean Corpuscular Volume (test code = 787-2) 99.5 81-[address] [facility] [place], TXMean Corpuscular Hlqkscxprj8183-27-17 08:28:00* Test Item Value Reference Range Interpretation Comments Mean Corpuscular Hemoglobin (test code = 785-6) 33.0 28-[address] [facility] [place], TXMean Corpuscular Hemoglobin Concent 2019-05-04 08:28:00* Test Item Value Reference Range Interpretation Comments Mean Corpuscular Hemoglobin Concent (test code = 786-4) 33.2 31-[address] [facility] [place], TXRed Cell Distribution Tcjot8970-13-74 08:28:00* Test Item Value Reference Range Interpretation Comments Red Cell Distribution Width (test code = 14609-3) 12.8 11.7 -14.[address] [facility] [place], TXPlatelet Gxevj2158-65-61 08:28:00* Test Item Value Reference Range Interpretation Comments Platelet Count (test code = 777-3) 712 140-[address] [facility] [place], TXNeutrophils (%) (Auto)2019-05-04 08:28:00 * Test Item Value Reference Range Interpretation Comments Neutrophils (%) (Auto) (test code = 43246-0) 53.3 38.7-80.[address] [facility] [place], TXLymphocytes (%) (Auto)2019-05-04 08:28:00 * Test Item Value Reference Range Interpretation Comments Lymphocytes (%) (Auto) (test code = 736-9) 21.9 18.0-39.[address] [facility] [place], TXMonocytes (%) (Auto)2019-05-04 08:28:00* Test Item Value Reference Range Interpretation Comments Monocytes (%) (Auto) (test code = 5905-5) 7.2 4.4-11.[address] [facility] [place], TXEosinophils (%) (Auto)2019-05-04 08:28:00 * Test Item Value Reference Range Interpretation Comments Eosinophils (%) (Auto) (test code = 713-8) 12.5 0.0-6.[address] [facility] [place] [place]Basophils (%) (Auto)2019-05-04 08:28:00* Test Item Value Reference Range Interpretation Comments Basophils (%) (Auto) (test code = 706-2) 0.8 0.0-1.[address] [facility] [place], TXIM GRANULOCYTES %2019-05-04 08:28:00* Test Item Value Reference Range Interpretation Comments IM GRANULOCYTES % (test code = IM GRANULOCYTES %) 4.3 0.0- 1.[address] [facility] [place], TXNeutrophils # (Auto)2019-05-04 08:28:00* Test Item Value Reference Range Interpretation Comments Neutrophils # (Auto) (test code = 751-8) 5.9 2.1-6.[address] [facility] [place], TXLymphocytes # (Auto)2019-05-04 08:28:00* Test Item Value Reference Range Interpretation Comments Lymphocytes # (Auto) (test code = 00605-3) 2.4 1.0-3.[address] [facility] [place], TXMonocytes # (Auto)2019-05-04 08:28:00* Test Item Value Reference Range Interpretation Comments Monocytes # (Auto) (test code = 742-7) 0.8 0.2-0.[address] [facility] [place], TXEosinophils # (Auto)2019-05-04 08:28:00* Test Item Value Reference Range Interpretation Comments Eosinophils # (Auto) (test code = 711-2) 1.4 0.0-0.[address] [facility] [place], TXBasophils # (Auto)2019-05-04 08:28:00* Test Item Value Reference Range Interpretation Comments Basophils # (Auto) (test code = 704-7) 0.1 0.0-0.[address] [facility] [place], TXAbsolute Immature Granulocyte (auto 2019-05-04 08:28:00* Test Item Value Reference Range Interpretation Comments Absolute Immature Granulocyte (auto (kemi t code = Absolute Immature Granulocyte (auto) 0.47 0-0.1 [facility] plasma lipase measurement (enzymatic activity/volume)2019-05-04 06:40:00* Test Item Value Reference Range Interpretation Comments Lipase (test code = 3040-3) 224 8-[address] [facility] [place], TXBlood Rhuifrq9450-80-75 20:31:00* Test Item Value Reference Range Interpretation Comments Blood Culture (test code = 58572680) NO GROWTH AFTER [address] [facility] [place], TXProcalcitonin2019-11-13 19:32:00* Test Item Value Reference Range Interpretation Comments Procalcitonin (test code = 016016452) 0.16 0.00-0.08 H A procalcitonin (PCT) level [...] any concentrations <2 ng/mL are obtained.Performed at: [facility] Lab[address] [id number] Director: Eleno Hanks MD, Phone: [phone] St. [facility] [place], TXDifferential Total Cells Dwyhftk8322-57-28 07:24:00* Test Item Value Reference Range Interpretation Comments Differential Total Cells Counted (test code = Differmelissa tial Total Cells Counted) [address] [facility] [place], TXNeutrophils % (Manual)2019-05-03 07:24:00 * Test Item Value Reference Range Interpretation Comments Neutrophils % (Manual) (test code = 15182-1) 60 40-[address] [facility] [place], TXBand Neutrophils %2019-05-03 07:24:00* Test Item Value Reference Range Interpretation Comments Band Neutrophils % (test code = 764-1) [address] [facility] [place], TXLymphocytes % (Manual)2019-05-03 07:24:00 * Test Item Value Reference Range Interpretation Comments Lymphocytes % (Manual) (test code = 737-7) 17 19-[address] [facility] [place], TXMonocytes % (Manual)2019-05-03 07:24:00* Test Item Value Reference Range Interpretation Comments Monocytes % (Manual) (test code = 744-3) 4 3.4-9.[address] [facility] [place], TXEosinophils % (Manual)2019-05-03 07:24:00 * Test Item Value Reference Range Interpretation Comments Eosinophils % (Manual) (test code = 714-6) 18 0-[address] [facility] [place], TXPlatelet Fiykjzci7989-62-01 07:24:00* Test Item Value Reference Range Interpretation Comments Platelet Estimate (test code = 59335-5) MODERATELY INCREASED [facility] [place], TXPlatelet Morphology Zvbpuny7050-76-74 07:24:00* Test Item Value Reference Range Interpretation Comments Platelet Morphology Comment (test code = 54273-6) NORMAL No EDTA clumping seen.[facility] [place], TXPoikilocytosis 2019-05-03 07:24:00* Test Item Value Reference Range Interpretation Comments Poikilocytosis (test code = 779-9) SLIGHT [facility] [place], TXAnisocytosis2019-11-13 07:24:00* Test Item Value Reference Range Interpretation Comments Anisocytosis (test code = 702-1) SLIGHT [facility] [place], TXMicrocytosis2019-11-13 07:24:00* Test Item Value Reference Range Interpretation Comments Microcytosis (test code = 741-9) SLIGHT [facility] [place], TXMacrocytosis2019-11-13 07:24:00* Test Item Value Reference Range Interpretation Comments Macrocytosis (test code = 738-5) SLIGHT [facility] [place], TXOvalocytes2019-11-13 07:24:00* Test Item Value Reference Range Interpretation Comments Ovalocytes (test code = 774-0) FEW [facility] [place], TXHelmet Ffohh8660-09-03 07:24:00* Test Item Value Reference Range Interpretation Comments Helmet Cells (test code = 22515-1) RARE [facility] [place], TXRed Cell Morphology Bnswhfv6496-41-06 07:24:00* Test Item Value Reference Range Interpretation Comments Red Cell Morphology Comment (test code = 6742-1) ABNORMAL [facility] [place], TXFluoroscopic procedure less than one hour mtxqttuv5329-79-18 04:14:00* Test Item Value Reference Range Interpretation Comments Differential Total Cells Counted (test code = Lashanda srinivasan Total Cells Counted) 100 [facility] blood neutrophils/100 leukocytes 2019-05-03 04:14:00* Test Item Value Reference Range Interpretation Comments Neutrophils % (Manual) (test code = 00840-0) 60 40-74 [facility] blood band neutrophils form/100 hzturdqjvz8687-44-83 04:14:00* Test Item Value Reference Range Interpretation Comments Band Neutrophils % (test code = 764-1) 1 [facility] blood lymphocytes/100 leukocytes 2019-05-03 04:14:00* Test Item Value Reference Range Interpretation Comments Lymphocytes % (Manual) (test code = 737-7) 17 19-48 [facility] blood monocytes/100 leukocytes 2019-05-03 04:14:00* Test Item Value Reference Range Interpretation Comments Monocytes % (Manual) (test code = 744-3) 4 3.4-9.0 [facility] blood eosinophil count as percentage of total juowtqqhgh1528-90-71 04:14:00* Test Item Value Reference Range Interpretation Comments Eosinophils % (Manual) (test code = 714-6) 18 0-7 [facility] platelets count by estimate (number/volume)2019-05-03 04:14:00* Test Item Value Reference Range Interpretation Comments Platelet Estimate (test code = 32709-7) MODERATELY INCREASED [facility] [place], TXPlatelet kiorogullk5304-22-50 04:14:00* Test Item Value Reference Range Interpretation Comments Platelet Morphology Comment (test code = 44759-6) NORMAL No EDTA clumping seen.[facility] poikilocytosis detection by light yowlwbbuoo5808-71-23 04:14:00* Test Item Value Reference Range Interpretation Comments Poikilocytosis (test code = 779-9) SLIGHT [facility] [place], TXBlood anisocytosis detection by light bpahhyduxl5481-00-88 04:14:00* Test Item Value Reference Range Interpretation Comments Anisocytosis (test code = 702-1) [facility]IGHT [facility] microcytes detection by light lbgznzhwrk6548-66-05 04:14:00* Test Item Value Reference Range Interpretation Comments Microcytosis (test code = 741-9) SLIGHT [facility] macrocytes detection by light vrigyhyvwl6870-76-44 04:14:00* Test Item Value Reference Range Interpretation Comments Macrocytosis (test code = 738-5) SLIGHT [facility] ovalocytes detection by light txwyelziui6158-23-78 04:14:00* Test Item Value Reference Range Interpretation Comments Ovalocytes (test code = 774-0) FEW [facility] helmet cells detection by light maebpccyoi2157-90-61 04:14:00* Test Item Value Reference Range Interpretation Comments Helmet Cells (test code = 17190-3) RARE [facility] [place], TXRBC dcmsgnosle1920-86-17 04:14:00* Test Item Value Reference Range Interpretation Comments Red Cell Morphology Comment (test code = 6742-1) ABNORMAL [facility] Lrbny1262-61-49 07:35:00* Test Item Value Reference Range Interpretation Comments Sodium Level (test code = 2951-2) 133 136-[address] [facility] [place], TXPotassium Phabu8437-61-97 07:35:00* Test Item Value Reference Range Interpretation Comments Potassium Level (test code = 2823-3) 4.1 3.5-5.[address] [facility] [place], TXChloride Uqdsh9462-83-67 07:35:00* Test Item Value Reference Range Interpretation Comments Chloride Level (test code = 2075-0) 99 98-[address] [facility] [place], TXCarbon Dioxide Knxvc6565-90-70 07:35:00* Test Item Value Reference Range Interpretation Comments Carbon Dioxide Level (test code = 2028-9) 25 22-[address] [facility] [place], TXAnion Blu4837-54-92 07:35:00* Test Item Value Reference Range Interpretation Comments Anion Gap (test code = 17935-4) 13.1 8-[address] [facility] [place], TXBlood Urea Tqperell0397-78-63 07:35:00* Test Item Value Reference Range Interpretation Comments Blood Urea Nitrogen (test code = 3094-0) 9 7-[address] [facility] [place], TXCreatinine2019-11-12 07:35:00* Test Item Value Reference Range Interpretation Comments Creatinine (test code = 2160-0) 0.64 0.57-1.[address] [facility] [place], TXBUN/Creatinine Ellxx9442-55-60 07:35:00* Test Item Value Reference Range Interpretation Comments BUN/Creatinine Ratio (test code = 3097-3) 14 6-[address] [facility] [place], TXEstimat Glomerular Filtration Rate 2019-05-02 07:35:00* Test Item Value Reference Range Interpretation Comments Estimat Glomerular Filtration Rate (test code = 100189082) > 60 >60 Ranges were taken from the National Kidney Disease Education Program and the [facility] Kidney Foundation literature.Reference ranges:60 or greater: Nfkjer08-93 ( for 3 consecutive months): Chronic kidney disease 15 or less: Kidney failure[facility] [place], TXGlucose Bizlv5000-01-59 07:35:00* Test Item Value Reference Range Interpretation Comments Glucose Level (test code = NLR2774) 76 74-[address] [facility] [place], TXCalcium Uqucr9660-18-41 07:35:00* Test Item Value Reference Range Interpretation Comments Calcium Level (test code = 59471-6) 8.6 8.4-10.[address] [facility] [place], TXProcalcitonin (PCT) mnjmz9436-94-33 18:40:00* Test Item Value Reference Range Interpretation Comments Procalcitonin (test code = 783850769) 0.16 0.00-0.08 A procalcitonin (PCT) level above 2.0 ng/mL [...] any concentrations <2 ng/mL are obtained.Performed at: - [facility] [id number] Director: Eleno Hanks MD, Phone: [phone] 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 [place], TXTotal Slxrwizht4605-16-90 05:51:00* Test Item Value Reference Range Interpretation Comments Total Bilirubin (test code = 1975-2) 0.5 0.2-1.[address] [facility] [place], TXAspartate Amino Transf (AST/SGOT) 2019-05-01 05:51:00* Test Item Value Reference Range Interpretation Comments Aspartate Amino Transf (AST/SGOT) (test code = Aspartate Amino Transf (AST/SGOT)) 19 5-[address] [facility] [place], TXAlanine Aminotransferase (ALT/SGPT) 2019-05-01 05:51:00* Test Item Value Reference Range Interpretation Comments Alanine Aminotransferase (ALT/SGPT) (test code = 1742-6) 20 0-[address] [facility] [place], TXTotal Ibktzcj7971-11-73 05:51:00* Test Item Value Reference Range Interpretation Comments Total Protein (test code = 2885-2) 6.6 6.5-8.[address] [facility] [place], TXAlbumin2019-11-11 05:51:00* Test Item Value Reference Range Interpretation Comments Albumin (test code = 1751-7) 2.6 3.5-5.[address] [facility] [place], TXGlobulin2019-11-11 05:51:00* Test Item Value Reference Range Interpretation Comments Globulin (test code = 05809-7) 4.0 2.3-3.[address] [facility] [place], TXAlbumin/Globulin Jemwe4894-57-22 05:51:00 * Test Item Value Reference Range Interpretation Comments Albumin/Globulin Ratio (test code = 1759-0) 0.7 0.8-2.[address] [facility] [place], TXAlkaline Fomgkwebjjb9478-37-36 05:51:00* Test Item Value Reference Range Interpretation Comments Alkaline Phosphatase (test code = 6768-6) 179 40-150 [facility] plasma total bilirubin measurement (mass/volume)2019-05-01 03:50:00* Test Item Value Reference Range Interpretation Comments Total Bilirubin (test code = 1975-2) 0.5 0.2-1.[address] [facility] [place], TXFluoroscopic procedure less than one hour gutiasdh2842-14-02 03:50:00* Test Item Value Reference Range Interpretation Comments Aspartate Amino Transf (AST/SGOT) (test code = Aspartate Amino Transf (AST/SGOT)) 19 5-34 [facility] plasma alanine aminotransferase measurement (enzymatic activity/volume)2019-05-01 03:50:00* Test Item Value Reference Range Interpretation Comments Alanine Aminotransferase (ALT/SGPT) (test code = 1742-6) 20 0-55 [facility] plasma protein measurement (mass/volume)2019-05-01 03:50:00* Test Item Value Reference Range Interpretation Comments Total Protein (test code = 2885-2) 6.6 6.5-8.1 [facility] plasma albumin measurement (mass/volume)2019-05-01 03:50:00* Test Item Value Reference Range Interpretation Comments Albumin (test code = 1751-7) 2.6 3.5-5.[address] [facility] [place], TXPlasma globulin measurement (mass/volume) 2019-05-01 03:50:00* Test Item Value Reference Range Interpretation Comments Globulin (test code = 04413-7) 4.0 2.3-3.5 [facility] plasma albumin/globulin mass gkuek2319-62-14 03:50:00* Test Item Value Reference Range Interpretation Comments Albumin/Globulin Ratio (test code = 1759-0) 0.7 0.8-2.0 [facility] or plasma alkaline phosphatase measurement (enzymatic activity/volume)2019-05-01 03:50:00* Test Item Value Reference Range Interpretation Comments Alkaline Phosphatase (test code = 6768-6) 179 40-[address] [facility] [place], TXClostridium difficile A and B toxin assay 2019-04-30 15:04:00* Test Item Value Reference Range Interpretation Comments Clostridium Difficile Toxin A & B (test code = 538457963) NEGATIVE NEGATIVE Testing on stool aspirate specimens is outside carbide tool [employer] claims since specime n type not validated on this assay.[facility] [place], TXCT ABDOMEN/PELVIS C6938-94-69 10:13:00 [facility] [address] [place] [address] Patient Name: RADHA HAMLIN MR #: [id number] : 1995 Age/Sex: 23/F Req #: [id number] Adm Physician: DEONTE GUPTA MD Ordered by: DEONTE GUPTA MD Report #: [id number] Location: [facility] Room/Bed: [facility] Procedure: [id number] CT/ CT ABDOMEN/PELVIS W Exam Date: 04/30/19 [...] Normal enhancement. No cortical mass. No hydronephrosis. Left : Normal enhancement. Lower pole cyst is stable. [...] GUPTA MD CT CHEST W 2019-04-30 10:13:00 [place] [address] Patient Name: RADHA HAMLIN MR #: [id number] : 1995 Age/Sex: 23/F Req #: [id number] Adm Physician: DEONTE GUPTA MD Ordered by: DEONTE GUPTA MD Report #: [id number] Location: MED/SURG2 Room/Bed: [facility] Procedure: [id number] CT/ CT CHEST W Exam Date: 04/30/19 Exam Time: 949 REPORT STATUS: Signed CT chest, abdo men [...] extent. No loculated fluid collections or vascular complication s have developed. 2. Left retroperitoneal ascites/inflammation is [...] 1024 COPY TO: DEONTE GUPTA MD Bedside Tcdypyw4583-74-41 23:55:00* Test Item Value Reference Range Interpretation Comments Bedside Glucose (test code = 18949-8) 132 70-120 H Meter ID: [id number] [facility] HospitalCapillary blood glucose measurement by glucometer (mass/volume)2019-04-29 19:11:00* Test Item Value Reference Range Interpretation Comments Bedside Glucose (test code = 53859-5) 132 70-120 Meter ID: [id number] [facility] HospitalAmylase Level 2019-04-29 06:13:00* Test Item Value Reference Range Interpretation Comments Amylase Level (test code = 1798-8) 114 25-125 [facility]ererum or plasma amylase measurement (enzymatic activity/volume)2019-04-29 04:08:00* Test Item Value Reference Range Interpretation Comments Amylase Level (test code = 1798-8) 114 25-[address] [facility] [place], TXHEPTOBILIARY W CPHBU6987-67-43 17:48:00 [facility] [address] [place] [address] Patient Name: RADHA HAMLIN MR #: [id number] : 1995 Age/Sex: 23/F Req #: [id number] Adm Physician: DEONTE GUPTA MD Ordered by: DEONTE GUPTA MD Report #: [id number] Location: MED/SURG2 Room/Bed: 204 Procedure: [id number] NM/ HEPTOBILIARY W PHARM Exam Date: 04/28/19 [...] contractile response to sincalide supports the clinical diagnosi s of chronic cholecystitis/gallbladder dyskinesia. Signed by: Dr. Nelson ann M.D. on 04/28/2019 5:53 PM Dictated By: NELSON QUIJANO MD Electronical ly Signed By: NELSON QUIJANO MD on 04/28/191752 Transcribed By: DAYANARA on 1752 COPY TO: DEONTE GUPTA MD Urine Njzm3358-72-10 12:57:00* Test Item Value Reference Range Interpretation Comments Urine Test (test code = 2106-3) NEGATIVE NEGATIVE [facility] [place], TXUrine human chorionic gonadotropin (hCG) rfjdgrdfx1283-52-79 11:43:00* Test Item Value Reference Range Interpretation Comments Urine Test (test code = 2106-3) NEGATIVE NEGATIVE [facility] [place], TXHypochromasia2019-11-08 07:42:00* Test Item Value Reference Range Interpretation Comments Hypochromasia (test code = 728-6) SLIGHT [facility] [place], TXBlood hypochromia detection by light rrnvqtkgxb7665-14-93 03:45:00* Test Item Value Reference Range Interpretation Comments Hypochromasia (test code = 728-6) SLIGHT [facility] [place], TXInfluenza Virus Types A,B Antigen 2019-04-26 15:27:00* Test Item Value Reference Range Interpretation Comments Influenza Virus Types A,B Antigen (test code = 17950-7) NEGATIVE NEGATIVE [facility] [place], TXUS CHEST (INCL MEDIASTINUM)2019-04-26 14:35:00 [facility] [address] [place] [address] Patient Name: RADHA HAMLIN MR #: [id number] : 1995 Age/Sex: 23/F Req #: [id number] Adm Physician: DEONTE GUPTA MD Ordered by: OMAR POWERS MD Report #: [id number] Location: MED/SURG2 Room[facility]Bed: [facility] Procedure: [id number] US/US CHEST (INCL MEDIASTINUM) Exam Date: Exam [...] 04/26/19 1436 COPY TO: OMAR POWERS MD Influenza virus A and B antigen identification by lcircirlrdrmbpzbbm9977-93-67 13:51:00* Test Item Value Reference Range Interpretation Comments Influenza Virus Types A,B Antigen (test code = 59141-6) NEGATIVE NEGATIVE [facility] [place], TXBasophils % (Manual)2019-04-26 07:12:00* Test Item Value Reference Range Interpretation Comments Basophils % (Manual) (test code = 06055-0) 1 0-1.[address] [facility] [place], TXManual basophil ngzrgklkgj3705-44-55 03:50:00* Test Item Value Reference Range Interpretation Comments Basophils % (Manual) (test code = 37497-8) 1 0-1.[address] [facility] [place], TXCHEST 2 JFNEC8246-87-84 05:36:00 [place] [address] Patient Name: RADHA HAMLIN MR #: [id number] : 1995 Age/Sex: 23/F Req #: [id number] Adm Physician: DEONTE GUPTA MD Ordered by: OMAR GREY MD Report #: [id number] Location: MED/SURG2 Room/Bed: [facility] Procedure: [id number] DX/CHEST 2 VIEWS Exam Date: 04/25/19 Exam Time: 05 REPORT STATUS: Signed EXAMINATI ON: CHEST 2 [...] 7 Transcribed By: DAYANARA on 04/25/19537 COPY TO : OMAR GREY MD NQFJWOHKYGP1900-81-04 12:42:00 [place] [address] Patient Name: RADHA HAMLIN MR #: [id number] : 1995 Age/Sex: 23/F Req #: [id number] Adm Physician: DEONTE GUPTA MD Ordered by: DEONTE GUPTA MD Report #: [id number] Location: MED/SURG2 Room/Bed: [facility] Procedure: [id number] US/ US GALLBLADDER Exam Date: 04/24/19 Exam Time: 1030 REPORT STATUS: Signed EXAM: Right upper quadrant abdominal ultrasound INDICATION: Right upper quadrant kevin n COMPARISON: CT abdomen and pelvis of 04/23/2019 [...] 12:44 PM Dictated By: PAIGE BISHOP MD 1014 Transcribed By: SULEMA AYALA on 04/24/19 1247 COPY TO: DEONTE GUPTA MD Lactic Acid Level 2019-04-24 05:47:00* Test Item Value Reference Range Interpretation Comments Lactic Acid Level (test code = Lactic Acid Level) 0.7 0.5- 2.[address] [facility] [place], TXUrine UIN7026-07-19 21:21:00* Test Item Value Reference Range Interpretation Comments Urine WBC (test code = 5821-4) 0-5 0-[address] [facility] [place], TXUrine QMB4454-52-57 21:21:00* Test Item Value Reference Range Interpretation Comments Urine RBC (test code = 84286-2) 0-5 0-[address] [facility] [place], TXUrine Xeujrica9247-74-02 21:21:00* Test Item Value Reference Range Interpretation Comments Urine Bacteria (test code = 34561-6) FEW NONE [facility] Epithelial Qnccu6069-40-49 21:21:00 * Test Item Value Reference Range Interpretation Comments Urine Epithelial Cells (test code = 51258-7) FEW NONE [facility] [place], TXUrine Zwzwt3748-12-10 20:57:00* Test Item Value Reference Range Interpretation Comments Urine Color (test code = 5778-6) YELLOW YELLOW [facility] [place], TXUrine Wwtfhlj2377-50-03 20:57:00* Test Item Value Reference Range Interpretation Comments Urine Clarity (test code = 58064-8) CLEAR CLEAR [facility] [place], TXUrine Specific Cpbhidz0361-59-04 20:57:00 * Test Item Value Reference Range Interpretation Comments Urine Specific [place] (test code = 5811-5) <=1.005 1.010-1.[address] [facility] [place], TXUrine tV2517-00-02 20:57:00* Test Item Value Reference Range Interpretation Comments Urine pH (test code = 57728-5) 6.5 5-[address] [facility] [place], TXUrine Leukocyte Uvcxwnth3154-63-27 20:57:00* Test Item Value Reference Range Interpretation Comments Urine Leukocyte Esterase (test code = 94091-8) NEGATIVE NEGATIV E [facility] [place], TXUrine Lnbgqlm4557-09-55 20:57:00* Test Item Value Reference Range Interpretation Comments Urine Nitrite (test code = 03662-3) NEGATIVE NEGATIVE [facility] [place], TXUrine Decjbgr3070-89-89 20:57:00* Test Item Value Reference Range Interpretation Comments Urine Protein (test code = 82544-2) NEGATIVE NEGATIVE [facility] [place], TXUrine Glucose (UA)2019-04-23 20:57:00* Test Item Value Reference Range Interpretation Comments Urine Glucose (UA) (test code = 27662-1) NEGATIVE NEGATIVE [facility] [place], [place] Pixdwsw8748-05-31 20:57:00* Test Item Value Reference Range Interpretation Comments Urine Ketones (test code = 49861-4) NEGATIVE NEGATIVE [facility] [place], [place] Nqklnzlpzqzw8387-96-92 20:57:00* Test Item Value Reference Range Interpretation Comments Urine Urobilinogen (test code = 99591-8) 0.2 0.2-[address] [facility] [place], [place]Urine Dprrokwvs6226-29-73 20:57:00* Test Item Value Reference Range Interpretation Comments Urine Bilirubin (test code = 1977-8) NEGATIVE NEGATIVE [facility] [place], [place]Urine Octmc5837-23-10 20:57:00* Test Item Value Reference Range Interpretation Comments Urine Blood (test code = 21442-1) NEGATIVE NEGATIVE [facility] [place], [place]CT ABDOMEN/PELVIS [id number] 20:00:00 [facility] [address] [place] [address] Patient Name: RADHA HAMLIN MR #: [id number] : 1995 Age/Sex: 23/F Req #: [id number] Adm Physician: DEONTE GUPTA MD Ordered by: DEONTE GUPTA MD Report #: [id number] Location: MED/SURG2 Room/Bed: [facility] Procedure: [id number] CT/ CT ABDOMEN/PELVIS W Exam Date: 04/23/19 [...] on 04/23/192023 COPY TO: DEONTE GUPTA MD Urine color eidhjokgsvfym2953-54-73 19:14:00* Test Item Value Reference Range Interpretation Comments Urine Color (test code = 5778-6) YELLOW YELLOW [facility] [place], [place] jjjfign1491-89-30 19:14:00* Test Item Value Reference Range Interpretation Comments Urine Clarity (test code = 68887-4) [facility] by Test strip 2019-04-23 19:14:00* Test Item Value Reference Range Interpretation Comments Urine Specific [place] (test code = 5811-5) <=1.005 1.010-1.[address] [facility] [place], [place]Urine pH measurement by automated test xdqpw2989-59-25 19:14:00* Test Item Value Reference Range Interpretation Comments Urine pH (test code = 32731-7) 6.5 5-[address] [facility] [place], [place]Urine leukocyte esterase detection by automated test cswts8825-93-60 19:14:00* Test Item Value Reference Range Interpretation Comments Urine Leukocyte Esterase (test code = 34494-7) NEGATIVE NEGATIV E [facility] [place], [place]Urine nitrite detection by automated test bilgh8118-20-07 19:14:00* Test Item Value Reference Range Interpretation Comments Urine Nitrite (test code = 49560-7) NEGATIVE NEGATIVE [facility] [place], [place]Urine protein detection by automated test iprtx4011-49-92 19:14:00* Test Item Value Reference Range Interpretation Comments Urine Protein (test code = 96844-8) NEGATIVE NEGATIVE [facility] [place], [place]Urine glucose detection by automated test xpaam4749-73-77 19:14:00* Test Item Value Reference Range Interpretation Comments Urine Glucose (UA) (test code = 08908-6) NEGATIVE NEGATIVE [facility] [place], [place]Urine ketones detection by automated test fkldl5409-53-46 19:14:00* Test Item Value Reference Range Interpretation Comments Urine Ketones (test code = 89992-7) NEGATIVE NEGATIVE [facility] [place], [place]Urine urobilinogen measurement by test strip (mass/volume)2019-04-23 19:14:00* Test Item Value Reference Range Interpretation Comments Urine Urobilinogen (test code = 37671-2) 0.2 0.2-[address] [facility] [place], [place]Urine total bilirubin mmsqsisnp6913-60-19 19:14:00* Test Item Value Reference Range Interpretation Comments Urine Bilirubin (test code = 1977-8) NEGATIVE NEGATIVE [facility] [place], [place]Urine erythrocytes qzjebzbzb6018-71-60 19:14:00* Test Item Value Reference Range Interpretation Comments Urine Blood (test code = 97330-5) NEGATIVE NEGATIVE [facility] [place], TXAutomated urine sediment leukocyte count by microscopy (number/high power field)2019-04-23 19:14:00* Test Item Value Reference Range Interpretation Comments Urine WBC (test code = 5821-4) 0-5 0-[address] [facility] [place], TXErythrocytes detection in urine sediment by light afoqsfcyid3083-12-55 19:14:00* Test Item Value Reference Range Interpretation Comments Urine RBC (test code = 52608-7) 0-5 0-[address] [facility] [place], TXBacteria detection in urine sediment by light tbkgjdmfpw4314-51-33 19:14:00* Test Item Value Reference Range Interpretation Comments Urine Bacteria (test code = 71209-2) FEW NONE [facility] [place], TXEpithelial cells detection in urine sediment by light uocabdwemc5741-18-16 19:14:00* Test Item Value Reference Range Interpretation Comments Urine Epithelial Cells (test code = 79725-8) FEW NONE [facility] [place], TXTriglycerides Gcreg6657-90-80 07:50:00* Test Item Value Reference Range Interpretation Comments Triglycerides Level (test code = 2571-8) 95 0-[address] [facility] [place], TXCholesterol Ajtnh4384-52-98 07:50:00* Test Item Value Reference Range Interpretation Comments Cholesterol Level (test code = 2093-3) 173 0-199 Less than 200 mg/dL Low Jidz860 - 239 mg/dL Borderline Mjit030 m g/dl and greater High Risk [facility] [place], TXLDL Sfjxkzlazff9851-91-42 07:50:00* Test Item Value Reference Range Interpretation Comments LDL Cholesterol (test code = 2089-1) 85 60-[address] [facility] [place], TXHDL Tjltdbirqlg2067-71-55 07:50:00* Test Item Value Reference Range Interpretation Comments HDL Cholesterol (test code = 2085-9) 69 40-[address] [facility] [place], TXCholesterol/HDL Xqbwx5421-00-79 07:50:00 * Test Item Value Reference Range Interpretation Comments Cholesterol/HDL Ratio (test code = 9830-1) 2.5 3.0-3.6 L [facility] plasma triglyceride measurement (mass/volume)2019-04-22 05:23:00* Test Item Value Reference Range Interpretation Comments Triglycerides Level (test code = 2571-8) 95 0-149 [facility] plasma cholesterol measurement (mass/volume)2019-04-22 05:23:00* Test Item Value Reference Range Interpretation Comments Cholesterol Level (test code = 2093-3) 173 0-199 Less than 200 mg/dL Low Prkx400 - 239 mg/dL Borderline Ywhb670 m g/dl and greater High Risk [facility] cholesterol in LDL measurement (mass/volume) 2019-04-22 05:23:00* Test Item Value Reference Range Interpretation Comments LDL Cholesterol (test code = 2089-1) 85 60-130 [facility] plasma cholesterol in HDL measurement (mass/volume)2019-04-22 05:23:00* Test Item Value Reference Range Interpretation Comments HDL Cholesterol (test code = 2085-9) 69 40-60 [facility] plasma total cholesterol/cholesterol in HDL mass flrtz4144-39-64 05:23:00* Test Item Value Reference Range Interpretation Comments Cholesterol/HDL Ratio (test code = 9830-1) 2.5 3.0-3.6 [facility] [id number] 16:27:00 [facility] [address] [address] Patient Name: RADHA HAMLIN MR #: [id number] : 1995 Age/Sex: 23/F Req #: [id number] Adm Physician: DEONTE GUPTA MD Ordered by: ROBERTO MONTGOMERY DO Report #: [id number] Location: MED/SURG2 Room/Bed: [facility] Procedure: [id number] CT /CT ABDOMEN/PELVIS WO Exam Date: 04/21/19 [...] 1634 COPY TO: ROBERTO MONTGOMERY DO Reactive Sasoqrpbsxc4323-47-33 15:24:00 * Test Item Value Reference Range Interpretation Comments Reactive Lymphocytes (test code = 17486-3) [address] [facility] [place], TXUrine Amorphous Ytswkjin6012-15-83 12:56:00* Test Item Value Reference Range Interpretation Comments Urine Amorphous Sediment (test code = 8246-1) RARE FEW [facility] [place], TXUrine Sehqy7378-07-13 12:56:00* Test Item Value Reference Range Interpretation Comments Urine Mucus (test code = 8247-9) FEW RARE H [facility] [place], TXEthyl Alcohol Leenh6899-93-48 12:52:00* Test Item Value Reference Range Interpretation Comments Ethyl Alcohol Level (test code = 5643-2) < 10.0 0.0-10.[address] [facility] [place], TXBlood lymphocytes variant count (number/volume)2019-04-21 12:09:00* Test Item Value Reference Range Interpretation Comments Reactive Lymphocytes (test code = 56785-7) [address] [facility] [place], TXAmorphous sediment detection in urine sediment by light ixhypxyoqg2296-25-27 12:09:00* Test Item Value Reference Range Interpretation Comments Urine Amorphous Sediment (test code = 8246-1) [facility] sediment by light syabolxbyq8336-98-80 12:09:00* Test Item Value Reference Range Interpretation Comments Urine Mucus (test code = 8247-9) FEW RARE [facility] or plasma ethanol measurement (mass/volume)2019-04-21 12:09:00* Test Item Value Reference Range Interpretation Comments Ethyl Alcohol Level (test code = 5643-2) < 10.0 0.0-10.0 [facility] W/MANUAL [id number] 07:00:00* Test Item Value Reference Range Interpretation [...] IMMAT) 0 % 0-0 N BASIC METABOLIC [id number] 06:48:00* Test Item Value Reference Range Interpretation [...] CA) 8.7 mg/dL 8.5-10.1 N BASIC METABOLIC PXUFZ6538-60-18 06:42:00* Test Item Value Reference Range Interpretation [...] code = CA) mg/dL 8.5-10.1 CBC W/MANUAL [id number] 06:35:00* Test Item Value Reference Range Interpretation [...] MORPHOLOGY (test code = PLTMORPH) CBC W/MANUAL [id number] 06:35:00* Test Item Value Reference Range Interpretation [...] MORPHOLOGY (test code = PLTMORPH) CBC W/MANUAL [id number] 06:35:00* Test Item Value Reference Range Interpretation [...] MORPHOLOGY (test code = PLTMORPH) CBC W/MANUAL [id number] 06:35:00* Test Item Value Reference Range Interpretation [...] MORPHOLOGY (test code = PLTMORPH) CBC W/MANUAL [id number] 06:35:00* Test Item Value Reference Range Interpretation [...] MORPHOLOGY (test code = PLTMORPH) CBC W/AUTO [id number] 06:16:00* Test Item Value Reference Range Interpretation [...] code = BA#) K/mm3 0.0-0.2 CBC W/MANUAL [id number] 07:27:00* Test Item Value Reference Range Interpretation [...] IMMAT) 0 % 0-0 N BASIC METABOLIC [id number] 06:50:00* Test Item Value Reference Range Interpretation [...] CA) 8.7 mg/dL 8.5-10.1 N BASIC METABOLIC [id number] 06:45:00* Test Item Value Reference Range Interpretation [...] code = CA) mg/dL 8.5-10.1 CBC W/MANUAL [id number] 06:41:00* Test Item Value Reference Range Interpretation [...] MORPHOLOGY (test code = PLTMORPH) CBC W/MANUAL [id number] 06:41:00* Test Item Value Reference Range Interpretation [...] MORPHOLOGY (test code = PLTMORPH) CBC W/MANUAL [id number] 06:41:00* Test Item Value Reference Range Interpretation [...] MORPHOLOGY (test code = PLTMORPH) CBC W/MANUAL [id number] 06:41:00* Test Item Value Reference Range Interpretation [...] MORPHOLOGY (test code = PLTMORPH) CBC W/MANUAL [id number] 06:41:00* Test Item Value Reference Range Interpretation [...] MORPHOLOGY (test code = PLTMORPH) CBC W/AUTO [id number] 06:40:00* Test Item Value Reference Range Interpretation [...] This LDL result is a direct measurement.========= WSXDQJQ8660-25-78 13:40:00* Test Item Value Reference Range Interpretation [...] use blood in labDRUGS OF ABUSE SCREEN [id number] 08:31:00* Test Item Value Reference Range Interpretation [...] NEGATIVE <300 ng/mL DRUGS OF ABUSE SCREEN [id number] 08:21:00* Test Item Value Reference Range Interpretation [...] NEGATIVE <300 ng/mL DRUGS OF ABUSE SCREEN [id number] 07:59:00* Test Item Value Reference Range Interpretation [...] = [place]) NEGATIVE <300 ng/mL CBC W/AUTO [id number] 07:11:00* Test Item Value Reference Range Interpretation [...] DIFF REQUIRED (test code = MDIFF) NO [id number] 07:08:00* Test Item Value Reference Range Interpretation Comments LIPASE (test code = LIP) 2852 U/L 73.0-393.0 H PROTHROMBIN [id number] 07:04:00* Test Item Value Reference Range Interpretation [...] heart valves (2.5-3.5) IS PATIENT ON ANTICOAGULANTS? [id number] 07:01:00* Test Item Value Reference Range Interpretation Comments GLYCOSYLATED HEMOGLOBIN (HA1C) (test code = GLYHGB) 4.8 % HbA1 4. 8-6.0 N ESTIMATED AVERAGE GLUCOSE (test code = EAG) 91 MG/DL COMPREHENSIVE METABOLIC [id number] 07:00:00* Test Item Value Reference Range Interpretation [...] in reagent. Are CHOL,TRIG & HDL ordered? [id number] 07:00:00* Test Item Value Reference Range Interpretation Comments TRIGLYCERIDES (test code = TRIG) 105 mg/dL 20-150 N Are CHOL,TRIG & HDL ordered? [id number] 07:00:00* Test Item Value Reference Range Interpretation Comments LIPASE (test code = LIP) 6149 U/L 73.0-393.0 H Are CHOL,TRIG & HDL ordered? [id number] 07:00:00* Test Item Value Reference Range Interpretation Comments MAGNESIUM (test code = MAG) 2.0 mg/dL 1.8-2.4 N Are CHOL,TRIG & HDL ordered? NOTHYROID STIMULATING [id number] 07:00:00* Test Item Value Reference Range Interpretation Comments THYROID STIMULATING HORMONE (test code = TSH) 1.650 uIU/mL 0.36-3.7 4 N TSH REFERENCE RANGES: EUTHYROID: 0.35 - 4.3 mIU/mL HYPO : > 5.5 mIU/mL HYPER : < 0.35 mIU/mL Are CHOL,TRIG & HDL ordered? NOCBC W/AUTO [id number] 06:48:00* Test Item Value Reference Range Interpretation [...] NRBC#) 0.00 K/mm3 0.0-0.1 N COMPREHENSIVE METABOLIC [id number] 06:42:00* Test Item Value Reference Range Interpretation [...] IUnit/L 45-117 Are CHOL,TRIG & HDL ordered? [id number] 06:42:00* Test Item Value Reference Range Interpretation Comments TRIGLYCERIDES (test code = TRIG) mg/dL 20-150 Are CHOL,TRIG & HDL ordered? [id number] 06:42:00* Test Item Value Reference Range Interpretation Comments LIPASE (test code = LIP) U/L 73.0-393.0 Are CHOL,TRIG & HDL ordered? [id number] 06:42:00* Test Item Value Reference Range Interpretation Comments MAGNESIUM (test code = MAG) mg/dL 1.8-2.4 Are CHOL,TRIG & HDL ordered? NOTHYROID STIMULATING [id number] 06:42:00* Test Item Value Reference Range Interpretation Comments THYROID STIMULATING HORMONE (test code = TSH) uIU/mL 0.36-3.7 4 Are CHOL,TRIG & HDL ordered? NO- CT ABD PELVIS W/[id number] 23:12:00 [facility] 1995 Age/S: 23 / F [address] [facility] Unit #: [id number] Loc: [place] [address] Phys: Thornton MD Acct: [id number] Di s Date: Status: REG ER PHONE #: Exam Date: 02/14/2019 2301 FAX #: Reason: Abdominal pain EXAMS: CPT CODE: [id number] CT ABD PELVIS W/CONT 15768 EXAM: - CT ABD PELVIS W/ CONT [...] cystic changes are noted in the pancreas. Th e gallbladder is normally distended. The liver, spleen, adre nal glands and kidneys demonstrate no significant abnormalities. The appendix has a normal appearance. The bowel is unremarkable. There is no adenopathy or free fluid. There is no acute osseo us abnormality. IMPRESSION: Acute panc reatitis. a t 2312 Reported and signed by: Rafal Gerard MD PAGE 1 Signed Report (CONTINUED) [facility] [place] 1995 Age/S: 23 / F [address] [facility] Unit #: [id number] Loc: [place] [address] Phys: Massimo Ram MD Acct: [id number] Dis Date: Status: REG ER PHONE #: Exam Date: 02/14/2019 2304 FAX #: [phone] Reason: Abdominal pain EXAMS: CPT CODE: [id number] CT ABD PELVIS W /CONT 86690 <Continued> CC: Andi Ram MD; Benjamin Saenz MD Technologist:LIZABETH CARRILLO RT(R),CT CTDI: DLP: Trnscb Date/Time: 02/14/2019 (2311) [email or web address] Orig Print D/T: S: 02/14/2019 (2314) PAGE 2 Signed Report - XR ABDOMEN [id number] 22:15:00 Name: RADHA HAMLIN [facility] : 1995 Age/S:23 /F [address] [facility] Unit#:[id number] Loc: [place] [address] Phys: Andi Ram MD Dis Date: PHONE #: [phone] Status: REG ER FAX #: [phone] Exam Date: 02/14/2019 Reason: Abdominal pain EXAMS: CPT CODE: [id number] XR ABDOMEN 2V 94718 EXAM: Abdomen, 3 views including upright study; INFORMATION: Abdominal pain; IMPRESSION: 1. Unremarkable bowel gas pattern; no evidence of obstruction; no evidence of pneumoperitoneum or other acute abnormalities. 2. No abnormal calcifications. at 2215 Reported and signed by: Ari Walsh M.D. CC: Andi Ram MD; Benjamin Saenz MD Techno logist: LIZABETH CARRILLO RT(R),CT Trnscrpt Data: (4766) [email or web address] Orig Print D/T: S: 02/14/2019 (3074) PAGE 1 Signed Report BASIC METABOLIC [id number] 21:10:00* Test Item Value Reference Range Interpretation [...] CA) 8.7 mg/dL 8.4-10.2 N HEPATIC FUNCTION [id number] 21:10:00* Test Item Value Reference Range Interpretation [...] code = ALKP) 83 U/L 38-126 N [id number] 21:10:00* Test Item Value Reference Range Interpretation Comments LIPASE (test code = LIP) 6276 U/L 128-270 H HCG SERUM [id number] 21:10:00* Test Item Value Reference Range Interpretation Comments HCG SERUM QUAL (test code = HCGQL) NEGATIVE NEGATIVE This HCGQL test is NOT applicable for MALE patients.Check with nurse about probable order error.If Tumor Marker Test needed, nurse should order test "HCGTU"(Test #550.00786) BASIC METABOLIC [id number] 21:05:00* Test Item Value Reference Range Interpretation [...] CA) 8.7 mg/dL 8.4-10.2 N HEPATIC FUNCTION [id number] 21:05:00* Test Item Value Reference Range Interpretation [...] TOTAL (test code = ALKP) IUnit/L 45-117 [id number] 21:05:00* Test Item Value Reference Range Interpretation Comments LIPASE (test code = LIP) Unit/L 144-286 HCG SERUM [id number] 21:05:00* Test Item Value Reference Range Interpretation Comments HCG SERUM QUAL (test code = HCGQL) NEGATIVE NEGATIVE This HCGQL test is NOT applicable for MALE patients.Check with nurse about probable order error.If Tumor Marker Test needed, nurse should order test "HCGTU"(Test #550.62524) BASIC METABOLIC [id number] 21:03:00* Test Item Value Reference Range Interpretation [...] code = CA) mg/dL 8.4-10.2 HEPATIC FUNCTION [id number] 21:03:00* Test Item Value Reference Range Interpretation [...] TOTAL (test code = ALKP) IUnit/L 45-117 [id number] 21:03:00* Test Item Value Reference Range Interpretation Comments LIPASE (test code = LIP) Unit/L 144-286 HCG SERUM [id number] 21:03:00* Test Item Value Reference Range Interpretation Comments HCG SERUM QUAL (test code = HCGQL) NEGATIVE NEGATIVE This HCGQL test is NOT applicable for MALE patients.Check with nurse about probable order error.If Tumor Marker Test needed, nurse should order test "HCGTU"(Test #550.52798) CBC W/O [id number] 20:54:00* Test Item Value Reference Range Interpretation [...] = MPV) 9.7 fL 6.7-11.0 N URINALYSIS [id number] 20:37:00* Test Item Value Reference Range Interpretation [...] per LPF NONE-FEW Urine Source? Clean CatchURINALYSIS [id number] 20:29:00* Test Item Value Reference Range Interpretation [...]
--- OUTSIDE RECORDS SUMMARY | 2020-03-17 16:25 | XMS REPORT | Continuity of Care Document ---
Author Author [facility] t Organization [facility] Address [address] [place] [place] [address] Phone Unavailable Care Team Providers Care Shellfish Harvester Name Role Phone AMINATA COLLAZO, MD SALCEDO PCP Julia CAMPOS Attphys Unavailable WYATT WOOD Attphys Unavailable DEONTE GUPTA Attphys Unavailable DEONTE GUPTA Admjensen Unavailable Payers Payer Name Policy Type Policy Number Effective Date Expiration Date Formerly [facility] Choice Excha [id number] 2016 00:0 0:00 [facility] Cdc Review Covid19 [id number] [facility] Problems This patient has no known problems. Allergies, Adverse Reactions, Alerts Allergy Name Allergy Type Status Severity Reaction(s) Onset Date Inacti ve Date Treating Clinician Comments Source No Known Allergies DA Active U 2019-02-15 00:00:00 [facility] No Known Allergies DA Active U 2019-02-14 00:00:00 [facility] Social History Social Habit Start Date Stop Date Quantity Comments Source Sex Assigned At 1995 00:00:00 1995 00:00:00 Female [facility] Medications Ordered Medication Name Filled Medication Name Start Date Stop Da te Current Medication? Ordering Clinician Indication Dosage Frequency Signature (SIG) Comments Components Source Atorvastatin Calcium Atorvastatin Calcium Yes 20 Bedtime [facility] Vitamin D3 Vitamin D3 Yes [address] Once A Week [facility] Cholecalciferol (Vitamin D3) (Weekly-D) 1,250 Mcg CAPS ULE Cholecalciferol (Vitamin D3) (Weekly-D) 1,250 Mcg CAPSULE 2019-11-24 00:00:00 [place] [address]15 Use As Directed [facility] Famotidine Famotidine 2019-11-24 00:00:00 No 20 Charleen ry 12 Hours [facility] Ferrous Sulfate Ferrous Sulfate 2019-11-24 00:00:00 No [facility] Vital Signs Vital Name Observation Time Observation Value Comments Source Body Temperature 2019-11-28 07:59:00 98.0 [degF] [facility] BMI (Body Mass Index) 2019-11-24 15:52:00 28.2 kg/m2 [facility] Weight 2019-11-24 10:27:00 154 [lb_av] [facility] Procedures Procedure Date / Time Performed Performing Clinician Sour e Computed tomography of abdomen and pelvis with contrast 2018 00:00:00 [facility] DEONTE [facility] Computed tomography of chest with contrast 2019-04-30 00:00:00 Aryan COURTNEY DEONTE [facility] Ultrasound of chest including mediastinum 2019-04-26 00:00:00 OMAR LEONARDO [facility] X-ray of chest, two views 2019-04-25 00:00:00 OMAR GREY CH I [facility] US Gallbladder 2019-04-24 00:00:00 ALONSO DEONTE [facility] Computed tomography of abdomen and pelvis with contrast 2018 00:00:00 [facility] DEONTE [facility] CT of abdomen and pelvis without contrast 2019-04-21 00:00:00 [facility] Plan of Care Planned Activity Planned Date Details Comments Source Instructions Urinary Tract Infection - Women [facility] Encounters Start Date/Time End Date/Time Encounter Type Admission Type Attendi [facility] Care Department Encounter ID Source 2019-11-25 10:56:00 2019-11-28 10:00:00 Discharged Inpatient 1 WYATT WOOD [facility] [id number] [facility] 2019-04-21 13:34:00 2019-05-04 11:35:00 Discharged Inpatient 1 DEONTE GUPTA [facility] [id number] [facility] Results Test Description Test Time Test Comments Results Result Comments Source CT ABD/PEL WITH CONTRAST-HOPD 2020-03-15 17:50:00 [facility] [address] [place] [address] Patient Name: RADHA HAMLIN MR #: [id number] : 1995 Age/Sex: 24/F Req #: [id number] Adm Physician: Ordered by: KEREN CAMPOS MD Report #: [id number] Location: [facility] Room/Bed: Procedure: [id number] HOPD/CT ABD/PEL WITH CONTRAST-HOPD Exam Date: 03/15/20 [...] = Lactic Acid Level) 0.7 0.5- 2.0 [facility] leukocytes automated count (number/volume)2019-11-26 05:30:00* Test Item Value Reference Range Interpretation Comments White Blood Count (test code = 6690-2) 9.71 4.8-10.8 [facility] erythrocytes automated count (number/volume)2019-11-26 05:30:00* Test Item Value Reference Range Interpretation Comments Red Blood Count (test code = 789-8) 3.31 3.6-5.1 [facility] hemoglobin measurement (moles/volume)2019-11-26 05:30:00* Test Item Value Reference Range Interpretation Comments Hemoglobin (test code = 30545-8) 11.1 12.0-16.0 [facility] HospitalAutomated blood hematocrit (volume fraction)2019-11-26 05:30:00* Test Item Value Reference Range Interpretation Comments Hematocrit (test code = 4544-3) 32.2 34.2-44.1 [facility] HospitalAutomated erythrocyte mean corpuscular cnxhop3320-25-13 05:30:00* Test Item Value Reference Range Interpretation Comments Mean Corpuscular Volume (test code = 787-2) 97.3 81-99 [facility] HospitalAutomated erythrocyte mean corpuscular hemoglobin (mass per erythrocyte)2019-11-26 05:30:00* Test Item Value Reference Range Interpretation Comments Mean Corpuscular Hemoglobin (test code = 785-6) 33.5 28-32 [facility] HospitalAut[facility] erythrocyte mean corpuscular hemoglobin concentration measurement (mass/volume)2019-11-26 05:30:00* Test Item Value Reference Range Interpretation Comments Mean Corpuscular Hemoglobin Concent (test code = 786-4) 34.5 31-35 [facility] HospitalRDW VcmKu-Pap9968-08-07 05:30:00* Test Item Value Reference Range Interpretation Comments Red Cell Distribution Width (test code = 61646-6) 12.6 11.7 -14.4 [facility] HospitalAutomated blood platelet count (count/volume)2019-11-26 05:30:00* Test Item Value Reference Range Interpretation Comments Platelet Count (test code = 777-3) 215 140-360 [facility] neutrophil count as percentage of total bjbgvjrvvl0841-10-53 05:30:00* Test Item Value Reference Range Interpretation Comments Neutrophils (%) (Auto) (test code = 35953-5) 64.7 38.7-80.0 [facility] HospitalAutomated blood lymphocyte count as percentage ot total nwptqyurch6044-76-43 05:30:00* Test Item Value Reference Range Interpretation Comments Lymphocytes (%) (Auto) (test code = 736-9) 23.3 18.0-39.1 [facility] HospitalAutomated blood monocyte count as percentage of total slpfuwpnln9538-80-62 05:30:00* Test Item Value Reference Range Interpretation Comments Monocytes (%) (Auto) (test code = 5905-5) 10.8 4.4-11.3 [facility] HospitalAutomated blood eosinophil count as percentage of total svwcabatru7919-28-77 05:30:00* Test Item Value Reference Range Interpretation Comments Eosinophils (%) (Auto) (test code = 713-8) 0.4 0.0-6.0 [facility] HospitalAutformerly [facility], [facility] hospitaled blood basophil count as percentage of total mxvnkqiqgy1667-08-56 05:30:00* Test Item Value Reference Range Interpretation Comments Basophils (%) (Auto) (test code = 706-2) 0.3 0.0-1.0 [facility] HospitalFluoroscopic procedure less than one hour ejvdancf4567-27-58 05:30:00* Test Item Value Reference Range Interpretation Comments IM GRANULOCYTES % (test code = IM GRANULOCYTES %) 0.5 0.0- 1.0 [facility] HospitalAutomated blood neutrophil count 2019-11-26 05:30:00* Test Item Value Reference Range Interpretation Comments Neutrophils # (Auto) (test code = 751-8) 6.3 2.1-6.9 [facility] HospitalBlood lymphocytes count (number/volume) 2019-11-26 05:30:00* Test Item Value Reference Range Interpretation Comments Lymphocytes # (Auto) (test code = 01990-4) 2.3 1.0-3.2 [facility] HospitalBl[facility] monocytes automated count (number/volume)2019-11-26 05:30:00* Test Item Value Reference Range Interpretation Comments Monocytes # (Auto) (test code = 742-7) 1.1 0.2-0.8 [facility] HospitalAutomated blood eosinophil count 2019-11-26 05:30:00* Test Item Value Reference Range Interpretation Comments Eosinophils # (Auto) (test code = 711-2) 0.0 0.0-0.4 [facility] HospitalAutomated blood basophil count (count/volume)2019-11-26 05:30:00* Test Item Value Reference Range Interpretation Comments Basophils # (Auto) (test code = 704-7) 0.0 0.0-0.1 [facility] HospitalFluoroscopic procedure less than one hour uidrkfzj0865-75-86 05:30:00* Test Item Value Reference Range Interpretation Comments Absolute Immature Granulocyte (auto (kemi t code = Absolute Immature Granulocyte (auto) 0.05 0-0.1 [facility] plasma sodium measurement (moles/volume)2019-11-26 05:30:00* Test Item Value Reference Range Interpretation Comments Sodium Level (test code = 2951-2) 136 136-145 [facility]neyerum or plasma potassium measurement (moles/volume)2019-11-26 05:30:00* Test Item Value Reference Range Interpretation Comments Potassium Level (test code = 2823-3) 4.0 3.5-5.1 [facility]neyerum or plasma chloride measurement (moles/volume)2019-11-26 05:30:00* Test Item Value Reference Range Interpretation Comments Chloride Level (test code = 2075-0) 108 98-107 [facility]neyerum or plasma carbon dioxide, total measurement (moles/volume)2019-11-26 05:30:00* Test Item Value Reference Range Interpretation Comments Carbon Dioxide Level (test code = 2028-9) 18 22-29 [facility] McKinneyerum or plasma anion flo5977-94-08 05:30:00* Test Item Value Reference Range Interpretation Comments Anion Gap (test code = 80051-9) 14.0 8-16 [facility] McKinneyerum or plasma urea nitrogen measurement (mass/volume)2019-11-26 05:30:00* Test Item Value Reference Range Interpretation Comments Blood Urea Nitrogen (test code = 3094-0) 7 - [facility]neyerum or plasma creatinine measurement (mass/volume)2019-11-26 05:30:00* Test Item Value Reference Range Interpretation Comments Creatinine (test code = 2160-0) 0.77 0.57-1.11 [facility]neyerum or plasma urea nitrogen/creatinine mass fnyco0252-85-11 05:30:00* Test Item Value Reference Range Interpretation Comments BUN/Creatinine Ratio (test code = 3097-3) 9 - [facility] HospitalEstimated glomerular filtration rate (GFR) xzfekrdjfgqgy4810-75-60 05:30:00* Test Item Value Reference Range Interpretation Comments Estimat Glomerular Filtration Rate (test code = 819345962) > 60 >60 Ranges were taken from the National Kidney Disease Education Program and the [facility] Kidney Foundation literature.Reference ranges:60 or greater: Jkyfrk30-24 ( for 3 consecutive months): Chronic kidney disease 15 or less: Kidney failureMemorial Hermann Greater Heights HospitalGlucose jzkxmgmbvoa0608-74-57 05:30:00* Test Item Value Reference Range Interpretation Comments Glucose Level (test code = WAN1076) 88 74-118 [facility] McKinneyerum or plasma calcium measurement (mass/volume)2019-11-26 05:30:00* Test Item Value Reference Range Interpretation Comments Calcium Level (test code = 57838-4) 8.6 8.4-10.2 [facility] HospitalBlood ybqoshe0998-18-54 12:20:00* Test Item Value Reference Range Interpretation Comments Blood Culture (test code = 25209605) NO GROWTH AFTER 72 HOURS [facility] HospitalBacterial urine nquwnyf6809-95-71 12:15:00* Test Item Value Reference Range Interpretation Comments Urine Culture (test code = 630-4) ESCHERICHIA COLI [facility] HospitalCT ABD/PEL WO HLTPVIST-PBMG3857-03-05 11:58:00 [facility] [address] [place] [address] Patient Name: RADHA HAMLIN #: [id number] : 1995 Age/Sex: 24/F Req #: [id number] [facility] Physician: Ordered by: WYATT WOOD MD Report #: [id number] Location: [facility] Room/Bed: Procedure: HOPD/CT AB D/PEL WO CONTRAST-HOPD [...] WYATT WOOD MD CXR 2 VIEW - HINA8951-54-84 11:33:00 [place] [address] Patient Name: RADHA HAMLIN MR #: [id number] : 1995 Age/Sex: 24/F Req #: [id number] Adm Physician: Ordered by: WYATT WOOD MD Report #: [id number] Location: [facility] Room/Bed: Procedure: HOPD/CXR 2 VIEW - HOPD [...] MD Fluoroscopic procedure less than one hour fwkifypi6289-78-97 11:22:00* Test Item Value Reference Range Interpretation [...] complexity tests.Testing performed by [facility] [address] [place], [place] [phone] Director: Werner Olvera M.D.CLIA # [id number] Hermann Greater Heights HospitalLipase 2019-05-04 08:29:00* Test Item Value Reference Range Interpretation Comments Lipase (test code = 3040-3) 224 8-78 H [facility] HospitalWhite Blood Wsjen3223-59-82 08:28:00* Test Item Value Reference Range Interpretation Comments White Blood Count (test code = 6690-2) 11.01 4.8-10.8 H [facility] HospitalRed Blood Quzix6124-03-72 08:28:00* Test Item Value Reference Range Interpretation Comments Red Blood Count (test code = 789-8) 3.76 3.6-5.1 [facility] HospitalHemoglobin2019-11-14 08:28:00* Test Item Value Reference Range Interpretation Comments Hemoglobin (test code = 64995-1) 12.4 12.0-16.0 [facility] HospitalHematocrit2019-11-14 08:28:00* Test Item Value Reference Range Interpretation Comments Hematocrit (test code = 4544-3) 37.4 34.2-44.1 [facility] HospitalMean Corpuscular Byccrm0790-70-19 08:28:00* Test Item Value Reference Range Interpretation Comments Mean Corpuscular Volume (test code = 787-2) 99.5 81-99 H [facility] HospitalMean Corpuscular Kswferhboe6546-92-28 08:28:00* Test Item Value Reference Range Interpretation Comments Mean Corpuscular Hemoglobin (test code = 785-6) 33.0 28-32 H [facility] HospitalMean Corpuscular Hemoglobin Concent 2019-05-04 08:28:00* Test Item Value Reference Range Interpretation Comments Mean Corpuscular Hemoglobin Concent (test code = 786-4) 33.2 31-35 [facility] HospitalRed Cell Distribution Vqalu0781-51-74 08:28:00* Test Item Value Reference Range Interpretation Comments Red Cell Distribution Width (test code = 74971-1) 12.8 11.7 -14.4 [facility] HospitalPlatelet Qnato9181-92-88 08:28:00* Test Item Value Reference Range Interpretation Comments Platelet Count (test code = 777-3) 712 140-360 H [facility] HospitalNeutrophils (%) (Auto)2019-05-04 08:28:00 * Test Item Value Reference Range Interpretation Comments Neutrophils (%) (Auto) (test code = 73576-1) 53.3 38.7-80.0 [facility] HospitalLymphocytes (%) (Auto)2019-05-04 08:28:00 * Test Item Value Reference Range Interpretation Comments Lymphocytes (%) (Auto) (test code = 736-9) 21.9 18.0-39.1 [facility] HospitalMonocytes (%) (Auto)2019-05-04 08:28:00* Test Item Value Reference Range Interpretation Comments Monocytes (%) (Auto) (test code = 5905-5) 7.2 4.4-11.3 [facility] HospitalEosinophils (%) (Auto)2019-05-04 08:28:00 * Test Item Value Reference Range Interpretation Comments Eosinophils (%) (Auto) (test code = 713-8) 12.5 0.0-6.0 H [facility] HospitalBasophils (%) (Auto)2019-05-04 08:28:00* Test Item Value Reference Range Interpretation Comments Basophils (%) (Auto) (test code = 706-2) 0.8 0.0-1.0 [facility] HospitalIM GRANULOCYTES %2019-05-04 08:28:00* Test Item Value Reference Range Interpretation Comments IM GRANULOCYTES % (test code = IM GRANULOCYTES %) 4.3 0.0- 1.0 H [facility] HospitalNeutrophils # (Auto)2019-05-04 08:28:00* Test Item Value Reference Range Interpretation Comments Neutrophils # (Auto) (test code = 751-8) 5.9 2.1-6.9 [facility] HospitalLymphocytes # (Auto)2019-05-04 08:28:00* Test Item Value Reference Range Interpretation Comments Lymphocytes # (Auto) (test code = 65582-6) 2.4 1.0-3.2 [facility] HospitalMonocytes # (Auto)2019-05-04 08:28:00* Test Item Value Reference Range Interpretation Comments Monocytes # (Auto) (test code = 742-7) 0.8 0.2-0.8 [facility] HospitalEosinophils # (Auto)2019-05-04 08:28:00* Test Item Value Reference Range Interpretation Comments Eosinophils # (Auto) (test code = 711-2) 1.4 0.0-0.4 H [facility] HospitalBasophils # (Auto)2019-05-04 08:28:00* Test Item Value Reference Range Interpretation Comments Basophils # (Auto) (test code = 704-7) 0.1 0.0-0.1 [facility] HospitalAbsolute Immature Granulocyte (auto 2019-05-04 08:28:00* Test Item Value Reference Range Interpretation Comments Absolute Immature Granulocyte (auto (kemi t code = Absolute Immature Granulocyte (auto) 0.47 0-0.1 H [facility]neyerum or plasma lipase measurement (enzymatic activity/volume)2019-05-04 06:40:00* Test Item Value Reference Range Interpretation Comments Lipase (test code = 3040-3) 224 8-78 [facility] HospitalBlood Rnbukhb4817-77-77 20:31:00* Test Item Value Reference Range Interpretation Comments Blood Culture (test code = 29830054) NO GROWTH AFTER 48 HOURS [facility] HospitalProcalcitonin2019-11-13 19:32:00* Test Item Value Reference Range Interpretation Comments Procalcitonin (test code = 438386720) 0.16 0.00-0.08 H A procalcitonin (PCT) level [...] any concentrations <2 ng/mL are obtained.Performed at: [facility] Lab[address] [id number] Director: Eleno Hanks MD, Phone: [phone] Hermann Greater Heights HospitalDifferential Total Cells Ekdvnpe0841-88-62 07:24:00* Test Item Value Reference Range Interpretation Comments Differential Total Cells Counted (test code = Differmelissa tial Total Cells Counted) 100 [facility] HospitalNeutrophils % (Manual)2019-05-03 07:24:00 * Test Item Value Reference Range Interpretation Comments Neutrophils % (Manual) (test code = 04253-3) 60 40-74 [facility] HospitalBand Neutrophils %2019-05-03 07:24:00* Test Item Value Reference Range Interpretation Comments Band Neutrophils % (test code = 764-1) 1 [facility] HospitalLymphocytes % (Manual)2019-05-03 07:24:00 * Test Item Value Reference Range Interpretation Comments Lymphocytes % (Manual) (test code = 737-7) 17 19-48 L [facility] HospitalMonocytes % (Manual)2019-05-03 07:24:00* Test Item Value Reference Range Interpretation Comments Monocytes % (Manual) (test code = 744-3) 4 3.4-9.0 [facility] HospitalEosinophils % (Manual)2019-05-03 07:24:00 * Test Item Value Reference Range Interpretation Comments Eosinophils % (Manual) (test code = 714-6) 18 0-7 H [facility] HospitalPlatelet Uzyjomje8141-87-04 07:24:00* Test Item Value Reference Range Interpretation Comments Platelet Estimate (test code = 91840-3) MODERATELY INCREASED [facility] HospitalPlatelet Morphology Suwnxnw3631-88-64 07:24:00* Test Item Value Reference Range Interpretation Comments Platelet Morphology Comment (test code = 26380-9) NORMAL No EDTA clumping seen.[facility] HospitalPoikilocytosis 2019-05-03 07:24:00* Test Item Value Reference Range Interpretation Comments Poikilocytosis (test code = 779-9) SLIGHT [facility] HospitalAnisocytosis2019-11-13 07:24:00* Test Item Value Reference Range Interpretation Comments Anisocytosis (test code = 702-1) SLIGHT [facility] HospitalMicrocytosis2019-11-13 07:24:00* Test Item Value Reference Range Interpretation Comments Microcytosis (test code = 741-9) SLIGHT [facility] HospitalMacrocytosis2019-11-13 07:24:00* Test Item Value Reference Range Interpretation Comments Macrocytosis (test code = 738-5) SLIGHT [facility] HospitalOvalocytes2019-11-13 07:24:00* Test Item Value Reference Range Interpretation Comments Ovalocytes (test code = 774-0) FEW [facility] HospitalHelmet Qzthc1384-11-29 07:24:00* Test Item Value Reference Range Interpretation Comments Helmet Cells (test code = 42885-8) RARE [facility] HospitalRed Cell Morphology Pkwdhsu7732-99-22 07:24:00* Test Item Value Reference Range Interpretation Comments Red Cell Morphology Comment (test code = 6742-1) ABNORMAL [facility] HospitalFluoroscopic procedure less than one hour mrfjipty5343-55-31 04:14:00* Test Item Value Reference Range Interpretation Comments Differential Total Cells Counted (test code = Lashanda srinivasan Total Cells Counted) 100 [facility] blood neutrophils/100 leukocytes 2019-05-03 04:14:00* Test Item Value Reference Range Interpretation Comments Neutrophils % (Manual) (test code = 28383-1) 60 40-74 [facility] blood band neutrophils form/100 yplwetjwjv8935-11-10 04:14:00* Test Item Value Reference Range Interpretation Comments Band Neutrophils % (test code = 764-1) 1 [facility] blood lymphocytes/100 leukocytes 2019-05-03 04:14:00* Test Item Value Reference Range Interpretation Comments Lymphocytes % (Manual) (test code = 737-7) 17 19-48 [facility] blood monocytes/100 leukocytes 2019-05-03 04:14:00* Test Item Value Reference Range Interpretation Comments Monocytes % (Manual) (test code = 744-3) 4 3.4-9.0 [facility] blood eosinophil count as percentage of total erhhzdrsmb1690-65-63 04:14:00* Test Item Value Reference Range Interpretation Comments Eosinophils % (Manual) (test code = 714-6) 18 0-7 [facility] platelets count by estimate (number/volume)2019-05-03 04:14:00* Test Item Value Reference Range Interpretation Comments Platelet Estimate (test code = 03724-4) MODERATELY INCREASED [facility] HospitalPlatelet oqibmmldry0820-32-49 04:14:00* Test Item Value Reference Range Interpretation Comments Platelet Morphology Comment (test code = 17238-6) NORMAL No EDTA clumping seen.[facility] poikilocytosis detection by light eavtifzaoq9539-36-16 04:14:00* Test Item Value Reference Range Interpretation Comments Poikilocytosis (test code = 779-9) SLIGHT [facility] HospitalBlood anisocytosis detection by light wfnwpjdjue1343-75-90 04:14:00* Test Item Value Reference Range Interpretation Comments Anisocytosis (test code = 702-1) [facility]IGHT [facility] microcytes detection by light xjzfidrzsr4497-23-40 04:14:00* Test Item Value Reference Range Interpretation Comments Microcytosis (test code = 741-9) SLIGHT [facility] macrocytes detection by light xotxsswytg7914-26-17 04:14:00* Test Item Value Reference Range Interpretation Comments Macrocytosis (test code = 738-5) SLIGHT [facility] ovalocytes detection by light husfznfnsx0978-83-52 04:14:00* Test Item Value Reference Range Interpretation Comments Ovalocytes (test code = 774-0) FEW [facility] helmet cells detection by light oceeuncdhe2421-52-16 04:14:00* Test Item Value Reference Range Interpretation Comments Helmet Cells (test code = 23401-7) RARE [facility] HospitalRBC lexmgqaxdd0255-23-70 04:14:00* Test Item Value Reference Range Interpretation Comments Red Cell Morphology Comment (test code = 6742-1) ABNORMAL [facility] Aqoob7770-34-33 07:35:00* Test Item Value Reference Range Interpretation Comments Sodium Level (test code = 2951-2) 133 136-145 L [facility] HospitalPotassium Avpcg7398-86-28 07:35:00* Test Item Value Reference Range Interpretation Comments Potassium Level (test code = 2823-3) 4.1 3.5-5.1 [facility] HospitalChloride Bmoky0440-63-81 07:35:00* Test Item Value Reference Range Interpretation Comments Chloride Level (test code = 2075-0) 99 98-107 [facility] HospitalCarbon Dioxide Lmpnz0007-90-30 07:35:00* Test Item Value Reference Range Interpretation Comments Carbon Dioxide Level (test code = 2028-9) 25 22-29 [facility] HospitalAnion Gen0254-05-72 07:35:00* Test Item Value Reference Range Interpretation Comments Anion Gap (test code = 34573-9) 13.1 8-16 [facility] HospitalBlood Urea Zczaawek0658-05-87 07:35:00* Test Item Value Reference Range Interpretation Comments Blood Urea Nitrogen (test code = 3094-0) 9 7-26 [facility] HospitalCreatinine2019-11-12 07:35:00* Test Item Value Reference Range Interpretation Comments Creatinine (test code = 2160-0) 0.64 0.57-1.11 [facility] HospitalBUN/Creatinine Tniwb3567-59-43 07:35:00* Test Item Value Reference Range Interpretation Comments BUN/Creatinine Ratio (test code = 3097-3) 14 6-25 [facility] HospitalEstimat Glomerular Filtration Rate 2019-05-02 07:35:00* Test Item Value Reference Range Interpretation Comments Estimat Glomerular Filtration Rate (test code = 915174695) > 60 >60 Ranges were taken from the National Kidney Disease Education Program and the [facility] Kidney Foundation literature.Reference ranges:60 or greater: Facvnc51-04 ( for 3 consecutive months): Chronic kidney disease 15 or less: Kidney failureMemorial Hermann Greater Heights HospitalGlucose Tgwtl2600-26-92 07:35:00* Test Item Value Reference Range Interpretation Comments Glucose Level (test code = XNB4504) 76 74-118 [facility] HospitalCalcium Ifkbf0285-64-54 07:35:00* Test Item Value Reference Range Interpretation Comments Calcium Level (test code = 77454-0) 8.6 8.4-10.2 [facility] HospitalProcalcitonin (PCT) mvnlh4852-88-46 18:40:00* Test Item Value Reference Range Interpretation Comments Procalcitonin (test code = 369156473) 0.16 0.00-0.08 A procalcitonin (PCT) level above [...] concentrations <2 ng/mL are obtained.Performed at: - [facility] [id number] Director: Eleno Hanks MD, Phone: [phone] [facility]ann Greater Heights HospitalClostridium Difficile Toxin A & O8474-53-64 08:25:00* Test Item Value Reference Range Interpretation Comments Clostridium Difficile Toxin A & B (test code = 867446217) NEGATIVE NEGATIVE Testing on stool aspirate specimens is outside marketing project specialist claims since specime n type not validated on this assay.[facility] HospitalTotal Uuqscqrbc7088-66-91 05:51:00* Test Item Value Reference Range Interpretation Comments Total Bilirubin (test code = 1975-2) 0.5 0.2-1.2 [facility] HospitalAspartate Amino Transf (AST/SGOT) 2019-05-01 05:51:00* Test Item Value Reference Range Interpretation Comments Aspartate Amino Transf (AST/SGOT) (test code = Aspartate Amino Transf (AST/SGOT)) 19 5-34 [facility] HospitalAlanine Aminotransferase (ALT/SGPT) 2019-05-01 05:51:00* Test Item Value Reference Range Interpretation Comments Alanine Aminotransferase (ALT/SGPT) (test code = 1742-6) 20 0-55 [facility] HospitalTotal Idgeyco2095-65-86 05:51:00* Test Item Value Reference Range Interpretation Comments Total Protein (test code = 2885-2) 6.6 6.5-8.1 [facility] HospitalAlbumin2019-11-11 05:51:00* Test Item Value Reference Range Interpretation Comments Albumin (test code = 1751-7) 2.6 3.5-5.0 L [facility] HospitalGlobulin2019-11-11 05:51:00* Test Item Value Reference Range Interpretation Comments Globulin (test code = 35434-0) 4.0 2.3-3.5 H [facility] HospitalAlbumin/Globulin Yvkyk1111-86-91 05:51:00 * Test Item Value Reference Range Interpretation Comments Albumin/Globulin Ratio (test code = 1759-0) 0.7 0.8-2.0 L [facility] HospitalAlkaline Nmmvhxdxegy2789-70-05 05:51:00* Test Item Value Reference Range Interpretation Comments Alkaline Phosphatase (test code = 6768-6) 179 40-150 H [facility] McKinneyerum or plasma total bilirubin measurement (mass/volume)2019-05-01 03:50:00* Test Item Value Reference Range Interpretation Comments Total Bilirubin (test code = 1975-2) 0.5 0.2-1.2 [facility] HospitalFluoroscopic procedure less than one hour maknwybv4620-53-07 03:50:00* Test Item Value Reference Range Interpretation Comments Aspartate Amino Transf (AST/SGOT) (test code = Aspartate Amino Transf (AST/SGOT)) 19 5-34 [facility] McKinneyerum or plasma alanine aminotransferase measurement (enzymatic activity/volume)2019-05-01 03:50:00* Test Item Value Reference Range Interpretation Comments Alanine Aminotransferase (ALT/SGPT) (test code = 1742-6) 20 0-55 [facility] McKinneyerum or plasma protein measurement (mass/volume)2019-05-01 03:50:00* Test Item Value Reference Range Interpretation Comments Total Protein (test code = 2885-2) 6.6 6.5-8.1 [facility] McKinneyerum or plasma albumin measurement (mass/volume)2019-05-01 03:50:00* Test Item Value Reference Range Interpretation Comments Albumin (test code = 1751-7) 2.6 3.5-5.0 [facility] HospitalPlasma globulin measurement (mass/volume) 2019-05-01 03:50:00* Test Item Value Reference Range Interpretation Comments Globulin (test code = 20480-0) 4.0 2.3-3.5 [facility] McKinneyerum or plasma albumin/globulin mass iwzyy1021-47-27 03:50:00* Test Item Value Reference Range Interpretation Comments Albumin/Globulin Ratio (test code = 1759-0) 0.7 0.8-2.0 [facility] McKinneyerum or plasma alkaline phosphatase measurement (enzymatic activity/volume)2019-05-01 03:50:00* Test Item Value Reference Range Interpretation Comments Alkaline Phosphatase (test code = 6768-6) 179 40-150 [facility] HospitalClostridium difficile A and B toxin assay 2019-04-30 15:04:00* Test Item Value Reference Range Interpretation Comments Clostridium Difficile Toxin A & B (test code = 409100267) NEGATIVE NEGATIVE Testing on stool aspirate specimens is outside marketing project specialist claims since specime n type not validated on this assay.[facility] HospitalCT ABDOMEN/PELVIS U7181-55-90 10:13:00 [facility] [address] [place] [address] Patient Name: RADHA HAMLIN MR #: [id number] : 1995 Age/Sex: 23/F Req #: [id number] Adm Physician: DEONTE GUPTA MD Ordered by: DEONTE GUPTA MD Report #: [id number] Location: [facility] Room/Bed: [facility] Procedure: [id number] CT/ CT ABDOMEN/PELVIS W Exam Date: 04/30/19 [...] GUPTA MD CT CHEST W 2019-04-30 10:13:00 [place] [address] Patient Name: RADHA HAMLIN MR #: [id number] : 1995 Age/Sex: 23/F Req #: [id number] Adm Physician: DEONTE GUPTA MD Ordered by: DEONTE GUPTA MD Report #: [id number] Location: MED/SURG2 Room/Bed: [facility] Procedure: [id number] CT/ CT CHEST W Exam Date: 04/30/19 [...] 1024 COPY TO: DEONTE GUPTA MD Bedside Rowdaba6766-01-37 23:55:00* Test Item Value Reference Range Interpretation Comments Bedside Glucose (test code = 86664-4) 132 70-120 H Meter ID: [id number] [facility] CenterCapillary blood glucose measurement by glucometer (mass/volume)2019-04-29 19:11:00* Test Item Value Reference Range Interpretation Comments Bedside Glucose (test code = 39832-4) 132 70-120 Meter ID: [id number] [facility] CenterAmylase Level 2019-04-29 06:13:00* Test Item Value Reference Range Interpretation Comments Amylase Level (test code = 1798-8) 114 25-125 [facility] McKinneyerum or plasma amylase measurement (enzymatic activity/volume)2019-04-29 04:08:00* Test Item Value Reference Range Interpretation Comments Amylase Level (test code = 1798-8) 114 25-125 [facility] HospitalHEPTOBILIARY W ZAYLV6238-02-07 17:48:00 [facility] [address] [place] [address] Patient Name: RADHA HAMLIN MR #: [id number] : 1995 Age/Sex: 23/F Req #: [id number] Adm Physician: DEONTE GUPTA MD Ordered by: DEONTE GUPTA MD Report #: [id number] Location: MED/SURG2 Room/Bed: 204 Procedure: [id number] NM/ HEPTOBILIARY W PHARM Exam Date: 04/28/19 [...] 1752 COPY TO: DEONTE GUPTA MD Urine Lvhl7450-72-77 12:57:00* Test Item Value Reference Range Interpretation Comments Urine Test (test code = 2106-3) NEGATIVE NEGATIVE [facility] HospitalUrine human chorionic gonadotropin (hCG) ebzsebaaw3975-38-22 11:43:00* Test Item Value Reference Range Interpretation Comments Urine Test (test code = 2106-3) NEGATIVE NEGATIVE [facility] HospitalHypochromasia2019-11-08 07:42:00* Test Item Value Reference Range Interpretation Comments Hypochromasia (test code = 728-6) SLIGHT [facility] HospitalBlood hypochromia detection by light lthbzbgaiq2912-68-05 03:45:00* Test Item Value Reference Range Interpretation Comments Hypochromasia (test code = 728-6) SLIGHT [facility] HospitalInfluenza Virus Types A,B Antigen 2019-04-26 15:27:00* Test Item Value Reference Range Interpretation Comments Influenza Virus Types A,B Antigen (test code = 59436-0) NEGATIVE NEGATIVE [facility] HospitalUS CHEST (INCL MEDIASTINUM)2019-04-26 14:35:00 [facility] [address] [place] [address] Patient Name: RADHA HAMLIN MR #: [id number] : 1995 Age/Sex: 23/F Req #: [id number] Adm Physician: DEONTE GUPTA MD Ordered by: OMAR POWERS MD Report #: [id number] Location: MED/SURG2 Room[facility]Bed: [facility] Procedure: [id number] US/US CHEST (INCL MEDIASTINUM) Exam Date: Exam [...] virus A and B antigen identification by jbwvksvvvfohbmmoym5722-66-28 13:51:00* Test Item Value Reference Range Interpretation Comments Influenza Virus Types A,B Antigen (test code = 06814-3) NEGATIVE NEGATIVE [facility] HospitalBasophils % (Manual)2019-04-26 07:12:00* Test Item Value Reference Range Interpretation Comments Basophils % (Manual) (test code = 23574-4) 1 0-1.5 [facility] HospitalManual basophil mgeaeodpfn7747-41-49 03:50:00* Test Item Value Reference Range Interpretation Comments Basophils % (Manual) (test code = 16105-7) 1 0-1.5 [facility] HospitalCHEST 2 RRSCT4127-29-70 05:36:00 [place] [address] Patient Name: RADHA HAMLIN MR #: [id number] : 1995 Age/Sex: 23/F Req #: [id number] Adm Physician: DEONTE GUPTA MD Ordered by: OMAR GREY MD Report #: [id number] Location: MED/SURG2 Room/Bed: [facility] Procedure: [id number] DX/CHEST 2 VIEWS Exam Date: 04/25/19 Exam [...] 04/25/19537 COPY TO : OMAR GREY MD AKXRMSTUFOJ2471-95-48 12:42:00 [place] [address] Patient Name: RADHA HAMLIN MR #: [id number] : 1995 Age/Sex: 23/F Req #: [id number] Adm Physician: DEONTE GUPTA MD Ordered by: DEONTE GUPTA MD Report #: [id number] Location: MED/SURG2 Room/Bed: [facility] Procedure: [id number] US/ US GALLBLADDER Exam Date: 04/24/19 Exam [...] 12:44 PM Dictated By: PAIGE BISHOP MD [id number] Transcribed By: SULEMA AYALA on 04/24/19 1247 COPY TO: DEONTE GUPTA MD Lactic Acid Level 2019-04-24 05:47:00* Test Item Value Reference Range Interpretation Comments Lactic Acid Level (test code = Lactic Acid Level) 0.7 0.5- 2.0 [facility] HospitalUrine UPW2479-32-32 21:21:00* Test Item Value Reference Range Interpretation Comments Urine WBC (test code = 5821-4) 0-5 0-5 [facility] HospitalUrine CXX4952-40-60 21:21:00* Test Item Value Reference Range Interpretation Comments Urine RBC (test code = 66200-3) 0-5 0-5 [facility] HospitalUrine Wgupsfak1841-93-22 21:21:00* Test Item Value Reference Range Interpretation Comments Urine Bacteria (test code = 05373-8) FEW NONE [facility] Epithelial Nbeyh9493-84-21 21:21:00 * Test Item Value Reference Range Interpretation Comments Urine Epithelial Cells (test code = 60543-0) FEW NONE [facility] HospitalUrine Bubjv2590-08-50 20:57:00* Test Item Value Reference Range Interpretation Comments Urine Color (test code = 5778-6) YELLOW YELLOW [facility] HospitalUrine Ypbczkd0142-76-10 20:57:00* Test Item Value Reference Range Interpretation Comments Urine Clarity (test code = 58219-2) CLEAR CLEAR [facility] HospitalUrine Specific Fnvymlj1369-04-89 20:57:00 * Test Item Value Reference Range Interpretation Comments Urine Specific [place] (test code = 5811-5) <=1.005 1.010-1.02 5 [facility] HospitalUrine pF9795-26-69 20:57:00* Test Item Value Reference Range Interpretation Comments Urine pH (test code = 94838-2) 6.5 5-7 [facility] HospitalUrine Leukocyte Cywezrgh8341-65-39 20:57:00* Test Item Value Reference Range Interpretation Comments Urine Leukocyte Esterase (test code = 98689-2) NEGATIVE NEGATIV E [facility] HospitalUrine Uurveki0958-98-23 20:57:00* Test Item Value Reference Range Interpretation Comments Urine Nitrite (test code = 80655-2) NEGATIVE NEGATIVE [facility] HospitalUrine Yyyngnr2456-08-41 20:57:00* Test Item Value Reference Range Interpretation Comments Urine Protein (test code = 50633-1) NEGATIVE NEGATIVE [facility] HospitalUrine Glucose (UA)2019-04-23 20:57:00* Test Item Value Reference Range Interpretation Comments Urine Glucose (UA) (test code = 25435-5) NEGATIVE NEGATIVE [facility] HospitalUrine Ojtlfqv2994-13-63 20:57:00* Test Item Value Reference Range Interpretation Comments Urine Ketones (test code = 41421-1) NEGATIVE NEGATIVE [facility] HospitalUrine Ebqlialohbpx3538-36-89 20:57:00* Test Item Value Reference Range Interpretation Comments Urine Urobilinogen (test code = 09625-3) 0.2 0.2-1 [facility] HospitalUrine Hkfsjtltm6030-67-87 20:57:00* Test Item Value Reference Range Interpretation Comments Urine Bilirubin (test code = 1977-8) NEGATIVE NEGATIVE [facility] HospitalUrine Vsanw2074-05-99 20:57:00* Test Item Value Reference Range Interpretation Comments Urine Blood (test code = 13628-9) NEGATIVE NEGATIVE [facility] HospitalCT ABDOMEN/PELVIS H5327-79-74 20:00:00 [facility] [address] [place] [address] Patient Name: RADHA HAMLIN MR #: [id number] : 1995 Age/Sex: 23/F Req #: [id number] Adm Physician: DEONTE GUPTA MD Ordered by: DEONTE GUPTA MD Report #: [id number] Location: MED/SURG2 Room/Bed: [facility] Procedure: [id number] CT/ CT ABDOMEN/PELVIS W Exam Date: 04/23/19 [...] COPY TO: DEONTE GUPTA MD Urine color yfwbdaqykwnha1076-19-70 19:14:00* Test Item Value Reference Range Interpretation Comments Urine Color (test code = 5778-6) YELLOW YELLOW [facility] HospitalUrine eezrrtd9416-42-26 19:14:00* Test Item Value Reference Range Interpretation Comments Urine Clarity (test code = 95225-6) CLEAR CLEAR [facility]neypecific gravity of Urine by Test strip 2019-04-23 19:14:00* Test Item Value Reference Range Interpretation Comments Urine Specific [place] (test code = 5811-5) <=1.005 1.010-1.02 5 [facility] HospitalUrine pH measurement by automated test dqjdl2948-68-73 19:14:00* Test Item Value Reference Range Interpretation Comments Urine pH (test code = 06907-8) 6.5 5-7 [facility] HospitalUrine leukocyte esterase detection by automated test jsdsj4029-42-68 19:14:00* Test Item Value Reference Range Interpretation Comments Urine Leukocyte Esterase (test code = 46224-2) NEGATIVE NEGATIV E [facility] HospitalUrine nitrite detection by automated test jopbo4315-40-90 19:14:00* Test Item Value Reference Range Interpretation Comments Urine Nitrite (test code = 86909-7) NEGATIVE NEGATIVE [facility] HospitalUrine protein detection by automated test fjbxa5725-14-46 19:14:00* Test Item Value Reference Range Interpretation Comments Urine Protein (test code = 23546-6) NEGATIVE NEGATIVE [facility] HospitalUrine glucose detection by automated test pncme6396-57-23 19:14:00* Test Item Value Reference Range Interpretation Comments Urine Glucose (UA) (test code = 09144-5) NEGATIVE NEGATIVE [facility] HospitalUrine ketones detection by automated test zgbxh5975-26-42 19:14:00* Test Item Value Reference Range Interpretation Comments Urine Ketones (test code = 74396-2) NEGATIVE NEGATIVE [facility] HospitalUrine urobilinogen measurement by test strip (mass/volume)2019-04-23 19:14:00* Test Item Value Reference Range Interpretation Comments Urine Urobilinogen (test code = 41057-7) 0.2 0.2-1 [facility] HospitalUrine total bilirubin nhemysyej2106-58-70 19:14:00* Test Item Value Reference Range Interpretation Comments Urine Bilirubin (test code = 1977-8) NEGATIVE NEGATIVE [facility] HospitalUrine erythrocytes mtlvnraka1031-56-80 19:14:00* Test Item Value Reference Range Interpretation Comments Urine Blood (test code = 68220-1) NEGATIVE NEGATIVE [facility] HospitalAutomated urine sediment leukocyte count by microscopy (number/high power field)2019-04-23 19:14:00* Test Item Value Reference Range Interpretation Comments Urine WBC (test code = 5821-4) 0-5 0-5 [facility] HospitalErythrocytes detection in urine sediment by light gdnjxqygiv0136-16-98 19:14:00* Test Item Value Reference Range Interpretation Comments Urine RBC (test code = 76988-1) 0-5 0-5 [facility] HospitalBacteria detection in urine sediment by light vqumvspbra8369-88-86 19:14:00* Test Item Value Reference Range Interpretation Comments Urine Bacteria (test code = 98348-3) FEW NONE [facility] HospitalEpithelial cells detection in urine sediment by light vbwhryfakx2566-40-05 19:14:00* Test Item Value Reference Range Interpretation Comments Urine Epithelial Cells (test code = 62039-1) FEW NONE [facility] HospitalTriglycerides Enrvj8300-49-23 07:50:00* Test Item Value Reference Range Interpretation Comments Triglycerides Level (test code = 2571-8) 95 0-149 [facility] HospitalCholesterol Numow9295-64-50 07:50:00* Test Item Value Reference Range Interpretation Comments Cholesterol Level (test code = 2093-3) 173 0-199 Less than 200 mg/dL Low Yncg673 - 239 mg/dL Borderline Jupd848 m g/dl and greater High Risk [facility] HospitalLDL Kltqnwzyhhj9146-54-57 07:50:00* Test Item Value Reference Range Interpretation Comments LDL Cholesterol (test code = 2089-1) 85 60-130 [facility] HospitalHDL Sftapafgkhc1981-73-42 07:50:00* Test Item Value Reference Range Interpretation Comments HDL Cholesterol (test code = 2085-9) 69 40-60 H [facility] HospitalCholesterol/HDL Abagh2875-67-13 07:50:00 * Test Item Value Reference Range Interpretation Comments Cholesterol/HDL Ratio (test code = 9830-1) 2.5 3.0-3.6 L [facility]neyerum or plasma triglyceride measurement (mass/volume)2019-04-22 05:23:00* Test Item Value Reference Range Interpretation Comments Triglycerides Level (test code = 2571-8) 95 0-149 [facility] McKinneyerum or plasma cholesterol measurement (mass/volume)2019-04-22 05:23:00* Test Item Value Reference Range Interpretation Comments Cholesterol Level (test code = 2093-3) 173 0-199 Less than 200 mg/dL Low Abdo059 - 239 mg/dL Borderline Wvcn069 m g/dl and greater High Risk [facility] McKinneyerum or plasma cholesterol in LDL measurement (mass/volume) 2019-04-22 05:23:00* Test Item Value Reference Range Interpretation Comments LDL Cholesterol (test code = 2089-1) 85 60-130 [facility] McKinneyerum or plasma cholesterol in HDL measurement (mass/volume)2019-04-22 05:23:00* Test Item Value Reference Range Interpretation Comments HDL Cholesterol (test code = 2085-9) 69 40-60 [facility] McKinneyerum or plasma total cholesterol/cholesterol in HDL mass dslgc2372-40-81 05:23:00* Test Item Value Reference Range Interpretation Comments Cholesterol/HDL Ratio (test code = 9830-1) 2.5 3.0-3.6 [facility] CenterCT [facility]BD[facility]PELVIS VQ0704-97-25 16:27:00 [facility] [address] [address] Patient Name: RADHA HAMLIN MR #: [id number] : 1995 Age/Sex: 23/F Req #: [id number] Adm Physician: DEONTE GUPTA MD Ordered by: ROBERTO MONTGOMERY DO Report #: [id number] Location: MED/SURG2 Room/Bed: [facility] Procedure: [id number] CT /CT ABDOMEN/PELVIS WO Exam Date: 04/21/19 [...] 1634 COPY TO: ROBERTO MONTGOMERY DO Reactive Niyadjhduez3566-84-63 15:24:00 * Test Item Value Reference Range Interpretation Comments Reactive Lymphocytes (test code = 26872-9) 8 [facility] HospitalUrine Amorphous Fihgmrxq8554-75-68 12:56:00* Test Item Value Reference Range Interpretation Comments Urine Amorphous Sediment (test code = 8246-1) RARE FEW [facility] HospitalUrine Qiecz6508-10-31 12:56:00* Test Item Value Reference Range Interpretation Comments Urine Mucus (test code = 8247-9) FEW RARE H [facility] HospitalEthyl Alcohol Ivdmw4327-40-84 12:52:00* Test Item Value Reference Range Interpretation Comments Ethyl Alcohol Level (test code = 5643-2) < 10.0 0.0-10.0 [facility] HospitalBlood lymphocytes variant count (number/volume)2019-04-21 12:09:00* Test Item Value Reference Range Interpretation Comments Reactive Lymphocytes (test code = 86397-9) 8 [facility] HospitalAmorphous sediment detection in urine sediment by light zxzzugkjga8787-68-69 12:09:00* Test Item Value Reference Range Interpretation Comments Urine Amorphous Sediment (test code = 8246-1) RARE [facility] HospitalMucus detection in urine sediment by light wmcuqmxeot9986-55-89 12:09:00* Test Item Value Reference Range Interpretation Comments Urine Mucus (test code = 8247-9) FEW RARE [facility]neyerum or plasma ethanol measurement (mass/volume)2019-04-21 12:09:00* Test Item Value Reference Range Interpretation Comments Ethyl Alcohol Level (test code = 5643-2) < 10.0 0.0-10.0 [facility] W/MANUAL NELE6140-07-03 07:00:00* Test Item Value Reference Range Interpretation [...] IMMAT) 0 % 0-0 N BASIC METABOLIC EDZBR5995-39-10 06:48:00* Test Item Value Reference Range Interpretation [...] CA) 8.7 mg/dL 8.5-10.1 N BASIC METABOLIC OLDTL4427-36-21 06:42:00* Test Item Value Reference Range Interpretation [...] code = CA) mg/dL 8.5-10.1 CBC W/MANUAL CJUP0779-08-36 06:35:00* Test Item Value Reference Range Interpretation [...] MORPHOLOGY (test code = PLTMORPH) CBC W/MANUAL BGJK5159-62-10 06:35:00* Test Item Value Reference Range Interpretation [...] MORPHOLOGY (test code = PLTMORPH) CBC W/MANUAL [id number] 06:35:00* Test Item Value Reference Range Interpretation [...] MORPHOLOGY (test code = PLTMORPH) CBC W/MANUAL [id number] 06:35:00* Test Item Value Reference Range Interpretation [...] MORPHOLOGY (test code = PLTMORPH) CBC W/MANUAL [id number] 06:35:00* Test Item Value Reference Range Interpretation [...] MORPHOLOGY (test code = PLTMORPH) CBC W/AUTO [id number] 06:16:00* Test Item Value Reference Range Interpretation [...] code = BA#) K/mm3 0.0-0.2 CBC W/MANUAL [id number] 07:27:00* Test Item Value Reference Range Interpretation [...] IMMAT) 0 % 0-0 N BASIC METABOLIC [id number] 06:50:00* Test Item Value Reference Range Interpretation [...] CA) 8.7 mg/dL 8.5-10.1 N BASIC METABOLIC [id number] 06:45:00* Test Item Value Reference Range Interpretation [...] code = CA) mg/dL 8.5-10.1 CBC W/MANUAL [id number] 06:41:00* Test Item Value Reference Range Interpretation [...] MORPHOLOGY (test code = PLTMORPH) CBC W/MANUAL [id number] 06:41:00* Test Item Value Reference Range Interpretation [...] MORPHOLOGY (test code = PLTMORPH) CBC W/MANUAL [id number] 06:41:00* Test Item Value Reference Range Interpretation [...] MORPHOLOGY (test code = PLTMORPH) CBC W/MANUAL [id number] 06:41:00* Test Item Value Reference Range Interpretation [...] MORPHOLOGY (test code = PLTMORPH) CBC W/MANUAL [id number] 06:41:00* Test Item Value Reference Range Interpretation [...] MORPHOLOGY (test code = PLTMORPH) CBC W/AUTO [id number] 06:40:00* Test Item Value Reference Range Interpretation [...] This LDL result is a direct measurement.========= [id number] 13:40:00* Test Item Value Reference Range Interpretation [...] use blood in labDRUGS OF ABUSE SCREEN [id number] 08:31:00* Test Item Value Reference Range Interpretation [...] NEGATIVE <300 ng/mL DRUGS OF ABUSE SCREEN [id number] 08:21:00* Test Item Value Reference Range Interpretation [...] NEGATIVE <300 ng/mL DRUGS OF ABUSE SCREEN [id number] 07:59:00* Test Item Value Reference Range Interpretation [...] = [place]) NEGATIVE <300 ng/mL CBC W/AUTO [id number] 07:11:00* Test Item Value Reference Range Interpretation [...] DIFF REQUIRED (test code = MDIFF) NO [id number] 07:08:00* Test Item Value Reference Range Interpretation Comments LIPASE (test code = LIP) 2852 U/L 73.0-393.0 H PROTHROMBIN [id number] 07:04:00* Test Item Value Reference Range Interpretation [...] heart valves (2.5-3.5) IS PATIENT ON ANTICOAGULANTS? [id number] 07:01:00* Test Item Value Reference Range Interpretation Comments GLYCOSYLATED HEMOGLOBIN (HA1C) (test code = GLYHGB) 4.8 % HbA1 4. 8-6.0 N ESTIMATED AVERAGE GLUCOSE (test code = EAG) 91 MG/DL COMPREHENSIVE METABOLIC [id number] 07:00:00* Test Item Value Reference Range Interpretation [...] in reagent. Are CHOL,TRIG & HDL ordered? [id number] 07:00:00* Test Item Value Reference Range Interpretation Comments TRIGLYCERIDES (test code = TRIG) 105 mg/dL 20-150 N Are CHOL,TRIG & HDL ordered? [id number] 07:00:00* Test Item Value Reference Range Interpretation Comments LIPASE (test code = LIP) 6149 U/L 73.0-393.0 H Are CHOL,TRIG & HDL ordered? [id number] 07:00:00* Test Item Value Reference Range Interpretation Comments MAGNESIUM (test code = MAG) 2.0 mg/dL 1.8-2.4 N Are CHOL,TRIG & HDL ordered? NOTHYROID STIMULATING [id number] 07:00:00* Test Item Value Reference Range Interpretation Comments THYROID STIMULATING HORMONE (test code = TSH) 1.650 uIU/mL 0.36-3.7 4 N TSH REFERENCE RANGES: EUTHYROID: 0.35 - 4.3 mIU/mL HYPO : > 5.5 mIU/mL HYPER : < 0.35 mIU/mL Are CHOL,TRIG & HDL ordered? NOCBC W/AUTO [id number] 06:48:00* Test Item Value Reference Range Interpretation [...] NRBC#) 0.00 K/mm3 0.0-0.1 N COMPREHENSIVE METABOLIC [id number] 06:42:00* Test Item Value Reference Range Interpretation [...] IUnit/L 45-117 Are CHOL,TRIG & HDL ordered? [id number] 06:42:00* Test Item Value Reference Range Interpretation Comments TRIGLYCERIDES (test code = TRIG) mg/dL 20-150 Are CHOL,TRIG & HDL ordered? [id number] 06:42:00* Test Item Value Reference Range Interpretation Comments LIPASE (test code = LIP) U/L 73.0-393.0 Are CHOL,TRIG & HDL ordered? [id number] 06:42:00* Test Item Value Reference Range Interpretation Comments MAGNESIUM (test code = MAG) mg/dL 1.8-2.4 Are CHOL,TRIG & HDL ordered? NOTHYROID STIMULATING [id number] 06:42:00* Test Item Value Reference Range Interpretation Comments THYROID STIMULATING HORMONE (test code = TSH) uIU/mL 0.36-3.7 4 Are CHOL,TRIG & HDL ordered? NO- CT ABD PELVIS [id number] 23:12:00 [facility] [place] [facility] 1995 Age/S: 23 / F [address] [facility] Unit #: [id number] Loc: [place] [address] Phys: Thornton MD Acct: [id number] Di s Date: Status: REG ER PHONE #: Exam Date: 02/14/2019 2308 FAX #: [phone] Reason: Abdominal pain EXAMS: CPT CODE: [id number] CT ABD PELVIS W/CONT 87475 EXAM: - CT ABD PELVIS W/ CONT [...] PAGE 1 Signed Report (CONTINUED) [facility] [place] [facility] 1995 Age/S: 23 / F [address] [facility] Unit #: [id number] Loc: [place] [address] Phys: Massimo Ram MD Acct: [id number] Dis Date: Status: REG ER PHONE #: [phone] Exam Date: 02/14/2019 2304 FAX #: [phone] Reason: Abdominal pain EXAMS: CPT CODE: [id number] CT ABD PELVIS W /CONT 98075 <Continued> CC: Andi Ram MD; Benjamin Saenz MD Technologist:LIZABETH CARRILLO RT(R),CT CTDI: DLP: Trnscb Date/Time: 02/14/2019 (2311) [email or web address] Orig Print D/T: S: 02/14/2019 (2314) PAGE 2 Signed Report - XR ABDOMEN [id number] 22:15:00 Name: RADHA HAMLIN [facility] : 1995 Age/S:23 /F [address] [facility] Unit#:[id number] Loc: [place] [address] Phys: Andi Ram MD Dis Date: PHONE #: [phone] Status: REG ER FAX #: [phone] Exam Date: 02/14/2019 Reason: Abdominal pain EXAMS: CPT CODE: [id number] XR ABDOMEN 2V 93578 EXAM: Abdomen, 3 views including upright study; INFORMATION: Abdominal pain; IMPRESSION: 1. Unremarkable bowel gas pattern; no evidence of obstruction; no evidence of pneumoperitoneum or other acute abnormalities. 2. No abnormal calcifications. at 2215 Reported and signed by: Ari Walsh M.D. CC: Adni Ram MD; Benjamin Saenz MD Techno logist: LIZABETH CARRILLO RT(R),CT Trnscrpt Data: (8285) [email or web address] Orig Print D/T: S: 02/14/2019 (9349) PAGE 1 Signed Report BASIC METABOLIC [id number] 21:10:00* Test Item Value Reference Range Interpretation [...] CA) 8.7 mg/dL 8.4-10.2 N HEPATIC FUNCTION [id number] 21:10:00* Test Item Value Reference Range Interpretation [...] code = ALKP) 83 U/L 38-126 N [id number] 21:10:00* Test Item Value Reference Range Interpretation Comments LIPASE (test code = LIP) 6276 U/L 128-270 H HCG SERUM [id number] 21:10:00* Test Item Value Reference Range Interpretation Comments HCG SERUM QUAL (test code = HCGQL) NEGATIVE NEGATIVE This HCGQL test is NOT applicable for MALE patients.Check with nurse about probable order error.If Tumor Marker Test needed, nurse should order test "HCGTU"(Test #550.35981) BASIC METABOLIC [id number] 21:05:00* Test Item Value Reference Range Interpretation [...] CA) 8.7 mg/dL 8.4-10.2 N HEPATIC FUNCTION [id number] 21:05:00* Test Item Value Reference Range Interpretation [...] TOTAL (test code = ALKP) IUnit/L 45-117 [id number] 21:05:00* Test Item Value Reference Range Interpretation Comments LIPASE (test code = LIP) Unit/L 144-286 HCG SERUM [id number] 21:05:00* Test Item Value Reference Range Interpretation Comments HCG SERUM QUAL (test code = HCGQL) NEGATIVE NEGATIVE This HCGQL test is NOT applicable for MALE patients.Check with nurse about probable order error.If Tumor Marker Test needed, nurse should order test "HCGTU"(Test #550.07327) BASIC METABOLIC [id number] 21:03:00* Test Item Value Reference Range Interpretation [...] code = CA) mg/dL 8.4-10.2 HEPATIC FUNCTION [id number] 21:03:00* Test Item Value Reference Range Interpretation [...] TOTAL (test code = ALKP) IUnit/L 45-117 [id number] 21:03:00* Test Item Value Reference Range Interpretation Comments LIPASE (test code = LIP) Unit/L 144-286 HCG SERUM [id number] 21:03:00* Test Item Value Reference Range Interpretation Comments HCG SERUM QUAL (test code = HCGQL) NEGATIVE NEGATIVE This HCGQL test is NOT applicable for MALE patients.Check with nurse about probable order error.If Tumor Marker Test needed, nurse should order test "HCGTU"(Test #550.00624) CBC W/O [id number] 20:54:00* Test Item Value Reference Range Interpretation [...] = MPV) 9.7 fL 6.7-11.0 N URINALYSIS [id number] 20:37:00* Test Item Value Reference Range Interpretation [...] per LPF NONE-FEW Urine Source? Clean CatchURINALYSIS [id number] 20:29:00* Test Item Value Reference Range Interpretation [...]
--- NOTE | 2020-03-17 19:00 | NUR ---
RECEIVED PATIENT IN BEDSIDE SHIFT REPORT. PATIENT RESTING IN BED. MODERATE PAIN, RECENTLY MEDICATED. NO S&S OF DISTRESS NOTED. NS @200ML/HR TO R AC, ASYMPTOMATIC. BED LOCKED IN LOWEST POSITION, SIDE RAILS UPX2, CALL LIGHT IN REACH.
--- NOTE | 2020-03-17 19:09 | NUR ---
Report given to oncoming nurse of patient's status. Resting in bed. no s/s of acute distress noted. Side rails upx2, call light within reach.
[2020-03-18] VITALS (8 sets, daily range): BP systolic 120–133; BP diastolic 67–95
[2020-03-18] MEDS: SODIUM CHLORIDE 0.9% 1000ML 1,000 ML IV SCH ×5 (02:06→19:48)
[2020-03-18] MEDS: HYDROMORPHONE 2MG/ML 2 MG/ML ML IV PRN ×3 (02:18→10:57)
[2020-03-18 05:14] LABS: BASOPHILS % 0.2 % (0.0-1.0); EOSINOPHILS # (AUTO) 0.6 (0.0-0.4); EOSINOPHILS % 4.2 % (0.0-6.0); HEMATOCRIT 35.7 % (34.2-44.1); LYMPHOCYTES # (AUTO) 1.6 (1.0-3.2); LYMPHOCYTES % 11.8 % (18.0-39.1); MEAN CORPUSCULAR HEMOGLOBIN 32.9 pg (28-32); MEAN CORPUSCULAR HGB CONC 33.6 g/dL (31-35); MEAN CORPUSCULAR VOLUME 97.8 fL (81-99); MONOCYTES % 7.2 % (4.4-11.3); NEUTROPHILS # (AUTO) 10.4 (2.1-6.9); NEUTROPHILS % 76.3 % (38.7-80.0); PLATELET COUNT 199 x10e3/uL (140-360); RED BLOOD COUNT 3.65 x10e6/uL (3.6-5.1); RED CELL DISTRIBUTION WIDTH 11.9 % (11.7-14.4)
[2020-03-18 05:40] LABS: ANION GAP 14.3 mmol/L (8-16); BLOOD UREA NITROGEN 5 mg/dL (7-26); BUN/CREATININE RATIO 8 (6-25); CALCIUM 8.4 mg/dL (8.4-10.2); CARBON DIOXIDE 21 mmol/L (22-29); CHLORIDE 104 mmol/L (98-107); CREATININE, SERUM 0.65 mg/dL (0.57-1.11); EST GLOMERULAR FILTRATION RATE > 60 ML/MIN (60-); LIPASE 863 U/L (8-78); POTASSIUM 4.3 mmol/L (3.5-5.1); SODIUM 135 mmol/L (136-145)
[2020-03-18 05:42] LABS: GLUCOSE 58 mg/dL (74-118)
[2020-03-18] MEDS ORDERED: DEXTROSE 5%/0.45% SOD CHL 1,000 ML IV SCH (06:45)
--- NOTE | 2020-03-18 06:46 | NUR ---
SPOKE WITH MD GUPTA ABOUT CRITICAL GLUCOSE OF 58, PATIENT ASYMPTOMATIC. ADDING D51/2NS @ 50 ML/HR TO RUN CONCURRENT WITH CURRENT NS @ 200ML/HR. INFORMED MD OF LOW GRADE FEVER, NO ORDERS FOR TEMP AT THIS TIME, JUST WATCH IT.
--- NOTE | 2020-03-18 07:00 | NUR ---
BEDSIDE SHIFT REPORT RECEIVED FROM LANA GAGNON. PT DENIES FURTHER NEEDS AT THIS TIME.
--- NOTE | 2020-03-18 08:50 | NUR ---
IM- progress note O/N see below ROS: no f/c/s/OJEDA/vision changes/cp/sob/skin rash/back pain/dizziness v/s; revd PE tired appearing anicteric ns1s2 mod bs soft nd; TENDER MID ABDOMEN no e/t skin dry n. affect labs/meds; revd A/P: 23yoF Recurrent Alcoholic pancreatitis- IVF; NPO; etoh cessation Reactive duodenitis- NPO; IVF; Alcoholism- delinquency counselor on cessation Overweight BMI 28.7- check hab1c/lipids Prop: scd; pepcid dispo: f/u labs; strict NPO. IVF - pancreatitis worse; give more fluids; keep NPO; check lipase at 4pm 03-18 improving; add dextrose; start CLD later Senthil Delgado MD PhD
[2020-03-18] MEDS: FAMOTIDINE 20 MG/2 ML VIAL IV SCH ×2 (08:59→17:32)
--- NOTE | 2020-03-18 09:00 | NUR ---
Pt. expressed no spiritual or emotional concerns at this time. Instructor Of Spanish provided hospitality and information on how to reach paper reel operator, if needed. No need to follow at this time. CHAI ROWELL Instructor Of Spanish Spiritual Care Department O: [phone]
--- NOTE | 2020-03-18 14:15 | NUR ---
TRANSFER REPORT CALLED TO LANA SMITH. VITALS WNL, PT DENIES FURTHER NEEDS AT THIS TIME.
--- NOTE | 2020-03-18 14:30 | NUR ---
PT TRANSFERRED FROM ROOM 105 TO 213. PT IS AAOX4. EDUCATED PT ABOUT FALL PRECAUTIONS. PT VERBALIZED UNDERSTANDING. BED IS LOW AND LOCKED. SIDE RAILS X2. CALL LIGHT WITH IN EASY REACH. ALL SAFETY MEASURES IN PLACE. PT DENIES NEEDS AT THIS TIME.
[2020-03-18] MEDS: HYDROMORPHONE 1MG/1ML INJ IV PRN ×2 (15:46→20:01)
--- NOTE | 2020-03-18 16:22 | NUR ---
PT BLOOD SUGAR IS CHECKED. 88 NOTED. PT IS AAOX4. DENIES NEEDS AT THIS TIME.
--- NOTE | 2020-03-18 19:01 | NUR ---
BEDSIDE SHIFT REPORT GIVEN TO THE SENIOR PROCESS ANALYST RN. PT DENIED FURTHER NEEDS.
[2020-03-19] VITALS (8 sets, daily range): BP systolic 96–129; BP diastolic 75–109
[2020-03-19] MEDS: SODIUM CHLORIDE 0.9% 1000ML 1,000 ML IV SCH ×7 (00:55→21:52)
--- NOTE | 2020-03-19 05:02 | NUR ---
Blood Sugar checked and revealed 71 mg/dl.
--- NOTE | 2020-03-19 07:00 | NUR ---
BEDSIDE SHIFT REPORT RECEIVED FROM THE PARTS FABRICATOR RN. EDUCATED PT ABOUT FALL PRECAUTIONS. PT VERBALIZED UNDERSTANDING. BED IS LOW AND LOCKED. SIDE RAILS X2. CALL LIGHT WITH IN EASY REACH. ALL SAFETY MEASURES IN PLACE. PT DENIES NEEDS AT THIS TIME.
[2020-03-19] MEDS: FAMOTIDINE 20 MG TAB PO SCH ×2 (09:22→15:48)
--- NOTE | 2020-03-19 11:05 | NUR ---
IM- progress note O/N see below ROS: no f/c/s/OJEDA/vision changes/cp/sob/skin rash/back pain/dizziness v/s; revd PE tired appearing anicteric ns1s2 mod bs soft nd; TENDER MID ABDOMEN no e/t skin dry n. 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 IVF 03-17 pancreatitis worse; give more fluids; keep NPO; check lipase at 4pm 03-18 improving; add dextrose; start CLD later 03-19 advance to full liq diet. Senthil Delgado MD PhD
[2020-03-19] MEDS: HYDROMORPHONE 1MG/1ML INJ IV PRN ×3 (13:06→23:44)
[2020-03-19] MEDS ORDERED: ONDANSETRON HCL 4 MG ORAL DISINTEGRATING TAB PO PRN (16:00)
--- NOTE | 2020-03-19 18:59 | NUR ---
BEDSIDE SHIFT REPORT GIVEN TO THE HEALTH ASSESSMENT AND TREATMENT TEACHER RN. PT DENIED FURTHER NEEDS.
[2020-03-20] VITALS: BP 135/92
[2020-03-20] MEDS: SODIUM CHLORIDE 0.9% 1000ML 1,000 ML IV SCH ×3 (01:29→07:06)
[2020-03-20 04:00] VITALS: BP 117/76
--- NOTE | 2020-03-20 06:30 | NUR ---
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 IVF - pancreatitis worse; give more fluids; keep NPO; check lipase at 4pm 03-18 improving; add dextrose; start CLD later 03-19 advance to full liq diet. 03-20 d/c planning; check labs d/c home stable avoid all alcohol, including wine d/c>35mins f/u with PCP 2 days Senthil Delgado MD PhD
[2020-03-20 07:07] LABS: BASOPHILS # (AUTO) 0.1 (0.0-0.1); BASOPHILS % 0.5 % (0.0-1.0); EOSINOPHILS # (AUTO) 1.2 (0.0-0.4); EOSINOPHILS % 12.1 % (0.0-6.0); HEMATOCRIT 33.3 % (34.2-44.1); HEMOGLOBIN 11.4 g/dL (12.0-16.0); LYMPHOCYTES # (AUTO) 2.7 (1.0-3.2); LYMPHOCYTES % 27.9 % (18.0-39.1); MEAN CORPUSCULAR HEMOGLOBIN 32.4 pg (28-32); MEAN CORPUSCULAR HGB CONC 34.2 g/dL (31-35); MEAN CORPUSCULAR VOLUME 94.6 fL (81-99); MONOCYTES # (AUTO) 0.8 (0.2-0.8); MONOCYTES % 8.5 % (4.4-11.3); NEUTROPHILS % 50.6 % (38.7-80.0); PLATELET COUNT 233 x10e3/uL (140-360); RED BLOOD COUNT 3.52 x10e6/uL (3.6-5.1); RED CELL DISTRIBUTION WIDTH 12.1 % (11.7-14.4)
[2020-03-20 07:23] VITALS: BP 125/92
[2020-03-20 07:27] LABS: BLOOD UREA NITROGEN < 5 mg/dL (7-26); BUN/CREATININE RATIO 8 (6-25); CALCIUM 8.8 mg/dL (8.4-10.2); CARBON DIOXIDE 24 mmol/L (22-29); CHLORIDE 109 mmol/L (98-107); CREATININE, SERUM 0.62 mg/dL (0.57-1.11); EST GLOMERULAR FILTRATION RATE > 60 ML/MIN (60-); GLUCOSE 71 mg/dL (74-118); SODIUM 142 mmol/L (136-145)
--- NOTE | 2020-03-20 08:15 | NUR ---
Lipase and pharmacy information was called to Dr. Delgado.
[2020-03-20] MEDS: FAMOTIDINE 20 MG TAB PO SCH (09:21)
[2020-03-20] MEDS ORDERED: FAMOTIDINE20 MG PO (11:20)
[2020-03-20 11:22] VITALS: BP 114/83
--- NOTE | 2020-03-20 12:30 | NUR ---
Discharge instructions and prescription given to the patient, she verbalized understanding, iv removed
== END 2020-03-20 12:45 | disposition home or self-care (01) | DRG 440 ==
LOC: FSED 16:29 → ERHOLD 19:30 → MED/SURG 20:16 → MED/SURG2 03-18 14:24
PROVIDERS: ADMIT Internal Medicine; ATTEND Internal Medicine
DX: K85.20 Alcohol induced acute pancreatitis without necrosis or infection (principal); F10.20 Alcohol dependence, uncomplicated; K29.80 Duodenitis without bleeding; E66.3 Overweight; Z68.28 Body mass index [BMI] 28.0-28.9, adult; Z11.59 Encounter for screening for other viral diseases
CPT/HCPCS: 36415; 74177; 80048; 80053; 80061; 80076; 81003; 81025; 82150; 82948; 83036; 83690; 85025; 99284; J1170; J1885; J2405; J2550; J7030; Q9967

== ENCOUNTER 2021-09-20 16:41 | Emergency (ER) | payer OTHER ==
[~2021-09-20] VITALS: Ht 157.5 cm; Wt 78.7 kg
[~2021-09-20 16:41] MED LIST changes: +ATORVASTATIN CA10 MG; +LEVOCETIRIZINE D5 MG; +VITAMIN
[2021-09-20] MEDS ORDERED: IBUPROFEN IB200 MG PO (17:10)
[2021-09-20] MEDS ORDERED: CEFDINIR300 MG PO (17:10)
[2021-09-20] MEDS ORDERED: ONDANSETRON ODT4 MG PO (17:10)
[2021-09-24] MEDS ORDERED: FAMOTIDINE20 MG PO (06:20)
[2021-09-24] MEDS ORDERED: CEPHALEXIN500 MG PO (06:20)
== END 2021-09-20 17:19 | disposition home or self-care (01) ==
LOC: FSED 16:47
DX: R30.0 Dysuria (principal); N39.0 Urinary tract infection, site not specified; R11.2 Nausea with vomiting, unspecified; E78.5 Hyperlipidemia, unspecified; D64.9 Anemia, unspecified; F41.9 Anxiety disorder, unspecified
CPT/HCPCS: 81003; 81025; 99283

== ENCOUNTER 2021-10-13 13:11 | Inpatient (IN) | payer OTHER ==
[~2021-10-13] VITALS: Ht 157.5 cm; Wt 77.1 kg
[~2021-10-13 13:11] MED LIST changes: +CEFDINIR300 MG PO; +CEPHALEXIN500 MG PO; +IBUPROFEN IB200 MG PO; +ONDANSETRON ODT4 MG PO
[2021-10-13] MEDS ORDERED: FAMOTIDINE 20 MG/2 ML VIAL IV STA (13:51)
[2021-10-13] MEDS ORDERED: KETOROLAC TROMETHAMINE 30 MG/ML VIAL IV STA (13:51)
[2021-10-13] MEDS ORDERED: SODIUM CHLORIDE 0.9% 1000ML 1,000 ML IV SCH ×3 (14:00→17:00)
[2021-10-13] MEDS ORDERED: ONDANSETRON HCL INJ 2MG/ML 2ML 2 MG/ML VIAL ONE ×2 (14:16→16:40)
[2021-10-13] MEDS ORDERED: KETOROLAC TROMETHAMINE 30 MG/ML VIAL ONE (14:16)
[2021-10-13] MEDS ORDERED: SODIUM CHLORIDE 0.9% 1000ML 1,000 ML ONE ×2 (14:16→16:41)
[2021-10-13] MEDS ORDERED: IOPAMIDOL 370 MG/ML 100 ML INFUS..BTL INJ ONE (15:55)
[2021-10-13] MEDS ORDERED: ONDANSETRON HCL INJ 2MG/ML 2ML 2 MG/ML VIAL IV STA (16:17)
[2021-10-13] MEDS ORDERED: Morphine 4mg Syringe 4 MG/ML INJ IV ONE (16:30)
[2021-10-13] MEDS ORDERED: Morphine 4mg Syringe 4 MG/ML INJ ONE (16:41)
[2021-10-13] MEDS ORDERED: PROMETHAZINE HCL (IM) 25 MG/ML VIAL IM PRN (17:00)
[2021-10-13 18:41] VITALS: BP 119/88
[2021-10-13] MEDS: HYDROMORPHONE 1MG/1ML INJ IV PRN ×2 (18:41→22:48)
[2021-10-13 18:42] VITALS: BP 119/88
[2021-10-13 20:00] VITALS: BP 118/86
[2021-10-13 21:30] VITALS: BP 118/86
[2021-10-14] VITALS (8 sets, daily range): BP systolic 100–120; BP diastolic 66–74
[2021-10-14] MEDS: LACTATED RINGER'S 1,000 ML INJ SCH ×6 (01:08→20:48)
[2021-10-14] MEDS: HYDROMORPHONE 1MG/1ML INJ IV PRN ×5 (02:36→20:07)
[2021-10-14 05:30] LABS: BASOPHILS % 0.3 % (0.0-1.0); EOSINOPHILS # (AUTO) 0.5 (0.0-0.4); EOSINOPHILS % 3.3 % (0.0-6.0); HEMATOCRIT 39.4 % (34.2-44.1); HEMOGLOBIN 13.5 g/dL (12.0-16.0); LYMPHOCYTES # (AUTO) 2.1 (1.0-3.2); LYMPHOCYTES % 14.5 % (18.0-39.1); MEAN CORPUSCULAR HEMOGLOBIN 33.8 pg (28-32); MEAN CORPUSCULAR HGB CONC 34.3 g/dL (31-35); MEAN CORPUSCULAR VOLUME 98.7 fL (81-99); MONOCYTES % 6.7 % (4.4-11.3); NEUTROPHILS # (AUTO) 10.9 (2.1-6.9); NEUTROPHILS % 74.8 % (38.7-80.0); PLATELET COUNT 233 x10e3/uL (140-360); RED BLOOD COUNT 3.99 x10e6/uL (3.6-5.1); RED CELL DISTRIBUTION WIDTH 12.3 % (11.7-14.4)
[2021-10-14 05:51] LABS: ALBUMIN/GLOBULIN RATIO 1.1 (0.8-2.0); ANION GAP 10.4 mmol/L (8-16); CALCIUM 7.9 mg/dL (8.4-10.2); CREATININE, SERUM 0.69 mg/dL (0.57-1.11); POTASSIUM 4.4 mmol/L (3.5-5.1)
[2021-10-14 06:02] LABS: BILIRUBIN,DIRECT 0.3 mg/dL (0.0-0.5)
[2021-10-15 00:08] VITALS: BP 106/59
[2021-10-15] MEDS: HYDROMORPHONE 1MG/1ML INJ IV PRN ×6 (00:57→23:00)
[2021-10-15] MEDS: LACTATED RINGER'S 1,000 ML INJ SCH ×6 (00:57→23:00)
[2021-10-15 03:45] VITALS: BP 115/62
[2021-10-15 04:58] LABS: BASOPHILS % 0.1 % (0.0-1.0); EOSINOPHILS # (AUTO) 0.4 (0.0-0.4); EOSINOPHILS % 3.5 % (0.0-6.0); HEMATOCRIT 35.8 % (34.2-44.1); HEMOGLOBIN 12.3 g/dL (12.0-16.0); LYMPHOCYTES # (AUTO) 1.7 (1.0-3.2); LYMPHOCYTES % 13.6 % (18.0-39.1); MEAN CORPUSCULAR HEMOGLOBIN 33.3 pg (28-32); MEAN CORPUSCULAR HGB CONC 34.4 g/dL (31-35); MONOCYTES # (AUTO) 0.9 (0.2-0.8); MONOCYTES % 7.1 % (4.4-11.3); NEUTROPHILS # (AUTO) 9.4 (2.1-6.9); NEUTROPHILS % 75.2 % (38.7-80.0); PLATELET COUNT 192 x10e3/uL (140-360); RED BLOOD COUNT 3.69 x10e6/uL (3.6-5.1); RED CELL DISTRIBUTION WIDTH 11.9 % (11.7-14.4)
[2021-10-15 05:31] LABS: ALANINE AMINOTRANSFERASE 9 IU/L (0-55); ALBUMIN 2.7 g/dL (3.5-5.0); ALKALINE PHOSPHATASE 44 IU/L (40-150); ANION GAP 12.8 mmol/L (8-16); BLOOD UREA NITROGEN < 5 mg/dL (7-26); CALCIUM 7.7 mg/dL (8.4-10.2); CARBON DIOXIDE 24 mmol/L (22-29); CHLORIDE 104 mmol/L (98-107); CREATININE, SERUM 0.64 mg/dL (0.57-1.11); EST GLOMERULAR FILTRATION RATE 113 ML/MIN (60-); GLUCOSE 67 mg/dL (74-118); POTASSIUM 3.8 mmol/L (3.5-5.1); SODIUM 137 mmol/L (136-145)
[2021-10-15 05:36] LABS: BUN/CREATININE RATIO 8 (6-25)
[2021-10-15 05:58] LABS: AMYLASE 872 U/L (25-125)
[2021-10-15 06:17] LABS: LIPASE 1787 U/L (8-78)
[2021-10-15 08:15] VITALS: BP 113/63
[2021-10-15] MEDS: ONDANSETRON HCL INJ 2MG/ML 2ML 2 MG/ML VIAL IV PRN ×3 (09:45→18:37)
[2021-10-15 20:00] VITALS: BP 126/54
[2021-10-15 21:36] VITALS: BP 113/63
[2021-10-15 23:59] VITALS: BP 119/73
[2021-10-16] MEDS: LACTATED RINGER'S 1,000 ML INJ SCH ×5 (02:56→21:24)
[2021-10-16] MEDS: HYDROMORPHONE 1MG/1ML INJ IV PRN ×5 (03:56→21:32)
[2021-10-16 04:00] VITALS: BP 117/69
[2021-10-16 06:09] LABS: BASOPHILS % 0.2 % (0.0-1.0); EOSINOPHILS # (AUTO) 0.5 (0.0-0.4); EOSINOPHILS % 3.6 % (0.0-6.0); HEMATOCRIT 31.7 % (34.2-44.1); HEMOGLOBIN 11.1 g/dL (12.0-16.0); LYMPHOCYTES # (AUTO) 1.3 (1.0-3.2); LYMPHOCYTES % 8.8 % (18.0-39.1); MEAN CORPUSCULAR VOLUME 97.2 fL (81-99); MONOCYTES # (AUTO) 1.3 (0.2-0.8); NEUTROPHILS # (AUTO) 11.4 (2.1-6.9); NEUTROPHILS % 77.6 % (38.7-80.0); PLATELET COUNT 188 x10e3/uL (140-360); RED BLOOD COUNT 3.26 x10e6/uL (3.6-5.1); RED CELL DISTRIBUTION WIDTH 11.9 % (11.7-14.4)
[2021-10-16 06:47] LABS: ALANINE AMINOTRANSFERASE 9 IU/L (0-55); ALBUMIN 2.7 g/dL (3.5-5.0); ALBUMIN/GLOBULIN RATIO 0.9 (0.8-2.0); ALKALINE PHOSPHATASE 51 IU/L (40-150); ANION GAP 12.7 mmol/L (8-16); BLOOD UREA NITROGEN < 5 mg/dL (7-26); CALCIUM 7.8 mg/dL (8.4-10.2); CARBON DIOXIDE 20 mmol/L (22-29); CHLORIDE 106 mmol/L (98-107); CREATININE, SERUM 0.64 mg/dL (0.57-1.11); EST GLOMERULAR FILTRATION RATE 113 ML/MIN (60-); GLUCOSE 61 mg/dL (74-118); LIPASE 536 U/L (8-78); POTASSIUM 3.7 mmol/L (3.5-5.1); SODIUM 135 mmol/L (136-145)
[2021-10-16 06:51] LABS: BUN/CREATININE RATIO 8 (6-25)
[2021-10-16 08:02] VITALS: BP 113/65
[2021-10-16] MEDS: ONDANSETRON HCL INJ 2MG/ML 2ML 2 MG/ML VIAL IV PRN ×4 (08:17→21:30)
[2021-10-16] MEDS: ACETAMINOPHEN 325 MG TAB PO PRN (10:05)
[2021-10-16 20:00] VITALS: BP 125/76
[2021-10-16 21:00] VITALS: BP 125/76
[2021-10-17] VITALS (8 sets, daily range): BP systolic 110–127; BP diastolic 62–91
[2021-10-17] MEDS: LACTATED RINGER'S 1,000 ML INJ SCH ×3 (01:13→16:37)
[2021-10-17] MEDS: ONDANSETRON HCL INJ 2MG/ML 2ML 2 MG/ML VIAL IV PRN ×3 (02:15→17:40)
[2021-10-17] MEDS: HYDROMORPHONE 1MG/1ML INJ IV PRN ×4 (02:17→17:40)
[2021-10-17 06:13] LABS: BASOPHILS % 0.2 % (0.0-1.0); EOSINOPHILS # (AUTO) 0.7 (0.0-0.4); EOSINOPHILS % 5.2 % (0.0-6.0); HEMATOCRIT 30.5 % (34.2-44.1); HEMOGLOBIN 10.6 g/dL (12.0-16.0); LYMPHOCYTES # (AUTO) 1.9 (1.0-3.2); LYMPHOCYTES % 13.4 % (18.0-39.1); MEAN CORPUSCULAR HEMOGLOBIN 33.3 pg (28-32); MEAN CORPUSCULAR HGB CONC 34.8 g/dL (31-35); MEAN CORPUSCULAR VOLUME 95.9 fL (81-99); MONOCYTES # (AUTO) 1.3 (0.2-0.8); MONOCYTES % 9.4 % (4.4-11.3); NEUTROPHILS % 71.3 % (38.7-80.0); PLATELET COUNT 177 x10e3/uL (140-360); RED BLOOD COUNT 3.18 x10e6/uL (3.6-5.1); RED CELL DISTRIBUTION WIDTH 11.9 % (11.7-14.4)
[2021-10-17 06:40] LABS: ALANINE AMINOTRANSFERASE 11 IU/L (0-55); ALBUMIN 2.6 g/dL (3.5-5.0); ALBUMIN/GLOBULIN RATIO 0.8 (0.8-2.0); ALKALINE PHOSPHATASE 86 IU/L (40-150); ANION GAP 13.4 mmol/L (8-16); BLOOD UREA NITROGEN < 5 mg/dL (7-26); CALCIUM 7.8 mg/dL (8.4-10.2); CARBON DIOXIDE 24 mmol/L (22-29); CHLORIDE 104 mmol/L (98-107); CREATININE, SERUM 0.69 mg/dL (0.57-1.11); EST GLOMERULAR FILTRATION RATE 104 ML/MIN (60-); GLUCOSE 77 mg/dL (74-118); LIPASE 201 U/L (8-78); POTASSIUM 3.4 mmol/L (3.5-5.1); SODIUM 138 mmol/L (136-145)
[2021-10-17 06:41] LABS: BUN/CREATININE RATIO 7 (6-25)
[2021-10-17] MEDS ORDERED: POTASSIUM CHLORIDE 20 MEQ TAB CR PO ONE (08:30)
[2021-10-18] VITALS: BP 113/75
[2021-10-18] MEDS: LACTATED RINGER'S 1,000 ML INJ SCH ×2 (00:58→09:00)
[2021-10-18] MEDS: ACETAMINOPHEN 325 MG TAB PO PRN (01:20)
[2021-10-18 04:00] VITALS: BP 112/80
[2021-10-18 06:56] LABS: BASOPHILS # (AUTO) 0.1 (0.0-0.1); BASOPHILS % 0.4 % (0.0-1.0); EOSINOPHILS % 7.5 % (0.0-6.0); HEMATOCRIT 31.4 % (34.2-44.1); HEMOGLOBIN 11.1 g/dL (12.0-16.0); LYMPHOCYTES % 15.8 % (18.0-39.1); MEAN CORPUSCULAR HEMOGLOBIN 34.3 pg (28-32); MEAN CORPUSCULAR HGB CONC 35.4 g/dL (31-35); MEAN CORPUSCULAR VOLUME 96.9 fL (81-99); MONOCYTES % 7.7 % (4.4-11.3); NEUTROPHILS # (AUTO) 8.8 (2.1-6.9); PLATELET COUNT 203 x10e3/uL (140-360); RED BLOOD COUNT 3.24 x10e6/uL (3.6-5.1)
[2021-10-18 07:21] LABS: ALANINE AMINOTRANSFERASE 19 IU/L (0-55); ALBUMIN 2.9 g/dL (3.5-5.0); ALBUMIN/GLOBULIN RATIO 0.9 (0.8-2.0); ALKALINE PHOSPHATASE 98 IU/L (40-150); BLOOD UREA NITROGEN < 5 mg/dL (7-26); BUN/CREATININE RATIO 7 (6-25); CALCIUM 8.7 mg/dL (8.4-10.2); CARBON DIOXIDE 25 mmol/L (22-29); CHLORIDE 104 mmol/L (98-107); CREATININE, SERUM 0.67 mg/dL (0.57-1.11); EST GLOMERULAR FILTRATION RATE 107 ML/MIN (60-); GLUCOSE 73 mg/dL (74-118); SODIUM 138 mmol/L (136-145)
[2021-10-18 08:00] VITALS: BP 112/80
[2021-10-18 09:00] VITALS: BP 110/84
[2021-10-18 12:26] VITALS: BP 121/88
== END 2021-10-18 14:55 | disposition home or self-care (01) | DRG 440 ==
LOC: FSED 13:21 → ERHOLD 16:57 → MED/SURG2 18:24
PROVIDERS: ADMIT Internal Medicine; ATTEND Internal Medicine
DX: K85.20 Alcohol induced acute pancreatitis without necrosis or infection (principal); Z87.440 Personal history of urinary (tract) infections; F10.20 Alcohol dependence, uncomplicated; E78.5 Hyperlipidemia, unspecified; F41.9 Anxiety disorder, unspecified; D64.9 Anemia, unspecified; Z20.822 Contact with and (suspected) exposure to COVID-19
CPT/HCPCS: 36415; 74177; 80053; 80061; 80076; 81003; 82150; 82248; 82948; 83690; 83970; 85025; 86039; 94799; 99284; J1170; J1885; J2270; J2405; J7030; J7121; Q9967; U0002

== ENCOUNTER → 2021-11-13 | Outpatient (CLI) | payer OTHER ==
[~2021-11-13] MED LIST changes: +IOPAMIDOL 370 MG/ML 100 ML INFUS..BTL INJ ONE
== END ==
LOC: CT 14:32
PROVIDERS: ATTEND Internal Medicine Gastroenterology
DX: Z87.19 Personal history of other diseases of the digestive system (principal); Z87.898 Personal history of other specified conditions
CPT/HCPCS: 74160; 81025; Q9967

== ENCOUNTER 2022-09-14 11:07 | Emergency (ER) | payer OTHER ==
[~2022-09-14] VITALS: Ht 157.5 cm; Wt 72.6 kg
[~2022-09-14 11:07] MED LIST changes: -IOPAMIDOL 370 MG/ML 100 ML INFUS..BTL INJ ONE
[2022-09-14] MEDS ORDERED: KETOROLAC TROMETHAMINE 30 MG/ML VIAL IV STA ×3 (11:34→18:37)
[2022-09-14] MEDS ORDERED: ONDANSETRON HCL INJ 2MG/ML 2ML 2 MG/ML VIAL IV STA ×4 (11:34→18:37)
[2022-09-14] MEDS ORDERED: FAMOTIDINE 20 MG/2 ML VIAL IV STA (11:34)
[2022-09-14] MEDS ORDERED: ONDANSETRON HCL INJ 2MG/ML 2ML 2 MG/ML VIAL ONE ×3 (11:34→18:37)
[2022-09-14] MEDS ORDERED: SODIUM CHLORIDE 0.9% 1000ML 1,000 ML ONE ×2 (11:34→14:19)
[2022-09-14] MEDS ORDERED: KETOROLAC TROMETHAMINE 30 MG/ML VIAL ONE ×2 (11:34→18:37)
[2022-09-14] MEDS ORDERED: FAMOTIDINE 20 MG/2 ML VIAL IV ONE (11:35)
[2022-09-14] MEDS ORDERED: SODIUM CHLORIDE 0.9% 1000ML 1,000 ML IV ONE ×2 (11:45→14:00)
[2022-09-14] MEDS ORDERED: IOPAMIDOL 370 MG/ML 100 ML INFUS..BTL INJ ONE (12:11)
[2022-09-14] MEDS ORDERED: Morphine 4mg INJECTION 4 MG/ML INJ IV ONE (13:45)
[2022-09-14] MEDS ORDERED: Morphine 4mg INJECTION 4 MG/ML INJ ONE (14:19)
[2022-09-14 18:51] VITALS: BP 108/67
== END 2022-09-14 19:13 | disposition short-term general hospital (02) ==
LOC: FSED 11:12
DX: K85.90 Acute pancreatitis without necrosis or infection, unspecified (principal); D72.829 Elevated white blood cell count, unspecified; F10.20 Alcohol dependence, uncomplicated; Z87.440 Personal history of urinary (tract) infections; Z86.2 Personal history of diseases of the blood and blood-forming organs and certain disorders involving the immune mechanism
CPT/HCPCS: 74177; 80048; 80076; 81003; 81025; 85025; 96374; 96375; 96376; 99284; J1885; J2270; J2405; J7030; Q9967